=== PATIENT | female | born 1945 | race Caucasian/White ===

== ENCOUNTER → 2016-09-22 | Outpatient (CLI) | payer MEDICARE | LOC: RAD 09:35 | PROVIDERS: ATTEND Specialist | DX: C34.12 Malignant neoplasm of upper lobe, left bronchus or lung (principal) | CPT/HCPCS: 71260 ==

== ENCOUNTER → 2016-10-20 | Outpatient (CLI) | payer MEDICARE ==
--- NOTE | 2016-10-21 08:12 | WOMENS IMAGING REPORT ---
EXAM DESCRIPTION: BILAT SCREENING MAMMO W/CAD COMPLETED DATE/TIME: 10/20/2016 12:27 pm REASON FOR STUDY: ROUTINE BILATERAL SCREENING;Z12.31 Z12.31 ENCNTR SCREEN MAMMOGRAM FOR MALIGNANT N EOPLASM OF [place] COMPARISON: 2012 to 2015 TECHNIQUE: Standard craniocaudal and mediolateral oblique views of each breast recorded using Zigswitcha l acquisition. LIMITATIONS: None. FINDINGS: No masses, calcifications or architectural distortion. No areas of suspicion. Read with the assistance of CAD. .[facility] - R2 Cenova Version 1.3 .[facility] - R2 Cenova Version 1.3 .[facility] - R2 Cenova Version 2.4 .[facility] - R2 Cenova Version 2.4 .[facility] - R2 Permanent Mold Supervisor Version 9.2 IMPRESSION: NORMAL MAMMOGRAM. BIRADS 1. BREAST DENSITY: b. There are scattered areas of fibroglandular density. BIRAD: 1 NEGATIVE RECOMMENDATION: ROUTINE SCREENING COMMENT: The patient has been notified of the results by letter per MQSA requirements. Additional no tification policies are in place for contacting patient with suspicious or incomplete findings. Quality ID #[id number]: The [employer] recommends an annual screening mammogram for women aged 40 years or over. This facility utilizes a reminder system to ensure that all patients receive reminder letters, and/or direct phone calls for appointments. This includes reminders for routine scr eening mammograms, diagnostic mammograms, or other Breast Imaging Interventions when appropriate. Th is patient will be placed in the appropriate reminder system. The [employer] (ACR) has developed recommendations for screening MRI of the breast s in certain patient populations, to be used in conjunction with mammography. Breast MRI surveillanc e may be appropriate for women with more than 20% lifetime risk of developing breast cancer as deter mined by genetic testing, significant family history of the disease, or history of mantle radiation f or Hodgkins Disease. ACR Practice Guidelines 2008. TECHNICAL DOCUMENTATION: FINDING NUMBER: (1) ASSESSMENT: (1) JOB ID: [id number] [employer]- All Rights Reserved
== END ==
LOC: WI 09:57
PROVIDERS: ATTEND Specialist
DX: Z12.31 Encounter for screening mammogram for malignant neoplasm of breast (principal)
CPT/HCPCS: 77067; G0202

== ENCOUNTER 2017-01-18 10:31 | Day surgery (SDC) | payer MEDICARE ==
[~2017-01-18 10:31] MED LIST: PROPOFOL INJ 200 MG/20 ML VIAL IV ONE
[2017-01-18 11:53] VITALS: BP 134/70
--- NOTE | 2017-01-18 13:16 | Operative Report ---
Operative Report DATE OF SURGERY: 01/18/17 Operative Report: The risks, benefits and alternatives of the procedure including risks of bleeding, perforation requiring surgery are explained to the patient detail and informed consent was obtained. Patient was taken back to the endoscopy suite and placed in a left, lateral decubital position. Timeout was called. Propofol medications administered. A rectal examination was done which did not reveal any masses, tears or fissures. An Olympus videoscope was inserted into the patient's rectum. It was carefully advanced all the way to the cecum. The cecum was identified by the usual anatomical landmarks including the ileocecal valve as well as the appendiceal office. Photodocumentation was obtained. The scope was then sequentially pulled back via the various segments of the colon including the ascending colon, hepatic flexure, transverse colon, splenic flexure, descending colon finding to the rectosigmoid portions of the colon. Retroflexion maneuver was performed. PREOPERATIVE DIAGNOSIS: Personal history of polyp requiring colonic resection POSTOPERATIVE DIAGNOSIS: Normal anastomosis. Small colon polyp noted at the junction of the splenic flexure which is removed via biopsy forceps. Internal hemorrhoids OPERATION: Colonoscopy with biopsy SURGEON: ANNY BRODERICK ANESTHESIA: LMAC TISSUE REMOVED OR ALTERED: As noted above. COMPLICATIONS: None. ESTIMATED BLOOD LOSS: None. INTRAOPERATIVE FINDINGS: As described above. PROCEDURE: Patient tolerated the procedure well. No immediate postprocedure complications are noted. Patient discharged in good condition. Discharge date 01/18/2017. Discharge diet: Regular. Discharge activity: Regular. 2-3 week follow-up to discuss findings. Patient is instructed to call the office or proceed to the emergency room should there be any further problems or questions. We will wait on pathology. 3-5 year surveillance colonoscopy depending on the pathology of the polyp.
== END 2017-01-18 11:48 | disposition home or self-care (01) ==
LOC: END 10:31
PROVIDERS: ATTEND Internal Medicine Gastroenterology
PROC: 0DBN8ZX Excision of Sigmoid Colon, Via Natural or Artificial Opening Endoscopic, Diagnostic (ICD-10-PCS; principal; 2017-01-18 12:30)
DX: K63.5 Polyp of colon (principal); D12.5 Benign neoplasm of sigmoid colon; D64.9 Anemia, unspecified; Z90.49 Acquired absence of other specified parts of digestive tract; Z80.0 Family history of malignant neoplasm of digestive organs; I10 Essential (primary) hypertension; M19.90 Unspecified osteoarthritis, unspecified site; F17.210 Nicotine dependence, cigarettes, uncomplicated; Z79.51 Long term (current) use of inhaled steroids; G62.9 Polyneuropathy, unspecified; E55.9 Vitamin D deficiency, unspecified
CPT/HCPCS: 45380; 88305 ×2; J2704; 810

== ENCOUNTER → 2017-03-16 | Outpatient (CLI) | payer MEDICARE | LOC: OD 13:25 | PROVIDERS: ATTEND Internal Medicine | DX: R07.2 Precordial pain (principal); R06.02 Shortness of breath; Z53.8 Procedure and treatment not carried out for other reasons ==

== ENCOUNTER → 2017-03-18 | Outpatient (CLI) | payer MEDICARE ==
[2017-03-18 12:10] LABS: ALANINE AMINOTRANSFERASE 49 U/L (9-52); ALBUMIN 4.1 g/dL (3.5-5.0); ALKALINE PHOSPHATASE 98 U/L (38-126); ANION GAP 10 (5-19); ASPARTATE AMINO TRANSFERASE 31 U/L (14-36); BILIRUBIN,DIRECT 0.3 mg/dL (0.0-0.4); BILIRUBIN,TOTAL 0.5 mg/dL (0.2-1.3); BLOOD UREA NITROGEN 12 mg/dL (7-20); CALCIUM 10.2 mg/dL (8.4-10.2); CARBON DIOXIDE 35 mmol/L (22-30); CHLORIDE 99 mmol/L (98-107); CHOLESTEROL 174.64 mg/dL (0-200); CREATININE RESULT 0.66 mg/dL (0.52-1.25); Direct HDL 49 mg/dL (>40); GLUCOSE 94 mg/dL (75-110); POTASSIUM 4.3 mmol/L (3.6-5.0); SODIUM 144.3 mmol/L (137-145); TOTAL PROTEIN 6.6 g/dL (6.3-8.2); TRIGLYCERIDES 135 mg/dL (<150)
[2017-03-18 12:21] LABS: DIRECT LDL 99 mg/dL (<100)
== END ==
LOC: OD 10:25
PROVIDERS: ATTEND Internal Medicine
DX: J44.9 Chronic obstructive pulmonary disease, unspecified (principal); R07.2 Precordial pain; R06.02 Shortness of breath; R00.2 Palpitations; D50.8 Other iron deficiency anemias; I34.0 Nonrheumatic mitral (valve) insufficiency; Z79.899 Other long term (current) drug therapy
CPT/HCPCS: 36415; 80053; 80061

== ENCOUNTER → 2017-11-01 | Outpatient (CLI) | payer MEDICARE ==
--- NOTE | 2017-11-01 11:51 | RADIOLOGY REPORT (SQ) ---
EXAM DESCRIPTION: CT CHEST WITHOUT COMPLETED DATE/TIME: 11/01/2017 9:57 am REASON FOR STUDY: LUNG CA (C34.12) C34.12 MALIGNANT NEOPLASM OF UPPER LOBE, LEFT BRONCHUS OR [facility] COMPARISON: 09/22/2016 TECHNIQUE: CT scan performed of the chest without intravenous contrast. Images reviewed with lung, soft tissue and bone windows. Reconstructed coronal and sagittal MPR images reviewed. All images st ored on PACS. All CT scanners at this facility use dose modulation, iterative reconstruction, and/or weight based d osing when appropriate to reduce radiation dose to as low as reasonably achievable (ALARA). [facility]: Dose Right [facility]: CareDose [facility]: Dose Right [facility]: Teradose 4D [facility]: Smart Technologies RADIATION DOSE: CT Rad equipment meets quality standard of care and radiation dose reduction techniq ues were employed. CTDIvol: 14.5 mGy. DLP: 549 mGy-cm. mGy. LIMITATIONS: No technical limitations. FINDINGS: LUNGS AND PLEURA: There is a 17 mm suprahilar nodule on image 39 series 4 that represents a change. There is chronic parenchymal scarring in the left upper lobe. Stable small subpleural nod ules are seen in the left lower lobe. HILAR AND MEDIASTINAL STRUCTURES: No identified masses or abnormal nodes. No obvious aneurysm. HEART AND VASCULAR STRUCTURES: No aneurysm. No pericardial effusion. UPPER ABDOMEN: No significant findings. Limited exam. THYROID AND OTHER SOFT TISSUES: No masses. No adenopathy. BONES: No significant finding. HARDWARE: None in the chest. OTHER: No other significant findings. IMPRESSION: There is a 17 mm suprahilar nodule on the left that represents a change. PET-CT is noemi mmended. There is chronic scarring in the left upper lobe and there are couple of very small stable subpleural nodules in the left lower lobe. TECHNICAL DOCUMENTATION: JOB ID: [id number] Quality ID # [id number]: Final reports with documentation of one or more dose reduction techniques (e.g., Au tomated exposure control, adjustment of the mA and/or kV according to patient size, use of iterative reconstruction technique) 2010 [employer]- All Rights Reserved Reading location - IP/workstation name: [email or web address]
== END ==
LOC: RAD 09:48
PROVIDERS: ATTEND Internal Medicine
DX: C34.12 Malignant neoplasm of upper lobe, left bronchus or lung (principal)
CPT/HCPCS: 71250

== ENCOUNTER → 2017-11-14 | Outpatient (CLI) | payer MEDICARE ==
--- NOTE | 2017-11-15 13:04 | RADIOLOGY REPORT (SQ) ---
EXAM DESCRIPTION: PET CT SKULL/THIGH COMPLETED DATE/TIME: 11/14/2017 8:28 pm REASON FOR STUDY: LUNG CANCER C34.12 MALIGNANT NEOPLASM OF UPPER LOBE, LEFT BRONCHUS OR [facility] COMPARISON: CT chest dated 11/01/2017 and 09/22/2016. PET-CT dated 11/25/2014. RADIONUCLIDE AND DOSE: 10.0 mCi F18 FDG The route of agent administration: Intravenous FASTING BLOOD SUGAR: 97th mg/dl CONTRAST TYPE AND DOSE: No CT contrast given. TECHNIQUE: Blood glucose level was verified. Above dose of FDG was injected intravenously. 2-D seg mented attenuation correction images were obtained from the base of the skull to the midthighs. Nonc ontrast CT images were obtained for attenuation correction and fusion with emission images. CT image s were performed without oral or intravenous contrast and are not sensitive for parenchymal lesions. A series of overlapping emission PET images were obtained. Images reviewed and [facility] work [facility] by the radiologist. Images stored on PACS. LIMITATIONS: None. FINDINGS: HEAD AND NECK: No areas of abnormal metabolic activity in the soft tissues of the head and neck. CHEST: Bilateral surgical changes. Spiculated left suprahilar mass measuring 1.7 x 2.2 cm. Mean SUV 12.49. No other areas of abnormal activity in the chest. No adenopathy or other pulmonary masses. ABDOMEN AND PELVIS: No areas of abnormal metabolic activity in the abdomen or pelvis. Expected physi ologic activity is present in the genitourinary system and bowel. PROXIMAL LOWER EXTREMITIES: No areas of abnormal metabolic activity in the soft tissues of the lower extremities. BONES: No abnormal metabolic activity in the visualized skeleton. ADDITIONAL CT FINDINGS: Bilateral renal cysts. Previous right hemicolectomy. OTHER: Background liver activity mean SUV 2.43. Background blood pool activity mean SUV 1.47. IMPRESSION: SPICULATED MASS IN THE SUPRAHILAR LEFT LUNG WITH MARKEDLY INCREASED ACTIVITY CONSISTENT WITH MALIGNANCY. NO OTHER PULMONARY MASSES AND NO ADENOPATHY. NO OTHER ABNORMAL FINDINGS ON PET ELLEN GING. INCIDENTAL STABLE CT FINDINGS ABOVE. TECHNICAL DOCUMENTATION: JOB ID: [id number] [employer]- All Rights Reserved Reading location - IP/workstation name: [email or web address]
== END ==
LOC: RAD 16:42
PROVIDERS: ATTEND Internal Medicine
DX: C34.12 Malignant neoplasm of upper lobe, left bronchus or lung (principal)
CPT/HCPCS: 78815; A9552

== ENCOUNTER → 2017-11-29 | Outpatient (CLI) | payer MEDICARE | LOC: OD 13:58 | PROVIDERS: ATTEND Internal Medicine | DX: R07.2 Precordial pain (principal); R06.02 Shortness of breath; R00.2 Palpitations; J44.9 Chronic obstructive pulmonary disease, unspecified; D50.8 Other iron deficiency anemias; I34.0 Nonrheumatic mitral (valve) insufficiency; Z79.899 Other long term (current) drug therapy | CPT/HCPCS: 36415; 83735 ==

== ENCOUNTER 2017-12-01 21:25 | Emergency (ER) | payer MEDICARE ==
--- NOTE | 2017-12-01 21:51 | EKG REPORT ---
SEVERITY:- NORMAL ECG - SINUS RHYTHM : Confirmed by: Anila Wolff MD 01-Dec-2017 21:50:38
--- NOTE | 2017-12-01 23:03 | ER Document Report ---
ED Medical Screen (RME) - General Chief Complaint: Blood Pressure Problem Stated Complaint: WEAKNESS Time Seen by Provider: 12/01/17 23:00 Mode of Arrival: Ambulatory Information source: Patient Notes: 72-year-old female presents today for complaint of low blood pressure and spitting up blood. She states she went to [place] yesterday for bronchoscopy for biopsy of the tumor on her left lung. She states she has already had part of her right lung removed for lung cancer. She states she has had a wedge part of her lung on the left removed in the past. She states that after the bronchoscopy she started spitting up blood and her blood pressure has been 97/41 and she has felt much weaker today. There is no active blood noted in the emergency room. She is respirations regular and unlabored at this time. O2 sat is 93. Blood pressure 114/58. Labs EKG and chest x-ray will be completed and patient will be seen by another provider I have greeted and performed a rapid initial assessment of this patient. A comprehensive ED assessment and evaluation of the patient, analysis of test results and completion of medical decision making process will be conducted by an additional ED providers. TRAVEL OUTSIDE OF THE [place] IN LAST 30 DAYS: No - Related Data Allergies/Adverse Reactions: adhesive [Adhesive] Allergy (Mild, Verified 01/18/17 10:36) Blisters lisinopril [Lisinopril] Adverse Reaction (Severe, Verified 01/18/17 10:36) cough diphenhydramine [From Benadryl] Adverse Reaction (Mild, Verified 01/18/17 10:36) WEIRD DREAMS ramipril [From Altace] Adverse Reaction (Unknown, Verified 01/18/17 10:36) cough Past Medical History - Past Medical History Cardiac Medical History: Reports: Hx Hypercholesterolemia, Hx Hypertension - meds x 15 yrs Denies: Hx Atrial Fibrillation, Hx Congestive Heart Failure, Hx Coronary Artery Disease, Hx Heart Attack, Hx Peripheral Vascular Disease, Hx Pulmonary Embolism, Hx Heart Murmur Pulmonary Medical History: Reports: Hx COPD, Hx Pneumonia, Hx Sleep Apnea - c pap Denies: Hx Asthma, Hx Bronchitis, Hx Respiratory Failure, Hx Tuberculosis Neurological Medical History: Denies: Hx Cerebrovascular Accident, Hx Seizures Renal/ Medical History: Denies: Hx Ovarian Cysts, Hx Pelvic Inflammatory Disease Malignancy Medical History: Reports: Hx Lung Cancer - rt lobes removed 2005 , upper & mid lungs removed. Denies: Hx Breast Cancer, Hx Cervical Cancer, Hx Leukemia, Hx Ovarian Cancer GI Medical History: Denies: Hx Crohn's Disease, Hx Gastroesophageal Reflux Disease, Hx Hiatal Hernia, Hx Irritable Bowel, Hx Liver Failure, Hx Pancreatitis , Hx Ulcer Musculoskeltal Medical History: Reports Hx Arthritis, Denies Hx Fibromyalgia, Denies Hx Multiple Sclerosis, Denies Hx Muscular Dystrophy Psychiatric Medical History: Reports: Hx Depression - chronic Denies: Hx Bipolar Disorder, Hx Dementia, Hx Post Traumatic Stress Disorder, Hx Schizophrenia Traumatic Medical History: Denies: Hx Fractures Infectious Medical History: Denies: Hx HIV Past Surgical History: Reports: Hx Appendectomy - age 4, Hx Tonsillectomy. Denies: Hx Bowel Surgery, Hx Section, Hx Cholecystectomy, Hx Colostomy , Hx Coronary Artery Bypass Graft, Hx Gastric Bypass Surgery, Hx Herniorrhaphy, Hx Hysterectomy, Hx Mastectomy, Hx Pacemaker, Hx Tubal Ligation - Immunizations Hx Diphtheria, Pertussis, Tetanus Vaccination: No Physical Exam - Vital signs Vitals: Temp Pulse Resp BP Pulse Ox 98.3 F 78 18 114/58 L 93 12/01/17 21:56 12/01/17 21:56 12/01/17 21:56 12/01/17 21:56 12/01/17 21:56 Course - Vital Signs Vital signs: Temp Pulse Resp BP Pulse Ox 98.3 F 78 18 114/58 L 93 12/01/17 21:56 12/01/17 21:56 12/01/17 21:56 12/01/17 21:56 12/01/17 21:56 Doctor's Discharge - Discharge Referrals: LATOSHA CLARK MD [Primary Care Provider] - Follow up as needed
--- NOTE | 2017-12-01 23:52 | ER Document Report ---
ED General - General Chief Complaint: Blood Pressure Problem Stated Complaint: WEAKNESS Time Seen by Provider: 12/01/17 23:00 Mode of Arrival: Ambulatory Information source: Patient, [facility] Records Notes: 72-year-old female with lung cancer, COPD, hyperlipidemia, hypertension, iron deficiency anemia, CHRISSY presents with complaint of weakness, fatigue, low blood pressure and coughing up blood. Patient states she underwent a bronchoscopy yesterday at [facility] with Dr. sethi. She states she was discharged home and was feeling fine until today when she began coughing and had some bright red blood mixed with her sputum. She does state that Dr. sethi informed her that it was possible to have some minimal bleeding after the procedure. Patient also complaining of feeling fatigued and weak. She did undergo general anesthesia yesterday repeat ports poor p.o. intake over the last 2 days. Patient currently states "I feel fine". She states "my was getting nervous that I was coughing up blood". She denies any fever, chills , nausea, vomiting, chest pain, shortness of breath, abdominal pain. Patient does have chronic low back pain which is at her baseline. Patient's fishing reel assembler is Dr. Morocho. Patient's oncologist Dr. Reynolds. PCP Dr. Felix TRAVEL OUTSIDE OF THE [place] IN LAST 30 DAYS: No - HPI Onset: This morning Onset/Duration: Gradual Quality of pain: No pain Severity: None Associated symptoms: None Exacerbated by: Denies Relieved by: Denies Similar symptoms previously: No Recently seen / treated by doctor: Yes - Related Data Allergies/Adverse Reactions: adhesive [Adhesive] Allergy (Mild, Verified 01/18/17 10:36) Blisters lisinopril [Lisinopril] Adverse Reaction (Severe, Verified 01/18/17 10:36) cough diphenhydramine [From Benadryl] Adverse Reaction (Mild, Verified 01/18/17 10:36) WEIRD DREAMS ramipril [From Altace] Adverse Reaction (Unknown, Verified 01/18/17 10:36) cough Past Medical History - General Information source: Patient - Social History Smoking Status: Former Smoker Frequency of alcohol use: None Drug Abuse: None Lives with: Spouse/Significant other Family History: Reviewed & Not Pertinent Patient has suicidal ideation: No Patient has homicidal ideation: No - Past Medical History Cardiac Medical History: Reports: Hx Hypercholesterolemia, Hx Hypertension - meds x 15 yrs Denies: Hx Atrial Fibrillation, Hx Congestive Heart Failure, Hx Coronary Artery Disease, Hx Heart Attack, Hx Peripheral Vascular Disease, Hx Pulmonary Embolism, Hx Heart Murmur Pulmonary Medical History: Reports: Hx COPD, Hx Pneumonia, Hx Sleep Apnea - c pap Denies: Hx Asthma, Hx Bronchitis, Hx Respiratory Failure, Hx Tuberculosis Neurological Medical History: Denies: Hx Cerebrovascular Accident, Hx Seizures Renal/ Medical History: Denies: Hx Ovarian Cysts, Hx Pelvic Inflammatory Disease Malignancy Medical History: Reports: Hx Lung Cancer - rt lobes removed 2005 , upper & mid lungs removed. Denies: Hx Breast Cancer, Hx Cervical Cancer, Hx Leukemia, Hx Ovarian Cancer GI Medical History: Denies: Hx Crohn's Disease, Hx Gastroesophageal Reflux Disease, Hx Hiatal Hernia, Hx Irritable Bowel, Hx Liver Failure, Hx Pancreatitis , Hx Ulcer Musculoskeletal Medical History: Reports Hx Arthritis, Denies Hx Fibromyalgia, Denies Hx Multiple Sclerosis, Denies Hx Muscular Dystrophy Psychiatric Medical History: Reports: Hx Depression - chronic Denies: Hx Bipolar Disorder, Hx Dementia, Hx Post Traumatic Stress Disorder, Hx Schizophrenia Traumatic Medical History: Denies: Hx Fractures Infectious Medical History: Denies: Hx HIV Past Surgical History: Reports: Hx Appendectomy - age 4, Hx Tonsillectomy. Denies: Hx Bowel Surgery, Hx Section, Hx Cholecystectomy, Hx Colostomy , Hx Coronary Artery Bypass Graft, Hx Gastric Bypass Surgery, Hx Herniorrhaphy, Hx Hysterectomy, Hx Mastectomy, Hx Pacemaker, Hx Tubal Ligation - Immunizations Hx Diphtheria, Pertussis, Tetanus Vaccination: No Hx Pneumococcal Vaccination: 01/23/16 Review of Systems - Review of Systems Notes: REVIEW OF SYSTEMS: CONSTITUTIONAL : Denies fever, chills, or sweats. Denies recent illness. Denies weight loss, recent hospitalizations. EENT: Denies visual changes, eye pain. Denies nasal or sinus congestion or discharge. Denies sore throat, oral lesions, difficulty swallowing. CARDIOVASCULAR: Denies chest pain. Denies palpitations. Denies lower extremity edema. RESPIRATORY: Denies cough, cold, or chest congestion. Denies shortness of breath, wheezing. GASTROINTESTINAL: Denies abdominal pain or distention. Denies nausea, vomiting , or diarrhea. Denies blood in vomitus, stools, or per rectum. Denies black, tarry stools. Denies constipation. GENITOURINARY: Denies difficulty urinating, painful urination, frequency, blood in urine, or vaginal discharge. MUSCULOSKELETAL: Denies back or neck pain or stiffness. Denies joint pain or swelling. SKIN: Denies rash, lesions or sores. HEMATOLOGIC : Denies easy bruising or bleeding. LYMPHATIC: Denies swollen glands. NEUROLOGICAL: Denies confusion or altered mental status. Denies passing out or loss of consciousness. Denies dizziness or lightheadedness. Denies headache. Denies paralysis. Denies problems difficulty with ambulation, slurred speech. Denies sensory loss, numbness, or tingling. Denies seizures. PSYCHIATRIC: Denies anxiety or stress. Denies depression, suicidal ideation, or homicidal ideation. Denies visual or auditory hallucinations. Physical Exam - Vital signs Vitals: Temp Pulse Resp BP Pulse Ox 98.3 F 78 18 114/58 L 93 12/01/17 21:56 12/01/17 21:56 12/01/17 21:56 12/01/17 21:56 12/01/17 21:56 - Notes Notes: PHYSICAL EXAMINATION: GENERAL: Well-appearing, well-nourished and in no acute distress. HEAD: Atraumatic, normocephalic. EYES: Pupils equal round and reactive to light, extraocular movements intact, conjunctiva are normal. ENT: Nares patent, oropharynx clear without exudates. Moist mucous membranes. No blood in the oropharynx NECK: Normal range of motion, supple without lymphadenopathy LUNGS: Breath sounds clear to auscultation bilaterally and equal. No wheezes rales or rhonchi. No crepitus HEART: Regular rate and rhythm without murmurs ABDOMEN: Soft, nontender, nondistended abdomen. No guarding, no rebound. No masses appreciated. Female : deferred Musculoskeletal: Normal range of motion, no pitting or edema. No cyanosis. NEUROLOGICAL: Cranial nerves grossly intact. Normal speech, normal gait. Normal sensory, motor exams PSYCH: Normal mood, normal affect. SKIN: Warm, Dry, normal turgor, no rashes or lesions noted. Course - Re-evaluation Re-evalutation: Laboratory 12/02/17 12/02/17 12/02/17 00:27 00:27 00:27 WBC 8.0 RBC 4.56 Hgb 11.5 L Hct 35.8 L MCV 79 L MCH 25.3 L MCHC 32.3 RDW 16.3 H Plt Count 273 Seg Neutrophils % 65.9 Lymphocytes % 23.4 Monocytes % 7.3 Eosinophils % 2.4 Basophils % 1.0 Absolute Neutrophils 5.3 Absolute Lymphocytes 1.9 Absolute Monocytes 0.6 Absolute Eosinophils 0.2 Absolute Basophils 0.1 Sodium 144.6 Potassium 3.5 L Chloride 98 Carbon Dioxide 33 H Anion Gap 14 BUN 10 Creatinine 0.53 Est GFR ( Amer) > 60 Est GFR (Non-Af Amer) > 60 Glucose 95 Calcium 9.4 Total Bilirubin 0.4 Direct Bilirubin 0.4 Neonat Total Bilirubin Not Reportable Neonat Direct Bilirubin Not Reportable Neonat Indirect Bili Not Reportable AST 42 H ALT 25 Alkaline Phosphatase 110 Creatine Kinase 61 CK-MB (CK-2) 0.67 Troponin I < 0.012 Total Protein 7.4 Albumin 4.2 Urine Color Urine Appearance Urine pH Ur Specific [place] Urine Protein Urine Glucose (UA) Urine Ketones Urine Blood Urine Nitrite Urine Bilirubin Urine Urobilinogen Ur Leukocyte Esterase Urine WBC (Auto) Urine RBC (Auto) Squamous Epi Cells Auto Urine Mucus (Auto) Urine Ascorbic Acid 12/02/17 00:27 WBC RBC Hgb Hct MCV MCH MCHC RDW Plt Count Seg Neutrophils % Lymphocytes % Monocytes % Eosinophils % Basophils % Absolute Neutrophils Absolute Lymphocytes Absolute Monocytes Absolute Eosinophils Absolute Basophils Sodium Potassium Chloride Carbon Dioxide Anion Gap BUN Creatinine Est GFR ( Amer) Est GFR (Non-Af Amer) Glucose Calcium Total Bilirubin Direct Bilirubin Neonat Total Bilirubin Neonat Direct Bilirubin Neonat Indirect Bili AST ALT Alkaline Phosphatase Creatine Kinase CK-MB (CK-2) Troponin I Total Protein Albumin Urine Color YELLOW Urine Appearance CLEAR Urine pH 7.0 Ur Specific [place] 1.008 Urine Protein NEGATIVE Urine Glucose (UA) NEGATIVE Urine Ketones NEGATIVE Urine Blood SMALL H Urine Nitrite NEGATIVE Urine Bilirubin NEGATIVE Urine Urobilinogen NEGATIVE Ur Leukocyte Esterase NEGATIVE Urine WBC (Auto) 1 Urine RBC (Auto) 1 Squamous Epi Cells Auto 1 Urine Mucus (Auto) RARE Urine Ascorbic Acid NEGATIVE Chest X-Ray 12/01/17 23:00 IMPRESSION: 1. Mild bilateral perihilar peribronchial interstitial opacities. No pneumothorax or lobar consolidation 72-year-old female with lung cancer, COPD, hyperlipidemia, hypertension, iron deficiency anemia, CHRISSY presents with complaint of weakness, fatigue, low blood pressure and coughing up blood. Patient states she underwent a bronchoscopy yesterday at [facility] with Dr. sethi. She states she was discharged home and was feeling fine until today when she began coughing and had some bright red blood mixed with her sputum. She does state that Dr. sethi informed her that it was possible to have some minimal bleeding after the procedure. Patient also complaining of feeling fatigued and weak. She did undergo general anesthesia yesterday repeat ports poor p.o. intake over the last 2 days. Patient currently states "I feel fine". She states "my was getting nervous that I was coughing up blood". She denies any fever, chills , nausea, vomiting, chest pain, shortness of breath, abdominal pain. Patient does have chronic low back pain which is at her baseline. Patient's fishing reel assembler is Dr. Morocho. Patient's oncologist Dr. Gonzalez. PCP Dr. Felix. Patient was seen by myself upon arrival. Vital signs were reviewed. Patient is afebrile, normotensive and not hypoxic. Patient does not appear toxic or dehydrated. They are in no acute distress. Previous medical records and nursing notes reviewed. Significant findings include a well-appearing female with a normal physical exam. No evidence of crepitus, active bleeding. Patient has had multiple episodes of coughing without blood. Laboratory testing is essentially under control. A 2-year-old female with lung cancer who underwent general anesthesia yesterday and has had 2 days of decreased p.o. intake should feel fatigued. I think her minor bleeding with coughing was to be expected and was discussed with the patient yesterday by the performing physician. 12/02/17 02:00 Patient reevaluated, she is resting comfortably. She has no complaints. She consistently feet states "I do not feel bad I am just tired". Patient reports that she has coughed several times without any bright red blood in her sputum. Patient reassured and discharged home with recommendations to follow up with her fishing reel assembler Dr. Morocho as soon as possible. 12/03/17 07:50 12/03/17 07:50 Patient provided the opportunity to ask questions, and express concerns. Discharge instructions discussed. Patient is agreeable with discharge home. Return indications explained and discussed with the patient who displays understanding. Patient encouraged to return to the emergency department immediately with any concerns. - Vital Signs Vital signs: Temp Pulse Resp BP Pulse Ox 98.3 F 70 14 123/60 93 12/01/17 21:56 12/02/17 01:18 12/02/17 01:01 12/02/17 01:18 12/02/17 01:01 - Laboratory Result Diagrams: 12/02/17 00:27 12/02/17 00:27 Laboratory results interpreted by me: 12/02/17 12/02/17 12/02/17 00:27 00:27 00:27 Hgb 11.5 L Hct 35.8 L MCV 79 L MCH 25.3 L RDW 16.3 H Potassium 3.5 L Carbon Dioxide 33 H AST 42 H Urine Blood SMALL H - Diagnostic Test Radiology reviewed: Image reviewed, Reports reviewed Discharge - Discharge Clinical Impression: Cough with hemoptysis, History of lung cancer Condition: Good Disposition: HOME, SELF-CARE Instructions: Hemoptysis ([facility]) Additional Instructions: Please contact her fishing reel assembler Dr. Morocho tomorrow. Today your lab work was unremarkable. Your hemoglobin is 11.5 which is better than it has been in the past. You have mildly low potassium but I do not feel that it needs replenished at this time. Please eat normally tomorrow. Please return to the emergency department with any concerns, recurrence of coughing up blood. Referrals: LATOSHA CLARK MD [ACTIVE STAFF] - Follow up as needed
[2017-12-02 00:43] LABS: ABSOLUTE BASOPHILS # (AUTO) 0.1 10^3/uL (0.0-0.2); ABSOLUTE EOSINOPHILS # (AUTO) 0.2 10^3/uL (0.0-0.6); ABSOLUTE LYMPHOCYTES (AUTO) 1.9 10^3/uL (0.5-4.7); ABSOLUTE MONOCYTES (AUTO) 0.6 10^3/uL (0.1-1.4); ABSOLUTE NEUT (AUTO) 5.3 10^3/uL (1.7-8.2); EOSINOPHILS % (AUTO) 2.4 % (0-6); HEMATOCRIT 35.8 % (36.0-47.0); HEMOGLOBIN 11.5 g/dL (12.0-15.5); LYMPHOCYTES % (AUTO) 23.4 % (13-45); MEAN CORPUSCULAR HEMOGLOBIN 25.3 pg (27.0-33.4); MEAN CORPUSCULAR HGB CONC 32.3 g/dL (32.0-36.0); MEAN CORPUSCULAR VOLUME 79 fl (80-97); MONOCYTES % (AUTO) 7.3 % (3-13); PLATELET COUNT 273 10^3/uL (150-450); RED BLOOD COUNT 4.56 10^6/uL (3.72-5.28); RED CELL DISTRIBUTION WIDTH 16.3 % (11.5-14.0); SEGMENTED NEUTROPHILS % (AUTO) 65.9 % (42-78); TOTAL CELLS COUNTED % (AUTO) 100 %
[2017-12-02 01:07] LABS: ALANINE AMINOTRANSFERASE 25 U/L (9-52); ALBUMIN 4.2 g/dL (3.5-5.0); ALKALINE PHOSPHATASE 110 U/L (38-126); ANION GAP 14 (5-19); ASPARTATE AMINO TRANSFERASE 42 U/L (14-36); BILIRUBIN,DIRECT 0.4 mg/dL (0.0-0.4); BILIRUBIN,TOTAL 0.4 mg/dL (0.2-1.3); BLOOD UREA NITROGEN 10 mg/dL (7-20); CALCIUM 9.4 mg/dL (8.4-10.2); CARBON DIOXIDE 33 mmol/L (22-30); CHLORIDE 98 mmol/L (98-107); CREATINE KINASE 61 U/L (30-135); GLUCOSE 95 mg/dL (75-110); POTASSIUM 3.5 mmol/L (3.6-5.0); SODIUM 144.6 mmol/L (137-145); TOTAL PROTEIN 7.4 g/dL (6.3-8.2)
--- NOTE | 2017-12-02 01:11 | RADIOLOGY REPORT (SQ) ---
EXAM DESCRIPTION: XR CHEST 2 VIEWS COMPLETED DATE/TME: 12/01/2017 23:00 CLINICAL HISTORY: bronchoscopy yesterday spitting blood L bp COMPARISON: 12/09/2012 FINDINGS: Frontal and lateral views of the chest. Atherosclerotic calcification aortic arch. Postoperative change in the left upper lung. No pneumothorax or pleural effusion. Mild bilateral perihilar interstitial opacities. No lobar consolidation. No acute osseous abnormalities. Upper abdominal soft tissues are unremarkable. IMPRESSION: 1. Mild bilateral perihilar peribronchial interstitial opacities. No pneumothorax or lobar consolidation
[2017-12-02 01:15] LABS: APPEARANCE,URINE CLEAR; BILIRUBIN,URINE NEGATIVE (NEGATIVE); COLOR,URINE YELLOW; CREATINE KINASE MB 0.67 ng/mL (<4.55); GLUCOSE, URINE NEGATIVE (NEGATIVE); KETONES,URINE NEGATIVE (NEGATIVE); LEUKOCYTE ESTERASE,URINE NEGATIVE (NEGATIVE); NITRITE,URINE NEGATIVE (NEGATIVE); PROTEIN,URINE NEGATIVE (NEGATIVE); URINE SPECIFIC GRAVITY 1.008; UROBILINOGEN,URINE NEGATIVE mg/dL (<2.0)
[2017-12-02 01:16] LABS: TROPONIN I < 0.012 ng/mL
[2017-12-02 01:24] VITALS: BP 123/60
== END 2017-12-02 02:30 | disposition home or self-care (01) ==
LOC: ER 21:25
DX: R04.2 Hemoptysis (principal); R53.1 Weakness; J44.9 Chronic obstructive pulmonary disease, unspecified; I10 Essential (primary) hypertension; E78.00 Pure hypercholesterolemia, unspecified; Z85.118 Personal history of other malignant neoplasm of bronchus and lung; Z90.2 Acquired absence of lung [part of]
CPT/HCPCS: 36415; 71046; 80053; 81001; 82550; 82553; 84484; 85025; 93005; 93010; 99284

== ENCOUNTER → 2018-03-21 | Outpatient (CLI) | payer MEDICARE ==
[2018-03-21 11:16] LABS: ARTERIAL BLOOD H2CO3 1.33 mmol/L (1.05-1.35); ARTERIAL BLOOD HCO3 29.7 mmol/L (20-24); ARTERIAL BLOOD O2 SATURATION 97.1 % (94-98); ARTERIAL BLOOD PCO2 44.3 mmHg (35-45); ARTERIAL BLOOD PH 7.44 (7.35-7.45); ARTERIAL BLOOD PO2 89.9 mmHg (80-100)
[2018-03-21 11:21] LABS: ARTERIAL BLOOD FIO2 ROOM AIR
[2018-03-24 12:50] LABS: ANION GAP 10 (5-19); BLOOD UREA NITROGEN 8 mg/dL (7-20); CALCIUM 9.7 mg/dL (8.4-10.2); CARBON DIOXIDE 33 mmol/L (22-30); CHLORIDE 101 mmol/L (98-107); GLUCOSE 90 mg/dL (75-110); POTASSIUM 4.3 mmol/L (3.6-5.0); SODIUM 143.7 mmol/L (137-145)
== END ==
LOC: LAB 10:55
PROVIDERS: ATTEND Physician Assistant
DX: J44.9 Chronic obstructive pulmonary disease, unspecified (principal)
CPT/HCPCS: 36415; 80048; 82803; 83735; 83930

== ENCOUNTER → 2018-05-15 | Outpatient (CLI) | payer MEDICARE ==
--- NOTE | 2018-05-16 08:53 | RADIOLOGY REPORT (SQ) ---
EXAM DESCRIPTION: PET CT SKULL/THIGH COMPLETED DATE/TIME: 05/15/2018 4:57 pm REASON FOR STUDY: LUNG CANCER C34.12 MALIGNANT NEOPLASM OF UPPER LOBE, LEFT BRONCHUS OR [facility] COMPARISON: PET-CT 11/14/2017, 12/05/2014 CT chest 11/01/2017, 09/22/2016 RADIONUCLIDE AND DOSE: 11.8 mCi F18 FDG The route of agent administration: Intravenous FASTING BLOOD SUGAR: 95 mg/dl CONTRAST TYPE AND DOSE: No CT contrast given. TECHNIQUE: Blood glucose level was verified. Above dose of FDG was injected intravenously. 2-D seg mented attenuation correction images were obtained from the base of the skull to the midthighs. Nonc ontrast CT images were obtained for attenuation correction and fusion with emission images. CT image s were performed without oral or intravenous contrast and are not sensitive for parenchymal lesions. A series of overlapping emission PET images were obtained. Images reviewed and manipulated at [facility] work station by the radiologist. Images stored on PACS. LIMITATIONS: None. FINDINGS: HEAD AND NECK: No areas of abnormal metabolic activity in the soft tissues of the head and neck. CHEST: Post treatment response after CyberKnife to the left upper lobe nodule adjacent to fiducials a nd left upper lobe staple line. Currently the nodule is 1.7 cm in greatest diameter with SUV of 3 (w as 2.2 cm greatest diameter with SUV 12.5 on 11/14/2017). In the left upper lobe adjacent to the fiducials, a bandlike area of ground-glass opacity is present on axial images 69-74 with SUV value of 1.5, likely post radiation change. Interval development of an 8 mm nodule in the superior segment left lower lobe on axial image 81, wit h SUV of 1.2. This is below baseline activity but still requires periodic CT surveillance. ABDOMEN AND PELVIS: No areas of abnormal metabolic activity in the abdomen or pelvis. Expected physi ologic activity is present in the genitourinary system and bowel. PROXIMAL LOWER EXTREMITIES: No areas of abnormal metabolic activity in the soft tissues of the lower extremities. BONES: No abnormal metabolic activity in the visualized skeleton. ADDITIONAL CT FINDINGS: Old right hemicolectomy. Hiatal hernia. Degenerative disc changes in the sp ine. Bilateral renal cortical cysts. [facility] old right upper lobectomy and partial wedge resec tion left upper lobe. OTHER: Liver background activity 2.7 SUV. Blood pool background activity 1.7 SUV IMPRESSION: Post treatment response after CyberKnife to left upper lobe nodule, now 1.7 cm in diamet er. Interval development of an 8 mm nodule superior segment left lower lobe. Periodic CT surveillance r ecommended COMMENT: FLEISCHNER CRITERIA FOR FOLLOW-UP OF PULMONARY NODULES Incidentally detected new nodules in persons 35 or older. HIGH RISK: History of smoking or other known risk factors. 6-8mm single solid nodule: LOW RISK: CT 6-12 mo; then consider CT 18-24 mo. HIGH RISK: CT 6-12 mo; th en CT 18-24 mo. TECHNICAL DOCUMENTATION: JOB ID: [id number] [employer]- All Rights Reserved Reading location - IP/workstation name: [email or web address]
== END ==
LOC: RAD 14:40
PROVIDERS: ATTEND Internal Medicine
DX: C34.12 Malignant neoplasm of upper lobe, left bronchus or lung (principal)
CPT/HCPCS: 78815; A9552

== ENCOUNTER 2018-06-22 07:27 | Day surgery (SDC) | payer MEDICARE ==
[2018-06-22] MEDS ORDERED: ONDANSETRON HCL INJ/PF 4 MG/2 ML SDV ONE (07:30)
[2018-06-22] MEDS ORDERED: DIPHENHYDRAMINE HCL 50 MG/ML VIAL ONE (07:30)
[2018-06-22] MEDS ORDERED: EPINEPHRINE INJ 1 MG/10 ML DISP.SYRIN ONE (07:31)
[2018-06-22] MEDS ORDERED: NALOXONE HCL INJ/PF 0.4 MG/1 ML SDV ONE (07:31)
[2018-06-22] MEDS ORDERED: GLUCAGON,HUMAN RECOMB 1 MG INJ ONE (07:31)
[2018-06-22] MEDS ORDERED: FLUMAZENIL INJ 0.5 MG/5 ML VIAL ONE (07:31)
[2018-06-22] MEDS: MIDAZOLAM 2 MG/2 ML INJ ONE ×2 (08:54→08:58)
[2018-06-22] MEDS: FENTANYL CITRATE INJ/PF 100 MCG/2 ML AMPUL ONE ×3 (08:56→09:03)
--- NOTE | 2018-06-22 09:13 | Operative Report ---
Operative Report DATE OF SURGERY: 06/22/18 Operative Report: The risks benefits and alternatives of the procedure explained to the patient in detail and informed consent is obtained.A GIF Olympus video scope was inserted into the patient's mouth and hypopharynx, the esophagus is identified intubated and insufflated, the scope was then advanced through the esophagus stomach and duodenum, retroflexion maneuver is done, the esophagus stomach and first and second portions of the duodenum examined. PREOPERATIVE DIAGNOSIS: Chronic iron deficiency anemia,. 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 Nodular gastritis status post biopsy rule out Helicobacter pylori OPERATION: EGD with ablation. EGD with biopsy SURGEON: ANNY BRODERICK ANESTHESIA: Moderate Sedation - 4 mg of Versed, 100 mcg of fentanyl. Conscious sedation monitoring time 30 minutes. TISSUE REMOVED OR ALTERED: As noted above. COMPLICATIONS: None. ESTIMATED BLOOD LOSS: None. INTRAOPERATIVE FINDINGS: As noted above. PROCEDURE: Patient tolerated procedure well. No immediate postprocedure complications are noted. Patient discharged in good condition. Discharge date 06/22/2018. Discharge diet: Regular. Discharge activity: Regular. 2-3-week follow-up to discuss findings. Patient is instructed to call the office or proceed to the emergency room should there be any further problems or questions. I will wait on the pathology.
[2018-06-22 10:16] VITALS: BP 119/69
== END 2018-06-22 10:18 | disposition home or self-care (01) ==
LOC: END 07:27
PROVIDERS: ATTEND Internal Medicine Gastroenterology
DX: D50.0 Iron deficiency anemia secondary to blood loss (chronic) (principal); K29.50 Unspecified chronic gastritis without bleeding; E78.5 Hyperlipidemia, unspecified; I10 Essential (primary) hypertension; E66.9 Obesity, unspecified; Z68.30 Body mass index [BMI] 30.0-30.9, adult; E55.9 Vitamin D deficiency, unspecified; G62.9 Polyneuropathy, unspecified; Z85.118 Personal history of other malignant neoplasm of bronchus and lung; Z79.82 Long term (current) use of aspirin; Z79.899 Other long term (current) drug therapy; Z88.8 Allergy status to other drugs, medicaments and biological substances
CPT/HCPCS: 43270; 43239; 88305 ×2; J2250; J3010; J0171; J1200; J1610; J2310; J2405; J3490

== ENCOUNTER → 2018-08-28 | Outpatient (CLI) | payer MEDICARE ==
--- NOTE | 2018-08-29 08:41 | RADIOLOGY REPORT (SQ) ---
EXAM DESCRIPTION: PET CT SKULL/THIGH COMPLETED DATE/TIME: 08/28/2018 9:21 pm REASON FOR STUDY: C34.12 MALIGNANT NEOPLASM OF UPPER LOBE, LEFT BRONCHUS OR LUNG C34.12 MALIGNANT N EOPLASM OF UPPER LOBE, LEFT BRONCHUS OR [facility] COMPARISON: PET-CT 05/15/2018, 11/14/2017 CT chest 11/01/2017 RADIONUCLIDE AND DOSE: 12.4 mCi F18 FDG The route of agent administration: Intravenous FASTING BLOOD SUGAR: 95 mg/dl CONTRAST TYPE AND DOSE: No CT contrast given. TECHNIQUE: Blood glucose level was verified. Above dose of FDG was injected intravenously. 2-D seg mented attenuation correction images were obtained from the base of the skull to the midthighs. Nonc ontrast CT images were obtained for attenuation correction and fusion with emission images. CT image s were performed without oral or intravenous contrast and are not sensitive for parenchymal lesions. A series of overlapping emission PET images were obtained. Images reviewed and manipulated at [facility] work station by the radiologist. Images stored on PACS. LIMITATIONS: None. FINDINGS: HEAD AND NECK: No areas of abnormal metabolic activity in the soft tissues of the head and neck. CHEST: 13 mm left upper lobe nodule is present on axial image 68/255 with SUV of 1.9 (was 1.7 cm diam eter with SUV 3 on 05/15/2018, was 2.2 cm in size with SUV 12.5 on 11/14/2017). In the superior segment left lower lobe, a 2 cm nodule is present with SUV of 6.7 suspicious for kay gnancy (was 8 mm in diameter with SUV 1.2 on 05/15/2018). Old post therapeutic non metabolic scar tissue at the left upper lobe. Old left apical wedge resecti on scar. Old right upper and middle lobectomy. No worrisome metabolically active nodules on the rig ht side No mediastinal adenopathy. ABDOMEN AND PELVIS: No areas of abnormal metabolic activity in the abdomen or pelvis. Expected physi ologic activity is present in the genitourinary system and bowel. PROXIMAL LOWER EXTREMITIES: No areas of abnormal metabolic activity in the soft tissues of the lower extremities. BONES: No abnormal metabolic activity in the visualized skeleton. ADDITIONAL CT FINDINGS: Old right hemicolectomy, hiatal hernia, diffuse degenerative disc changes, bi lateral renal cortical cysts. OTHER: Liver background activity 2.4 SUV. Blood pool background activity 1.7 SUV IMPRESSION: Primary nodule in the left upper lobe treated with gamma knife now smaller than on both prior PET-CT exams. Increasing size of hypermetabolic lung nodule superior segment left lower lobe, now 2 cm in size TECHNICAL DOCUMENTATION: JOB ID: [id number] [employer]- All Rights Reserved Reading location - IP/workstation name: [email or web address]
== END ==
LOC: RAD 19:49
PROVIDERS: ATTEND Internal Medicine
DX: C34.12 Malignant neoplasm of upper lobe, left bronchus or lung (principal)
CPT/HCPCS: 78815; A9552

== ENCOUNTER → 2018-09-15 | Outpatient (CLI) | payer MEDICARE ==
--- NOTE | 2018-09-15 12:16 | WOMENS IMAGING REPORT ---
EXAM DESCRIPTION: BILAT SCREENING MAMMO W/CAD COMPLETED DATE/TIME: 09/15/2018 11:19 am REASON FOR STUDY: Z12.31 ROUTINE BILATERAL SCREENING Z12.31 ENCNTR SCREEN MAMMOGRAM FOR MALIGNANT N EOPLASM OF [place] COMPARISON: Multiple since 2012 TECHNIQUE: Standard craniocaudal and mediolateral oblique views of each breast recorded using [employer] l acquisition. LIMITATIONS: None. FINDINGS: No masses, calcifications or architectural distortion. No areas of suspicion. Read with the assistance of CAD. IMPRESSION: NORMAL MAMMOGRAM. BIRADS 1. BREAST DENSITY: a. The breasts are almost entirely fatty. BIRAD: 1 NEGATIVE RECOMMENDATION: ROUTINE SCREENING COMMENT: The patient has been notified of the results by letter per SA requirements. Additional no tification policies are in place for contacting patient with suspicious or incomplete findings. Quality ID #[id number]: The [employer] recommends an annual screening mammogram for women aged 40 years or over. This facility utilizes a reminder system to ensure that all patients receive reminder letters, and/or direct phone calls for appointments. This includes reminders for routine scr eening mammograms, diagnostic mammograms, or other Breast Imaging Interventions when appropriate. Th is patient will be placed in the appropriate reminder system. TECHNICAL DOCUMENTATION: FINDING NUMBER: (1) ASSESSMENT: (1) JOB ID: [id number] [employer] - [employer]- All Rights Reserved Reading location - IP/workstation name: [email or web address]
== END ==
LOC: WI 10:59
PROVIDERS: ATTEND Nurse Practitioner Family
DX: Z12.31 Encounter for screening mammogram for malignant neoplasm of breast (principal)
CPT/HCPCS: 77067

== ENCOUNTER → 2018-10-19 | Outpatient (CLI) | payer MEDICARE ==
[~2018-10-19] MED LIST changes: +LEVALBUTEROL HCL NEB 1.25 MG/3 ML AMPUL NEB ONE; -PROPOFOL INJ 200 MG/20 ML VIAL IV ONE; +REGADENOSON INJ 0.4 MG/5 ML DISP.SYRIN IV ONE
--- NOTE | 2018-10-19 21:06 | DRAGON STRESS TEST REPORT ---
Intravenous Lexiscan Cardiolite stress test using single photon emmision computerized tomography. Date of procedure: 10/19/2018. Ordering Provider: Dr. Anila Wolff. Patient's status: Out Patient. Indication: Chest pain. Coronary risk factors: Age, hypertension, dyslipidemia, and recently quit smoking a few days ago. [And she is still considered to be a smoker.]. The patient prior to the stress test had wheezing on auscultation. The patient was given a Xopenex nebulizer respiratory treatment, and the patient's wheezing resolved, and the patient underwent uneventful stress testing. Resting EKG: Sinus Rhythm. Within Normal Limits. Stress EKG: No changes of ischemia. The patient no chest pain or discomfort, and there is no further wheezing with the injection of Lexiscan. There is no arrhythmia seen Reason for termination: Protocol. Conclusions: Normal EKG and hemodynamic response to IV Lexiscan. Nuclear data: At rest the patient was given 14.88 millicuries of technetium 99m sestamibi injected intravenously. As per protocol rest non gated SPECT images were obtained. Subsequently the patient was given intravenous Lexiscan at a dose of 0.4 mg in 5 mL intravenously, followed by flush with normal saline. Subsequently the stress dose of 42.6 millicuries of technetium 99m sestamibi was injected intravenously. As per protocol stress gated images were obtained. Nuclear interpretation: Review of images showed that there is breast attenuation artifact of a mild degree involving the anterior wall. Due to this there is a small area of soft tissue attenuation artifact which is mild in the apical anterior wall in both rest and stress images, representing soft tissue attenuation artifact due to breast involvement. This area had normal motion contraction and thickening by gated study. The rest of the segments of the myocardium had normal perfusion at rest, and normal perfusion post stress with IV Lexiscan. All segments of the myocardium had normal motion, contraction, and thickening by gated study. T. I D. ratio was normal at 0.98. There is no transient ischemic dilatation of the left ventricle. Computer read rest, and stress left ventricular ejection fraction were 70 %, and 64 %, respectively. Conclusion: 1. There is no scintigraphic evidence of Lexiscan induced myocardial ischemia. 2. There is no scintigraphic evidence of myocardial infarction/scar. 3 there is a small area of mild breast tissue attenuation artifact of the apical anterior wall. Recommendations: Aggressive risk factor modification, and treating the underlying co- morbidities. MTDD
== END ==
LOC: RAD 08:12
PROVIDERS: ATTEND Specialist
DX: R07.9 Chest pain, unspecified (principal); I10 Essential (primary) hypertension; E78.5 Hyperlipidemia, unspecified; F17.210 Nicotine dependence, cigarettes, uncomplicated
CPT/HCPCS: 93017; 78452; 94640; A9500; J2785; J3490; Q9969

== ENCOUNTER → 2018-12-18 | Outpatient (CLI) | payer MEDICARE ==
--- NOTE | 2018-12-19 11:07 | RADIOLOGY REPORT (SQ) ---
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 RADIONUCLIDE AND DOSE: 10 mCi F18 FDG The route of agent administration: Intravenous FASTING BLOOD SUGAR: 140 mg/dl CONTRAST TYPE AND DOSE: No CT contrast given. TECHNIQUE: Blood glucose level was verified. Above dose of FDG was injected intravenously. 2-D seg mented attenuation correction images were obtained from the base of the skull to the midthighs. Nonc ontrast CT images were obtained for attenuation correction and fusion with emission images. CT image s were performed without oral or intravenous contrast and are not sensitive for parenchymal lesions. A series of overlapping emission PET images were obtained. Images reviewed and manipulated at [facility] work station by the radiologist. Images stored on PACS. LIMITATIONS: None. FINDINGS: HEAD AND NECK: No areas of abnormal metabolic activity in the soft tissues of the head and neck. CHEST: Stable surgical changes and treatment changes. Residual nodule in the left upper lobe with me an SUV 2.13, prior value 1.9. The mass in the superior segment of the left lower lobe has increased in size and currently measures 1.9 x 2.5 cm with prior measurement 2 cm. Mean SUV 10.23 with prior v alue 6.7. ABDOMEN AND PELVIS: No areas of abnormal metabolic activity in the abdomen or pelvis. Expected physi ologic activity is present in the genitourinary system and bowel. PROXIMAL LOWER EXTREMITIES: No areas of abnormal metabolic activity in the soft tissues of the lower extremities. BONES: No abnormal metabolic activity in the visualized skeleton. ADDITIONAL CT FINDINGS: Bilateral renal cysts. No additional significant findings on the noncontrast CT images. OTHER: Background blood pool activity mean SUV 1.2. Background liver activity mean SUV 2.86. No oth er significant findings. IMPRESSION: 1. INCREASE IN SIZE OF THE MASS IN THE SUPERIOR SEGMENT LEFT LOWER LOBE WITH INCREASED ACTIVITY, CONS ISTENT WITH PROGRESSION OF DISEASE. 2. STABLE SURGICAL CHANGES AND TREATMENT CHANGES IN THE CHEST. THE RESIDUAL LEFT UPPER LOBE NODULE A PPEARS FAIRLY STABLE. MEAN SUV VALUE HAS INCREASED SLIGHTLY BUT THIS MAY NOT BE STATISTICALLY SIGNIF ICANT. 3. NO EVIDENCE OF ABNORMAL ACTIVITY ELSEWHERE. NO OTHER SIGNIFICANT FINDINGS OTHER THAN INCIDENTAL R ENAL CYSTS. TECHNICAL DOCUMENTATION: JOB ID: [id number] [employer]- All Rights Reserved Reading location - IP/workstation name: [email or web address]
== END ==
LOC: RAD 16:40
PROVIDERS: ATTEND Internal Medicine Hematology & Oncology
DX: C34.12 Malignant neoplasm of upper lobe, left bronchus or lung (principal)
CPT/HCPCS: 78815; A9552

== ENCOUNTER → 2019-04-05 | Outpatient (CLI) | payer MEDICARE ==
--- NOTE | 2019-04-05 10:10 | RADIOLOGY REPORT (SQ) ---
EXAM DESCRIPTION: CT CHEST WITH; CT ABD/PELVIS WITH IV ONLY COMPLETED DATE/TIME: 04/05/2019 9:18 am REASON FOR STUDY: LUNG CA (C34.12) C34.12 MALIGNANT NEOPLASM OF UPPER LOBE, LEFT BRONCHUS OR [facility] CONTRAST TYPE AND DOSE: contrast/concentration: Isovue 350.00 mg/ml; Total Contrast Delivered: 100.0 ml; Total Saline Delivered: 72.0 ml RENAL FUNCTION: Creatinine 0.7 COMPARISON: PET-CT dated 12/18/2018, CT chest dated 11/01/2017 TECHNIQUE: CT scan of the chest performed using helical scanning technique with dynamic intravenous contrast injection. Images reviewed with lung, soft tissue and bone windows. Reconstructed coronal a nd sagittal MPR images reviewed. All images stored on PACS. All CT scanners at this facility use dose modulation, iterative reconstruction, and/or weight based d osing when appropriate to reduce radiation dose to as low as reasonably achievable (ALARA). [facility]: Dose Right [facility]: CareDose [facility]: Dose Right [facility]: Teradose 4D [facility]: [employer] RADIATION DOSE: CT Rad equipment meets quality standard of care and radiation dose reduction techniq ues were employed. CTDIvol: 11.3 - 20.1 mGy. DLP: 2836 mGy-cm. . LIMITATIONS: None. FINDINGS: AXILLAE: No adenopathy. CHEST WALL: No masses. No subcutaneous air. LUNGS: Numerous bilateral pulmonary nodules new from recent chest CT. In the right upper lobe best d emonstrated on series 6, image 43 there is an 11.7 mm nodule. There is some pleural thickening and p robable scarring in the right lung base. On the left there are numerous pulmonary nodules as well as probable scarring in the left apex. Nodules ranges rise from 7.6 mm up to 1.6 cm. These have incre ased in size and number when compared to prior head evaluation. PLEURA: No effusions. No calcifications. THYROID: No masses or significant asymmetry. HILAR AND MEDIASTINAL STRUCTURES: No identified masses or abnormal nodes. AORTA AND GREAT VESSELS: No aneurysm. No dissection. PULMONARY ARTERIES: No identified pulmonary emboli. Study not optimized for the pulmonary arteries. HEART: No pericardial effusion. HARDWARE AND LIFELINES: None. BONES: No significant finding. OTHER: No other significant finding. IMPRESSION: Numerous left-sided pulmonary nodules which have increased in size and number when melony red to previous examination. There is a new nodule in the right upper lobe measured at 11.7 mm as we ll. COMPARISON: None. RADIATION DOSE: CT Rad equipment meets quality standard of care and radiation dose reduction techniq ues were employed. CTDIvol: 11.3 - 20.1 mGy. DLP: 2836 mGy-cm. mGy. TECHNIQUE: CT scan of the abdomen and pelvis performed with intravenous and oral contrast using serene timbo scanning technique with dynamic intravenous contrast injection. Images reviewed with lung, soft tissue and bone windows. Reconstructed coronal and sagittal MPR images reviewed. Delayed images for evaluation of the urinary system also acquired and evaluated. All images stored on PACS. All CT scanners at this facility use dose modulation, iterative reconstruction, and/or weight based d osing when appropriate to reduce radiation dose to as low as reasonably achievable (ALARA). [facility]: Dose Right [facility]: SureCare [facility]: Dose Right [facility]: Teradose 4D [facility]: [employer] FINDINGS: LIVER: Normal size. No masses. No dilated ducts. SPLEEN: Normal size. No focal lesions. PANCREAS: No masses. No significant calcifications. No adjacent inflammation or peripancreatic flui d collections. Pancreatic duct not dilated. GALLBLADDER: No identified stones by CT criteria. No inflammatory changes to suggest cholecystitis. ADRENAL GLANDS: No significant masses or asymmetry. RIGHT KIDNEY AND URETER: Several cysts. No solid masses. No significant calcifications. No hydro nephrosis or hydroureter. LEFT KIDNEY AND URETER: Several left renal cysts are noted. No solid masses. No significant calcif ications. No hydronephrosis or hydroureter. AORTA AND VESSELS: No aneurysm. No dissection. Renal arteries, SMA, celiac without stenosis. There i s a left retroaortic renal vein. RETROPERITONEUM: No retroperitoneal adenopathy, hemorrhage or masses. LARGE AND SMALL BOWEL: No dilatation. No masses. No wall thickening. APPENDIX: Surgically absent. ABDOMINAL WALL: No hernia or masses. PERITONEAL CAVITY: No free air. No free fluid. No peritoneal implants or masses. PELVIS: No mass or free fluid. Normal bladder. BONES: No significant or acute findings. OTHER: No other significant finding. IMPRESSION: No evidence of metastatic disease in the abdomen or pelvis. TECHNICAL DOCUMENTATION: JOB ID: [id number] Quality ID # 436: Final reports with documentation of one or more dose reduction techniques (e.g., Au tomated exposure control, adjustment of the mA and/or kV according to patient size, use of iterative reconstruction technique) 2010 [employer]- All Rights Reserved Reading location - IP/workstation name: [email or web address]
== END ==
LOC: RAD 08:23
PROVIDERS: ATTEND Internal Medicine
DX: C34.12 Malignant neoplasm of upper lobe, left bronchus or lung (principal); Q61.02 Congenital multiple renal cysts
CPT/HCPCS: 71260; 74177; 82565

== ENCOUNTER → 2019-07-18 | Outpatient (CLI) | payer MEDICARE ==
--- NOTE | 2019-07-18 15:20 | RADIOLOGY REPORT (SQ) ---
EXAM DESCRIPTION: MRI HEAD COMBO COMPLETED DATE/TIME: 07/18/2019 2:16 pm REASON FOR STUDY: C34.12 MALIGNANT NEOPLASM OF UPPER LOBE, LEFT BRONCHUS OR LUNG C34.12 MALIGNANT N EOPLASM OF UPPER LOBE, LEFT BRONCHUS OR [facility] R42 DIZZINESS AND GIDDINESS COMPARISON: CT dated 01/16/2014. TECHNIQUE: Multiplanar imaging includes noncontrasted T1, T2, FLAIR, and Diffusion with ADC map seq uences. Contrast enhanced T1 images. Images stored on PACS. CONTRAST TYPE AND DOSE: 15 mL Dotarem. RENAL FUNCTION: Not indicated. ACR Type II contrast agent associated with few, if any, unconfounded cases of NSF LIMITATIONS: None. FINDINGS: ANATOMY: No anomalies. Normal vascular flow voids. Pituitary fossa normal. CSF SPACES: Normal size and contour. No hemorrhage. CEREBRUM: A few high-signal intensity lesions scattered throughout the white matter on FLAIR imaging with distribution suggesting chronic microvascular ischemic change. Sulci and gyri normal in size and contour. No evidence of hemorrhage, mass or extraaxial fluid collection. No enhancing lesions. POSTERIOR FOSSA: No signal alteration. No hemorrhage. No edema, masses or mass effect. Internal audit ory canals, cerebello-pontine angles, mastoids normal. DIFFUSION: Negative for acute or subacute infarction. ORBITS: No masses. Globes normal. PARANASAL SINUSES: No fluid levels. Mucosa normal. OTHER: No other significant finding. IMPRESSION: NO ENHANCING LESIONS. MINIMAL MICROVASCULAR ISCHEMIC CHANGE. OTHERWISE NORMAL STUDY. EVIDENCE OF ACUTE STROKE: NO. TECHNICAL DOCUMENTATION: JOB ID: [id number] 2010 [employer]- All Rights Reserved Reading location - IP/workstation name: [email or web address]
--- NOTE | 2019-07-18 18:24 | RADIOLOGY REPORT (SQ) ---
EXAM DESCRIPTION: CT CHEST WITH COMPLETED DATE/TIME: 07/18/2019 1:59 pm REASON FOR STUDY: C34.12 MALIGNANT NEOPLASM OF UPPER LOBE, LEFT BRONCHUS OR LUNG C34.12 MALIGNANT N EOPLASM OF UPPER LOBE, LEFT BRONCHUS OR [facility] R42 DIZZINESS AND GIDDINESS COMPARISON: 04/05/2019 TECHNIQUE: CT scan of the chest performed using helical scanning technique with dynamic intravenous contrast injection. Images reviewed with lung, soft tissue and bone windows. Reconstructed coronal and sagittal MPR and MIP images reviewed. All images stored on PACS. All CT scanners at this facility use dose modulation, iterative reconstruction, and/or weight based d osing when appropriate to reduce radiation dose to as low as reasonably achievable (ALARA). [facility]: Dose Right [facility]: CareDose [facility]: Dose Right [facility]: Teradose 4D [facility]: [employer] CONTRAST TYPE AND DOSE: 100 mL Omnipaque 350- low osmolar. RENAL FUNCTION: BUN 13 creatinine 0.7 RADIATION DOSE: CT Rad equipment meets quality standard of care and radiation dose reduction techniq ues were employed. CTDIvol: 14.6 - 24.3 mGy. DLP: 3220 mGy-cm. . LIMITATIONS: None. FINDINGS: LUNGS AND PLEURA: Pulmonary nodules are seen bilaterally. Nodule on the right side on oni ge 36 series 6 measures 11.1 versus 4.5 mm. On the prior study is measures 11.7 by 7.1 mm. On image 59 there is a 6.8 x 12.8 mm nodule that is larger than on the prior study. There is considerable sc arring in the left upper lobe with areas of confluent opacification there is a 6.3 mm nodule seen pos teriorly in the left upper lobe that measures 7.6 mm on the earlier study. HILAR AND MEDIASTINAL STRUCTURES: No identified masses or abnormal nodes. HEART AND VASCULAR STRUCTURES: No aneurysm or dissection. No central pulmonary emboli. No pericardi al effusion. HARDWARE: None in the chest. UPPER ABDOMEN: See separate report of the CT of the abdomen. THYROID AND OTHER SOFT TISSUES: No masses. No adenopathy. BONES: No significant finding. OTHER: No other significant finding. IMPRESSION: There is scarring in the left upper lobe. There are pulmonary nodules as described. A couple small nodules are smaller. There is a nodule that is larger in the left lung. TECHNICAL DOCUMENTATION: JOB ID: [id number] Quality ID # 436: Final reports with documentation of one or more dose reduction techniques (e.g., Au tomated exposure control, adjustment of the mA and/or kV according to patient size, use of iterative reconstruction technique) 2010 [employer]- All Rights Reserved Reading location - IP/workstation name: [email or web address]
--- NOTE | 2019-07-19 10:39 | RADIOLOGY REPORT (SQ) ---
EXAM DESCRIPTION: CT ABD/PELVIS WITH IV ONLY COMPLETED DATE/TIME: 07/18/2019 1:59 pm REASON FOR STUDY: C34.12 MALIGNANT NEOPLASM OF UPPER LOBE, LEFT BRONCHUS OR LUNG C34.12 MALIGNANT N EOPLASM OF UPPER LOBE, LEFT BRONCHUS OR [facility] R42 DIZZINESS AND GIDDINESS COMPARISON: 04/05/2019 and 10/16/2015. TECHNIQUE: CT scan of the abdomen and pelvis performed using helical scanning technique with dynamic intravenous contrast injection. No oral contrast. Images reviewed with lung, soft tissue, and bone windows. Reconstructed coronal and sagittal MPR images reviewed. Delayed images for evaluation of the urinary system also acquired. All images stored on PACS. All CT scanners at this facility use dose modulation, iterative reconstruction, and/or weight based d osing when appropriate to reduce radiation dose to as low as reasonably achievable (ALARA). [facility]: Dose Right [facility]: CareDose [facility]: Dose Right [facility]: Teradose 4D [facility]: [employer] CONTRAST TYPE AND DOSE: contrast/concentration: Isovue 350.00 mg/ml; Total Contrast Delivered: 100.0 ml; Total Saline Delivered: 72.0 ml RENAL FUNCTION: BUN 13 creatinine 0.7. RADIATION DOSE: . LIMITATIONS: None. FINDINGS: LOWER CHEST: See separate report of the CT of the chest. LIVER: Normal size. No masses. No dilated ducts. SPLEEN: Normal size. No focal lesions. PANCREAS: No masses. No significant calcifications. No adjacent inflammation or peripancreatic fluid collections. Pancreatic duct not dilated. GALLBLADDER: No identified stones by CT criteria. No inflammatory changes to suggest cholecystitis. ADRENAL GLANDS: No significant masses or asymmetry. RIGHT KIDNEY AND URETER: Multiple cortical cysts. No solid masses. No significant calcifications. No hydronephrosis or hydroureter. LEFT KIDNEY AND URETER: Multiple cortical cysts. No solid masses. No significant calcifications. No hydronephrosis or hydroureter. AORTA AND VESSELS: No aneurysm. No dissection. Renal arteries, SMA, celiac without stenosis. RETROPERITONEUM: No retroperitoneal adenopathy, hemorrhage or masses. BOWEL AND PERITONEAL CAVITY: Previous right hemicolectomy. No masses or inflammatory changes. No chago e fluid or peritoneal masses. APPENDIX: Surgically absent. PELVIS: No mass. No free fluid. Normal bladder. ABDOMINAL WALL: No masses. Small anterior abdominal wall hernia containing fat. BONES: No significant or acute findings. Degenerative changes in the spine. OTHER: No other significant finding. IMPRESSION: 1. MULTIPLE CORTICAL CYSTS IN BOTH KIDNEYS. 2. SMALL ANTERIOR ABDOMINAL WALL HERNIA CONTAINING FAT. NO INVOLVEMENT OF BOWEL. 3. SURGICAL CHANGES. RIGHT HEMICOLECTOMY. 4. NO OTHER SIGNIFICANT OR ACUTE FINDING IN THE ABDOMEN OR PELVIS ON CT SCAN WITH IV CONTRAST. NO EV IDENCE OF METASTATIC INVOLVEMENT IN THE ABDOMEN OR PELVIS. TECHNICAL DOCUMENTATION: JOB ID: [id number] Quality ID # 436: Final reports with documentation of one or more dose reduction techniques (e.g., Au tomated exposure control, adjustment of the mA and/or kV according to patient size, use of iterative reconstruction technique) 2010 [employer]- All Rights Reserved Reading location - IP/workstation name: [email or web address]
== END ==
LOC: RAD 13:15
PROVIDERS: ATTEND Nurse Practitioner Family
DX: C34.12 Malignant neoplasm of upper lobe, left bronchus or lung (principal); R42 Dizziness and giddiness
CPT/HCPCS: 70553; 71260; 74177; A9576

== ENCOUNTER → 2019-10-17 | Outpatient (CLI) | payer MEDICARE ==
--- NOTE | 2019-10-17 13:50 | RADIOLOGY REPORT (SQ) ---
EXAM DESCRIPTION: CT CHEST WITH; CT ABD/PELVIS WITH IV ONLY IMAGES COMPLETED DATE/TIME: 10/17/2019 1:12 pm REASON FOR STUDY: LUNG CANCER (C34.12) C34.12 MALIGNANT NEOPLASM OF UPPER LOBE, LEFT BRONCHUS OR [facility] CONTRAST TYPE AND DOSE: contrast/concentration: Isovue 350.00 mg/ml; Total Contrast Delivered: 84.0 ml; Total Saline Delivered: 72.0 ml RENAL FUNCTION: Creatinine 0.7 07/18/2019 COMPARISON: 07/18/2019 TECHNIQUE: CT scan of the chest performed using helical scanning technique with dynamic intravenous contrast injection. Images reviewed with lung, soft tissue and bone windows. Reconstructed coronal a nd sagittal MPR images reviewed. All images stored on PACS. All CT scanners at this facility use dose modulation, iterative reconstruction, and/or weight based d osing when appropriate to reduce radiation dose to as low as reasonably achievable (ALARA). [facility]: Dose Right [facility]: CareDose [facility]: Dose Right [facility]: Teradose 4D [facility]: [employer] RADIATION DOSE: CT Rad equipment meets quality standard of care and radiation dose reduction techniq ues were employed. CTDIvol: 13.0 - 25.5 mGy. DLP: 3122 mGy-cm. . LIMITATIONS: None. FINDINGS: AXILLAE: No adenopathy. CHEST WALL: No masses. No subcutaneous air. LUNGS: Stable nodule on the right on image 44 measures 11.3 mm. On the prior study this measures 11. 1 mm in longest dimension. In the left upper lobe and lingula there is considerable scarring with ar eas of confluent opacification. The largest is seen on image 33 series 6 and measures 24.2 x 18.4 mm . This is larger than on the prior study. The nodule seen on image 35 measures 11.4 mm and is essen tially unchanged. No new pulmonary masses are seen. PLEURA: No effusions. No calcifications. THYROID: No masses or significant asymmetry. HILAR AND MEDIASTINAL STRUCTURES: No identified masses or abnormal nodes. AORTA AND GREAT VESSELS: No aneurysm. No dissection. PULMONARY ARTERIES: No identified pulmonary emboli. Study not optimized for the pulmonary arteries. HEART: No pericardial effusion. HARDWARE AND LIFELINES: Surgical clips on the left. BONES: No significant finding. OTHER: No other significant finding. IMPRESSION: There is pulmonary nodularity predominantly on the left. There is is stable somewhat li near nodule on the right as described. In the left upper lobe there is scarring with nodularity. Th e largest area of confluent density measures 24.2 x 18.4 mm and is larger than on the prior study. C onsider PET-CT. Consider biopsy. COMPARISON: 07/18/2019 RADIATION DOSE: CT Rad equipment meets quality standard of care and radiation dose reduction techniq ues were employed. CTDIvol: 13.0 - 25.5 mGy. DLP: 3122 mGy-cm. mGy. TECHNIQUE: CT scan of the abdomen and pelvis performed with intravenous and oral contrast using serene timbo scanning technique with dynamic intravenous contrast injection. Images reviewed with lung, soft tissue and bone windows. Reconstructed coronal and sagittal MPR images reviewed. Delayed images for evaluation of the urinary system also acquired and evaluated. All images stored on PACS. All CT scanners at this facility use dose modulation, iterative reconstruction, and/or weight based d osing when appropriate to reduce radiation dose to as low as reasonably achievable (ALARA). [facility]: Dose Right [facility]: [facility]Care [facility]: Dose Right [facility]: Teradose 4D [facility]: [employer] [facility] [employer] FINDINGS: LIVER: Normal size. No masses. No dilated ducts. SPLEEN: Normal size. No focal lesions. PANCREAS: No masses. No significant calcifications. No adjacent inflammation or peripancreatic flui d collections. Pancreatic duct not dilated. GALLBLADDER: No identified stones by CT criteria. No inflammatory changes to suggest cholecystitis. ADRENAL GLANDS: No significant masses or asymmetry. RIGHT KIDNEY AND URETER: No solid masses. Cortical cysts are present. No significant calcification s. No hydronephrosis or hydroureter. LEFT KIDNEY AND URETER: No solid masses. A couple of cortical cysts are present. No significant ca lcifications. No hydronephrosis or hydroureter. AORTA AND VESSELS: No aneurysm. No dissection. Renal arteries, SMA, celiac without stenosis. RETROPERITONEUM: No retroperitoneal adenopathy, hemorrhage or masses. LARGE AND SMALL BOWEL: Right hemicolectomy. No obvious bowel mass. No inflammation. APPENDIX: Surgically absent. ABDOMINAL WALL: Small ventral hernia contains fat. PERITONEAL CAVITY: No free air. No free fluid. No peritoneal implants or masses. PELVIS: No mass or free fluid. Normal bladder. BONES: No significant or acute findings. OTHER: No other significant finding. IMPRESSION: Couple small renal cysts are seen on each side. Prior right hemicolectomy. Small ventr al hernia. No acute finding in the abdomen or pelvis. No evidence of metastatic disease. TECHNICAL DOCUMENTATION: JOB ID: [id number] Quality ID # 436: Final reports with documentation of one or more dose reduction techniques (e.g., Au tomated exposure control, adjustment of the mA and/or kV according to patient size, use of iterative reconstruction technique) 2010 [employer]- All Rights Reserved Reading location - IP/workstation name: [email or web address]
== END ==
LOC: RAD 12:39
PROVIDERS: ATTEND Internal Medicine
DX: C34.12 Malignant neoplasm of upper lobe, left bronchus or lung (principal)
CPT/HCPCS: 71260; 74177; 82565

== ENCOUNTER 2019-11-18 11:26 | Inpatient (IN) | payer MEDICARE ==
--- NOTE | 2019-11-18 11:46 | ER Document Report ---
ED General - General Chief Complaint: Breathing Difficulty Stated Complaint: BREATHING DIFFICULTY Time Seen by Provider: 11/18/19 11:45 Mode of Arrival: Ambulatory Information source: Patient Notes: triage notes 11/18/19 11:59 - ED Nursing Note by [facility] Num: [id number] : 1945 Patient Age: 74 Patient presents to ER, A&Ox3, with concern for cough and shortness of breath. Reports she has presented with symptoms for past 4 or more days. States she became weak over the past 2 days, reporting several falls. Reports weakness, dizziness, confusion, disorientation, and chills. Denies NVD, LOC, or fevers. Patient presents short of breath with exertion. Wheezing noted bilaterally. Speaking in clear and complete sentences. NAD noted. Ambulates with steady gait. History of COPD, on 4L oxygen at all times. my notes 74-year-old female arrives with chief complaint of worsening symptoms over the last 2 to 3 days with shortness of breath and feeling weak. She is Dr. Jimenez patient with recurrent lung cancer. Patient reports in 2005 she had right lower lobe ectomy because of lung cancer and then had in 2013 left upper back approach lobectomy followed by radiation because of lung cancer. She smokes 1 pack/day and continues today. Patient reports she began immunotherapy last December and then 6 weeks ago she was taken off of this and placed on chemo. Patient reports she has had some clear productive cough. ABG today reveals PCO2 of 74 Past medical history and surgical history includes COPD and tonsillectomy appendectomy and right hemicolectomy TRAVEL OUTSIDE OF THE [place] IN LAST 30 DAYS: No - HPI Onset: Yesterday Onset/Duration: Sudden, Persistent, Worse Quality of pain: Fullness Severity: Moderate Pain Level: 2 Associated symptoms: Weakness Exacerbated by: Movement, Walking Relieved by: Denies Similar symptoms previously: Yes Recently seen / treated by doctor: Yes - Related Data Allergies/Adverse Reactions: adhesive [Adhesive] Allergy (Mild, Verified 06/22/18 07:45) Blisters lisinopril [Lisinopril] Adverse Reaction (Severe, Verified 06/22/18 07:45) cough diphenhydramine [From Benadryl] Adverse Reaction (Mild, Verified 06/22/18 07:45) WEIRD DREAMS ramipril [From Altace] Adverse Reaction (Unknown, Verified 06/22/18 07:45) cough Past Medical History - General Information source: Patient - Social History Smoking Status: Current Every Day Smoker Cigarette use (# per day): Yes Chew tobacco use (# tins/day): No Smoking Education Provided: Yes Frequency of alcohol use: None Lives with: Family Family History: Reviewed & Not Pertinent Patient has suicidal ideation: No Patient has homicidal ideation: No - Past Medical History Cardiac Medical History: Reports: Hx Hypercholesterolemia, Hx Hypertension Denies: Hx Atrial Fibrillation, Hx Congestive Heart Failure, Hx Coronary Artery Disease, Hx Heart Attack, Hx Peripheral Vascular Disease, Hx Pulmonary Embolism, Hx Heart Murmur Pulmonary Medical History: Reports: Hx COPD, Hx Sleep Apnea - c pap Denies: Hx Asthma, Hx Bronchitis, Hx Pneumonia, Hx Respiratory Failure, Hx Tuberculosis Neurological Medical History: Denies: Hx Cerebrovascular Accident, Hx Seizures, Hx Parkinson's Disease Renal/ Medical History: Denies: Hx Ovarian Cysts, Hx Peritoneal Dialysis, Hx Pelvic Inflammatory Disease Malignancy Medical History: Reports: Hx Lung Cancer - rt lobes removed 2005 ,upper & mid lungs removed. Denies: Hx Breast Cancer, Hx Cervical Cancer, Hx Leukemia, Hx Ovarian Cancer GI Medical History: Denies: Hx Crohn's Disease, Hx Gastroesophageal Reflux Disease, Hx Hiatal Hernia, Hx Irritable Bowel, Hx Liver Failure, Hx Pancreatitis, Hx Ulcer Musculoskeletal Medical History: Reports Hx Arthritis, Denies Hx Fibromyalgia, Denies Hx Multiple Sclerosis, Denies Hx Muscular Dystrophy Psychiatric Medical History: Reports: Hx Depression - chronic Denies: Hx Bipolar Disorder, Hx Dementia, Hx Post Traumatic Stress Disorder, Hx Schizophrenia Traumatic Medical History: Denies: Hx Fractures Infectious Medical History: Denies: Hx HIV Past Surgical History: Reports: Hx Appendectomy - age 4, Hx Tonsillectomy. Denies: Hx Bowel Surgery, Hx Section, Hx Cholecystectomy, Hx Colostomy, Hx Coronary Artery Bypass Graft, Hx Gastric Bypass Surgery, Hx Herniorrhaphy, Hx Hysterectomy, Hx Mastectomy, Hx Pacemaker, Hx Tubal Ligation - Immunizations Hx Diphtheria, Pertussis, Tetanus Vaccination: Yes Hx Pneumococcal Vaccination: 05/24/11 Review of Systems - Review of Systems Constitutional: See HPI, Fever, Malaise, Weakness EENT: No symptoms reported Cardiovascular: No symptoms reported Respiratory: See HPI, Cough, Short of breath, Sputum - clear Gastrointestinal: No symptoms reported Genitourinary: No symptoms reported Female Genitourinary: No symptoms reported Musculoskeletal: No symptoms reported Skin: No symptoms reported Hematologic/Lymphatic: No symptoms reported Neurological/Psychological: No symptoms reported Physical Exam - Vital signs Vitals: Temp Pulse Resp BP Pulse Ox 99.0 F 104 H 26 H 124/46 L 80 L 11/18/19 11:32 11/18/19 11:32 11/18/19 11:32 11/18/19 11:32 11/18/19 11:32 Interpretation: Hypoxic, Tachypneic - General General appearance: Alert - HEENT Head: Normocephalic, Atraumatic Eyes: Normal Pupils: PERRL Sinus: Normal Nasal: Normal Mouth/Lips: Normal Mucous membranes: Dry Pharynx: Normal Neck: Normal - Respiratory Respiratory status: Labored Chest status: Nontender Breath sounds: Wheezing - diffusely Chest palpation: Normal - Cardiovascular Rhythm: Regular Heart sounds: Normal auscultation Murmur: No - unable to assess b/o wheezing - Abdominal Inspection: Normal Distension: No distension Bowel sounds: Normal Tenderness: Nontender Organomegaly: No organomegaly - Rectal Hemorrhoids: Other - deferred - Genitourinary [place] exam: Other - deferred - Back Back: Normal - Extremities General upper extremity: Normal inspection General lower extremity: Normal inspection - Neurological Neuro grossly intact: Yes Cognition: Normal Orientation: AAOx4 Joss Coma Scale Eye Opening: Spontaneous Joss Coma Scale Verbal: Oriented [place] Coma Scale Motor: Obeys Commands Joss Coma Scale Total: 15 Speech: Normal Motor strength normal: LUE, RUE, LLE, RLE Sensory: Normal - Psychological Associated symptoms: Anxious - Skin Skin Temperature: Warm Skin Moisture: Dry Course - Vital Signs Vital signs: Temp Pulse Resp BP Pulse Ox 97.3 F 79 20 138/62 H 99 11/20/19 07:51 11/20/19 08:07 11/20/19 08:07 11/20/19 07:51 11/20/19 08:07 - Laboratory Result Diagrams: 11/20/19 09:38 11/20/19 09:38 Laboratory results interpreted by me: 11/18/19 11/18/19 11/18/19 11:45 11:45 11:45 RBC 3.36 L Hgb 9.6 L Hct 28.6 L RDW 22.8 H Lymph % (Auto) Seg Neutrophils % Metamyelocytes % 2 H VBG pCO2 VBG HCO3 Sodium 130.5 L Chloride 89 L Carbon Dioxide 36 H Anion Gap BUN 25 H Est GFR (MDRD) Non-Af 56 L Glucose 139 H NT-Pro-B Natriuret Pep 1350 H Total Protein Albumin 11/18/19 11/19/19 11/19/19 12:03 05:15 05:15 RBC 3.12 L Hgb 8.9 L Hct 26.8 L RDW 22.0 H Lymph % (Auto) 9.5 L Seg Neutrophils % 82.7 H Metamyelocytes % VBG pCO2 72.9 H* VBG HCO3 37.4 H Sodium 133.4 L Chloride 94 L Carbon Dioxide 35 H Anion Gap 4 L BUN 21 H Est GFR (MDRD) Non-Af Glucose 112 H NT-Pro-B Natriuret Pep Total Protein 5.9 L Albumin 3.2 L - Diagnostic Test Radiology reviewed: Reports reviewed - EKG Interpretation by Me EKG shows normal: Sinus rhythm Rate: Tachycardia Critical Care Note - Critical Care Note Total time excluding time spent on procedures (mins): 90 Comments: I discussed this case with Dr. Shakeel Posada at [address] Fuchs and spoke to him at 1439 and he accepts the patient Discharge - Discharge Clinical Impression: Weakness, Dehydration Lung cancer Qualifiers: Laterality: right Lung location: overlapping sites Qualified Code(s): C34.81 - Malignant neoplasm of overlapping sites of right bronchus and lung Condition: Fair Disposition: ADMITTED INPATIENT Unit Admitted: Medical Floor
[2019-11-18 12:14] LABS: INTERNATIONAL RATION (INR) 1.03; PROTHROMBIN TIME 13.5 SEC (11.4-15.4)
[2019-11-18 12:20] LABS: VENOUS BLOOD BASE EXCESS 8.3 mmol/L; VENOUS BLOOD HCO3 37.4 mmol/L (20-32); VENOUS BLOOD PH 7.33 (7.30-7.42)
[2019-11-18 12:21] LABS: VENOUS BLOOD PCO2 72.9 mmHg (35-63)
[2019-11-18 12:21] LABS: ALBUMIN 3.6 g/dL (3.5-5.0); ALKALINE PHOSPHATASE 94 U/L (38-126); ANION GAP 6 (5-19); ASPARTATE AMINO TRANSFERASE 36 U/L (14-36); BILIRUBIN,DIRECT 0.1 mg/dL (0.0-0.4); BILIRUBIN,TOTAL 0.6 mg/dL (0.2-1.3); BLOOD UREA NITROGEN 25 mg/dL (7-20); CALCIUM 8.8 mg/dL (8.4-10.2); CARBON DIOXIDE 36 mmol/L (22-30); CHLORIDE 89 mmol/L (98-107); GLUCOSE 139 mg/dL (75-110); HEMATOCRIT 28.6 % (36.0-47.0); HEMOGLOBIN 9.6 g/dL (12.0-15.5); MEAN CORPUSCULAR HEMOGLOBIN 28.5 pg (27.0-33.4); MEAN CORPUSCULAR HGB CONC 33.4 g/dL (32.0-36.0); MEAN CORPUSCULAR VOLUME 85 fl (80-97); PLATELET COUNT 359 10^3/uL (150-450); POTASSIUM 3.9 mmol/L (3.6-5.0); RED BLOOD COUNT 3.36 10^6/uL (3.72-5.28); RED CELL DISTRIBUTION WIDTH 22.8 % (11.5-14.0); TOTAL PROTEIN 6.7 g/dL (6.3-8.2); WHITE BLOOD COUNT 5.3 10^3/uL (4.0-10.5)
--- NOTE | 2019-11-18 12:26 | RADIOLOGY REPORT (SQ) ---
EXAM DESCRIPTION: CHEST SINGLE VIEW IMAGES COMPLETED DATE/TIME: 11/18/2019 11:03 am REASON FOR STUDY: bed 7 difficulty breathing sepsis protocol. COMPARISON: CT chest, 07/18/2019 EXAM PARAMETERS: NUMBER OF VIEWS: One view. TECHNIQUE: Single frontal radiographic view of the chest acquired. RADIATION DOSE: NA LIMITATIONS: None. FINDINGS: LUNGS AND PLEURA: Surgical clips and chronic parenchymal scarring/ consolidation in the le ft lung is stable from prior. No new consolidation. No definite pleural effusion. No pneumothorax. MEDIASTINUM AND HILAR STRUCTURES: No masses. Contour normal. HEART AND VASCULAR STRUCTURES: Heart normal in size. Normal vasculature. BONES: No acute findings. HARDWARE: None in the chest. OTHER: No other significant finding. IMPRESSION: Postoperative changes and chronic parenchymal scarring in the left lung are stable. No evidence of acute cardiopulmonary disease. TECHNICAL DOCUMENTATION: JOB ID: [id number] [employer]- All Rights Reserved Reading location - IP/workstation name: [email or web address]
[2019-11-18] MEDS ORDERED: ALBUTEROL SULFATE 0.083% NEB 2.5 MG/3 ML AMPUL NEB ONE (12:30)
[2019-11-18 12:41] LABS: ABSOLUTE LYMPHOCYTES# (MANUAL) 0.9 10^3/uL (0.5-4.7); ABSOLUTE MONOCYTES # (MANUAL) 0.4 10^3/uL (0.1-1.4); BAND NEUTROPHILS % (MANUAL) 4 % (3-5); BASOPHILS % (MANUAL) 0 % (0-2); EOSINOPHILS % (MANUAL) 0 % (0-6); LYMPHOCYTES % (MANUAL) 17 % (13-45); METAMYELOCYTES % (MANUAL) 2 % (0-1); MONOCYTES % (MANUAL) 8 % (3-13); SEGMENTED NEUTROPHILS % (MAN) 69 % (42-78); TOTAL CELLS COUNTED 100
[2019-11-18 12:42] LABS: ANISOCYTOSIS 3+; OVALOCYTES 1+; PLATELET COMMENT ADEQUATE
[2019-11-18] MEDS ORDERED: NORMAL SALINE 1000 ML 1,000 ML IV ONE (14:38)
--- NOTE | 2019-11-18 15:55 | PDOC H&P ---
History of Present Illness Admission Date/PCP: MANDY JIMENEZ MD History of Present Illness: DEUCE GRUBER is a 74 year old obese female, with past medical history of hypertension, obstructive sleep apnea on CPAP, depression, anxiety, iron deficiency anemia, neuropathy, tobacco abuse, COPD on 4 L home oxygen, recurrent lung cancer status post several lobectomy, chemotherapy, radiation and immunotherapy patient is presenting to the ED complaining of worsening fatigue, shortness of breath, nonproductive cough for the last several days. Patient normally uses 4 L of oxygen 24/ for her underlying COPD and uses 2 nebs per day and with that she is able to perform most of her ADLs however for the last several days she has noticed to be getting easily winded and weaker by the day. Patient denies having any fever or chills however stating that she was told by her that she felt warm to touch, patient was given ciprofloxacin by her PCP which she took for 2 days. She denies any recent travel, any sick contact, any recent hospitalization, chest pain, nausea, vomiting, diarrhea, orthopnea, PND, weight changes, loss of taste, loss of smell, any exposure to anybody with suspicion of having COVID. Patient lives at home with her and neither of them has had recent travel or being exposed to anybody with similar symptoms. In ED she was noted to be tachycardic hypoxic. Her oncologist Dr. Edmond was contacted and she suggested for patient to be admitted and she will evaluate her tomorrow. Past Medical History Cardiac Medical History: Reports: Hyperlipidema, Hypertension Denies: Atrial Fibrillation, Congestive Heart Failure, Coronary Artery Disease, Myocardial Infarction, Peripheral Vascular Disease, Pulmonary Embolism, Heart Murmur Pulmonary Medical History: Reports: Chronic Obstructive Pulmonary Disease (COPD), Sleep Apnea - c pap Denies: Asthma, Bronchitis, Pneumonia, Respiratory Failure, Tuberculosis Neurological Medical History: Denies: Seizures Malignancy Medical History: Reports: Lung Cancer - rt lobes removed 2005 ,upper & mid lungs removed Denies: Breast Cancer, Cervical Cancer, Leukemia, Ovarian Cancer GI Medical History: Denies: Crohn's Disease, Gastroesophageal Reflux Disease, Hiatal Hernia Musculoskeltal Medical History: Reports: Arthritis Denies: Fibromyalgia Psychiatric Medical History: Reports: Depression - chronic Denies: Bipolar Disorder, Dementia, Post Traumatic Stress Disorder Hematology: Reports: Anemia Denies: Hemophilia, Sickle Cell Disease Infectious Medical History: Denies: HIV Past Surgical History Past Surgical History: Reports: Appendectomy - age 4, Tonsillectomy Denies: Amputation, Section, Cholecystectomy, Colostomy, Coronary Artery Bypass Graft, Gastric Bypass Surgery, Herniorrhaphy, Hysterectomy, Mast ectomy, Pacemaker, Tubal Ligation Social History Smoking Status: Current Every Day Smoker Frequency of Alcohol Use: Rare Hx Recreational Drug Use: No Hx Prescription Drug Abuse: No Family History Family History: Reviewed & Not Pertinent Parental Family History Reviewed: Yes Children Family History Reviewed: Yes Sibling(s) Family History Reviewed.: Yes Medication/Allergy Home Medications: Hydrochlorothiazide [Hydrodiuril 25 mg Tablet] 25 mg PO QAM 09/14/12 Simvastatin 10 mg PO QHS 09/14/12 Aspirin [Ecotrin 81 mg EC Tablet] 81 mg PO DAILY 12/09/12 Escitalopram Oxalate [Lexapro 10 mg Tablet] 20 mg PO DAILY 01/15/17 Amlodipine Besylate [Norvasc 5 mg Tablet] 5 mg PO DAILY 06/21/18 Irbesartan 300 mg PO DAILY 06/21/18 Ciprofloxacin HCl [Cipro] 500 mg PO BID 11/18/19 Folic Acid [Folvite 1 mg Tablet] 1 mg PO DAILY 11/18/19 Levalbuterol HCl [Xopenex Neb 0.63 mg/3 ml Ampul] 0.63 mg NEB RTQ8 11/18/19 Lorazepam 0.5 mg PO Q8HP PRN 11/18/19 Ondansetron HCl [Zofran 8 mg Tablet] 8 mg PO Q8HP PRN 11/18/19 Pregabalin 50 mg PO TID 11/18/19 Promethazine HCl 12.5 mg PO Q4HP PRN 11/18/19 Triamcinolone Acetonide [Aristocort 0.1% Cream] 1 applic TP TID 11/18/19 Allergies/Adverse Reactions: adhesive [Adhesive] Allergy (Mild, Verified 06/22/18 07:45) Blisters lisinopril [Lisinopril] Adverse Reaction (Severe, Verified 06/22/18 07:45) cough diphenhydramine [From Benadryl] Adverse Reaction (Mild, Verified 06/22/18 07:45) WEIRD DREAMS ramipril [From Altace] Adverse Reaction (Unknown, Verified 06/22/18 07:45) cough Review of Systems Review of Systems: as per hpi Physical Exam Vital Signs: Temp Pulse Resp BP Pulse Ox 99 F 104 H 19 122/64 100 11/18/19 11:54 11/18/19 11:32 11/18/19 15:00 11/18/19 15:00 11/18/19 15:00 Intake & Output 11/17/19 11/18/19 11/19/19 06:59 06:59 06:59 Weight 101.9 kg General appearance: PRESENT: no acute distress, obese, well-developed, well- nourished Head exam: PRESENT: atraumatic, normocephalic Respiratory exam: PRESENT: accessory muscle use, decreased breath sounds, prolonged expiratory phas, wheezes. ABSENT: rales, rhonchi Cardiovascular exam: PRESENT: RRR, tachycardia. ABSENT: diastolic murmur, rubs, systolic murmur Pulses: PRESENT: normal dorsalis pedis pul GI/Abdominal exam: PRESENT: normal bowel sounds, soft. ABSENT: distended, guarding, mass, organolmegaly, rebound, tenderness Neurological exam: PRESENT: alert, awake, oriented to person, oriented to place, oriented to time, oriented to situation, CN II-XII grossly intact. ABSENT: motor sensory deficit Skin exam: PRESENT: dry, intact, warm. ABSENT: cyanosis, rash Results Laboratory Results: 11/18/19 11:45 11/18/19 11:45 11/18/19 11/18/19 11/18/19 11:45 11:45 11:45 WBC 5.3 RBC 3.36 L Hgb 9.6 L Hct 28.6 L MCV 85 MCH 28.5 MCHC 33.4 RDW 22.8 H Plt Count 359 Seg Neutrophils % Not Reportable VBG pH VBG pCO2 VBG HCO3 VBG Base Excess Sodium 130.5 L Potassium 3.9 Chloride 89 L Carbon Dioxide 36 H Anion Gap 6 BUN 25 H Creatinine 0.97 Est GFR ( Amer) > 60 Glucose 139 H Lactic Acid 1.3 Calcium 8.8 Total Bilirubin 0.6 AST 36 Alkaline Phosphatase 94 Total Protein 6.7 Albumin 3.6 11/18/19 11/18/19 12:03 14:37 WBC RBC Hgb Hct MCV MCH MCHC RDW Plt Count Seg Neutrophils % VBG pH 7.33 VBG pCO2 72.9 H* VBG HCO3 37.4 H VBG Base Excess 8.3 Sodium Potassium Chloride Carbon Dioxide Anion Gap BUN Creatinine Est GFR ( Amer) Glucose Lactic Acid 0.7 Calcium Total Bilirubin AST Alkaline Phosphatase Total Protein Albumin 11/18/19 11/18/19 11:45 11:45 Troponin I < 0.012 NT-Pro-B Natriuret Pep 1350 H Impressions: Chest X-Ray 11/18/19 11:37 IMPRESSION: Postoperative changes and chronic parenchymal scarring in the left lung are stable. No evidence of acute cardiopulmonary disease. Assessment and Plan - Diagnosis (1) Acute on chronic respiratory failure with hypoxia Is this a current diagnosis for this admission?: Yes Plan: History of severe COPD on home oxygen 4 L/min 14/12. Likely due to acute COPD exacerbation. Chest x-ray negative for any consolidation. WBC WNL. Denies any fever or chills. By that she felt warm to touch. Also noted to have low-grade fever on this admission. Denies any exposure to anyone suspected of having COVID. Will check for COVID given patient multiple comorbidities and low-grade fever. Admit to IMCU, scheduled duo nebs, scheduled BiPAP, LABA, LABA, ICS, flutter valve, incentive spirometry. (2) Acute exacerbation of chronic obstructive pulmonary disease (COPD) Is this a current diagnosis for this admission?: Yes Plan: As per #1. (3) Obesity (BMI 30-39.9) Is this a current diagnosis for this admission?: Yes Plan: Diet and lifestyle modification recommended. Will obtain TSH. (4) Hypertension Is this a current diagnosis for this admission?: Yes Plan: Euvolemic. Normotensive. Resume home meds. Adjust meds as needed. (5) Tobacco abuse Is this a current diagnosis for this admission?: Yes Plan: Unfortunately patient is still smoking even though she has had recurrent lung cancers. Advised on quitting. Nicotine patch will be provided. (6) Lung cancer Qualifiers: Lung location: unspecified part of lung Is this a current diagnosis for this admission?: Yes Plan: History of recurrent lung cancer status post multiple lobectomy, chemoradiation and immunotherapy. Sees Dr. Jimenez as outpatient. Will consult oncology.
[2019-11-18] MEDS ORDERED: ONDANSETRON HCL 8 MG TABLET PO PRN (15:56)
[2019-11-18] MEDS ORDERED: METOPROLOL TARTRATE PF/INJ 5 MG/5 ML SDV IV PRN (15:57)
[2019-11-18] MEDS ORDERED: HYDRALAZINE HCL INJ/PF 20 MG/1 ML SDV IV PRN (15:57)
[2019-11-18] MEDS ORDERED: METHYLPREDNISOLONE INJ 40 MG/1 ML SDV IV SCH (16:00)
[2019-11-18] MEDS ORDERED: MAGNESIUM HYDROXIDE SUSP 30 ML UDCUP PO PRN (16:26)
[2019-11-18] MEDS ORDERED: IPRATROPIUM/ALBUTEROL 0.5-2.5 MG/3 ML AMPUL NEB PRN (16:26)
[2019-11-18] MEDS ORDERED: ONDANSETRON HCL INJ/PF 4 MG/2 ML SDV IV PRN (16:26)
[2019-11-18] MEDS ORDERED: TEMAZEPAM 7.5 MG CAPSULE PO PRN (16:26)
[2019-11-18] MEDS ORDERED: PROMETHAZINE HCL INJ 25 MG/1 ML VIAL IV PRN (16:26)
[2019-11-18] MEDS ORDERED: ACETAMINOPHEN 325 MG TABLET PO PRN (16:26)
[2019-11-18] MEDS ORDERED: AZITHROMYCIN 500 MG in DEXTROSE 5%-WATER 250 ML IV SCH (18:00)
[2019-11-18] MEDS: IPRATROPIUM/ALBUTEROL 0.5-2.5 MG/3 ML AMPUL NEB SCH (21:07)
[2019-11-18] MEDS: HEPARIN SOD (PORCINE) 5,000 UNIT/ML 1 ML VIAL SUBCUT SCH (21:41)
[2019-11-18] MEDS: SIMVASTATIN 10 MG TABLET PO SCH (21:41)
[2019-11-18] MEDS: FAMOTIDINE 20 MG TABLET PO SCH (21:41)
[2019-11-18] MEDS ORDERED: SIMVASTATIN 10 MG PO SCH (22:00)
[2019-11-18] MEDS ORDERED: AZITHROMYCIN INJ 500 MG VIAL IV ONE (22:03)
--- NOTE | 2019-11-18 22:11 | EKG REPORT ---
SEVERITY:- ABNORMAL ECG - SINUS RHYTHM NONSPECIFIC T ABNORMALITIES, LATERAL LEADS : Confirmed by: Aiyana Barney 18-Nov-2019 22:11:02
[2019-11-18] MEDS ORDERED: AZITHROMYCIN 500 MG in DEXTROSE 5%-WATER 250 ML IV ONE (23:00)
[2019-11-19] MEDS: METHYLPREDNISOLONE INJ 125 MG/2 ML SDV IV SCH ×4 (01:15→18:04)
[2019-11-19] MEDS: LORAZEPAM 0.5 MG TABLET PO PRN (02:00)
[2019-11-19 05:45] LABS: ABSOLUTE LYMPHOCYTES (AUTO) 0.5 10^3/uL (0.5-4.7); ABSOLUTE MONOCYTES (AUTO) 0.4 10^3/uL (0.1-1.4); ABSOLUTE NEUT (AUTO) 4.2 10^3/uL (1.7-8.2); BASOPHILS % (AUTO) 0.1 % (0-2); EOSINOPHILS % (AUTO) 0.2 % (0-6); HEMATOCRIT 26.8 % (36.0-47.0); HEMOGLOBIN 8.9 g/dL (12.0-15.5); LYMPHOCYTES % (AUTO) 9.5 % (13-45); MEAN CORPUSCULAR HEMOGLOBIN 28.6 pg (27.0-33.4); MEAN CORPUSCULAR HGB CONC 33.2 g/dL (32.0-36.0); MEAN CORPUSCULAR VOLUME 86 fl (80-97); MONOCYTES % (AUTO) 7.5 % (3-13); PLATELET COUNT 290 10^3/uL (150-450); RED BLOOD COUNT 3.12 10^6/uL (3.72-5.28); SEGMENTED NEUTROPHILS % (AUTO) 82.7 % (42-78); TOTAL CELLS COUNTED % (AUTO) 100 %; WHITE BLOOD COUNT 5.1 10^3/uL (4.0-10.5)
[2019-11-19] MEDS: HEPARIN SOD (PORCINE) 5,000 UNIT/ML 1 ML VIAL SUBCUT SCH ×3 (05:50→21:29)
[2019-11-19 06:06] LABS: ALBUMIN 3.2 g/dL (3.5-5.0); ALKALINE PHOSPHATASE 95 U/L (38-126); ASPARTATE AMINO TRANSFERASE 26 U/L (14-36); BILIRUBIN,DIRECT 0.1 mg/dL (0.0-0.4); BILIRUBIN,TOTAL 0.4 mg/dL (0.2-1.3); BLOOD UREA NITROGEN 21 mg/dL (7-20); CALCIUM 8.6 mg/dL (8.4-10.2); CARBON DIOXIDE 35 mmol/L (22-30); CHLORIDE 94 mmol/L (98-107); GLUCOSE 112 mg/dL (75-110); POTASSIUM 4.4 mmol/L (3.6-5.0); TOTAL PROTEIN 5.9 g/dL (6.3-8.2)
[2019-11-19 06:15] LABS: ANION GAP 4 (5-19)
[2019-11-19] MEDS: IPRATROPIUM/ALBUTEROL 0.5-2.5 MG/3 ML AMPUL NEB SCH ×3 (08:33→21:10)
[2019-11-19] MEDS: HYDROCHLOROTHIAZIDE 25 MG TABLET PO SCH (09:00)
[2019-11-19] MEDS: LOSARTAN POTASSIUM 50 MG TABLET PO SCH (09:38)
[2019-11-19] MEDS: FOLIC ACID 1 MG TABLET PO SCH (09:39)
[2019-11-19] MEDS: ASPIRIN 81 MG TABLET, ENT COATED PO SCH (09:39)
[2019-11-19] MEDS: ESCITALOPRAM OXALATE 10 MG TABLET PO SCH (09:40)
[2019-11-19] MEDS: AMLODIPINE BESYLATE 5 MG TABLET PO SCH (09:40)
[2019-11-19] MEDS: PREGABALIN 50 MG CAPSULE PO SCH ×4 (09:41→18:04)
[2019-11-19] MEDS: FAMOTIDINE 20 MG TABLET PO SCH ×2 (09:42→21:29)
[2019-11-19] MEDS: DOCUSATE SODIUM 100 MG CAPSULE PO SCH (09:42)
[2019-11-19] MEDS: AZITHROMYCIN 250 MG TABLET PO SCH (09:42)
[2019-11-19] MEDS: FLUTICASONE/UMECLIDIN/VILANTER 100-62.5-25 MCG/DOSE IH SCH (09:43)
[2019-11-19] MEDS ORDERED: (PENDING PHARMACY ID) (Irbesartan [Irbesartan] 300 MG) PO SCH (10:00)
[2019-11-19 13:39] LABS: ARTERIAL BLOOD BASE EXCESS 8.3 mmol/L; ARTERIAL BLOOD FIO2 36%; ARTERIAL BLOOD H2CO3 2.37 mmol/L (1.05-1.35); ARTERIAL BLOOD HCO3 36.6 mmol/L (20-24); ARTERIAL BLOOD O2 SATURATION 97.4 % (94-98); ARTERIAL BLOOD PH 7.29 (7.35-7.45); ARTERIAL BLOOD PO2 112.5 mmHg (80-100)
[2019-11-19 13:40] LABS: ARTERIAL BLOOD PCO2 78.7 mmHg (35-45)
--- NOTE | 2019-11-19 16:20 | PDOC PROGRESS REPORT ---
Subjective Progress Note for:: 11/19/19 - \ Subjective:: DEUCE GRUBER is a 74 year old obese female, with past medical history of hypertension, obstructive sleep apnea on CPAP, depression, anxiety, iron deficiency anemia, neuropathy, tobacco abuse, COPD on 4 L home oxygen, recurrent lung cancer status post several lobectomy, chemotherapy, radiation and immunotherapy patient is presenting to the ED complaining of worsening fatigue, shortness of breath, nonproductive cough for the last several days. Patient normally uses 4 L of oxygen 14/12 for her underlying COPD and uses 2 nebs per day and with that she is able to perform most of her ADLs however for the last several days she has noticed to be getting easily winded and weaker by the day. Patient denies having any fever or chills however stating that she was told by her that she felt warm to touch, patient was given ciprofloxacin by her PCP which she took for 2 days. She denies any recent travel, any sick contact, any recent hospitalization, chest pain, nausea, vomiting, diarrhea, orthopnea, PND, weight changes, loss of taste, loss of smell, any exposure to anybody with suspicion of having COVID. Patient lives at home with her and neither of them has had recent travel or being exposed to anybody with similar symptoms. In ED she was noted to be tachycardic hypoxic. Her oncologist Dr. Edmond was contacted and she suggested for patient to be admitted and she will evaluate her tomorrow. 11/19/2019. No acute events overnight. This morning patient was noted to be a bit altered and an ABG showed elevated CO2 after placing patient on BiPAP patient improved back to baseline, saw patient this afternoon currently resting in bed no apparent distress, just finished talking to her on the phone, stating feeling better than yesterday, alert and oriented x3, cooperative with physical examination, answering question properly, denies any fever, chills, nausea, vomiting, diarrhea, constipation or enuresis. Still complaining of shortness of breath. Reason For Visit: RESPIRATORY FAILURE,ACUTE EXACERBATION COPD Physical Exam Vital Signs: Temp Pulse Resp BP Pulse Ox 98.0 F 85 20 111/77 98 11/19/19 11:53 11/19/19 14:23 11/19/19 15:40 11/19/19 11:53 06/28/20 15:40 Intake & Output 11/18/19 11/19/19 11/20/19 06:59 06:59 06:59 Intake Total 1000 370 Output Total 200 Balance 800 370 Weight 101 kg General appearance: PRESENT: no acute distress, obese, well-developed, well- nourished Head exam: PRESENT: atraumatic, normocephalic Respiratory exam: PRESENT: clear to auscultation ruiz. ABSENT: rales, rhonchi, wheezes Cardiovascular exam: PRESENT: RRR. ABSENT: diastolic murmur, rubs, systolic murmur GI/Abdominal exam: PRESENT: normal bowel sounds, soft. ABSENT: distended, guarding, mass, organolmegaly, rebound, tenderness Neurological exam: PRESENT: alert, awake, oriented to person, oriented to place, oriented to time, oriented to situation, CN II-XII grossly intact. ABSENT: motor sensory deficit Skin exam: PRESENT: dry, intact, warm. ABSENT: cyanosis, rash Results Laboratory Results: 11/19/19 05:15 11/19/19 05:15 11/18/19 11/19/19 11/19/19 18:15 05:15 05:15 WBC 5.1 RBC 3.12 L Hgb 8.9 L Hct 26.8 L MCV 86 MCH 28.6 MCHC 33.2 RDW 22.0 H Plt Count 290 Seg Neutrophils % 82.7 H Carbonic Acid HCO3/H2CO3 Ratio ABG pH ABG pCO2 ABG pO2 ABG HCO3 ABG O2 Saturation ABG Base Excess FiO2 Sodium 133.4 L Potassium 4.4 Chloride 94 L Carbon Dioxide 35 H Anion Gap 4 L BUN 21 H Creatinine 0.79 Est GFR ( Amer) > 60 Glucose 112 H Lactic Acid 0.7 Calcium 8.6 Magnesium 2.1 Total Bilirubin 0.4 AST 26 Alkaline Phosphatase 95 Total Protein 5.9 L Albumin 3.2 L 11/19/19 13:15 WBC RBC Hgb Hct MCV MCH MCHC RDW Plt Count Seg Neutrophils % Carbonic Acid 2.37 H HCO3/H2CO3 Ratio 15:1 ABG pH 7.29 L ABG pCO2 78.7 H* ABG pO2 112.5 H ABG HCO3 36.6 H ABG O2 Saturation 97.4 ABG Base Excess 8.3 FiO2 36% Sodium Potassium Chloride Carbon Dioxide Anion Gap BUN Creatinine Est GFR ( Amer) Glucose Lactic Acid Calcium Magnesium Total Bilirubin AST Alkaline Phosphatase Total Protein Albumin 11/18/19 11/18/19 11:45 11:45 Troponin I < 0.012 NT-Pro-B Natriuret Pep 1350 H Impressions: Chest X-Ray 11/18/19 11:37 IMPRESSION: Postoperative changes and chronic parenchymal scarring in the left lung are stable. No evidence of acute cardiopulmonary disease. Assessment and Plan - Diagnosis (1) Acute on chronic respiratory failure with hypoxia Is this a current diagnosis for this admission?: Yes Plan: History of severe COPD on home oxygen 4 L/min 14/12. Likely due to acute COPD exacerbation. Chest x-ray negative for any consolidation. WBC WNL. Denies any fever or chills. By that she felt warm to touch. Also noted to have low-grade fever on this admission. Denies any exposure to anyone suspected of having COVID. Will check for COVID given patient multiple comorbidities and low-grade fever. Admit to IMCU, scheduled duo nebs, scheduled BiPAP, LABA, LABA, ICS, flutter valve, incentive spirometry. (2) Acute exacerbation of chronic obstructive pulmonary disease (COPD) Is this a current diagnosis for this admission?: Yes Plan: As per #1. (3) Obesity (BMI 30-39.9) Is this a current diagnosis for this admission?: Yes Plan: Diet and lifestyle modification recommended. Will obtain TSH. (4) Hypertension Is this a current diagnosis for this admission?: Yes Plan: Euvolemic. Normotensive. Resume home meds. Adjust meds as needed. (5) Tobacco abuse Is this a current diagnosis for this admission?: Yes Plan: Unfortunately patient is still smoking even though she has had recurrent lung ca ncers. Advised on quitting. Nicotine patch will be provided. (6) Lung cancer Qualifiers: Lung location: unspecified part of lung Is this a current diagnosis for this admission?: Yes Plan: History of recurrent lung cancer status post multiple lobectomy, chemoradiation and immunotherapy. Sees Dr. Jimenez as outpatient. Will consult oncology.
[2019-11-19] MEDS: SIMVASTATIN 10 MG TABLET PO SCH (21:29)
[2019-11-20] MEDS: METHYLPREDNISOLONE INJ 125 MG/2 ML SDV IV SCH ×2 (01:33→09:10)
[2019-11-20] MEDS: HEPARIN SOD (PORCINE) 5,000 UNIT/ML 1 ML VIAL SUBCUT SCH ×3 (06:33→23:10)
[2019-11-20] MEDS: IPRATROPIUM/ALBUTEROL 0.5-2.5 MG/3 ML AMPUL NEB SCH ×3 (08:07→20:14)
--- NOTE | 2019-11-20 08:22 | PDOC CONSULTATION ---
Consultation Consult Date: 11/20/19 Attending physician:: PHU PRADHAN Provider Consulted: MADNY MOULTON Consult reason:: Patient with known history of stage IV lung cancer, low-volume metastatic disease in the lung, currently on systemic chemotherapy here with COPD exacerbation History of Present Illness Admission Date/PCP: 11/19/19 08:31 MANDY MOULTON MD Patient complains of: SOB/HANNAH History of Present Illness: DEUCE GRUBER is a 74 year old female who presents with increased shortness of breath and cough consistent with COPD exacerbation, also hypoxia, increased need for O2 support, currently is in the Covid unit. Therefore this visit is done by telemedicine, patient was appropriately counseled on the telemedicine visit, she agrees to go forward with this. She received initially immunotherapy for stage IV disease, and had initial response but recently with progression. Therefore we gave her 1 cycle thus far carboplatin, Alimta, and Avastin. Received that cycle about 3 weeks ago and was due for cycle #2 today. Since admission she has been on treatment for the COPD exacerbation, he is doing slightly better. Past Medical History Cardiac Medical History: Reports: Hyperlipidema, Hypertension Denies: Atrial Fibrillation, Congestive Heart Failure, Coronary Artery Disease, Myocardial Infarction, Peripheral Vascular Disease, Pulmonary Embolism, Heart Murmur Pulmonary Medical History: Reports: Chronic Obstructive Pulmonary Disease (COPD), Sleep Apnea - c pap Denies: Asthma, Bronchitis, Pneumonia, Respiratory Failure, Tuberculosis Neurological Medical History: Denies: Seizures Malignancy Medical History: Reports: Lung Cancer - rt lobes removed 2005 ,upper & mid lungs removed Denies: Breast Cancer, Cervical Cancer, Leukemia, Ovarian Cancer GI Medical History: Denies: Crohn's Disease, Gastroesophageal Reflux Disease, Hiatal Hernia Musculoskeltal Medical History: Reports: Arthritis Denies: Fibromyalgia Psychiatric Medical History: Denies: Bipolar Disorder, Dementia, Depression, Post Traumatic Stress Disorder Hematology: Reports: Anemia Denies: Hemophilia, Sickle Cell Disease Infectious Medical History: Denies: HIV Past Surgical History Past Surgical History: Reports: Appendectomy - age 4, Tonsillectomy Denies: Amputation, Section, Cholecystectomy, Colostomy, Coronary Artery Bypass Graft, Gastric Bypass Surgery, Herniorrhaphy, Hysterectomy, Mastectomy, Pacemaker, Tubal Ligation Social History Smoking Status: Current Every Day Smoker Frequency of Alcohol Use: Rare Hx Recreational Drug Use: No Hx Prescription Drug Abuse: No - Advance Directive Resuscitation Status: Full Code Family History Family History: Reviewed & Not Pertinent Parental Family History Reviewed: Yes Children Family History Reviewed: Yes Sibling(s) Family History Reviewed.: Yes Medication/Allergy Home Medications: Hydrochlorothiazide [Hydrodiuril 25 mg Tablet] 25 mg PO QAM 09/14/12 Simvastatin 10 mg PO QHS 09/14/12 Aspirin [Ecotrin 81 mg EC Tablet] 81 mg PO DAILY 12/09/12 Escitalopram Oxalate [Lexapro 10 mg Tablet] 20 mg PO DAILY 01/15/17 Amlodipine Besylate [Norvasc 5 mg Tablet] 5 mg PO DAILY 06/21/18 Irbesartan 300 mg PO DAILY 06/21/18 Ciprofloxacin HCl [Cipro] 500 mg PO BID 11/18/19 Folic Acid [Folvite 1 mg Tablet] 1 mg PO DAILY 11/18/19 Levalbuterol HCl [Xopenex Neb 0.63 mg/3 ml Ampul] 0.63 mg NEB RTQ8 11/18/19 Lorazepam 0.5 mg PO Q8HP PRN 11/18/19 Ondansetron HCl [Zofran 8 mg Tablet] 8 mg PO Q8HP PRN 11/18/19 Pregabalin 50 mg PO TID 11/18/19 Promethazine HCl 12.5 mg PO Q4HP PRN 11/18/19 Triamcinolone Acetonide [Aristocort 0.1% Cream] 1 applic TP TID 11/18/19 Allergies/Adverse Reactions: adhesive [Adhesive] Allergy (Mild, Verified 06/22/18 07:45) Blisters lisinopril [Lisinopril] Adverse Reaction (Severe, Verified 06/22/18 07:45) cough diphenhydramine [From Benadryl] Adverse Reaction (Mild, Verified 06/22/18 07:45) WEIRD DREAMS ramipril [From Altace] Adverse Reaction (Unknown, Verified 06/22/18 07:45) cough Review of Systems Constitutional: PRESENT: fatigue, weakness Cardiovascular: PRESENT: dyspnea on exertion Respiratory: PRESENT: cough, dyspnea Gastrointestinal: ABSENT: abdominal pain, constipation, diarrhea, hematemesis, hematochezia, nausea, vomiting Integumentary: ABSENT: rash, wounds Neurological: ABSENT: abnormal gait, abnormal speech, confusion, dizziness, f ocal weakness, syncope Endocrine: ABSENT: cold intolerance, heat intolerance, polydipsia, polyuria Physical Exam Vital Signs: Temp Pulse Resp BP Pulse Ox 97.3 F 75 20 138/62 H 94 11/20/19 07:51 11/20/19 07:51 11/20/19 07:51 11/20/19 07:51 11/20/19 07:51 Intake & Output 11/19/19 11/20/19 11/21/19 06:59 06:59 06:59 Intake Total 1000 910 Output Total 200 700 Balance 800 210 Weight 101 kg 101.4 kg Results Laboratory Results: 11/19/19 05:15 11/19/19 05:15 11/19/19 13:15 Carbonic Acid 2.37 H HCO3/H2CO3 Ratio 15:1 ABG pH 7.29 L ABG pCO2 78.7 H* ABG pO2 112.5 H ABG HCO3 36.6 H ABG O2 Saturation 97.4 ABG Base Excess 8.3 FiO2 36% 11/18/19 11/18/19 11:45 11:45 Troponin I < 0.012 NT-Pro-B Natriuret Pep 1350 H Impressions: Chest X-Ray 11/18/19 11:37 IMPRESSION: Postoperative changes and chronic parenchymal scarring in the left lung are stable. No evidence of acute cardiopulmonary disease. Status: Image reviewed by me Assessment & Plan - Diagnosis (1) Lung cancer Qualifiers: Laterality: right Lung location: overlapping sites Qualified Code(s): C 34.81 - Malignant neoplasm of overlapping sites of right bronchus and lung Is this a current diagnosis for this admission?: Yes Plan: Known history of stage IV lung cancer with bilateral lung nodules but overall low volume metastatic disease, she was due for chemotherapy today but will run therapy for at least 1 week while she is admitted here. She will recover further then continue with cycle #2 as outpatient. Will follow. (2) Anemia associated with chemotherapy Is this a current diagnosis for this admission?: Yes Plan: Chemo induced anemia. We will initiate therapy for this as an outpatient. If hemoglobin falls below 8 she will require transfusion. - Time Time Spent: Greater than 70 Minutes - Inpatient Certification Based on my medical assessment, after consideration of the patient's comor bidities, presenting symptoms, or acuity I expect that the services needed warrant INPATIENT care.: Yes I certify that my determination is in accordance with my understanding of Medicare's requirements for reasonable and necessary INPATIENT services [42 CFR 412.3e].: Yes Medical Necessity: Need For Continuous Telemetry Monitoring, Need for Nebulizer Therapy and Monitoring of Response, Risk of Complication if Not Cared For in Hospital
[2019-11-20] MEDS: LOSARTAN POTASSIUM 50 MG TABLET PO SCH (09:10)
[2019-11-20] MEDS: AZITHROMYCIN 250 MG TABLET PO SCH (09:10)
[2019-11-20] MEDS: FOLIC ACID 1 MG TABLET PO SCH (09:10)
[2019-11-20] MEDS: ESCITALOPRAM OXALATE 10 MG TABLET PO SCH (09:10)
[2019-11-20] MEDS: HYDROCHLOROTHIAZIDE 25 MG TABLET PO SCH (09:10)
[2019-11-20] MEDS: ASPIRIN 81 MG TABLET, ENT COATED PO SCH (09:10)
[2019-11-20] MEDS: FAMOTIDINE 20 MG TABLET PO SCH ×2 (09:11→23:10)
[2019-11-20] MEDS: AMLODIPINE BESYLATE 5 MG TABLET PO SCH (09:11)
[2019-11-20] MEDS: PREGABALIN 50 MG CAPSULE PO SCH ×4 (09:11→21:59)
[2019-11-20] MEDS: DOCUSATE SODIUM 100 MG CAPSULE PO SCH (09:11)
[2019-11-20] MEDS: FLUTICASONE/UMECLIDIN/VILANTER 100-62.5-25 MCG/DOSE IH SCH (09:12)
[2019-11-20 10:16] LABS: HEMATOCRIT 26.9 % (36.0-47.0); HEMOGLOBIN 8.8 g/dL (12.0-15.5); MEAN CORPUSCULAR HEMOGLOBIN 28.5 pg (27.0-33.4); MEAN CORPUSCULAR HGB CONC 32.9 g/dL (32.0-36.0); MEAN CORPUSCULAR VOLUME 87 fl (80-97); PLATELET COUNT 342 10^3/uL (150-450); RED CELL DISTRIBUTION WIDTH 22.7 % (11.5-14.0); WHITE BLOOD COUNT 7.4 10^3/uL (4.0-10.5)
[2019-11-20 10:41] LABS: ANION GAP 6 (5-19); BLOOD UREA NITROGEN 26 mg/dL (7-20); CALCIUM 9.5 mg/dL (8.4-10.2); CARBON DIOXIDE 37 mmol/L (22-30); CHLORIDE 92 mmol/L (98-107); GLUCOSE 138 mg/dL (75-110); POTASSIUM 4.7 mmol/L (3.6-5.0)
[2019-11-20] MEDS ORDERED: PROMETHAZINE HCL INJ 25 MG/1 ML VIAL IV PRN (11:30)
[2019-11-20] MEDS ORDERED: ONDANSETRON HCL INJ/PF 4 MG/2 ML SDV IV PRN (11:30)
--- NOTE | 2019-11-20 18:48 | PDOC PROGRESS REPORT ---
Subjective Progress Note for:: 11/20/19 Subjective:: DEUCE GRUBER is a 74 year old obese female, with past medical history of hypertension, obstructive sleep apnea on CPAP, depression, anxiety, iron deficiency anemia, neuropathy, tobacco abuse, COPD on 4 L home oxygen, recurrent lung cancer status post several lobectomy, chemotherapy, radiation and immunotherapy patient is presenting to the ED complaining of worsening fatigue, shortness of breath, nonproductive cough for the last several days. Patient normally uses 4 L of oxygen 14/12 for her underlying COPD and uses 2 nebs per day and with that she is able to perform most of her ADLs however for the last several days she has noticed to be getting easily winded and weaker by the day. Patient denies having any fever or chills however stating that she was told by her that she felt warm to touch, patient was given ciprofloxacin by her PCP which she took for 2 days. She denies any recent travel, any sick contact, any recent hospitalization, ches t pain, nausea, vomiting, diarrhea, orthopnea, PND, weight changes, loss of taste, loss of smell, any exposure to anybody with suspicion of having COVID. Patient lives at home with her and neither of them has had recent travel or being exposed to anybody with similar symptoms. In ED she was noted to be tachycardic hypoxic. Her oncologist Dr. Edmond was contacted and she suggested for patient to be admitted and she will evaluate her tomorrow. 11/19/2019. No acute events overnight. This morning patient was noted to be a bit altered and an ABG showed elevated CO2 after placing patient on BiPAP patient improved back to baseline, saw patient this afternoon currently resting in bed no apparent distress, just finished talking to her on the phone, stating feeling better than yesterday, alert and oriented x3, cooperative with physical examination, answering question properly, denies any fever, chills, nausea, vomiting, diarrhea, constipation or enuresis. Still complaining of shortness of breath. 11/20/2019. No acute issues overnight. Patient was seen on afternoon rounds; she was found sitting up to the edge of the bed, comfortably, on supplemental oxygen via [place]. She reports she is feeling well today. She has no questions or concerns; denies fever, chills, chest pain, palpitations, dyspnea, orthopnea, cough. She has no other questions or concerns. No concerns per nursing. Reason For Visit: RESPIRATORY FAILURE,ACUTE EXACERBATION COPD Physical Exam Vital Signs: Temp Pulse Resp BP Pulse Ox 97.3 F 80 18 131/59 H 96 11/20/19 11:35 11/20/19 14:44 11/20/19 14:44 11/20/19 11:35 11/20/19 16:00 Intake & Output 11/19/19 11/20/19 11/21/19 06:59 06:59 06:59 Intake Total 1000 910 240 Output Total 200 700 200 Balance 800 210 40 Weight 101 kg 101.4 kg General appearance: PRESENT: no acute distress, cooperative, obese, well- developed, well-nourished Head exam: PRESENT: atraumatic, normocephalic Eye exam: PRESENT: conjunctiva pink, EOMI, PERRLA. ABSENT: scleral icterus Mouth exam: PRESENT: moist, tongue midline Respiratory exam: PRESENT: clear to auscultation ruiz, symmetrical, unlabored. ABSENT: rales, rhonchi, wheezes Cardiovascular exam: PRESENT: RRR, +S1, +S2. ABSENT: diastolic murmur, rubs, systolic murmur Vascular exam: PRESENT: normal capillary refill Extremities exam: PRESENT: full ROM. ABSENT: calf tenderness, clubbing, pedal edema Neurological exam: PRESENT: alert, awake, oriented to person, oriented to place, oriented to time, oriented to situation, CN II-XII grossly intact. ABSENT: motor sensory deficit Psychiatric exam: PRESENT: appropriate affect, normal mood. ABSENT: homicidal ideation, suicidal ideation Skin exam: PRESENT: dry, intact, warm. ABSENT: cyanosis, rash Results Laboratory Results: 11/20/19 09:38 11/20/19 09:38 11/20/19 11/20/19 09:38 09:38 WBC 7.4 RBC 3.10 L Hgb 8.8 L Hct 26.9 L MCV 87 MCH 28.5 MCHC 32.9 RDW 22.7 H Plt Count 342 Sodium 134.9 L Potassium 4.7 Chloride 92 L Carbon Dioxide 37 H Anion Gap 6 BUN 26 H Creatinine 0.74 Est GFR ( Amer) > 60 Glucose 138 H Calcium 9.5 11/18/19 11/18/19 11:45 11:45 Troponin I < 0.012 NT-Pro-B Natriuret Pep 1350 H Impressions: Chest X-Ray 11/18/19 11:37 IMPRESSION: Postoperative changes and chronic parenchymal scarring in the left lung are stable. No evidence of acute cardiopulmonary disease. Assessment and Plan - Diagnosis (1) Acute exacerbation of chronic obstructive pulmonary disease (COPD) Is this a current diagnosis for this admission?: Yes Plan: The patient was initially admitted to [facility] on continuous cardiac telemetry. She is downgraded to telemetry today. We will continue supplemental oxygen and BiPAP as needed to maintain saturations greater than 89%. Continue p.o. azithromycin. Continue daily Trelegy Continue scheduled and as needed nebulizer treatments. IV Solu-Medrol. Mucinex twice daily. Encourage pulmonary toilet with incentive spirometer, flutter valve, and ambulation. (2) Acute and chronic respiratory failure with hypercapnia Is this a current diagnosis for this admission?: Yes Plan: Secondary to # 1 COVID-19 testing negative. Follow-up ABG in the morning. Remaining management as above. (3) Hypertension Is this a current diagnosis for this admission?: Yes Plan: Euvolemic. Normotensive. Continue home meds. Adjust meds as needed. (4) Lung cancer Qualifiers: Laterality: right Lung location: overlapping sites Qualified Code(s): C34.81 - Malignant neoplasm of overlapping sites of right bronchus and lung Is this a current diagnosis for this admission?: Yes Plan: History of recurrent lung cancer status post multiple lobectomy, chemoradiation and immunotherapy. Sees Dr. Jimenez as outpatient. Have consulted oncology; appreciate their evaluation recommendations. (5) Obesity (BMI 30-39.9) Is this a current diagnosis for this admission?: Yes Plan: Diet and lifestyle modification recommended. Will obtain TSH. (6) Tobacco abuse Is this a current diagnosis for this admission?: Yes Plan: Unfortunately patient is still smoking even though she has had recurrent lung cancers. Advised on quitting. Nicotine patch will be provided. (7) Confusion Is this a current diagnosis for this admission?: Yes Plan: Mild confusion noted today. Patient is A&O x4. Answers most questions appropriately. However, she tells me that she is speaking to her family members on the phone and is noted to be holding her room phone upside down. Discussed with Dr. Worley this afternoon. She does agree that repeat MRI imaging (last done in June this year) may be reasonable. We will repeat ABG in the morning; if CO2 is decreased and patient remains confused, will follow up with contrasted MRI of the brain. We will also check urinalysis with reflex culture to rule out UTI as a potential contributing factor. Fall precautions, supportive care. - Time Time Spent with patient: 35 or more minutes Medications reviewed and adjusted accordingly: Yes Anticipated discharge: Home
[2019-11-20] MEDS: SIMVASTATIN 10 MG TABLET PO SCH (23:10)
[2019-11-21] MEDS: GUAIFENESIN 600 MG TABLET.SA PO SCH ×2 (00:02→10:42)
[2019-11-21] MEDS: HEPARIN SOD (PORCINE) 5,000 UNIT/ML 1 ML VIAL SUBCUT SCH ×2 (05:13→13:49)
[2019-11-21] MEDS: METHYLPREDNISOLONE INJ 125 MG/2 ML SDV IV SCH ×3 (05:14→17:40)
[2019-11-21] MEDS: LORAZEPAM 0.5 MG TABLET PO PRN (05:25)
[2019-11-21 05:54] LABS: APPEARANCE,URINE TURBID; BILIRUBIN,URINE NEGATIVE (NEGATIVE); COLOR,URINE YELLOW; GLUCOSE, URINE NEGATIVE (NEGATIVE); KETONES,URINE NEGATIVE (NEGATIVE); PROTEIN,URINE 100 mg/dL (NEGATIVE); URINE SPECIFIC GRAVITY 1.011; UROBILINOGEN,URINE NEGATIVE mg/dL (<2.0)
[2019-11-21 06:20] LABS: HEMATOCRIT 26.6 % (36.0-47.0); HEMOGLOBIN 8.9 g/dL (12.0-15.5); MEAN CORPUSCULAR HEMOGLOBIN 28.6 pg (27.0-33.4); MEAN CORPUSCULAR HGB CONC 33.5 g/dL (32.0-36.0); MEAN CORPUSCULAR VOLUME 85 fl (80-97); PLATELET COUNT 375 10^3/uL (150-450); RED BLOOD COUNT 3.12 10^6/uL (3.72-5.28); RED CELL DISTRIBUTION WIDTH 22.6 % (11.5-14.0); WHITE BLOOD COUNT 8.3 10^3/uL (4.0-10.5)
[2019-11-21 06:40] LABS: BLOOD UREA NITROGEN 22 mg/dL (7-20); CALCIUM 9.5 mg/dL (8.4-10.2); CHLORIDE 91 mmol/L (98-107); GLUCOSE 98 mg/dL (75-110); POTASSIUM 3.8 mmol/L (3.6-5.0)
[2019-11-21 06:49] LABS: CARBON DIOXIDE 42 mmol/L (22-30)
[2019-11-21 07:08] LABS: ARTERIAL BLOOD HCO3 44.1 mmol/L (20-24); ARTERIAL BLOOD O2 SATURATION 72.7 % (94-98); ARTERIAL BLOOD PH 7.36 (7.35-7.45); ARTERIAL BLOOD TOTAL CO2 46.5 mmol/L (21-25)
[2019-11-21 07:09] LABS: ARTERIAL BLOOD FIO2 3L
[2019-11-21 07:10] LABS: ARTERIAL BLOOD PCO2 79.6 mmHg (35-45)
[2019-11-21 07:18] LABS: ANION GAP 2 (5-19)
[2019-11-21] MEDS: IPRATROPIUM/ALBUTEROL 0.5-2.5 MG/3 ML AMPUL NEB SCH ×3 (07:45→20:04)
[2019-11-21] MEDS: HYDROCHLOROTHIAZIDE 25 MG TABLET PO SCH (08:31)
--- NOTE | 2019-11-21 08:51 | PDOC PROGRESS REPORT ---
Subjective Progress Note for:: 11/21/19 Subjective:: Patient states that she is a bit "fuzzy" today. Nurses report that her CO2 this morning was quite high. She is currently on 3-4L O2 and was on BiPAP/CPAP all night. No other complaints except weakness. She had a good BM this morning. No chest pain. Reason For Visit: RESPIRATORY FAILURE,ACUTE EXACERBATION COPD Physical Exam Vital Signs: Temp Pulse Resp BP Pulse Ox 97.6 F 78 20 135/66 H 98 11/21/19 08:12 11/21/19 08:12 11/21/19 08:12 11/21/19 08:12 11/21/19 08:12 Intake & Output 11/20/19 11/21/19 11/22/19 06:59 06:59 06:59 Intake Total 910 680 Output Total 700 200 Balance 210 480 Weight 101.4 kg 101.4 kg General appearance: PRESENT: no acute distress, obese Head exam: PRESENT: normocephalic Eye exam: PRESENT: EOMI Respiratory exam: PRESENT: unlabored Extremities exam: PRESENT: +1 edema Neurological exam: PRESENT: alert, awake Psychiatric exam: PRESENT: appropriate affect Skin exam: PRESENT: normal color Results Laboratory Results: 11/21/19 05:30 11/21/19 05:30 11/20/19 11/20/19 11/21/19 09:38 09:38 05:19 WBC 7.4 RBC 3.10 L Hgb 8.8 L Hct 26.9 L MCV 87 MCH 28.5 MCHC 32.9 RDW 22.7 H Plt Count 342 Carbonic Acid HCO3/H2CO3 Ratio ABG pH ABG pCO2 ABG pO2 ABG HCO3 ABG O2 Saturation ABG Base Excess FiO2 Sodium 134.9 L Potassium 4.7 Chloride 92 L Carbon Dioxide 37 H Anion Gap 6 BUN 26 H Creatinine 0.74 Est GFR ( Amer) > 60 Glucose 138 H Calcium 9.5 TSH Urine Color YELLOW Urine Appearance TURBID Urine pH 6.0 Ur Specific Boring 1.011 Urine Protein 100 H Urine Glucose (UA) NEGATIVE Urine Ketones NEGATIVE Urine Blood SMALL H Urine RBC (Auto) 10 11/21/19 11/21/19 11/21/19 05:30 05:30 05:30 WBC 8.3 RBC 3.12 L Hgb 8.9 L Hct 26.6 L MCV 85 MCH 28.6 MCHC 33.5 RDW 22.6 H Plt Count 375 Carbonic Acid HCO3/H2CO3 Ratio ABG pH ABG pCO2 ABG pO2 ABG HCO3 ABG O2 Saturation ABG Base Excess FiO2 Sodium 134.8 L Potassium 3.8 Chloride 91 L Carbon Dioxide 42 H* Anion Gap 2 L BUN 22 H Creatinine 0.68 Est GFR ( Amer) > 60 Glucose 98 Calcium 9.5 TSH 39.90 H Urine Color Urine Appearance Urine pH Ur Specific Boring Urine Protein Urine Glucose (UA) Urine Ketones Urine Blood Urine RBC (Auto) 11/21/19 06:47 WBC RBC Hgb Hct MCV MCH MCHC RDW Plt Count Carbonic Acid 2.40 H HCO3/H2CO3 Ratio 18:1 ABG pH 7.36 ABG pCO2 79.6 H* ABG pO2 42.0 L ABG HCO3 44.1 H ABG O2 Saturation 72.7 L ABG Base Excess 16.0 FiO2 3L Sodium Potassium Chloride Carbon Dioxide Anion Gap BUN Creatinine Est GFR ( Amer) Glucose Calcium TSH Urine Color Urine Appearance Urine pH Ur Specific Boring Urine Protein Urine Glucose (UA) Urine Ketones Urine Blood Urine RBC (Auto) 11/18/19 11/18/19 11:45 11:45 Troponin I < 0.012 NT-Pro-B Natriuret Pep 1350 H Impressions: Chest X-Ray 11/18/19 11:37 IMPRESSION: Postoperative changes and chronic parenchymal scarring in the left lung are stable. No evidence of acute cardiopulmonary disease. Assessment & Plan - Diagnosis (1) Acute exacerbation of chronic obstructive pulmonary disease (COPD) Is this a current diagnosis for this admission?: Yes Plan: As per primary team. They will adjust oxygen and CPAP setting. This should help her confusion. (2) Lung cancer Qualifiers: Laterality: right Lung location: overlapping sites Qualified Code(s): C34.81 - Malignant neoplasm of overlapping sites of right bronchus and lung Is this a current diagnosis for this admission?: Yes Plan: All treatment on hold for now. (3) Obesity (BMI 30-39.9) Is this a current diagnosis for this admission?: Yes - Time Time Spent with patient: Less than 15 minutes
[2019-11-21] MEDS: AMLODIPINE BESYLATE 5 MG TABLET PO SCH (10:42)
[2019-11-21] MEDS: ASPIRIN 81 MG TABLET, ENT COATED PO SCH (10:42)
[2019-11-21] MEDS: FOLIC ACID 1 MG TABLET PO SCH (10:42)
[2019-11-21] MEDS: FAMOTIDINE 20 MG TABLET PO SCH (10:42)
[2019-11-21] MEDS: DOCUSATE SODIUM 100 MG CAPSULE PO SCH (10:42)
[2019-11-21] MEDS: LOSARTAN POTASSIUM 50 MG TABLET PO SCH (10:42)
[2019-11-21] MEDS: ESCITALOPRAM OXALATE 10 MG TABLET PO SCH (10:43)
[2019-11-21] MEDS: PREGABALIN 50 MG CAPSULE PO SCH ×3 (10:43→17:38)
[2019-11-21 10:44] LABS: FREE T3 1.41 pg/mL (2.77-5.27); FREE T4 (FREE THYROXINE) 0.71 ng/dL (0.78-2.19)
[2019-11-21] MEDS: FLUTICASONE/UMECLIDIN/VILANTER 100-62.5-25 MCG/DOSE IH SCH (10:44)
[2019-11-21] MEDS: AZITHROMYCIN 250 MG TABLET PO SCH (10:45)
--- NOTE | 2019-11-21 20:00 | PDOC PROGRESS REPORT ---
Subjective Progress Note for:: 11/21/19 Subjective:: DEUCE GRUBER is a 74 year old obese female, with past medical history of hypertension, obstructive sleep apnea on CPAP, depression, anxiety, iron deficiency anemia, neuropathy, tobacco abuse, COPD on 4 L home oxygen, recurrent lung cancer status post several lobectomy, chemotherapy, radiation and immunotherapy patient is presenting to the ED complaining of worsening fatigue, shortness of breath, nonproductive cough for the last several days. Patient normally uses 4 L of oxygen 14/12 for her underlying COPD and uses 2 nebs per day and with that she is able to perform most of her ADLs however for the last several days she has noticed to be getting easily winded and weaker by the day. Patient denies having any fever or chills however stating that she was told by her that she felt warm to touch, patient was given ciprofloxacin by her PCP which she took for 2 days. She denies any recent travel, any sick contact, any recent hospitalization, ches t pain, nausea, vomiting, diarrhea, orthopnea, PND, weight changes, loss of taste, loss of smell, any exposure to anybody with suspicion of having COVID. Patient lives at home with her and neither of them has had recent travel or being exposed to anybody with similar symptoms. In ED she was noted to be tachycardic hypoxic. Her oncologist Dr. Edmond was contacted and she suggested for patient to be admitted and she will evaluate her tomorrow. 11/19/2019. No acute events overnight. This morning patient was noted to be a bit altered and an ABG showed elevated CO2 after placing patient on BiPAP patient improved back to baseline, saw patient this afternoon currently resting in bed no apparent distress, just finished talking to her on the phone, stating feeling better than yesterday, alert and oriented x3, cooperative with physical examination, answering question properly, denies any fever, chills, nausea, vomiting, diarrhea, constipation or enuresis. Still complaining of shortness of breath. 11/20/2019. No acute issues overnight. Patient was seen on afternoon rounds; she was found sitting up to the edge of the bed, comfortably, on supplemental oxygen via NC. She reports she is feeling well today. She has no questions or concerns; denies fever, chills, chest pain, palpitations, dyspnea, orthopnea, cough. She has no other questions or concerns. No concerns per nursing. 11/21/2019. o acute issues overnight. Patient was seen on afternoon rounds; she was found resting in bed, comfortably, on supplemental oxygen via BiPAP. She is sleeping soundly, wakes briefly, but quickly falls back to sleep. Nursing confirms she has worn BiPAP consistently overnight and for most of morning. Continues to have periods of confusion. Patient states she feels well, "just tired." She does appear to be comfortable and is not noted to be in any distress. Reason For Visit: RESPIRATORY FAILURE,ACUTE EXACERBATION COPD Physical Exam Vital Signs: Temp Pulse Resp BP Pulse Ox 97.6 F 69 14 135/66 H 98 11/21/19 08:12 11/21/19 14:00 11/21/19 13:36 11/21/19 08:12 11/21/19 16:45 Intake & Output 11/20/19 11/21/19 11/22/19 06:59 06:59 06:59 Intake Total 910 680 Output Total 700 200 Balance 210 480 Weight 101.4 kg 101.4 kg General appearance: PRESENT: no acute distress, cooperative, obese, well- developed, well-nourished Head exam: PRESENT: atraumatic, normocephalic Eye exam: PRESENT: conjunctiva pink, EOMI, PERRLA. ABSENT: scleral icterus Mouth exam: PRESENT: moist, tongue midline Respiratory exam: PRESENT: clear to auscultation ruiz, symmetrical, unlabored, other - BiPAP. ABSENT: rales, rhonchi, wheezes Cardiovascular exam: PRESENT: RRR. ABSENT: diastolic murmur, rubs, systolic murmur Pulses: PRESENT: normal dorsalis pedis pul Vascular exam: PRESENT: normal capillary refill Extremities exam: PRESENT: full ROM. ABSENT: calf tenderness, clubbing, pedal edema Neurological exam: PRESENT: alert, awake, oriented to person, oriented to place, oriented to time, oriented to situation, CN II-XII grossly intact, other - Intermittent confusion. ABSENT: motor sensory deficit Psychiatric exam: PRESENT: appropriate affect, normal mood. ABSENT: homicidal ideation, suicidal ideation Skin exam: PRESENT: dry, intact, warm. ABSENT: cyanosis, rash Results Laboratory Results: 11/21/19 05:30 11/21/19 05:30 11/21/19 11/21/19 11/21/19 05:19 05:30 05:30 WBC 8.3 RBC 3.12 L Hgb 8.9 L Hct 26.6 L MCV 85 MCH 28.6 MCHC 33.5 RDW 22.6 H Plt Count 375 Carbonic Acid HCO3/H2CO3 Ratio ABG pH ABG pCO2 ABG pO2 ABG HCO3 ABG O2 Saturation ABG Base Excess FiO2 Sodium 134.8 L Potassium 3.8 Chloride 91 L Carbon Dioxide 42 H* Anion Gap 2 L BUN 22 H Creatinine 0.68 Est GFR ( Amer) > 60 Glucose 98 Calcium 9.5 TSH Free T4 Free T3 pg/mL Urine Color YELLOW Urine Appearance TURBID Urine pH 6.0 Ur Specific Burkett 1.011 Urine Protein 100 H Urine Glucose (UA) NEGATIVE Urine Ketones NEGATIVE Urine Blood SMALL H Urine RBC (Auto) 10 11/21/19 11/21/19 11/21/19 05:30 05:30 06:47 WBC RBC Hgb Hct MCV MCH MCHC RDW Plt Count Carbonic Acid 2.40 H HCO3/H2CO3 Ratio 18:1 ABG pH 7.36 ABG pCO2 79.6 H* ABG pO2 42.0 L ABG HCO3 44.1 H ABG O2 Saturation 72.7 L ABG Base Excess 16.0 FiO2 3L Sodium Potassium Chloride Carbon Dioxide Anion Gap BUN Creatinine Est GFR ( Amer) Glucose Calcium TSH 39.90 H Free T4 0.71 L Free T3 pg/mL 1.41 L Urine Color Urine Appearance Urine pH Ur Specific Burkett Urine Protein Urine Glucose (UA) Urine Ketones Urine Blood Urine RBC (Auto) 11/18/19 11/18/19 11:45 11:45 Troponin I < 0.012 NT-Pro-B Natriuret Pep 1350 H Impressions: Chest X-Ray 11/18/19 11:37 IMPRESSION: Postoperative changes and chronic parenchymal scarring in the left lung are stable. No evidence of acute cardiopulmonary disease. Assessment and Plan - Diagnosis (1) Acute exacerbation of chronic obstructive pulmonary disease (COPD) Is this a current diagnosis for this admission?: Yes Plan: The patient was initially admitted to [facility] on continuous cardiac telemetry. She is downgraded to telemetry today. We will continue supplemental oxygen and BiPAP as needed to maintain saturations greater than 89%. Encourage BiPAP use r/t continued hypercapnia Continue p.o. azithromycin. Continue daily Trelegy Continue scheduled and as needed nebulizer treatments. IV Solu-Medrol. Mucinex twice daily. Encourage pulmonary toilet with incentive spirometer, flutter valve, and ambulation. (2) Acute and chronic respiratory failure with hypercapnia Is this a current diagnosis for this admission?: Yes Plan: Secondary to # 1 COVID-19 testing negative. Follow-up ABG in the morning. Remaining management as above. (3) Hypertension Is this a current diagnosis for this admission?: Yes Plan: Euvolemic. Normotensive. Continue home meds. Adjust meds as needed. (4) Lung cancer Qualifiers: Laterality: right Lung location: overlapping sites Qualified Code(s): C34.81 - Malignant neoplasm of overlapping sites of right bronchus and lung Is this a current diagnosis for this admission?: Yes Plan: History of recurrent lung cancer status post multiple lobectomy, chemoradiation and immunotherapy. Sees Dr. Jimenez as outpatient. Have consulted oncology; appreciate their evaluation recommendations. (5) Obesity (BMI 30-39.9) Is this a current diagnosis for this admission?: Yes Plan: Diet and lifestyle modification recommended. Thyroid panel shows hypothyroidism; start levothyroxine. (6) Tobacco abuse Is this a current diagnosis for this admission?: Yes Plan: Unfortunately patient is still smoking even though she has had recurrent lung cancers. Advised on quitting. Nicotine patch will be provided. (7) Confusion Is this a current diagnosis for this admission?: Yes Plan: Mild confusion noted today. Patient is A&O x4. Answers most questions appropriately. However, she tells me that she is speaking to her family members on the phone and is noted to be holding her room phone upside down. Discussed with Dr. Worley this afternoon. She does agree that repeat MRI imaging (last done in June this year) may be reasonable. We will repeat ABG in the morning; if CO2 is decreased and patient remains confused, will follow up with contrasted MRI of the brain. We will also check urinalysis with reflex culture to rule out UTI as a potential contributing factor. Fall precautions, supportive care. (8) Hypothyroidism Is this a current diagnosis for this admission?: Yes Plan: Thyroid panel shows hypothyroidism; start levothyroxine. - Time Time Spent with patient: 25-34 minutes Medications reviewed and adjusted accordingly: Yes
[2019-11-22] MEDS: GUAIFENESIN 600 MG TABLET.SA PO SCH ×5 (02:17→21:31)
[2019-11-22] MEDS: FAMOTIDINE 20 MG TABLET PO SCH ×5 (02:17→21:31)
[2019-11-22] MEDS: METHYLPREDNISOLONE INJ 125 MG/2 ML SDV IV SCH ×3 (02:18→18:40)
[2019-11-22] MEDS: LORAZEPAM 0.5 MG TABLET PO PRN ×2 (02:18→07:09)
[2019-11-22] MEDS: SIMVASTATIN 10 MG TABLET PO SCH ×3 (02:18→21:31)
[2019-11-22] MEDS: HEPARIN SOD (PORCINE) 5,000 UNIT/ML 1 ML VIAL SUBCUT SCH ×4 (02:27→21:31)
[2019-11-22 04:59] LABS: HEMATOCRIT 30.5 % (36.0-47.0); HEMOGLOBIN 10.1 g/dL (12.0-15.5); MEAN CORPUSCULAR HEMOGLOBIN 28.3 pg (27.0-33.4); MEAN CORPUSCULAR VOLUME 86 fl (80-97); PLATELET COUNT 350 10^3/uL (150-450); RED BLOOD COUNT 3.56 10^6/uL (3.72-5.28); RED CELL DISTRIBUTION WIDTH 23.3 % (11.5-14.0); WHITE BLOOD COUNT 7.3 10^3/uL (4.0-10.5)
[2019-11-22 06:39] LABS: BLOOD UREA NITROGEN 21 mg/dL (7-20); CALCIUM 9.7 mg/dL (8.4-10.2); CHLORIDE 90 mmol/L (98-107); GLUCOSE 120 mg/dL (75-110); POTASSIUM 4.2 mmol/L (3.6-5.0)
[2019-11-22 06:52] LABS: ANION GAP 3 (5-19)
[2019-11-22 06:55] LABS: CARBON DIOXIDE 42 mmol/L (22-30)
[2019-11-22] MEDS: LEVOTHYROXINE SODIUM 0.1 MG TABLET PO SCH (06:59)
[2019-11-22 07:18] LABS: ARTERIAL BLOOD BASE EXCESS 15.7 mmol/L; ARTERIAL BLOOD HCO3 41.8 mmol/L (20-24); ARTERIAL BLOOD O2 SATURATION 97.9 % (94-98); ARTERIAL BLOOD PCO2 59.7 mmHg (35-45); ARTERIAL BLOOD PH 7.46 (7.35-7.45); ARTERIAL BLOOD PO2 105.4 mmHg (80-100); ARTERIAL BLOOD TOTAL CO2 43.6 mmol/L (21-25)
[2019-11-22 07:25] LABS: ARTERIAL BLOOD FIO2 30%
[2019-11-22] MEDS: IPRATROPIUM/ALBUTEROL 0.5-2.5 MG/3 ML AMPUL NEB SCH ×3 (07:30→19:51)
--- NOTE | 2019-11-22 07:58 | PDOC PROGRESS REPORT ---
Subjective Progress Note for:: 11/22/19 Subjective:: Patient much more confused today, when I originally consulted on her on Wednesday morning, she was fully alert and oriented and understood why she was here, see that CO2 levels were elevated, but they have improved so her mental status should not be worsened. Unsure why this is. Will discuss with hospitalist team. Reason For Visit: RESPIRATORY FAILURE,ACUTE EXACERBATION COPD Physical Exam Vital Signs: Temp Pulse Resp BP Pulse Ox 97.9 F 89 18 127/83 H 98 11/21/19 23:53 11/22/19 07:53 11/22/19 07:53 11/22/19 07:53 11/22/19 07:53 Intake & Output 11/21/19 11/22/19 11/23/19 06:59 06:59 06:59 Intake Total 680 Output Total 200 Balance 480 Weight 101.4 kg 101 kg General appearance: PRESENT: no acute distress, well-developed, well-nourished Head exam: PRESENT: atraumatic, normocephalic Eye exam: PRESENT: conjunctiva pink, EOMI, PERRLA. ABSENT: scleral icterus Ear exam: PRESENT: normal external ear exam Mouth exam: PRESENT: moist, tongue midline Neck exam: ABSENT: carotid bruit, JVD, lymphadenopathy, thyromegaly Respiratory exam: PRESENT: clear to auscultation ruiz. ABSENT: rales, rhonchi, wheezes Cardiovascular exam: PRESENT: RRR. ABSENT: diastolic murmur, rubs, systolic murmur Pulses: PRESENT: normal dorsalis pedis pul Vascular exam: PRESENT: normal capillary refill GI/Abdominal exam: PRESENT: normal bowel sounds, soft. ABSENT: distended, guarding, mass, organolmegaly, rebound, tenderness Rectal exam: PRESENT: deferred Extremities exam: PRESENT: full ROM. ABSENT: calf tenderness, clubbing, pedal edema Neurological exam: PRESENT: alert, awake, oriented to person, oriented to place, oriented to time, oriented to situation, CN II-XII grossly intact. ABSENT: motor sensory deficit Psychiatric exam: PRESENT: appropriate affect, normal mood. ABSENT: homicidal ideation, suicidal ideation Skin exam: PRESENT: dry, intact, warm. ABSENT: cyanosis, rash Results Laboratory Results: 11/22/19 04:36 11/22/19 06:04 0611/22/19 11/22/19 05:30 04:36 04:36 WBC 7.3 RBC 3.56 L Hgb 10.1 L Hct 30.5 L MCV 86 MCH 28.3 MCHC 33.0 RDW 23.3 H Plt Count 350 Carbonic Acid HCO3/H2CO3 Ratio ABG pH ABG pCO2 ABG pO2 ABG HCO3 ABG O2 Saturation ABG Base Excess FiO2 Sodium Cancelled Potassium Cancelled Chloride Cancelled Carbon Dioxide Cancelled Anion Gap Cancelled BUN Cancelled Creatinine Cancelled Est GFR ( Amer) Cancelled Est GFR (Non-Af Amer) Cancelled Glucose Cancelled Calcium Cancelled Free T4 0.71 L Free T3 pg/mL 1.41 L 11/22/19 11/22/19 06:04 06:51 WBC RBC Hgb Hct MCV MCH MCHC RDW Plt Count Carbonic Acid 1.80 H HCO3/H2CO3 Ratio 23:1 ABG pH 7.46 H ABG pCO2 59.7 H ABG pO2 105.4 H ABG HCO3 41.8 H ABG O2 Saturation 97.9 ABG Base Excess 15.7 FiO2 30% Sodium 135.2 L Potassium 4.2 Chloride 90 L Carbon Dioxide 42 H* Anion Gap 3 L BUN 21 H Creatinine 0.59 Est GFR ( Amer) > 60 Est GFR (Non-Af Amer) Glucose 120 H Calcium 9.7 Free T4 Free T3 pg/mL 11/18/19 11/18/19 11:45 11:45 Troponin I < 0.012 NT-Pro-B Natriuret Pep 1350 H Impressions: Chest X-Ray 11/18/19 11:37 IMPRESSION: Postoperative changes and chronic parenchymal scarring in the left lung are stable. No evidence of acute cardiopulmonary disease. Assessment & Plan - Diagnosis (1) Lung cancer Qualifiers: Laterality: right Lung location: overlapping sites Qualified Code(s): C34.81 - Malignant neoplasm of overlapping sites of right bronchus and lung Is this a current diagnosis for this admission?: Yes Plan: Would like to continue therapy as an outpatient (2) Anemia associated with chemotherapy Is this a current diagnosis for this admission?: Yes Plan: Improved, will follow (3) Confusion Is this a current diagnosis for this admission?: Yes Plan: Likely secondary to delirium but confusion should be improving not getting worse - Time Time Spent with patient: 15-24 minutes
[2019-11-22] MEDS ORDERED: OLANZAPINE INJ/PF 10 MG SDV IM ONE (09:00)
[2019-11-22] MEDS: LOSARTAN POTASSIUM 50 MG TABLET PO SCH (10:00)
[2019-11-22] MEDS: ESCITALOPRAM OXALATE 10 MG TABLET PO SCH (10:56)
[2019-11-22] MEDS: AMLODIPINE BESYLATE 5 MG TABLET PO SCH (10:56)
[2019-11-22] MEDS: PREGABALIN 50 MG CAPSULE PO SCH ×3 (10:57→18:43)
[2019-11-22] MEDS: HYDROCHLOROTHIAZIDE 25 MG TABLET PO SCH (10:57)
[2019-11-22] MEDS: ACETYLCYSTEINE 20% SOLN 800 MG/4 ML VIAL.NEB NEB SCH ×2 (11:22→19:51)
--- NOTE | 2019-11-22 12:24 | RADIOLOGY REPORT (SQ) ---
EXAM DESCRIPTION: CT HEAD WITHOUT IMAGES COMPLETED DATE/TIME: 11/22/2019 12:11 pm REASON FOR STUDY: AMS COMPARISON: Slightly skewed positioning in the CT gantry. This mildly limits. TECHNIQUE: Axial images acquired through the brain without intravenous contrast. Images reviewed wi th bone, brain and subdural windows. Additional sagittal and coronal reconstructions were generated. Images stored on PACS. All CT scanners at this facility use dose modulation, iterative reconstruction, and/or weight based d osing when appropriate to reduce radiation dose to as low as reasonably achievable (ALARA). [facility]: Dose Right [facility]: CareDose [facility]: Dose Right [facility]: Teradose 4D [facility]: Smart Trilliant RADIATION DOSE: CT Rad equipment meets quality standard of care and radiation dose reduction techniq ues were employed. CTDIvol: 23.9 - 53.2 mGy. DLP: 1436 mGy-cm. mGy. LIMITATIONS: None. FINDINGS: VENTRICLES: Normal size and contour. CEREBRUM: No masses. No hemorrhage. No midline shift. No evidence for acute infarction. Normal gra y/white matter differentiation. No areas of low density in the white matter. CEREBELLUM: No masses. No hemorrhage. No alteration of density. No evidence for acute infarction. EXTRAAXIAL SPACES: No fluid collections. No masses. ORBITS AND GLOBE: No intra- or extraconal masses. Normal contour of globe without masses. CALVARIUM: No fracture. PARANASAL SINUSES: No fluid or mucosal thickening. SOFT TISSUES: No mass or hematoma. OTHER: No other significant finding. IMPRESSION: NORMAL BRAIN CT WITHOUT CONTRAST. EVIDENCE OF ACUTE STROKE: NO. COMMENT: Quality ID # [id number]: Final reports with documentation of one or more dose reduction techniques (e.g., Automated exposure control, adjustment of the mA and/or kV according to patient size, use of iterative reconstruction technique) TECHNICAL DOCUMENTATION: JOB ID: [id number] 2010 [employer]- All Rights Reserved Reading location - IP/workstation name: [email or web address]
--- NOTE | 2019-11-22 12:27 | RADIOLOGY REPORT (SQ) ---
EXAM DESCRIPTION: CT CHEST WITH IMAGES COMPLETED DATE/TIME: 11/22/2019 12:11 pm REASON FOR STUDY: hypoxia, dyspnea COMPARISON: 07/18/2019. Recent radiographs. TECHNIQUE: CT scan of the chest performed using helical scanning technique with dynamic intravenous contrast injection. Images reviewed with lung, soft tissue and bone windows. Reconstructed coronal and sagittal MPR and MIP images reviewed. All images stored on PACS. All CT scanners at this facility use dose modulation, iterative reconstruction, and/or weight based d osing when appropriate to reduce radiation dose to as low as reasonably achievable (ALARA). [facility]: Dose Right [facility]: CareDose [facility]: Dose Right [facility]: Teradose 4D [facility]: userfox CONTRAST TYPE AND DOSE: contrast/concentration: Isovue 350.00 mmol/ml; Total Contrast Delivered: 80. 0 ml; Total Saline Delivered: 39.8 ml RENAL FUNCTION: GFR > 60. RADIATION DOSE: CT Rad equipment meets quality standard of care and radiation dose reduction techniq ues were employed. CTDIvol: 14.4 mGy. DLP: 585 mGy-cm. . LIMITATIONS: None. FINDINGS: LUNGS AND PLEURA: Chronic areas of scarring, particularly in the left upper lobe. No new infiltrates or developing opacities. No pneumothorax. No pleural disease. HILAR AND MEDIASTINAL STRUCTURES: No identified masses or abnormal nodes. HEART AND VASCULAR STRUCTURES: No aneurysm or dissection. No central pulmonary emboli. No pericardi al effusion. HARDWARE: None in the chest. UPPER ABDOMEN: Renal cysts. No upper abdominal suspicious mass but limited assessment. THYROID AND OTHER SOFT TISSUES: No masses. No adenopathy. BONES: No significant finding. OTHER: No other significant finding. IMPRESSION: 1. Chronic lung changes, similar appearance compared to prior. No acute process detected. TECHNICAL DOCUMENTATION: JOB ID: [id number] Quality ID # [id number]: Final reports with documentation of one or more dose reduction techniques (e.g., Au tomated exposure control, adjustment of the mA and/or kV according to patient size, use of iterative reconstruction technique) 2010 [employer]- All Rights Reserved Reading location - IP/workstation name: [email or web address]
[2019-11-22] MEDS: FOLIC ACID 1 MG TABLET PO SCH ×2 (12:33→13:11)
[2019-11-22] MEDS: ASPIRIN 81 MG TABLET, ENT COATED PO SCH ×2 (12:33→13:10)
[2019-11-22] MEDS: DOCUSATE SODIUM 100 MG CAPSULE PO SCH ×2 (12:33→13:10)
[2019-11-22] MEDS: AZITHROMYCIN 250 MG TABLET PO SCH (12:33)
[2019-11-22] MEDS: FLUTICASONE/UMECLIDIN/VILANTER 100-62.5-25 MCG/DOSE IH SCH (12:49)
[2019-11-22] MEDS: CEFTRIAXONE 1 GM/D5W RTU 1 GM/50 ML RTUPB IV SCH (13:01)
[2019-11-22 16:24] LABS: HEMATOCRIT 29.4 % (36.0-47.0); HEMOGLOBIN 9.5 g/dL (12.0-15.5); MEAN CORPUSCULAR HEMOGLOBIN 27.8 pg (27.0-33.4); MEAN CORPUSCULAR HGB CONC 32.5 g/dL (32.0-36.0); MEAN CORPUSCULAR VOLUME 86 fl (80-97); PLATELET COUNT 401 10^3/uL (150-450); RED BLOOD COUNT 3.42 10^6/uL (3.72-5.28); WHITE BLOOD COUNT 7.6 10^3/uL (4.0-10.5)
[2019-11-22 16:42] LABS: ALBUMIN 3.5 g/dL (3.5-5.0); ALKALINE PHOSPHATASE 101 U/L (38-126); ASPARTATE AMINO TRANSFERASE 26 U/L (14-36); BILIRUBIN,TOTAL 0.3 mg/dL (0.2-1.3); BLOOD UREA NITROGEN 18 mg/dL (7-20); CALCIUM 9.6 mg/dL (8.4-10.2); CHLORIDE 90 mmol/L (98-107); GLUCOSE 137 mg/dL (75-110); POTASSIUM 4.2 mmol/L (3.6-5.0)
[2019-11-22 16:46] LABS: ARTERIAL BLOOD BASE EXCESS 16.1 mmol/L; ARTERIAL BLOOD HCO3 42.8 mmol/L (20-24); ARTERIAL BLOOD O2 SATURATION 98.6 % (94-98); ARTERIAL BLOOD PH 7.45 (7.35-7.45); ARTERIAL BLOOD PO2 129.2 mmHg (80-100); ARTERIAL BLOOD TOTAL CO2 44.7 mmol/L (21-25)
[2019-11-22 16:48] LABS: ARTERIAL BLOOD FIO2 36%
[2019-11-22 16:49] LABS: ANION GAP 3 (5-19)
[2019-11-22 17:01] LABS: CARBON DIOXIDE 43 mmol/L (22-30)
[2019-11-22] MEDS ORDERED: LORAZEPAM 0.5 MG TABLET PO PRN (17:38)
--- NOTE | 2019-11-22 17:47 | PDOC PROGRESS REPORT ---
Subjective Progress Note for:: 11/22/19 Subjective:: DEUCE GRUBER is a 74 year old obese female, with past medical history of hypertension, obstructive sleep apnea on CPAP, depression, anxiety, iron deficiency anemia, neuropathy, tobacco abuse, COPD on 4 L home oxygen, recurrent lung cancer status post several lobectomy, chemotherapy, radiation and immunotherapy patient is presenting to the ED complaining of worsening fatigue, shortness of breath, nonproductive cough for the last several days. Patient normally uses 4 L of oxygen 14/12 for her underlying COPD and uses 2 nebs per day and with that she is able to perform most of her ADLs however for the last several days she has noticed to be getting easily winded and weaker by the day. Patient denies having any fever or chills however stating that she was told by her that she felt warm to touch, patient was given ciprofloxacin by her PCP which she took for 2 days. She denies any recent travel, any sick contact, any recent hospitalization, ches t pain, nausea, vomiting, diarrhea, orthopnea, PND, weight changes, loss of taste, loss of smell, any exposure to anybody with suspicion of having COVID. Patient lives at home with her and neither of them has had recent travel or being exposed to anybody with similar symptoms. In ED she was noted to be tachycardic hypoxic. Her oncologist Dr. Edmond was contacted and she suggested for patient to be admitted and she will evaluate her tomorrow. 11/19/2019. No acute events overnight. This morning patient was noted to be a bit altered and an ABG showed elevated CO2 after placing patient on BiPAP patient improved back to baseline, saw patient this afternoon currently resting in bed no apparent distress, just finished talking to her on the phone, stating feeling better than yesterday, alert and oriented x3, cooperative with physical examination, answering question properly, denies any fever, chills, nausea, vomiting, diarrhea, constipation or enuresis. Still complaining of shortness of breath. 11/20/2019. No acute issues overnight. Patient was seen on afternoon rounds; she was found sitting up to the edge of the bed, comfortably, on supplemental oxygen via NC. She reports she is feeling well today. She has no questions or concerns; denies fever, chills, chest pain, palpitations, dyspnea, orthopnea, cough. She has no other questions or concerns. No concerns per nursing. 11/21/2019. o acute issues overnight. Patient was seen on afternoon rounds; she was found resting in bed, comfortably, on supplemental oxygen via BiPAP. She is sleeping soundly, wakes briefly, but quickly falls back to sleep. Nursing confirms she has worn BiPAP consistently overnight and for most of morning. Continues to have periods of confusion. Patient states she feels well, "just tired." She does appear to be comfortable and is not noted to be in any distress. 11/22/2019. No acute issues overnight. Patient was seen on morning rounds rounds and again twice this afternoon very briefly. Patient has been resting in bed, comfortably, on BiPAP at each visit. She is sleeping but wakes easily when I say her name. She does briefly make eye contact but then quickly closes her eyes; she does not answer questions or follow directions. Per nursing, patient has been quite lethargic throughout the entire day. Earlier this morning, she was restless, fidgeting, with increased confusion proximately 1 hour after receiving p.o. Ativan. She does appear to be comfortable and is not noted to be in any distress. ROS is limited secondary to mental status. Reviewed plan of care with nursing throughout the day. Reason For Visit: RESPIRATORY FAILURE,ACUTE EXACERBATION COPD Physical Exam Vital Signs: Temp Pulse Resp BP Pulse Ox 98.5 F 83 18 149/76 H 100 11/22/19 15:54 11/22/19 15:54 11/22/19 16:29 11/22/19 15:54 11/22/19 16:29 Intake & Output 11/21/19 11/22/19 11/23/19 06:59 06:59 06:59 Intake Total 680 130 Output Total 200 Balance 480 130 Weight 101.4 kg 101 kg General appearance: PRESENT: no acute distress, obese, well-developed, well- nourished Head exam: PRESENT: atraumatic, normocephalic Eye exam: PRESENT: conjunctiva pink, EOMI, PERRLA. ABSENT: scleral icterus Mouth exam: PRESENT: moist, tongue midline Respiratory exam: PRESENT: prolonged expiratory phas, rhonchi, symmetrical, unlabored, wheezes, other - BiPAP. ABSENT: rales Cardiovascular exam: PRESENT: RRR, +S1, +S2. ABSENT: diastolic murmur, rubs, systolic murmur Pulses: PRESENT: normal dorsalis pedis pul Vascular exam: PRESENT: normal capillary refill GI/Abdominal exam: PRESENT: normal bowel sounds, soft. ABSENT: distended, guarding, mass, organolmegaly, rebound, tenderness Rectal exam: PRESENT: deferred Extremities exam: PRESENT: full ROM. ABSENT: calf tenderness, clubbing, pedal e dennise Neurological exam: PRESENT: CN II-XII grossly intact, other - Arousable, lethargic. Does not answer questions and so unable to establish orientation.. ABSENT: motor sensory deficit Skin exam: PRESENT: dry, intact, warm. ABSENT: cyanosis, rash Results Laboratory Results: 11/22/19 16:02 11/22/19 16:02 11/22/19 11/22/19 11/22/19 04:36 04:36 06:04 WBC 7.3 RBC 3.56 L Hgb 10.1 L Hct 30.5 L MCV 86 MCH 28.3 MCHC 33.0 RDW 23.3 H Plt Count 350 Carbonic Acid HCO3/H2CO3 Ratio ABG pH ABG pCO2 ABG pO2 ABG HCO3 ABG O2 Saturation ABG Base Excess FiO2 Sodium Cancelled 135.2 L Potassium Cancelled 4.2 Chloride Cancelled 90 L Carbon Dioxide Cancelled 42 H* Anion Gap Cancelled 3 L BUN Cancelled 21 H Creatinine Cancelled 0.59 Est GFR ( Amer) Cancelled > 60 Est GFR (Non-Af Amer) Cancelled Glucose Cancelled 120 H Calcium Cancelled 9.7 Magnesium Total Bilirubin AST Alkaline Phosphatase Total Protein Albumin 11/22/19 11/22/19 11/22/19 06:51 16:02 16:02 WBC 7.6 RBC 3.42 L Hgb 9.5 L Hct 29.4 L MCV 86 MCH 27.8 MCHC 32.5 RDW 23.0 H Plt Count 401 Carbonic Acid 1.80 H HCO3/H2CO3 Ratio 23:1 ABG pH 7.46 H ABG pCO2 59.7 H ABG pO2 105.4 H ABG HCO3 41.8 H ABG O2 Saturation 97.9 ABG Base Excess 15.7 FiO2 30% Sodium 135.7 L Potassium 4.2 Chloride 90 L Carbon Dioxide 43 H* Anion Gap 3 L BUN 18 Creatinine 0.73 Est GFR ( Amer) > 60 Est GFR (Non-Af Amer) Glucose 137 H Calcium 9.6 Magnesium 2.0 Total Bilirubin 0.3 AST 26 Alkaline Phosphatase 101 Total Protein 6.0 L Albumin 3.5 11/22/19 16:29 WBC RBC Hgb Hct MCV MCH MCHC RDW Plt Count Carbonic Acid 1.90 H HCO3/H2CO3 Ratio 22:1 ABG pH 7.45 ABG pCO2 63.0 H ABG pO2 129.2 H ABG HCO3 42.8 H ABG O2 Saturation 98.6 H ABG Base Excess 16.1 FiO2 36% Sodium Potassium Chloride Carbon Dioxide Anion Gap BUN Creatinine Est GFR ( Amer) Est GFR (Non-Af Amer) Glucose Calcium Magnesium Total Bilirubin AST Alkaline Phosphatase Total Protein Albumin 11/21/19 05:19 Clean Catch Midstream Urine Culture - Final Escherichia Coli 11/18/19 11/18/19 11/22/19 11:45 11:45 16:02 Troponin I < 0.012 < 0.012 NT-Pro-B Natriuret Pep 1350 H Impressions: Chest X-Ray 11/18/19 11:37 IMPRESSION: Postoperative changes and chronic parenchymal scarring in the left lung are stable. No evidence of acute cardiopulmonary disease. Chest CT 11/22/19 00:00 IMPRESSION: 1. Chronic lung changes, similar appearance compared to prior. No acute process detected. Head CT 11/22/19 00:00 IMPRESSION: NORMAL BRAIN CT WITHOUT CONTRAST. EVIDENCE OF ACUTE STROKE: NO. Assessment and Plan - Diagnosis (1) Acute exacerbation of chronic obstructive pulmonary disease (COPD) Is this a current diagnosis for this admission?: Yes Plan: Chest CT today without acute findings. The patient was initially admitted to [facility] on continuous cardiac telemetry. She is downgraded to telemetry yesterday. We will continue supplemental oxygen and BiPAP as needed to maintain saturations greater than 89%. Encourage BiPAP use r/t continued hypercapnia. BiPAP adjustments made today related to ABG results. Continue daily Trelegy Continue scheduled and as needed nebulizer treatments. IV Solu-Medrol. Mucinex twice daily. Encourage pulmonary toilet with incentive spirometer, flutter valve, and ambulation. (2) Acute and chronic respiratory failure with hypercapnia Is this a current diagnosis for this admission?: Yes Plan: Secondary to # 1 COVID-19 testing negative. Remaining management as above. (3) Hypertension Is this a current diagnosis for this admission?: Yes Plan: Euvolemic. IV hydralazine as needed for blood pressure control. Continue home meds. Adjust meds as needed. (4) Lung cancer Qualifiers: Laterality: right Lung location: overlapping sites Qualified Code(s): C34.81 - Malignant neoplasm of overlapping sites of right bronchus and lung Is this a current diagnosis for this admission?: Yes Plan: History of recurrent lung cancer status post multiple lobectomy, chemoradiation and immunotherapy. Sees Dr. Jimenez as outpatient. Have consulted oncology; appreciate their evaluation recommendations. (5) Obesity (BMI 30-39.9) Is this a current diagnosis for this admission?: Yes Plan: Diet and lifestyle modification recommended. Thyroid panel shows hypothyroidism; start levothyroxine. (6) Tobacco abuse Is this a current diagnosis for this admission?: Yes Plan: Unfortunately patient is still smoking even though she has had recurrent lung cancers. Advised on quitting. Nicotine patch will be provided. (7) Hypothyroidism Is this a current diagnosis for this admission?: Yes Plan: Thyroid panel shows hypothyroidism; start levothyroxine. (8) Encephalopathy Is this a current diagnosis for this admission?: Yes Plan: Acute encephalopathy; unclear etiology. Head CT and chest CT today were benign. CBC normal. Though with continued elevated bicarb (43), ABG continues to improve; pH 7.45, PCO2 63, PO2 129, HCO3 42. She does have a urinary tract infection; culture result shows E. coli. Blood cultures negative. Continue supportive respiratory care as described above. Continue Rocephin for treatment of UTI. Supportive care, fall precautions. (9) Confusion Is this a current diagnosis for this admission?: Yes Plan: As above. - Time Time Spent with patient: 35 or more minutes Medications reviewed and adjusted accordingly: Yes Anticipated discharge: Home
[2019-11-22] MEDS: NORMAL SALINE 1000 ML 1,000 ML IV PRN (18:48)
[2019-11-23] MEDS: METHYLPREDNISOLONE INJ 125 MG/2 ML SDV IV SCH ×3 (02:07→17:59)
[2019-11-23] MEDS: HEPARIN SOD (PORCINE) 5,000 UNIT/ML 1 ML VIAL SUBCUT SCH ×3 (05:39→21:28)
[2019-11-23] MEDS: LEVOTHYROXINE SODIUM 0.1 MG TABLET PO SCH (05:39)
[2019-11-23] MEDS: NORMAL SALINE 1000 ML 1,000 ML IV PRN ×2 (06:14→08:53)
[2019-11-23 06:33] LABS: HEMATOCRIT 29.7 % (36.0-47.0); HEMOGLOBIN 9.8 g/dL (12.0-15.5); MEAN CORPUSCULAR HGB CONC 32.9 g/dL (32.0-36.0); MEAN CORPUSCULAR VOLUME 85 fl (80-97); PLATELET COUNT 424 10^3/uL (150-450); RED BLOOD COUNT 3.49 10^6/uL (3.72-5.28); RED CELL DISTRIBUTION WIDTH 22.8 % (11.5-14.0); WHITE BLOOD COUNT 7.4 10^3/uL (4.0-10.5)
[2019-11-23 06:49] LABS: BLOOD UREA NITROGEN 22 mg/dL (7-20); CALCIUM 9.8 mg/dL (8.4-10.2); CHLORIDE 93 mmol/L (98-107); GLUCOSE 102 mg/dL (75-110)
[2019-11-23 07:25] LABS: ANION GAP 7 (5-19); CARBON DIOXIDE 37 mmol/L (22-30); POTASSIUM 4.5 mmol/L (3.6-5.0)
[2019-11-23] MEDS: IPRATROPIUM/ALBUTEROL 0.5-2.5 MG/3 ML AMPUL NEB SCH ×3 (07:44→20:42)
[2019-11-23] MEDS: ACETYLCYSTEINE 20% SOLN 800 MG/4 ML VIAL.NEB NEB SCH ×2 (07:44→20:42)
[2019-11-23] MEDS: HYDROCHLOROTHIAZIDE 25 MG TABLET PO SCH (08:13)
[2019-11-23] MEDS: CEFTRIAXONE 1 GM/D5W RTU 1 GM/50 ML RTUPB IV SCH (09:18)
[2019-11-23] MEDS: FLUTICASONE/UMECLIDIN/VILANTER 100-62.5-25 MCG/DOSE IH SCH (09:18)
[2019-11-23] MEDS: FAMOTIDINE 20 MG TABLET PO SCH ×2 (09:20→21:29)
[2019-11-23] MEDS: GUAIFENESIN 600 MG TABLET.SA PO SCH ×2 (09:20→21:28)
[2019-11-23] MEDS: ESCITALOPRAM OXALATE 10 MG TABLET PO SCH (09:20)
[2019-11-23] MEDS: FOLIC ACID 1 MG TABLET PO SCH (09:20)
[2019-11-23] MEDS: PREGABALIN 50 MG CAPSULE PO SCH ×3 (09:20→17:59)
[2019-11-23] MEDS: ASPIRIN 81 MG TABLET, ENT COATED PO SCH (09:20)
[2019-11-23] MEDS: LOSARTAN POTASSIUM 50 MG TABLET PO SCH (09:24)
[2019-11-23] MEDS: DOCUSATE SODIUM 100 MG CAPSULE PO SCH (09:24)
[2019-11-23] MEDS: AMLODIPINE BESYLATE 5 MG TABLET PO SCH (09:24)
--- NOTE | 2019-11-23 15:20 | PDOC PROGRESS REPORT ---
Subjective Progress Note for:: 11/23/19 Subjective:: DEUCE GRUBER is a 74 year old obese female, with past medical history of hypertension, obstructive sleep apnea on CPAP, depression, anxiety, iron deficiency anemia, neuropathy, tobacco abuse, COPD on 4 L home oxygen, recurrent lung cancer status post several lobectomy, chemotherapy, radiation and immunotherapy patient is presenting to the ED complaining of worsening fatigue, shortness of breath, nonproductive cough for the last several days. Patient normally uses 4 L of oxygen 14/12 for her underlying COPD and uses 2 nebs per day and with that she is able to perform most of her ADLs however for the last several days she has noticed to be getting easily winded and weaker by the day. Patient denies having any fever or chills however stating that she was told by her that she felt warm to touch, patient was given ciprofloxacin by her PCP which she took for 2 days. She denies any recent travel, any sick contact, any recent hospitalization, ches t pain, nausea, vomiting, diarrhea, orthopnea, PND, weight changes, loss of taste, loss of smell, any exposure to anybody with suspicion of having COVID. Patient lives at home with her and neither of them has had recent travel or being exposed to anybody with similar symptoms. In ED she was noted to be tachycardic hypoxic. Her oncologist Dr. Edmond was contacted and she suggested for patient to be admitted and she will evaluate her tomorrow. 11/19/2019. No acute events overnight. This morning patient was noted to be a bit altered and an ABG showed elevated CO2 after placing patient on BiPAP patient improved back to baseline, saw patient this afternoon currently resting in bed no apparent distress, just finished talking to her on the phone, stating feeling better than yesterday, alert and oriented x3, cooperative with physical examination, answering question properly, denies any fever, chills, nausea, vomiting, diarrhea, constipation or enuresis. Still complaining of shortness of breath. 11/20/2019. No acute issues overnight. Patient was seen on afternoon rounds; she was found sitting up to the edge of the bed, comfortably, on supplemental oxygen via NC. She reports she is feeling well today. She has no questions or concerns; denies fever, chills, chest pain, palpitations, dyspnea, orthopnea, cough. She has no other questions or concerns. No concerns per nursing. 11/21/2019. o acute issues overnight. Patient was seen on afternoon rounds; she was found resting in bed, comfortably, on supplemental oxygen via BiPAP. She is sleeping soundly, wakes briefly, but quickly falls back to sleep. Nursing confirms she has worn BiPAP consistently overnight and for most of morning. Continues to have periods of confusion. Patient states she feels well, "just tired." She does appear to be comfortable and is not noted to be in any distress. 11/22/2019. No acute issues overnight. Patient was seen on morning rounds rounds and again twice this afternoon very briefly. Patient has been resting in bed, comfortably, on BiPAP at each visit. She is sleeping but wakes easily when I say her name. She does briefly make eye contact but then quickly closes her eyes; she does not answer questions or follow directions. Per nursing, patient has been quite lethargic throughout the entire day. Earlier this morning, she was restless, fidgeting, with increased confusion proximately 1 hour after receiving p.o. Ativan. She does appear to be comfortable and is not noted to be in any distress. ROS is limited secondary to mental status. Reviewed plan of care with nursing throughout the day. 11/23/2019. No acute events overnight. Patient was seen on morning rounds. She is found resting in bed, comfortably, on supplemental oxygen via nasal cannula. She is alert and oriented x4. She can recall being confused over the last few days. Briefly remembers seeing Dr. Jimenez but does not remember me. She reports continued, mild, shortness of breath and occasional wheezing. She denies cough. She further denies fever, chills, chest pain, palpitations, abdominal pain, nausea and vomiting. Reviewed her course so far; all questions answered. No concerns per nursing. Reason For Visit: RESPIRATORY FAILURE,ACUTE EXACERBATION COPD Physical Exam Vital Signs: Temp Pulse Resp BP Pulse Ox 97.8 F 71 18 142/57 H 98 11/23/19 07:55 11/23/19 13:32 11/23/19 13:32 11/23/19 07:55 11/23/19 13:32 Intake & Output 11/22/19 11/23/19 11/24/19 06:59 06:59 06:59 Intake Total 1810 315 Output Total 0 Balance 1810 315 Weight 101 kg 101 kg General appearance: PRESENT: no acute distress, cooperative, morbidly obese, well-developed, well-nourished Head exam: PRESENT: normocephalic, other - Ecchymosis left cheek/sikh Eye exam: PRESENT: conjunctiva pink, EOMI, PERRLA, other - subconjunctival hemorrhage right eye. ABSENT: scleral icterus Ear exam: PRESENT: normal external ear exam Mouth exam: PRESENT: moist, tongue midline Respiratory exam: PRESENT: prolonged expiratory phas, symmetrical, unlabored, wheezes - Scant expiratory, other - Supplemental oxygen by nasal cannula. ABSENT: accessory muscle use, rales, rhonchi Cardiovascular exam: PRESENT: RRR. ABSENT: diastolic murmur, rubs, systolic murmur Pulses: PRESENT: normal dorsalis pedis pul Vascular exam: PRESENT: normal capillary refill GI/Abdominal exam: PRESENT: normal bowel sounds, soft. ABSENT: distended, guarding, mass, organolmegaly, rebound, tenderness Rectal exam: PRESENT: deferred Extremities exam: PRESENT: full ROM. ABSENT: calf tenderness, clubbing, pedal edema Neurological exam: PRESENT: alert, awake, oriented to person, oriented to place, oriented to time, oriented to situation, CN II-XII grossly intact, other - Somewhat forgetful; difficulty word finding. Significantly improved.. ABSENT: motor sensory deficit Psychiatric exam: PRESENT: appropriate affect, normal mood. ABSENT: homicidal ideation, suicidal ideation Skin exam: PRESENT: dry, intact, warm. ABSENT: cyanosis, rash Results Laboratory Results: 11/23/19 05:36 11/23/19 05:36 11/22/19 11/22/19 11/22/19 16:02 16:02 16:29 WBC 7.6 RBC 3.42 L Hgb 9.5 L Hct 29.4 L MCV 86 MCH 27.8 MCHC 32.5 RDW 23.0 H Plt Count 401 Carbonic Acid 1.90 H HCO3/H2CO3 Ratio 22:1 ABG pH 7.45 ABG pCO2 63.0 H ABG pO2 129.2 H ABG HCO3 42.8 H ABG O2 Saturation 98.6 H ABG Base Excess 16.1 FiO2 36% Sodium 135.7 L Potassium 4.2 Chloride 90 L Carbon Dioxide 43 H* Anion Gap 3 L BUN 18 Creatinine 0.73 Est GFR ( Amer) > 60 Glucose 137 H Calcium 9.6 Magnesium 2.0 Total Bilirubin 0.3 AST 26 Alkaline Phosphatase 101 Total Protein 6.0 L Albumin 3.5 11/23/19 11/23/19 05:36 05:36 WBC 7.4 RBC 3.49 L Hgb 9.8 L Hct 29.7 L MCV 85 MCH 28.0 MCHC 32.9 RDW 22.8 H Plt Count 424 Carbonic Acid HCO3/H2CO3 Ratio ABG pH ABG pCO2 ABG pO2 ABG HCO3 ABG O2 Saturation ABG Base Excess FiO2 Sodium 137.0 Potassium 4.5 Chloride 93 L Carbon Dioxide 37 H Anion Gap 7 BUN 22 H Creatinine 0.67 Est GFR ( Amer) > 60 Glucose 102 Calcium 9.8 Magnesium Total Bilirubin AST Alkaline Phosphatase Total Protein Albumin 11/18/19 14:04 Blood Blood Culture - Final NO GROWTH IN 5 DAYS 11/18/19 11:45 Blood Blood Culture - Final NO GROWTH IN 5 DAYS 11/18/19 11/18/19 11/22/19 11:45 11:45 16:02 Troponin I < 0.012 < 0.012 NT-Pro-B Natriuret Pep 1350 H Impressions: Chest X-Ray 11/18/19 11:37 IMPRESSION: Postoperative changes and chronic parenchymal scarring in the left lung are stable. No evidence of acute cardiopulmonary disease. Chest CT 11/22/19 00:00 IMPRESSION: 1. Chronic lung changes, similar appearance compared to prior. No acute process detected. Head CT 11/22/19 00:00 IMPRESSION: NORMAL BRAIN CT WITHOUT CONTRAST. EVIDENCE OF ACUTE STROKE: NO. Assessment and Plan - Diagnosis (1) Acute exacerbation of chronic obstructive pulmonary disease (COPD) Is this a current diagnosis for this admission?: Yes Plan: Improved; now maintaining oxygen saturations on supplemental oxygen by nasal cannula while awake. Chest CT yesterday without acute findings. BiPAP adjustments made related to serial ABG results; improved respiratory and mental status. The patient was initially admitted to [facility] on continuous cardiac telemetry. She is downgraded to telemetry yesterday. We will continue supplemental oxygen and BiPAP as needed to maintain saturations greater than 89%. Continue daily Trelegy Continue scheduled and as needed nebulizer treatments. IV Solu-Medrol. Mucinex twice daily. Plan to decrease dose tomorrow. Encourage pulmonary toilet with incentive spirometer, flutter valve, and ambulation. (2) Acute and chronic respiratory failure with hypercapnia Is this a current diagnosis for this admission?: Yes Plan: Secondary to # 1 COVID-19 testing negative. Remaining management as above. (3) Hypertension Is this a current diagnosis for this admission?: Yes Plan: Euvolemic. IV hydralazine as needed for blood pressure control. Continue home meds. Adjust meds as needed. (4) Lung cancer Qualifiers: Laterality: right Lung location: overlapping sites Qualified Code(s): C34.81 - Malignant neoplasm of overlapping sites of right bronchus and lung Is this a current diagnosis for this admission?: Yes Plan: History of recurrent lung cancer status post multiple lobectomy, chemoradiation and immunotherapy. Sees Dr. Jimenez as outpatient. Have consulted oncology; appreciate their evaluation recommendations. (5) Obesity (BMI 30-39.9) Is this a current diagnosis for this admission?: Yes Plan: Diet and lifestyle modification recommended. Thyroid panel shows hypothyroidism; started on levothyroxine. (6) Tobacco abuse Is this a current diagnosis for this admission?: Yes Plan: Unfortunately patient is still smoking even though she has had recurrent lung cancers. Advised on quitting. Nicotine patch will be provided. (7) Hypothyroidism Is this a current diagnosis for this admission?: Yes Plan: Thyroid panel shows hypothyroidism; started on levothyroxine. (8) Encephalopathy Is this a current diagnosis for this admission?: Yes Plan: Acute metabolic encephalopathy; multifactorial secondary to hypercapnia and urinary tract infection. Head CT and chest CT today were benign. CBC normal. ABG is improving. She does have a urinary tract infection; culture result shows E. coli. Blood cultures negative. Continue supportive respiratory care as described above. Continue Rocephin for treatment of UTI. Supportive care, fall precautions. (9) Confusion Is this a current diagnosis for this admission?: Yes Plan: As above. - Time Time Spent with patient: 35 or more minutes Medications reviewed and adjusted accordingly: Yes Anticipated discharge: Home
[2019-11-23] MEDS: SIMVASTATIN 10 MG TABLET PO SCH (21:29)
[2019-11-24] MEDS: METHYLPREDNISOLONE INJ 125 MG/2 ML SDV IV SCH ×2 (01:24→09:35)
[2019-11-24] MEDS: NORMAL SALINE 1000 ML 1,000 ML IV PRN (01:27)
[2019-11-24] MEDS: LEVOTHYROXINE SODIUM 0.1 MG TABLET PO SCH (05:44)
[2019-11-24] MEDS: HEPARIN SOD (PORCINE) 5,000 UNIT/ML 1 ML VIAL SUBCUT SCH (05:45)
[2019-11-24 06:02] LABS: HEMATOCRIT 28.5 % (36.0-47.0); HEMOGLOBIN 9.6 g/dL (12.0-15.5); MEAN CORPUSCULAR HEMOGLOBIN 28.9 pg (27.0-33.4); MEAN CORPUSCULAR HGB CONC 33.6 g/dL (32.0-36.0); MEAN CORPUSCULAR VOLUME 86 fl (80-97); PLATELET COUNT 346 10^3/uL (150-450); RED BLOOD COUNT 3.31 10^6/uL (3.72-5.28); RED CELL DISTRIBUTION WIDTH 23.1 % (11.5-14.0)
[2019-11-24 06:17] LABS: BLOOD UREA NITROGEN 24 mg/dL (7-20); CALCIUM 9.3 mg/dL (8.4-10.2); GLUCOSE 113 mg/dL (75-110); POTASSIUM 4.5 mmol/L (3.6-5.0)
[2019-11-24 06:23] LABS: CARBON DIOXIDE 38 mmol/L (22-30); CHLORIDE 96 mmol/L (98-107)
[2019-11-24 06:29] LABS: ANION GAP 2 (5-19)
[2019-11-24] MEDS: ACETYLCYSTEINE 20% SOLN 800 MG/4 ML VIAL.NEB NEB SCH (08:26)
[2019-11-24] MEDS: IPRATROPIUM/ALBUTEROL 0.5-2.5 MG/3 ML AMPUL NEB SCH (08:26)
[2019-11-24] MEDS: FLUTICASONE/UMECLIDIN/VILANTER 100-62.5-25 MCG/DOSE IH SCH (09:35)
[2019-11-24] MEDS: PREGABALIN 50 MG CAPSULE PO SCH (09:36)
[2019-11-24] MEDS: FOLIC ACID 1 MG TABLET PO SCH (09:36)
[2019-11-24] MEDS: CEFTRIAXONE 1 GM/D5W RTU 1 GM/50 ML RTUPB IV SCH (09:36)
[2019-11-24] MEDS: GUAIFENESIN 600 MG TABLET.SA PO SCH (09:36)
[2019-11-24] MEDS: FAMOTIDINE 20 MG TABLET PO SCH (09:36)
[2019-11-24] MEDS: HYDROCHLOROTHIAZIDE 25 MG TABLET PO SCH (09:36)
[2019-11-24] MEDS: LOSARTAN POTASSIUM 50 MG TABLET PO SCH (09:37)
[2019-11-24] MEDS: ESCITALOPRAM OXALATE 10 MG TABLET PO SCH (09:37)
[2019-11-24] MEDS: DOCUSATE SODIUM 100 MG CAPSULE PO SCH (09:37)
[2019-11-24] MEDS: AMLODIPINE BESYLATE 5 MG TABLET PO SCH (09:37)
[2019-11-24] MEDS: ASPIRIN 81 MG TABLET, ENT COATED PO SCH (09:37)
--- NOTE | 2019-11-24 10:49 | PDOC PROGRESS REPORT ---
Subjective Progress Note for:: 11/24/19 Subjective:: Patient doing well this morning, fully alert and oriented, Getting up to the restroom. Asked nursing to get patient up walking down the sarah now. If patient able to do that she should be able to go home today. She has follow-up in our office on Wednesday. Reason For Visit: RESPIRATORY FAILURE,ACUTE EXACERBATION COPD Physical Exam Vital Signs: Temp Pulse Resp BP Pulse Ox 98.5 F 69 15 142/73 H 100 11/24/19 07:56 11/24/19 08:26 11/24/19 08:26 11/24/19 07:56 11/24/19 08:26 Intake & Output 11/23/19 11/24/19 11/25/19 06:59 06:59 06:59 Intake Total 1810 1415 Output Total 0 Balance 1810 1415 Weight 101 kg 101 kg General appearance: PRESENT: no acute distress, well-developed, well-nourished Head exam: PRESENT: atraumatic, normocephalic Eye exam: PRESENT: conjunctiva pink, EOMI, PERRLA. ABSENT: scleral icterus Ear exam: PRESENT: normal external ear exam Mouth exam: PRESENT: moist, tongue midline Neck exam: ABSENT: carotid bruit, JVD, lymphadenopathy, thyromegaly Respiratory exam: PRESENT: clear to auscultation ruiz. ABSENT: rales, rhonchi, wheezes Cardiovascular exam: PRESENT: RRR. ABSENT: diastolic murmur, rubs, systolic murmur Pulses: PRESENT: normal dorsalis pedis pul Vascular exam: PRESENT: normal capillary refill GI/Abdominal exam: PRESENT: normal bowel sounds, soft. ABSENT: distended, guarding, mass, organolmegaly, rebound, tenderness Rectal exam: PRESENT: deferred Extremities exam: PRESENT: full ROM. ABSENT: calf tenderness, clubbing, pedal edema Neurological exam: PRESENT: alert, awake, oriented to person, oriented to place, oriented to time, oriented to situation, CN II-XII grossly intact. ABSENT: motor sensory deficit Psychiatric exam: PRESENT: appropriate affect, normal mood. ABSENT: homicidal ideation, suicidal ideation Skin exam: PRESENT: dry, intact, warm. ABSENT: cyanosis, rash Results Laboratory Results: 11/24/19 04:55 11/24/19 04:55 11/24/19 11/24/19 04:55 04:55 WBC 7.0 RBC 3.31 L Hgb 9.6 L Hct 28.5 L MCV 86 MCH 28.9 MCHC 33.6 RDW 23.1 H Plt Count 346 Sodium 136.2 L Potassium 4.5 Chloride 96 L Carbon Dioxide 38 H Anion Gap 2 L BUN 24 H Creatinine 0.66 Est GFR ( Amer) > 60 Glucose 113 H Calcium 9.3 11/18/19 14:04 Blood Blood Culture - Final NO GROWTH IN 5 DAYS 11/18/19 11:45 Blood Blood Culture - Final NO GROWTH IN 5 DAYS 11/18/19 11/18/19 11/22/19 11:45 11:45 16:02 Troponin I < 0.012 < 0.012 NT-Pro-B Natriuret Pep 1350 H Impressions: Chest X-Ray 11/18/19 11:37 IMPRESSION: Postoperative changes and chronic parenchymal scarring in the left lung are stable. No evidence of acute cardiopulmonary disease. Chest CT 11/22/19 00:00 IMPRESSION: 1. Chronic lung changes, similar appearance compared to prior. No acute process detected. Head CT 11/22/19 00:00 IMPRESSION: NORMAL BRAIN CT WITHOUT CONTRAST. EVIDENCE OF ACUTE STROKE: NO. Assessment & Plan - Diagnosis (1) Lung cancer Qualifiers: Laterality: right Lung location: overlapping sites Qualified Code(s): C34.81 - Malignant neoplasm of overlapping sites of right bronchus and lung Is this a current diagnosis for this admission?: Yes Plan: Recent CT imaging done indicating overall stable findings. No progression of disease, will continue with next cycle after 1 week at home (2) Anemia associated with chemotherapy Is this a current diagnosis for this admission?: Yes Plan: Hemoglobin stable, continue to monitor as an outpatient (3) Confusion Is this a current diagnosis for this admission?: Yes Plan: Delirium secondary to metabolic syndrome, improved now, CT of the head was negative for any metastasis. - Time Time Spent with patient: 15-24 minutes
[2019-11-24 12:34] VITALS: BP 154/65
--- NOTE | 2019-11-24 15:10 | PDOC DISCHARGE SUMMARY ---
Impression - Admit/DC Date/PCP Admission Date/Primary Care Provider: 11/19/19 08:31 MANDY JIMENEZ MD Discharge Date: 11/24/19 - Discharge Diagnosis (1) Acute exacerbation of chronic obstructive pulmonary disease (COPD) Is this a current diagnosis for this admission?: Yes (2) Acute and chronic respiratory failure with hypercapnia Is this a current diagnosis for this admission?: Yes (3) Hypertension Is this a current diagnosis for this admission?: Yes (4) Lung cancer Is this a current diagnosis for this admission?: Yes (5) Obesity (BMI 30-39.9) Is this a current diagnosis for this admission?: Yes (6) Tobacco abuse Is this a current diagnosis for this admission?: Yes (7) Hypothyroidism Is this a current diagnosis for this admission?: Yes (8) Encephalopathy Is this a current diagnosis for this admission?: Yes (9) Confusion Is this a current diagnosis for this admission?: Yes - Additional Information Resuscitation Status: Full Code Discharge Diet: Cardiac Discharge Activity: Activity As Tolerated Referrals: MANDY JIMENEZ MD [Primary Care Provider] - 11/27/19 Prescriptions: Cefuroxime Axetil [Ceftin 250 mg Tablet] 1 tab PO BID #10 tablet Prednisone [Deltasone 20 mg Tablet] 60 mg PO DAILY #15 tablet Guaifenesin [Mucinex Sr 600 mg Tablet.sa] 600 mg PO Q12 #14 tablet.sa Levothyroxine Sodium [Synthroid 0.1 mg Tablet] 0.1 mg PO Q6AM #30 tablet Fluticasone/Umeclidin/Vilanter [Trelegy 100-62.5-25 Mcg Ellipta 14 Dose/Dpi] 1 inh IH DAILY #1 inhaler Home Medications: Hydrochlorothiazide [Hydrodiuril 25 mg Tablet] 25 mg PO QAM 09/14/12 Simvastatin 10 mg PO QHS 09/14/12 Aspirin [Ecotrin 81 mg EC Tablet] 81 mg PO DAILY 12/09/12 Escitalopram Oxalate [Lexapro 10 mg Tablet] 20 mg PO DAILY 01/15/17 Amlodipine Besylate [Norvasc 5 mg Tablet] 5 mg PO DAILY 06/21/18 Irbesartan 300 mg PO DAILY 06/21/18 Folic Acid [Folvite 1 mg Tablet] 1 mg PO DAILY 11/18/19 Levalbuterol HCl [Xopenex Neb 0.63 mg/3 ml Ampul] 0.63 mg NEB RTQ8 11/18/19 Lorazepam 0.5 mg PO Q8HP PRN 11/18/19 Ondansetron HCl [Zofran 8 mg Tablet] 8 mg PO Q8HP PRN 11/18/19 Pregabalin 50 mg PO TID 11/18/19 Promethazine HCl 12.5 mg PO Q4HP PRN 11/18/19 Triamcinolone Acetonide [Aristocort 0.1% Cream] 1 applic TP TID 11/18/19 Cefuroxime Axetil [Ceftin 250 mg Tablet] 1 tab PO BID #10 tablet 11/24/19 Fluticasone/Umeclidin/Vilanter [Trelegy 100-62.5-25 Mcg Ellipta 14 Dose/Dpi] 1 inh IH DAILY #1 inhaler 11/24/19 Guaifenesin [Mucinex Sr 600 mg Tablet.sa] 600 mg PO Q12 #14 tablet.sa 11/24/19 Levothyroxine Sodium [Synthroid 0.1 mg Tablet] 0.1 mg PO Q6AM #30 tablet 11/24/19 Prednisone [Deltasone 20 mg Tablet] 60 mg PO DAILY #15 tablet 11/24/19 History of Present Illiness History of Present Illness: Per H&P by Dr. Dunn: DEUCE GRUBER is a 74 year old obese female, with past medical history of hypertension, obstructive sleep apnea on CPAP, depression, anxiety, iron deficiency anemia, neuropathy, tobacco abuse, COPD on 4 L home oxygen, recurrent lung cancer status post several lobectomy, chemotherapy, radiation and immunotherapy patient is presenting to the ED complaining of worsening fatigue, shortness of breath, nonproductive cough for the last several days. Patient normally uses 4 L of oxygen 14/12 for her underlying COPD and uses 2 nebs per day and with that she is able to perform most of her ADLs however for the last several days she has noticed to be getting easily winded and weaker by the day. Patient denies having any fever or chills however stating that she was told by her that she felt warm to touch, patient was given ciprofloxacin by her PCP which she took for 2 days. She denies any recent travel, any sick contact, any recent hospitalization, chest pain, nausea, vomiting, diarrhea, orthopnea, PND, weight changes, loss of taste, loss of smell, any exposure to anybody with suspicion of having COVID. Patient lives at home with her and neither of them has had recent travel or being exposed to anybody with similar symptoms. In ED she was noted to be tachycardic hypoxic. Her oncologist Dr. Edmond was contacted and she suggested for patient to be admitted and she will evaluate her tomorrow. Hospital Course Hospital Course: (1) Acute exacerbation of chronic obstructive pulmonary disease (COPD) Resolved; now maintaining oxygen saturations on baseline oxygen requirement. Ambulatory without increased work of breathing. Scant expiratory wheeze. Denies all symptoms. Chest CT without acute findings. BiPAP adjustments made related to serial ABG results; improved respiratory and mental status. The patient was initially admitted to [facility] on continuous cardiac telemetry. She was downgraded to telemetry as she improved. She was supported on supplemental oxygen and BiPAP with scheduled and as needed nebulizer treatments. Continue daily Trelegy IV Solu-Medrol; slowly weaned. Transition to p.o. prednisone for discharge. Mucinex twice daily. Encouraged pulmonary toilet with incentive spirometer, flutter valve, and ambulation. (2) Acute and chronic respiratory failure with hypercapnia Is this a current diagnosis for this admission?: Yes Plan: Secondary to # 1 COVID-19 testing negative. Remaining management as above. (3) Hypertension Euvolemic. Continue home meds. (4) Lung cancer History of recurrent lung cancer status post multiple lobectomy, chemoradiation and immunotherapy. Sees Dr. Jimenez as outpatient. Have consulted oncology; appreciate their evaluation recommendations. Cleared for discharge from their perspective. Outpatient follow up next week. (5) Obesity (BMI 30-39.9) Diet and lifestyle modification recommended. Thyroid panel shows hypothyroidism; started on levothyroxine. (6) Tobacco abuse Unfortunately patient is still smoking even though she has had recurrent lung cancers. Advised on quitting. (7) Hypothyroidism Thyroid panel shows hypothyroidism; started on levothyroxine. (8) Encephalopathy Resolved. A&Ox4 today. Acute metabolic encephalopathy; multifactorial secondary to hypercapnia and urinary tract infection. Head CT and chest CT today were benign. CBC normal. ABGs have improved. She does have a urinary tract infection; culture result shows E. coli. Blood cultures negative. Continue supportive respiratory care as described above. Continue Rocephin for treatment of UTI. (9) Confusion As above. Physical Exam Vital Signs: Temp Pulse Resp BP Pulse Ox 97.7 F 74 18 154/65 H 100 11/24/19 11:01 11/24/19 11:01 11/24/19 11:01 11/24/19 11:01 11/24/19 11:01 Intake & Output 11/23/19 11/24/19 11/25/19 06:59 06:59 06:59 Intake Total 1810 1415 1290 Output Total 0 Balance 1810 1415 1290 Weight 101 kg 101 kg General appearance: PRESENT: no acute distress, cooperative, obese, well- developed, well-nourished Head exam: PRESENT: atraumatic, normocephalic Eye exam: PRESENT: conjunctiva pink, EOMI, PERRLA. ABSENT: scleral icterus Mouth exam: PRESENT: moist, tongue midline Respiratory exam: PRESENT: prolonged expiratory phas, symmetrical, unlabored, wheezes - slight end expiratory wheeze. ABSENT: rales, rhonchi Cardiovascular exam: PRESENT: RRR, +S1, +S2. ABSENT: diastolic murmur, rubs, systolic murmur Pulses: PRESENT: normal dorsalis pedis pul Vascular exam: PRESENT: normal capillary refill Extremities exam: PRESENT: full ROM. ABSENT: calf tenderness, clubbing, pedal edema Musculoskeletal exam: PRESENT: ambulatory Neurological exam: PRESENT: alert, awake, oriented to person, oriented to place, oriented to time, oriented to situation, CN II-XII grossly intact. ABSENT: motor sensory deficit Psychiatric exam: PRESENT: appropriate affect, normal mood. ABSENT: homicidal ideation, suicidal ideation Skin exam: PRESENT: dry, intact, warm. ABSENT: cyanosis, rash Results Laboratory Results: WBC 7.0 10^3/uL (4.0-10.5) 11/24/19 04:55 RBC 3.31 10^6/uL (3.72-5.28) L 11/24/19 04:55 Hgb 9.6 g/dL (12.0-15.5) L 11/24/19 04:55 Hct 28.5 % (36.0-47.0) L 11/24/19 04:55 MCV 86 fl (80-97) 11/24/19 04:55 MCH 28.9 pg (27.0-33.4) 11/24/19 04:55 MCHC 33.6 g/dL (32.0-36.0) 11/24/19 04:55 RDW 23.1 % (11.5-14.0) H 11/24/19 04:55 Plt Count 346 10^3/uL (150-450) 11/24/19 04:55 Lymph % (Auto) 9.5 % (13-45) L 11/19/19 05:15 [place] % (Auto) 7.5 % (3-13) 11/19/19 05:15 Eos % (Auto) 0.2 % (0-6) 11/19/19 05:15 Baso % (Auto) 0.1 % (0-2) 11/19/19 05:15 Absolute Neuts (auto) 4.2 10^3/uL (1.7-8.2) 11/19/19 05:15 Absolute Lymphs (auto) 0.5 10^3/uL (0.5-4.7) 11/19/19 05:15 Absolute Monos (auto) 0.4 10^3/uL (0.1-1.4) 11/19/19 05:15 Absolute Eos (auto) 0.0 10^3/uL (0.0-0.6) 11/19/19 05:15 Absolute Basos (auto) 0.0 10^3/uL (0.0-0.2) 11/19/19 05:15 Total Counted 100 11/18/19 11:45 Seg Neutrophils % 82.7 % (42-78) H 11/19/19 05:15 Seg Neuts % (Manual) 69 % (42-78) 11/18/19 11:45 Band Neutrophils % 4 % (3-5) 11/18/19 11:45 Lymphocytes % (Manual) 17 % (13-45) 11/18/19 11:45 Monocytes % (Manual) 8 % (3-13) 11/18/19 11:45 Eosinophils % (Manual) 0 % (0-6) 11/18/19 11:45 Basophils % (Manual) 0 % (0-2) 11/18/19 11:45 Metamyelocytes % 2 % (0-1) H 11/18/19 11:45 Abs Neuts (Manual) 4.0 10^3/uL (1.7-8.2) 11/18/19 11:45 Abs Lymphs (Manual) 0.9 10^3/uL (0.5-4.7) 11/18/19 11:45 Abs Monocytes (Manual) 0.4 10^3/uL (0.1-1.4) 11/18/19 11:45 Absolute Eos (Manual) 0.0 10^3/uL (0.0-0.6) 11/18/19 11:45 Abs Basophils (Manual) 0.0 10^3/uL (0.0-0.2) 11/18/19 11:45 Platelet Comment ADEQUATE 11/18/19 11:45 Anisocytosis 3+ 11/18/19 11:45 Ovalocytes 1+ 11/18/19 11:45 PT 13.5 SEC (11.4-15.4) 11/18/19 11:45 INR 1.03 11/18/19 11:45 Carbonic Acid 1.90 mmol/L (1.05-1.35) H 11/22/19 16:29 HCO3/H2CO3 Ratio 22:1 11/22/19 16:29 ABG pH 7.45 (7.35-7.45) 11/22/19 16:29 ABG pCO2 63.0 mmHg (35-45) H 11/22/19 16:29 ABG pO2 129.2 mmHg (80-100) H 11/22/19 16:29 ABG HCO3 42.8 mmol/L (20-24) H 11/22/19 16:29 ABG Total CO2 44.7 mmol/L (21-25) H 11/22/19 16:29 ABG O2 Saturation 98.6 % (94-98) H 11/22/19 16:29 ABG Base Excess 16.1 mmol/L 11/22/19 16:29 VBG pH 7.33 (7.30-7.42) 11/18/19 12:03 VBG pCO2 72.9 mmHg (35-63) H* 11/18/19 12:03 VBG HCO3 37.4 mmol/L (20-32) H 11/18/19 12:03 VBG Base Excess 8.3 mmol/L 11/18/19 12:03 FiO2 36% 11/22/19 16:29 Sodium 136.2 mmol/L (137-145) L 11/24/19 04:55 Potassium 4.5 mmol/L (3.6-5.0) 11/24/19 04:55 Chloride 96 mmol/L (98-107) L 11/24/19 04:55 Carbon Dioxide 38 mmol/L (22-30) H 11/24/19 04:55 Anion Gap 2 (5-19) L 11/24/19 04:55 BUN 24 mg/dL (7-20) H 11/24/19 04:55 Creatinine 0.66 mg/dL (0.52-1.25) 11/24/19 04:55 Est GFR ( Amer) > 60 (>60) 11/24/19 04:55 Est GFR (Non-Af Amer) Cancelled 11/22/19 04:36 Est GFR (MDRD) Non-Af > 60 (>60) 11/24/19 04:55 Glucose 113 mg/dL (75-110) H 11/24/19 04:55 Lactic Acid 0.7 mmol/L (0.7-2.1) 11/18/19 18:15 Calcium 9.3 mg/dL (8.4-10.2) 11/24/19 04:55 Magnesium 2.0 mg/dL (1.6-2.3) 11/22/19 16:02 Total Bilirubin 0.3 mg/dL (0.2-1.3) 11/22/19 16:02 Direct Bilirubin 0.0 mg/dL (0.0-0.4) 11/22/19 16:02 Neonat Total Bilirubin Not Reportable 11/22/19 16:02 Neonat Direct Bilirubin Not Reportable 11/22/19 16:02 Neonat Indirect Bili Not Reportable 11/22/19 16:02 AST 26 U/L (14-36) 11/22/19 16:02 ALT 37 U/L (<35) H 11/22/19 16:02 Alkaline Phosphatase 101 U/L (38-126) 11/22/19 16:02 Troponin I < 0.012 ng/mL 11/22/19 16:02 NT-Pro-B Natriuret Pep 1350 pg/mL (<125) H 11/18/19 11:45 Total Protein 6.0 g/dL (6.3-8.2) L 11/22/19 16:02 Albumin 3.5 g/dL (3.5-5.0) 11/22/19 16:02 EGFR Cancelled 11/22/19 04:36 TSH 39.90 uIU/mL (0.47-4.68) H 11/21/19 05:30 Free T4 0.71 ng/dL (0.78-2.19) L 11/21/19 05:30 Free T3 pg/mL 1.41 pg/mL (2.77-5.27) L 11/21/19 05:30 Urine Color YELLOW 11/21/19 05:19 Urine Appearance TURBID 11/21/19 05:19 Urine pH 6.0 (5.0-9.0) 11/21/19 05:19 Ur Specific [place] 1.011 11/21/19 05:19 Urine Protein 100 mg/dL (NEGATIVE) H 11/21/19 05:19 Urine Glucose (UA) NEGATIVE mg/dL (NEGATIVE) 11/21/19 05:19 Urine Ketones NEGATIVE mg/dL (NEGATIVE) 11/21/19 05:19 Urine Blood SMALL (NEGATIVE) H 11/21/19 05:19 Urine Nitrite (Reflex) POSITIVE (NEGATIVE) H 11/21/19 05:19 Urine Bilirubin NEGATIVE (NEGATIVE) 11/21/19 05:19 Urine Urobilinogen NEGATIVE mg/dL (<2.0) 11/21/19 05:19 Leukocyte Esterase Rfl LARGE (NEGATIVE) H 11/21/19 05:19 Urine RBC (Auto) 10 /HPF 11/21/19 05:19 Urine Bacteria (Auto) 2+ /HPF 11/21/19 05:19 Urine WBC (Reflex) > 182 /HPF 11/21/19 05:19 Urine WBC Clumps MANY /HPF 11/21/19 05:19 Squamous Epi Cells Auto 1 /HPF 11/21/19 05:19 U Non-Squamous Epis Auto 3 /HPF 11/21/19 05:19 Urine Mucus (Auto) FEW /LPF 11/21/19 05:19 Urine Ascorbic Acid NEGATIVE (NEGATIVE) 11/21/19 05:19 COVID-19 Source NASOPHARYNGEAL 11/18/19 16:49 COVID-19 (UNRULY) NOT DETECTED 11/18/19 16:49 11/18/19 11/18/19 11/22/19 11:45 11:45 16:02 Troponin I < 0.012 < 0.012 NT-Pro-B Natriuret Pep 1350 H Impressions: Chest X-Ray 11/18/19 11:37 IMPRESSION: Postoperative changes and chronic parenchymal scarring in the left lung are stable. No evidence of acute cardiopulmonary disease. Chest CT 11/22/19 00:00 IMPRESSION: 1. Chronic lung changes, similar appearance compared to prior. No acute process detected. Head CT 11/22/19 00:00 IMPRESSION: NORMAL BRAIN CT WITHOUT CONTRAST. EVIDENCE OF ACUTE STROKE: NO. Plan Plan of Treatment: Patient is discharged home in stable condition. She is advised to follow-up with her primary care provider within 1 week. Keep her scheduled appointment with Dr. Jimenez. Take medications as prescribed. Complete full course of antibiotic therapy. Drink plenty of water. Encouraged compliance with home CPAP device. Do not smoke. Return to emergency department as needed for concerning symptoms. Time Spent: Greater than 30 Minutes Stroke Is this a Stroke Patient?: No Acute Heart Failure - Is this a Heart Failure Patient?: No
== END 2019-11-24 13:08 | disposition home or self-care (01) | DRG 189 ==
LOC: ER 11:26 → INTOOBSV 16:03 → EH 16:03 → 3N 18:50 → OBSVTOIN 11-19 08:31 → 4W 11-20 16:54 → 4S 11-24 06:46
PROVIDERS: ADMIT Internal Medicine; ATTEND Registered Nurse
PROC: 5A09357 Assistance with Respiratory Ventilation, Less than 24 Consecutive Hours, Continuous Positive Airway Pressure (ICD-10-PCS; principal; 2019-11-18)
DX: J96.22 Acute and chronic respiratory failure with hypercapnia (principal); G93.41 Metabolic encephalopathy; J44.1 Chronic obstructive pulmonary disease with (acute) exacerbation; C34.81 Malignant neoplasm of overlapping sites of right bronchus and lung; N39.0 Urinary tract infection, site not specified; Z99.81 Dependence on supplemental oxygen; D50.9 Iron deficiency anemia, unspecified; B96.20 Unspecified Escherichia coli [E. coli] as the cause of diseases classified elsewhere; I10 Essential (primary) hypertension; E03.9 Hypothyroidism, unspecified; G47.33 Obstructive sleep apnea (adult) (pediatric); F32.9 Major depressive disorder, single episode, unspecified; F41.9 Anxiety disorder, unspecified; G62.9 Polyneuropathy, unspecified; E78.5 Hyperlipidemia, unspecified; M19.90 Unspecified osteoarthritis, unspecified site; D64.81 Anemia due to antineoplastic chemotherapy; E66.01 Morbid (severe) obesity due to excess calories; F17.210 Nicotine dependence, cigarettes, uncomplicated; Z68.30 Body mass index [BMI] 30.0-30.9, adult; Z79.51 Long term (current) use of inhaled steroids; Z79.52 Long term (current) use of systemic steroids; Z79.899 Other long term (current) drug therapy; Z79.82 Long term (current) use of aspirin; Z90.2 Acquired absence of lung [part of]; Z92.21 Personal history of antineoplastic chemotherapy; Z92.3 Personal history of irradiation; Z88.8 Allergy status to other drugs, medicaments and biological substances; Z91.048 Other nonmedicinal substance allergy status
CPT/HCPCS: 36415; 36600; 70450; 71045; 71260; 80048; 80053; 81001; 82803; 83605; 83735; 83880; 84439; 84443; 84481; 84484; 85025; 85027; 85610; 87040; 87070; 87086; 87088; 87186; 87635; 93005; 93010; 94640; 94660; 94667; 94668; 94799; 96360; 99291; 99292; C9803; G0378; J0456; J0696; J1644; J2930; J3490; J7030; J7060; J7620

== ENCOUNTER → 2020-01-05 | Outpatient (CLI) | payer MEDICARE ==
[2020-01-05 16:09] LABS: ARTERIAL BLOOD BASE EXCESS 8.3 mmol/L; ARTERIAL BLOOD H2CO3 1.52 mmol/L (1.05-1.35); ARTERIAL BLOOD HCO3 33.6 mmol/L (20-24); ARTERIAL BLOOD O2 SATURATION 93.6 % (94-98); ARTERIAL BLOOD PCO2 50.6 mmHg (35-45); ARTERIAL BLOOD PH 7.44 (7.35-7.45); ARTERIAL BLOOD PO2 66.8 mmHg (80-100); ARTERIAL BLOOD TOTAL CO2 35.1 mmol/L (21-25)
[2020-01-05 16:42] LABS: ARTERIAL BLOOD FIO2 ROOM AIR
== END ==
LOC: OD 15:13
PROVIDERS: ATTEND Internal Medicine Pulmonary Disease
DX: J96.11 Chronic respiratory failure with hypoxia (principal)
CPT/HCPCS: 82803

== ENCOUNTER → 2020-02-05 | Outpatient (CLI) | payer MEDICARE ==
--- NOTE | 2020-02-06 14:12 | RADIOLOGY REPORT (SQ) ---
EXAM DESCRIPTION: CT CHEST WITH; CT ABD/PELVIS WITH IV ONLY IMAGES COMPLETED DATE/TIME: 02/05/2020 3:06 pm COMPARISON: CT chest, 11/22/2019. CT chest, abdomen and pelvis, 07/18/2019. CT chest, abdomen and pel vis, 04/05/2019. PET CT, 12/18/2018. CONTRAST TYPE AND DOSE: contrast/concentration: Isovue 350.00 mmol/ml; Total Contrast Delivered: 100 .0 ml; Total Saline Delivered: 45.0 ml RENAL FUNCTION: GFR > 60. TECHNIQUE: CT scan of the chest performed using helical scanning technique with dynamic intravenous contrast injection. Images reviewed with lung, soft tissue and bone windows. Reconstructed coronal a nd sagittal MPR images reviewed. All images stored on PACS. CT scan of the abdomen and pelvis performed with intravenous and oral contrast using helical scanning technique with dynamic intravenous contrast injection. Images reviewed with lung, soft tissue and b one windows. Reconstructed coronal and sagittal MPR images reviewed. Delayed images for evaluation of the urinary system also acquired and evaluated. All images stored on PACS. All CT scanners at this facility use dose modulation, iterative reconstruction, and/or weight based d osing when appropriate to reduce radiation dose to as low as reasonably achievable (ALARA). [facility]: Dose Right [facility]: CareDose [facility]: Dose Right [facility]: Teradose 4D [facility]: [employer] RADIATION DOSE: CT Rad equipment meets quality standard of care and radiation dose reduction techniq ues were employed. CTDIvol: 9.6 - 19.8 mGy. DLP: 2488 mGy-cm. . LIMITATIONS: None. FINDINGS: CHEST: AXILLAE: No adenopathy. CHEST WALL: No masses. No subcutaneous air. LUNGS: The trachea has normal caliber and appearance. Mild bronchiectasis and bronchial wall thicken ing in the left upper lobe and superior segment left lower lobe, stable. Spiculated soft tissue milli g the posterior margin of the left upper lobe vasculature measuring 2.2 x 1.6 cm, stable. Additional patchy areas of consolidation in the left upper lobe and superior segment left lower lobe, stable fr om previous, consistent with post radiation change. Subpleural reticulation/ pleural and parenchymal scarring in the peripheral right upper lobe is unchanged. 11 mm noncalcified pulmonary nodule in th e right upper lobe is unchanged. A 6 mm noncalcified pulmonary nodule in the left upper lobe is unch anged. Soft tissue adjacent to the fiducial markers in the superior segment left lower lobe, stable. Pleural and parenchymal scarring in the lingula, stable. No new pulmonary nodules. No focal consoli dation. No pleural effusion or pneumothorax. PLEURA: No pleural effusion or pneumothorax. Chronic pleural scarring at the right lung base is unch anged. THYROID: No masses or significant asymmetry. HILAR AND MEDIASTINAL STRUCTURES: No identified masses or abnormal nodes. AORTA AND GREAT VESSELS: No aneurysm. No dissection. PULMONARY ARTERIES: No identified pulmonary emboli. Study not optimized for the pulmonary arteries. HEART: No pericardial effusion. HARDWARE AND LIFELINES: None. BONES: No suspicious bone lesions. OTHER: No other significant finding. ABDOMEN AND PELVIS: LIVER: Normal size and contour. Mild hepatic steatosis. No focal hepatic mass. Hepatic and portal veins are patent. No biliary ductal dilation. SPLEEN: Normal size. No focal lesions. PANCREAS: No masses. No significant calcifications. No adjacent inflammation or peripancreatic flui d collections. Pancreatic duct not dilated. GALLBLADDER: No identified stones by CT criteria. No inflammatory changes to suggest cholecystitis. ADRENAL GLANDS: No significant masses or asymmetry. RIGHT KIDNEY AND URETER: Normal size and position. Multiple renal cortical and parapelvic cysts, unc hanged. No solid mass. No significant calcifications. No hydronephrosis or hydroureter. LEFT KIDNEY AND URETER: Normal size and position. Multiple renal cortical and parapelvic cysts uncha nged. No solid renal mass. No significant calcifications. No hydronephrosis or hydroureter. AORTA AND VESSELS: No aneurysm. No dissection. Renal arteries, SMA, celiac without stenosis. RETROPERITONEUM: No retroperitoneal adenopathy, hemorrhage or masses. LARGE AND SMALL BOWEL: Post right hemicolectomy. Patent anastomosis. No bowel obstruction or bowel wall thickening. No significant inflammatory change. APPENDIX: Surgically absent. ABDOMINAL WALL: No hernia or masses. PERITONEAL CAVITY: No free air. No free fluid. No peritoneal implants or masses. PELVIS: No mass or free fluid. Calcified pelvic phleboliths. Uterus and ovaries have normal size. No adnexal mass. Urinary bladder has normal contour. No bladder wall thickening, intraluminal bladd er mass or debris. BONES: No suspicious bone lesions. Degenerative disc disease and mild spondylosis in the thoracolumb ar spine. OTHER: No other significant finding. IMPRESSION: 1. Stable post radiation change in the left upper lobe. No evidence of metastatic disease in the ravinder st, abdomen or pelvis. 2. Stable pulmonary nodules. 3. Mild hepatic steatosis. 4. Status post right hemicolectomy. No bowel obstruction. 5. Bilateral renal cortical cysts are unchanged. No suspicious renal mass. TECHNICAL DOCUMENTATION: JOB ID: [id number] Quality ID # [id number]: Final reports with documentation of one or more dose reduction techniques (e.g., Au tomated exposure control, adjustment of the mA and/or kV according to patient size, use of iterative reconstruction technique) 2010 [employer]- All Rights Reserved REASON FOR STUDY: C34.12 MALIGNANT NEOPLASM OF UPPER LOBE, LEFT BRONCHUS OR LUNG C34.12 MALIGNANT N EOPLASM OF UPPER LOBE, LEFT BRONCHUS OR JH C34.12 MALIGNANT NEOPLASM OF UPPER LOBE, LEFT BRONCHUS OR LUNG C34.12 MALIGNANT NEOPLASM OF UPPER LO BE, LEFT BRONCHUS OR [facility]. Reading location - IP/workstation name: [email or web address]
== END ==
LOC: RAD 15:32
PROVIDERS: ATTEND Physician Assistant Medical
DX: C34.12 Malignant neoplasm of upper lobe, left bronchus or lung (principal)
CPT/HCPCS: 71260; 74177; 82565

== ENCOUNTER 2020-04-04 05:51 | Day surgery (SDC) | payer MEDICARE ==
[2020-04-01 10:10] LABS: HEMATOCRIT 26.2 % (36.0-47.0); HEMOGLOBIN 8.9 g/dL (12.0-15.5); MEAN CORPUSCULAR HEMOGLOBIN 34.8 pg (27.0-33.4); MEAN CORPUSCULAR VOLUME 102 fl (80-97); RED BLOOD COUNT 2.56 10^6/uL (3.72-5.28); RED CELL DISTRIBUTION WIDTH 21.3 % (11.5-14.0); WHITE BLOOD COUNT 5.3 10^3/uL (4.0-10.5)
[2020-04-01 10:33] LABS: ANION GAP 11 (5-19); BLOOD UREA NITROGEN 11 mg/dL (7-20); CALCIUM 9.4 mg/dL (8.4-10.2); CARBON DIOXIDE 34 mmol/L (22-30); CHLORIDE 93 mmol/L (98-107); GLUCOSE 91 mg/dL (75-110)
[2020-04-01 10:40] LABS: PLATELET COUNT 84 10^3/uL (150-450); POTASSIUM 2.9 mmol/L (3.6-5.0)
--- NOTE | 2020-04-01 23:01 | EKG REPORT ---
SEVERITY:- BORDERLINE ECG - SINUS OR ECTOPIC ATRIAL RHYTHM VENTRICULAR PREMATURE COMPLEX RIGHT AXIS DEVIATION LOW VOLTAGE THROUGHOUT : Confirmed by: Aiayna Barney 01-Apr-2020 23:00:32
[~2020-04-04 05:51] MED LIST changes: +CEFAZOLIN 2 GM/D5W RTU 2 GM/50 ML RTUPB IV PRN; +LACTATED RINGERS 1000 ML IV PRN; -LEVALBUTEROL HCL NEB 1.25 MG/3 ML AMPUL NEB ONE; +LIDOCAINE 0.5% INJ-PF (5 MG/ML) 50 ML SDV SUBCUT PRN; -REGADENOSON INJ 0.4 MG/5 ML DISP.SYRIN IV ONE
[2020-04-04] MEDS ORDERED: EPHEDRINE SULFATE INJ 50 MG/1 ML AMPULE ONE (06:47)
[2020-04-04] MEDS ORDERED: ONDANSETRON HCL INJ/PF 4 MG/2 ML SDV ONE (06:47)
[2020-04-04] MEDS ORDERED: MIDAZOLAM 2 MG/2 ML INJ ONE (06:47)
[2020-04-04] MEDS ORDERED: FENTANYL CITRATE INJ/PF 100 MCG/2 ML AMPUL ONE (06:47)
[2020-04-04] MEDS ORDERED: PROPOFOL INJ 200 MG/20 ML VIAL IV ONE (06:48)
[2020-04-04] MEDS ORDERED: LIDOCAINE 2% INJ (20 MG/ML) 20 ML MDV ONE (06:51)
[2020-04-04] MEDS ORDERED: LIDOCAINE 1% INJ-PF (10 MG/ML) 30 ML SDV ONE (07:17)
[2020-04-04] MEDS ORDERED: BUPIVACAINE HCL 0.25 % INJ/PF (2.5 MG/1 ML) 30 ML VIAL ONE (07:17)
[2020-04-04] MEDS ORDERED: CEFAZOLIN 2 GM/D5W RTU 2 GM/50 ML RTUPB IV ONE (07:27)
[2020-04-04] MEDS ORDERED: PROMETHAZINE HCL INJ 25 MG/1 ML VIAL IV PRN ×2 (08:21)
[2020-04-04] MEDS ORDERED: FENTANYL CITRATE INJ/PF 100 MCG/2 ML AMPUL IV PRN ×3 (08:21)
--- NOTE | 2020-04-04 08:52 | Discharge Summary ---
Discharge Summary (SDC) - Discharge Final Diagnosis: lung cancer Date of Surgery: 04/04/20 Discharge Date: 04/04/20 Condition: Stable Treatment or Instructions: Discharge home. Diet as tolerated. Activity: Nonstrenuous. Okay to shower starting on Wednesday. Ace 5/325 mg p.o. every 6 hours as needed for pain. Follow-up with [facility] as needed. No tub baths or swimming pools x2 weeks. Okay to use [employer] Referrals: HANK THAKUR DO [Primary Care Provider] - Discharge Diet: As Tolerated Respiratory Treatments at Home: Deep Breathing/Coughing, Incentive Spirometer Discharge Activity: Balance Activity w/Rest Home Care Assistance: None Needed Report the Following to Your Physician Immediately: Shortness of Breath, Nausea, Vomiting, Increase in Pain, Fever over 101 Degrees, Unusual Bleeding, Redness
--- NOTE | 2020-04-04 09:31 | RADIOLOGY REPORT (SQ) ---
EXAM DESCRIPTION: CHEST SINGLE VIEW IMAGES COMPLETED DATE/TIME: 04/04/2020 9:15 am REASON FOR STUDY: port placement COMPARISON: 11/18/2019 NUMBER OF VIEWS: One view. TECHNIQUE: Single frontal radiographic image of the chest acquired. LIMITATIONS: None. FINDINGS: LUNGS AND PLEURA: Postsurgical changes left upper lobe. No pneumothorax. MEDIASTINUM AND HEART: Stable heart size and mediastinal structures. SUPPORT DEVICES: Right-sided port tip overlying SVC. BONY STRUCTURES: No acute findings. HARDWARE: None. OTHER: No other significant finding. IMPRESSION: No pneumothorax. Reading location - IP/workstation name: [email or web address]
[2020-04-04] MEDS ORDERED: HYDROCODONE/ACETAMINOPHEN 5-325 MG TABLET PO PRN (10:07)
[2020-04-04 10:51] VITALS: BP 126/66
--- NOTE | 2020-04-04 13:13 | RADIOLOGY REPORT (SQ) ---
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 FLUOROSCOPY TIME: 0.9 minutes 3 images saved to PACS. TECHNIQUE: Intra-operative images acquired during surgical procedure to evaluate progress. NUMBER OF IMAGES: 3 LIMITATIONS: None. FINDINGS: Right-sided port tip overlying SVC. IMPRESSION: IMAGE(S) OBTAINED DURING PROCEDURE. COMMENT: Quality ID [id number]: Final reports for procedures using fluoroscopy that document radiation exp osure indices, or exposure time and number of fluorographic images (if radiation exposure indices are not available) Please consult full operative report of the attending physician for description of the procedure. TECHNICAL DOCUMENTATION: JOB ID: [id number] 2010 [employer]- All Rights Reserved Reading location - IP/workstation name: [email or web address]
--- OUTSIDE RECORDS SUMMARY | 2020-04-05 14:53 | XMS REPORT ---
:1945 [facility] [address] [place] [address] Care Team Providers Name Role Phone Juan Carlos Jimenez M.D. Attending Clinician Unavailable Iveth Richard Attending Clinician Unavailable Marlen Torres Attending Clinician Unavailable Usha Fisher Attending Clinician Unavailable Tee Shine Attending Clinician Unavailable Tee Shine Attending Clinician Unavailable Oralia Roth Attending Clinician Unavailable Allergies, Adverse Reactions, Alerts Allergy Name Allergy Status Severity Reaction(s) Onset Inactive Treat ing Comments Type Date Date Clinician LISINOPRIL Drug Active U Unknown 2018-05 allergy - 00:00:0 0 RAMIPRIL Drug Active U Unknown 2018-05 allergy 00:00:0 0 Altace Allergy Active (Ingredient( to Drug s): (Finding) ramipril) Lisinopril Allergy Active (Ingredient( to Drug s): (Finding) lisinopril) Medications Ordered Filled Start Stop Current Ordering Indication Dosage Frequency Signature Comments Components Medication Medication Date Date Medication? Clinician (SIG) Name Name Levalbutero 2019-05 No .63mg Levalbuter l HCl 1-06 ol HCl 00:00: 00 Mvasi 2019-05 No 1354mg Mvasi 1-06 00:00: 00 Sodium 2019-05 No 60mL Sodium Chloride 1-06 Chloride 00:00: 00 Dexamethaso 2019-05 No 10mg Dexamethas ne Sodium 1-06 one Sodium Phosphate 00:00: Phosphate 00 Alimta 2019-05 No 970mg Alimta 1-06 00:00: 00 K-Tab 2019-05 Yes 20meq 1-06 00:00: 00 Mvasi 2019-05 No 1368mg Mvasi 0-16 00:00: 00 Sodium 2019-05 No 60mL Sodium Chloride 0-16 Chloride 00:00: 00 Dexamethaso 2020-1 No 10mg Dexamethas ne Sodium 0-16 one Sodium Phosphate 00:00: Phosphate 00 Alimta 2020-1 No 975mg Alimta 0-16 00:00: 00 Mvasi 2020-1 No 1368mg Mvasi 0-16 00:00: 00 Vitamin 2020-0 No 1000 Vitamin B-12 9-30 B-12 00:00: 00 Vitamin 2020-0 No 1000 Vitamin B-12 9-30 B-12 00:00: 00 Alimta 2020-0 Yes 970mg Alimta 9-25 00:00: 00 Mvasi 2020-0 No 1414mg Mvasi 9-25 00:00: 00 Sodium 2020-0 No 60mL Sodium Chloride 9-25 Chloride 00:00: 00 Dexamethaso 2020-0 No 10mg Dexamethas ne Sodium 9-25 one Sodium Phosphate 00:00: Phosphate 00 Mvasi 2020-0 No 1414mg Mvasi 9-25 00:00: 00 Levaquin 2020-0 Yes 1 9-11 00:00: 00 Mvasi 2020-0 No 1444mg Mvasi 8-28 00:00: 00 Sodium 2020-0 No 80mL Sodium Chloride 8-28 Chloride 00:00: 00 Palonosetro 2020-0 No .25mg Palonosetr n HCl 8-28 on HCl 00:00: 00 Dexamethaso 2020-0 No 10mg Dexamethas ne Sodium 8-28 one Sodium Phosphate 00:00: Phosphate 00 Fosaprepita 2020-0 No 150mg Fosaprepit nt 8-28 ant Dimeglumine 00:00: Dimeglumin 00 e Mvasi 2020-0 No 1444mg Mvasi 8-28 00:00: 00 Feraheme 2020-0 No 510mg Feraheme 8-12 00:00: 00 Sodium 2020-0 No 50mL Sodium Chloride 8-12 Chloride 00:00: 00 Mvasi 2020-0 No 1482mg Mvasi 8-05 00:00: 00 Sodium 2020-0 No 125mL Sodium Chloride 8-05 Chloride 00:00: 00 Palonosetro 2020-0 No .25mg Palonosetr n HCl 8-05 on HCl 00:00: 00 Dexamethaso 2020-0 No 10mg Dexamethas ne Sodium 8-05 one Sodium Phosphate 00:00: Phosphate 00 Fosaprepita 2020-0 No 150mg Fosaprepit nt 8-05 ant Dimeglumine 00:00: Dimeglumin 00 e Feraheme 2020-0 No 510mg Feraheme 8-05 00:00: 00 Mvasi 2020-0 No 1482mg Mvasi 8-05 00:00: 00 Vitamin 2020-0 No 1000 Vitamin B-12 7-29 B-12 00:00: 00 Vitamin 2020-0 No 1000 Vitamin B-12 7-29 B-12 00:00: 00 Mvasi 2020-0 No 1500mg Mvasi 7-15 00:00: 00 Sodium 2020-0 No 100mL Sodium Chloride 7-15 Chloride 00:00: 00 Palonosetro 2020-0 No .25mg Palonosetr n HCl 7-15 on HCl 00:00: 00 Dexamethaso 2020-0 No 10mg Dexamethas ne Sodium 7-15 one Sodium Phosphate 00:00: Phosphate 00 Fosaprepita 2020-0 No 150mg Fosaprepit nt 7-15 ant Dimeglumine 00:00: Dimeglumin 00 e Mvasi 2020-0 No 1500mg Mvasi 7-15 00:00: 00 Potassium 2020-0 2020- No 20meq Chloride ER 7-15 10-30 00:00: 00:00 00 :00 Cipro 2020-0 2020- No 1 6-23 06-28 00:00: 00:00 00 :00 Sodium 2020-0 No 120mL Sodium Chloride 6-08 Chloride 00:00: 00 Dexamethaso 2020-0 No 10mg Dexamethas ne Sodium 6-08 one Sodium Phosphate 00:00: Phosphate 00 Furosemide 2020-0 No 20mg Furosemide 6-08 00:00: 00 Mvasi 2020-0 2020- No 1500mg Mvasi 6-08 11-06 00:00: 00:00 00 :00 Mvasi 2020-0 2020- No 1500mg Mvasi 6-08 10-16 00:00: 00:00 00 :00 Fosaprepita 2020-0 2020- No 150mg Fosaprepit nt 6-08 08-28 ant Dimeglumine 00:00: 00:00 Dimeglumin 00 :00 e Palonosetro 2020-0 2020- No .25mg Palonosetr n HCl 6-08 08-28 on HCl 00:00: 00:00 00 :00 Carboplatin 2020-0 2020- No 625mg 10-29 00:00: 00:00 00 :00 Pemetrexed 2020-0 2020- No 995mg Disodium 10-29 00:00: 00:00 00 :00 Vitamin 2020-0 No 1000 Vitamin B-12 5-27 B-12 00:00: 00 Folic Acid 2020-0 Yes 1 10-17 00:00: 00 Vitamin 2020-0 No 1000 Vitamin B-12 5-27 B-12 00:00: 00 Augmentin 2020-0 2020- No 1 10-17 06-03 00:00: 00:00 00 :00 Sodium 2020-0 No 60mL Sodium Chloride 5-06 Chloride 00:00: 00 Feraheme 2020-0 No 510mg Feraheme 5-06 00:00: 00 Euthyrox 2020-0 Yes 1 5-06 00:00: 00 Magnesium 2020-0 2020- No 2g Magnesium Sulfate 5-06 05-06 Sulfate 00:00: 00:00 00 :00 Feraheme 2020-0 No 510mg Feraheme 4-28 00:00: 00 Sodium 2020-0 No 50mL Sodium Chloride 4-28 Chloride 00:00: 00 Vitamin 2020-0 No 1000 Vitamin B-12 4-14 B-12 00:00: 00 Sodium 2020-0 No 40mL Sodium Chloride 4-14 Chloride 00:00: 00 Furosemide 2020-0 No 20mg Furosemide 4-14 00:00: 00 Ativan 2020-0 Yes 1 4-14 00:00: 00 Triamcinolo 2020-0 Yes ne 4-14 Acetonide 00:00: 00 Vitamin 2020-0 No 1000 Vitamin B-12 4-14 B-12 00:00: 00 Sodium 2020-0 No 20mL Sodium Chloride 3-24 Chloride 00:00: 00 Vitamin 2020-0 No 1000 Vitamin B-12 3-10 B-12 00:00: 00 Vitamin 2020-0 No 1000 Vitamin B-12 3-10 B-12 00:00: 00 Sodium 2020-0 No 20mL Sodium Chloride 3-03 Chloride 00:00: 00 Vitamin 2020-0 No 1000 Vitamin B-12 2-11 B-12 00:00: 00 Sodium 2020-0 No 40mL Sodium Chloride 2-11 Chloride 00:00: 00 Vitamin 2020-0 No 1000 Vitamin B-12 2-11 B-12 00:00: 00 Feraheme 2020-0 No 510mg Feraheme 2-06 00:00: 00 Sodium 2020-0 No 10mL Sodium Chloride 2-06 Chloride 00:00: 00 Feraheme 2020-0 No 510mg Feraheme 1-30 00:00: 00 Sodium 2020-0 No 40mL Sodium Chloride 1-30 Chloride 00:00: 00 Furosemide 2020-0 No 20mg Furosemide 1-30 00:00: 00 Medrol 2020-0 Yes 1-30 00:00: 00 Levalbutero 2020-0 No .63mg Levalbuter l HCl 1-30 ol HCl 00:00: 00 Levalbutero 2020-0 2020- No .63mg Levalbuter l HCl 1-30 11-06 ol HCl 00:00: 00:00 00 :00 Sodium 2020-0 No 35mL Sodium Chloride 1-21 Chloride 00:00: 00 Lasix 2020-0 Yes 1 1-21 00:00: 00 Furosemide 2020-0 2020- No 20mg Furosemide 1-21 06-08 00:00: 00:00 00 :00 Keytruda 2020-0 2020- No 200mg (pembrolizu 1-21 05-06 mab) 00:00: 00:00 00 :00 Vitamin 2020-0 No 1000 Vitamin B-12 1-14 B-12 00:00: 00 Vitamin 2020-0 No 1000 Vitamin B-12 1-14 B-12 00:00: 00 Sodium 2019-1 No 20mL Sodium Chloride 2-31 Chloride 00:00: 00 Lyrica 2019-1 Yes 1 2-31 00:00: 00 Vitamin 2019-1 No 1000 Vitamin B-12 2-17 B-12 00:00: 00 Vitamin 2019-1 No 1000 Vitamin B-12 2-17 B-12 00:00: 00 Synthroid 2019-1 No 1 2-12 00:00: 00 Synthroid 2019-1 No 1 2-12 00:00: 00 Synthroid 2019-1 Yes 1 2-12 00:00: 00 Sodium 2019-1 No 20mL Sodium Chloride 2-10 Chloride 00:00: 00 Vitamin 2019-1 No 1000 Vitamin B-12 1-19 B-12 00:00: 00 Sodium 2019-1 No 20mL Sodium Chloride 1-19 Chloride 00:00: 00 Vitamin 2019-1 No 1000 Vitamin B-12 1-19 B-12 00:00: 00 Sodium 2019-1 No 120mL Sodium Chloride 0-29 Chloride 00:00: 00 Feraheme 2019-1 No 510mg Feraheme 0-29 00:00: 00 Vitamin 2019-1 No 1000 Vitamin B-12 0-22 B-12 00:00: 00 Feraheme 2019-1 No 510mg Feraheme 0-22 00:00: 00 Sodium 2019-1 No 100mL Sodium Chloride 0-22 Chloride 00:00: 00 Vitamin 2019-1 No 1000 Vitamin B-12 0-22 B-12 00:00: 00 Sodium 2019-1 No 30mL Sodium Chloride 0-08 Chloride 00:00: 00 Vitamin 2019-0 No 1000 Vitamin B-12 9-24 B-12 00:00: 00 Vitamin 2019-0 No 1000 Vitamin B-12 9-24 B-12 00:00: 00 Sodium 2019-0 No 20mL Sodium Chloride 9-17 Chloride 00:00: 00 Provided 2019-0 2019- No 200mg Keytruda -17 12-31 00:00: 00:00 00 :00 Influenza 2019-0 2019- No .5mL QIV -17 09-17 00:00: 00:00 00 :00 Vitamin 2019-0 No 1000 Vitamin B-12 8-27 B-12 00:00: 00 Vitamin 2019-0 No 1000 Vitamin B-12 8-27 B-12 00:00: 00 Vitamin 2019-0 No 1000 Vitamin B-12 7-30 B-12 00:00: 00 Vitamin 2019-0 No 1000 Vitamin B-12 7-30 B-12 00:00: 00 traZODone 2019-0 Yes 1 HCl 7-09 00:00: 00 Nicoderm CQ 2019-0 2020- No 7-09 06-23 00:00: 17:32 00 :37 Vitamin 2019-0 No 1000 Vitamin B-12 7-02 B-12 00:00: 00 Vitamin 2019-0 No 1000 Vitamin B-12 7-02 B-12 00:00: 00 Vitamin 2019-0 No 1000 Vitamin B-12 6-04 B-12 00:00: 00 Vitamin 2019-0 No 1000 Vitamin B-12 6-04 B-12 00:00: 00 Vitamin 2019-0 No 1000 Vitamin B-12 5-07 B-12 00:00: 00 Vitamin 2019-0 No 1000 Vitamin B-12 5-07 B-12 00:00: 00 Vitamin 2019-0 No 1000 Vitamin B-12 4-09 B-12 00:00: 00 Vitamin 2019-0 No 1000 Vitamin B-12 4-09 B-12 00:00: 00 Vitamin 2019-0 No 1000 Vitamin B-12 3-12 B-12 00:00: 00 Vitamin 2019-0 No 1000 Vitamin B-12 3-12 B-12 00:00: 00 Vitamin 2019-0 No 1000 Vitamin B-12 2-12 B-12 00:00: 00 Vitamin 2019-0 No 1000 Vitamin B-12 2-12 B-12 00:00: 00 Vitamin 2019-0 No 1000 Vitamin B-12 1-15 B-12 00:00: 00 Vitamin 2019-0 No 1000 Vitamin B-12 1-15 B-12 00:00: 00 Feraheme 2019-0 No 510mg Feraheme 1-08 00:00: 00 Sodium 2019-0 No 50mL Sodium Chloride 1-08 Chloride 00:00: 00 Feraheme 2018-1 No 510mg Feraheme 2-31 00:00: 00 Sodium 2018-1 No 50mL Sodium Chloride 2-31 Chloride 00:00: 00 Vitamin 2018-1 No 1000 Vitamin B-12 2-18 B-12 00:00: 00 Vitamin 2018-1 No 1000 Vitamin B-12 2-18 B-12 00:00: 00 Vitamin 2018-1 No 1000 Vitamin B-12 1-20 B-12 00:00: 00 Vitamin 2018-1 No 1000 Vitamin B-12 1-20 B-12 00:00: 00 Feraheme 2018-1 No 510mg Feraheme 1-09 00:00: 00 Sodium 2018-1 No 50mL Sodium Chloride 1-09 Chloride 00:00: 00 Sodium 2018-1 No 50mL Sodium Chloride 1-02 Chloride 00:00: 00 Feraheme 2018-1 2020- No 510mg Feraheme 1-02 08-12 00:00: 00:00 00 :00 Vitamin 2018-1 No 1000 Vitamin B-12 0-23 B-12 00:00: 00 Vitamin 2018-1 No 1000 Vitamin B-12 0-23 B-12 00:00: 00 Vitamin 2018-0 No 1000 Vitamin B-12 9-25 B-12 00:00: 00 Vitamin 2018-0 No 1000 Vitamin B-12 9-25 B-12 00:00: 00 Vitamin 2018-0 No 1000 Vitamin B-12 8-23 B-12 00:00: 00 Vitamin 2018-0 No 1000 Vitamin B-12 8-23 B-12 00:00: 00 Vitamin 2018-0 No 1000 Vitamin B-12 7-26 B-12 00:00: 00 Vitamin 2018-0 No 1000 Vitamin B-12 7-26 B-12 00:00: 00 Vitamin 2018-0 No 1000 Vitamin B-12 6-15 B-12 00:00: 00 Vitamin 2018-0 No 1000 Vitamin B-12 6-15 B-12 00:00: 00 Vitamin 2018-0 No 1000 Vitamin B-12 5-18 B-12 00:00: 00 Vitamin 2018-0 No 1000 Vitamin B-12 5-18 B-12 00:00: 00 Vitamin 2018-0 No 1000 Vitamin B-12 4-20 B-12 00:00: 00 Vitamin 2018-0 No 1000 Vitamin B-12 4-20 B-12 00:00: 00 Vitamin 2018-0 No 1000 Vitamin B-12 3-23 B-12 00:00: 00 Vitamin 2018-0 No 1000 Vitamin B-12 3-23 B-12 00:00: 00 Vitamin 2018-0 No 1000 Vitamin B-12 2-23 B-12 00:00: 00 Vitamin 2018-0 No 1000 Vitamin B-12 2-23 B-12 00:00: 00 Vitamin 2018-0 No 1000 Vitamin B-12 1-26 B-12 00:00: 00 Vitamin 2018-0 No 1000 Vitamin B-12 1-26 B-12 00:00: 00 Vitamin 2017-1 No 1000 Vitamin B-12 2-29 B-12 00:00: 00 Vitamin 2017-1 No 1000 Vitamin B-12 2-29 B-12 00:00: 00 Chantix 2017-1 2018- No Starting -29 06-15 Month Derrick 00:00: 11:14 00 :53 Vitamin 2017-1 No 1000 Vitamin B-12 2-01 B-12 00:00: 00 Vitamin 2017-1 No 1000 Vitamin B-12 2-01 B-12 00:00: 00 Vitamin 2017-1 No 1000 Vitamin B-12 1-02 B-12 00:00: 00 Vitamin 2017-1 No 1000 Vitamin B-12 1-02 B-12 00:00: 00 Vitamin 2017-1 No 1000 Vitamin B-12 0-05 B-12 00:00: 00 Vitamin 2017-1 No 1000 Vitamin B-12 0-05 B-12 00:00: 00 Vitamin 2017-0 No 1000 Vitamin B-12 01-28 B-12 00:00: 00 Vitamin 2017-0 No 1000 Vitamin B-12 9 B-12 00:00: 00 Vitamin 2017-0 No 1000 Vitamin B-12 8-10 B-12 00:00: 00 Vitamin 2017-0 No 1000 Vitamin B-12 8-10 B-12 00:00: 00 Famvir 2017-0 2018- No 1 8-10 06-15 00:00: 11:14 00 :53 Cyanocobala 2017-0 No 1000 Cyanocobal min 7-13 landry 00:00: 00 Iron 2017-0 No 800mg Iron Dextran 5-24 Dextran 00:00: 00 Sodium 2017-0 No 30mL Sodium Chloride 5-24 Chloride 00:00: 00 Iron 2017-0 No 800mg Iron Dextran 5-18 Dextran 00:00: 00 Sodium 2017-0 No 30mL Sodium Chloride 5-18 Chloride 00:00: 00 Vitamin 2017-0 2020- No 1000 Vitamin B-12 5-18 09-30 B-12 00:00: 00:00 00 :00 Vitamin 2017-0 2020- No 1000 Vitamin B-12 5-18 09-30 B-12 00:00: 00:00 00 :00 Iron 2017-0 No 800mg Iron Dextran 5-10 Dextran 00:00: 00 Sodium 2017-0 No 30mL Sodium Chloride 5-10 Chloride 00:00: 00 Infed 2017-0 No 800mg Infed 5-03 00:00: 00 Sodium 2017-0 No 30mL Sodium Chloride 5-03 Chloride 00:00: 00 Cyanocobala 2017-0 No 1000 Cyanocobal min 4-20 landry 00:00: 00 Cyanocobala 2017-0 No 1000 Cyanocobal min 3-28 landry 00:00: 00 Cyanocobala 2017-0 No 1000 Cyanocobal min 2-23 landry 00:00: 00 Cyanocobala 2016-1 No 1000 Cyanocobal min 2-20 landry 00:00: 00 Cyanocobala 2016-1 No 1000 Cyanocobal min 1-18 landry 00:00: 00 Cyanocobala 2016-1 No 1000 Cyanocobal min 0-25 landry 00:00: 00 Potassium 2016-1 2020- No 1 Chloride 0-25 06-23 Sandra ER 00:00: 17:32 00 :45 Cyanocobala 2016-0 No 1000 Cyanocobal min 9-28 landry 00:00: 00 Cyanocobala 2016-0 No 1000 Cyanocobal min 8-30 landry 00:00: 00 Cyanocobala 2016-0 No 1000mg Cyanocobal min 8-02 landry 00:00: 00 Cyanocobala 2016-0 No 1000mg Cyanocobal min 7-05 landry 00:00: 00 TraMADol 2016-0 2018- No 1 HCl 7-05 06-15 00:00: 11:14 00 :53 Acetaminoph 2016-0 No 650mg Acetaminop en 6-07 hen 00:00: 00 Dexamethaso 2016-0 No 4mg Dexamethas ne Sodium 6-07 one Sodium Phosphate 00:00: Phosphate 00 Sodium 2016-0 No 60mL Sodium Chloride 6-07 Chloride 00:00: 00 Iron 2016-0 No 800mg Iron Dextran 6-07 Dextran 00:00: 00 Acetaminoph 2016-0 No 650mg Acetaminop en 6-07 hen 00:00: 00 Acetaminoph 2016-0 No 650mg Acetaminop en 5-31 hen 00:00: 00 Dexamethaso 2016-0 No 4mg Dexamethas ne Sodium 5-31 one Sodium Phosphate 00:00: Phosphate 00 Sodium 2016-0 No 50mL Sodium Chloride 5-31 Chloride 00:00: 00 Iron 2016-0 No 800mg Iron Dextran 5-31 Dextran 00:00: 00 Acetaminoph 2016-0 No 650mg Acetaminop en 5-31 hen 00:00: 00 Acetaminoph 2016-0 No 650mg Acetaminop en 5-24 hen 00:00: 00 Dexamethaso 2016-0 No 4mg Dexamethas ne Sodium 5-24 one Sodium Phosphate 00:00: Phosphate 00 Sodium 2016-0 No 50mL Sodium Chloride 5-24 Chloride 00:00: 00 Iron 2016-0 No 800mg Iron Dextran 5-24 Dextran 00:00: 00 Acetaminoph 2015-0 No 650mg Acetaminop en 5-24 hen 00:00: 00 Acetaminoph 2015-0 No 650mg Acetaminop en 5-17 hen 00:00: 00 Dexamethaso 2016-0 No 4mg Dexamethas ne Sodium 5-17 one Sodium Phosphate 00:00: Phosphate 00 Sodium 2016-0 No 70mL Sodium Chloride 5-17 Chloride 00:00: 00 Iron 2016-0 No 25mg Iron Dextran 5-17 Dextran 00:00: 00 Infed 2016-0 No 775mg Infed 5-17 00:00: 00 Acetaminoph 2016-0 No 650mg Acetaminop en 5-17 hen 00:00: 00 Promethazin 2015-0 Yes 1 e HCl 5-29 00:00: 00 Zofran 2015-0 2020- No 1 5-29 06- 00:00: 17:32 00 :54 Cyanocobala 2015-0 2017- No 1000mg Cyanocobal min 5- 07-13 landry 00:00: 00:00 00 :00 Cymbalta 2015-0 2016- No 3-30 12-20 00:00: 10:26 00 :06 Acetaminoph 2014-0 No 1 Acetaminop en 9-18 hen 00:00: 00 Dexamethaso 2014-0 No 4mg Dexamethas ne Sodium 9-18 one Sodium Phosphate 00:00: Phosphate 00 Sodium 2014-0 No 50mL Sodium Chloride 9-18 Chloride 00:00: 00 Iron 2014-0 No 800mg Iron Dextran 9-18 Dextran 00:00: 00 Acetaminoph 2013-0 No 1 Acetaminop en 9-18 hen 00:00: 00 Dexamethaso 2014-0 No 4mg Dexamethas ne Sodium 9-11 one Sodium Phosphate 00:00: Phosphate 00 Acetaminoph 2013-0 No 1 Acetaminop en 9-11 hen 00:00: 00 Sodium 2014-0 No 50mL Sodium Chloride 9-11 Chloride 00:00: 00 Iron 2014-0 No 800mg Iron Dextran 9-11 Dextran 00:00: 00 Acetaminoph 2014-0 No 1 Acetaminop en 9-11 hen 00:00: 00 Dexamethaso 2014-0 No 4mg Dexamethas ne Sodium 9-04 one Sodium Phosphate 00:00: Phosphate 00 Acetaminoph 2014-0 No 1 Acetaminop en 9-04 hen 00:00: 00 Sodium 2014-0 No 50mL Sodium Chloride 9-04 Chloride 00:00: 00 Iron 2014-0 No 800mg Iron Dextran 9-04 Dextran 00:00: 00 Acetaminoph No 1 Acetaminop en -04 hen 00:00: 00 Sodium Yes 60mL Sodium Chloride 01-18 Chloride 00:00: 00 Acetaminoph No 1 Acetaminop en 01-18 hen 00:00: 00 Dexamethaso 2019- No 4mg Dexamethas ne Sodium 01-1806 one Sodium Phosphate 00:00: 00:00 Phosphate 00 :00 Sodium 2019- No 80mL Chloride 01-18 00:00: 00:00 00 :00 Iron 2017- No 25mg Iron Dextran 01-18 Dextran 00:00: 00:00 00 :00 Infed 2016- No 775mg Infed 01-18 00:00: 00:00 00 :00 Acetaminoph 2015- No 1mg Acetaminop en 01-18 hen 00:00: 00:00 00 :00 DiphenhydrA 2015- No 25mg MINE HCl 01-18 00:00: 00:00 00 :00 AF-Aspirin Yes 1 Childrens Anoro Yes 1 Ellipta Cholecalcif Yes 1 mamta Cozaar Yes 1 [facility] Vitamin Yes 1 B-12 Dutasteride Yes 1 ProAir HFA Yes 2 Simvastatin Yes 1 traZODone Yes 2 HCl Unisom Yes 1 Vitamin C Yes 1 Vitamin E Yes 1 ZyrTEC Yes 1 Allergy Cholecalcif No 1 mamta Hydrochloro 2019- No 1 thiazide 12-05 10:00 :21 Advair 2018- No 1 Diskus 11-29 15:07 :18 NexIUM 2019- No 1 11-29 15:07 :23 Spiriva 2018- No 18 HandiHaler 11-29 15:07 :29 ClonazePAM 2015- No 1 03-17 13:45 :09 Hydrocodone 2015- No 1 -Acetaminop 03-17 hen 13:46 :49 Flector 2014- No 1 09-06 11:20 :32 Lexapro 2014- No 1 09-06 11:17 :27 Ferrous 2013- No 1 Sulfate 04-12 11:56 :00 Problems Condition Condition Condition Status Onset Resolution Last Treatin g Comments Name Details Category Date Date Treatment Clinician Date Anemia due Anemia due Diagnosis active 2020-1 to and to and 1-10 following following 00:00: chemotherap chemotherap 00 y y Anemia Anemia Diagnosis active 2019-05 1-06 00:00: 00 Dysuria Dysuria Diagnosis active 608 00:00: 00 Chronic 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:00: disease disease 00 Edema Edema Diagnosis active 1 00:00: 00 Hypothyroid Hypothyroid Diagnosis active ism ism 06-13 00:00: 00 Patient Patient Diagnosis active encounter encounter 9-17 status status 00:00: 00 Hypomagnese Hypomagnese Diagnosis active chloé chloé 7-05 00:00: 00 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< B>12< 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 5-28 00:00: 00 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 00 Iron Iron Diagnosis active deficiency deficiency 8-19 anemia anemia 00:00: 00 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 Procedures Procedure Date / Time Performed Performing Clinician Noemí sherwood OFFICE/OUTPATIENT VISIT EST 2019-08-07 15:30:00 OFFICE/OUTPATIENT VISIT EST 2019-01-19 11:00:00 OFFICE/OUTPATIENT VISIT EST 2018-12-15 14:30:00 OFFICE/OUTPATIENT VISIT EST 2018-07-26 13:00:00 OFFICE/OUTPATIENT VISIT EST 2018-02-24 11:00:00 OFFICE/OUTPATIENT VISIT EST 2018-01-25 10:30:00 OFFICE/OUTPATIENT VISIT EST 2017-08-25 10:15:00 OFFICE/OUTPATIENT VISIT EST 2017-06-21 11:00:00 Flu vaccine 2017-01-22 00:00:00 colonoscopy 2016-05-24 00:00:00 PNA vaccine 2015-05-24 00:00:00 bone density 2013-05-24 00:00:00 Colon resection Lung resection appendectomy blood transfusion Results Test Description Test Time Test Comments Text Results Atomic Results Result Comments Iron, Total 2020-03-29 14:19:00 Test Item Value Reference Range Comments Iron, Total (test code = Iron, Total) 116.0000 27.0000-13 9.0000 TIBC (test code = TIBC) 318.0000 250.0000-450.0000 UIBC (test code = UIBC) 202.0000 118.0000-369.0000 % Iron Saturation (test code = % Iron Saturation) 36.0000 % 15.0000-55.0000 TSH (test code = TSH) 23.8000 0.4500-4.5000 T4 (test code = T4) 9.6000 4.5000-12.0000 T3 (test code = T3) 93.0000 ng/dL 71.0000-180.0000 Ferritin (test code = Ferritin) 521.0000 ng/mL 15.0000-150.0000 [id number] 11:00:00 Test Item Value Reference Range Comments WBC (test code = WBC) 5.0000 4.0000-10.0000 Lymphocytes % (test code = Lymphocytes %) 27.8000 % 22.400 0-43.6000 MID% (test code = MID%) 7.2000 % 1.2000-11.2000 Neutrophils % (test code = Neutrophils %) 65.0000 % 48.900 0-69.9000 Lymphocytes (test code = Lymphocytes) 1.3000 1.2000-3.2 000 MID (test code = MID) 0.5000 0.1000-1.1000 Neutrophils (test code = Neutrophils) 3.2000 1.5000-6.7 000 RBC (test code = RBC) 2.7100 3.7000-4.9000 HGB (test code = HGB) 8.7000 g/dL 11.2000-18.0000 HCT (test code = HCT) 27.0000 % 34.0000-44.0000 MCV (test code = MCV) 99.6000 fL 80.0000-94.0000 MCH (test code = MCH) 32.1000 pg 27.0000-34.0000 MCHC (test code = MCHC) 32.2000 g/dL 31.5000-36.0000 RDW (test code = RDW) 21.6000 11.0000-18.0000 PLT (test code = PLT) 140.0000 140.0000-440.0000 MPV (test code = MPV) 8.5000 fL 6.8000-10.6000 U Color (test code = U Color) Dark yello U Urobilinogen (test code = U Urobilinogen) 2 U Specific [place] (test code = U Specific 1.0150 [place]) U Appearance (test code = U Appearance) Cloudy U Glucose (test code = U Glucose) Negative U Bilirubin (test code = U Bilirubin) Negative U Ketones (test code = U Ketones) Negative U Blood (test code = U Blood) Negative U pH (test code = U pH) 7.5000 5.0000-8.0000 U Protein (test code = U Protein) Negative U Nitrite (test code = U Nitrite) Negative U Leuk Esterase (test code = U Leuk Esterase) Negative [id number] 11:00:00 Test Item Value Reference Range Comments Creatinine (test code = Creatinine) 0.7000 mg/dL 0.5000-1.200 0 Cr Clearance (Est) (test code = Cr 101.7900 75.0000-115.0 000 Clearance (Est)) Glucose (test code = Glucose) 106.0000 mg/dL 70.0000-118.0000 BUN (test code = BUN) 7.0000 mg/dL 7.0000-22.0000 Sodium (test code = Sodium) 137.0000 mmol/L 128.0000-145.0000 Potassium (test code = Potassium) 3.2000 mmol/L 3.6000-5.1000 Chloride (test code = Chloride) 95.0000 mmol/L 96.0000-108.0000 CO2 (test code = CO2) 35.0000 mmol/L 18.0000-33.0000 Calcium (test code = Calcium) 9.3200 mg/dL 8.0000-10.3000 Alkaline Phosphatase (test code = Alkaline 96.0000 42.00 00-141.0000 Phosphatase) ALT (SGPT) (test code = ALT (SGPT)) 5.0000 10.0000-47.0 000 AST (SGOT) (test code = AST (SGOT)) 17.0000 11.0000-37.0 000 Bilirubin, Total (test code = Bilirubin, 0.6000 mg/dL 0.0000- 1.6000 Total) Albumin (test code = Albumin) 3.8000 g/dL 3.5000-5.5000 Protein, Total (test code = Protein, 6.1000 g/dL 6.4000-8.10 00 Total) eGFR -Lithuanian (test code = eGFR 99.0000 60.0000- 200.0000 -Lithuanian) eGFR Bsn-Uysxdgf-Lpdoclvw (test code = 82.0000 60.0000-2 00.0000 eGFR Dhl-Yjanrkq-Bwqsnhxd) [id number] 14:42:00 Test Item Value Reference Range Comments TSH (test code = TSH) 32.6000 0.4500-4.5000 T4 (test code = T4) 8.1000 4.5000-12.0000 T3 (test code = T3) 89.0000 ng/dL 71.0000-180.0000 [id number] 10:52:00 Test Item Value Reference Range Comments WBC (test code = WBC) 3.5000 4.0000-10.0000 Lymphocytes % (test code = Lymphocytes %) 24.2000 % 22.400 0-43.6000 MID% (test code = MID%) 5.9000 % 1.2000-11.2000 Neutrophils % (test code = Neutrophils %) 69.9000 % 48.900 0-69.9000 Lymphocytes (test code = Lymphocytes) 0.8000 1.2000-3.2 000 MID (test code = MID) 0.3000 0.1000-1.1000 Neutrophils (test code = Neutrophils) 2.4000 1.5000-6.7 000 RBC (test code = RBC) 3.0600 3.7000-4.9000 HGB (test code = HGB) 10.0000 g/dL 11.2000-18.0000 HCT (test code = HCT) 30.2000 % 34.0000-44.0000 MCV (test code = MCV) 98.5000 fL 80.0000-94.0000 MCH (test code = MCH) 32.6000 pg 27.0000-34.0000 MCHC (test code = MCHC) 33.1000 g/dL 31.5000-36.0000 RDW (test code = RDW) 21.1000 11.0000-18.0000 PLT (test code = PLT) 164.0000 140.0000-440.0000 MPV (test code = MPV) 9.2000 fL 6.8000-10.6000 U Color (test code = U Color) Dark yello U Urobilinogen (test code = U Urobilinogen) 2 U Specific [place] (test code = U Specific 1.0200 [place]) U Appearance (test code = U Appearance) Sl Cloudy U Glucose (test code = U Glucose) Negative U Bilirubin (test code = U Bilirubin) Negative U Ketones (test code = U Ketones) Negative U Blood (test code = U Blood) Negative U pH (test code = U pH) 7.0000 5.0000-8.0000 U Protein (test code = U Protein) Negative U Nitrite (test code = U Nitrite) Negative U Leuk Esterase (test code = U Leuk Esterase) Negative [id number] 10:52:00 Test Item Value Reference Range Comments Creatinine (test code = Creatinine) 0.7000 mg/dL 0.5000-1.200 0 Cr Clearance (Est) (test code = Cr 102.8200 75.0000-115.0 000 Clearance (Est)) Glucose (test code = Glucose) 106.0000 mg/dL 70.0000-118.0000 BUN (test code = BUN) 7.0000 mg/dL 7.0000-22.0000 Sodium (test code = Sodium) 138.0000 mmol/L 128.0000-145.0000 Potassium (test code = Potassium) 3.0000 mmol/L 3.6000-5.1000 Chloride (test code = Chloride) 95.0000 mmol/L 96.0000-108.0000 CO2 (test code = CO2) 37.0000 mmol/L 18.0000-33.0000 Calcium (test code = Calcium) 9.4200 mg/dL 8.0000-10.3000 Alkaline Phosphatase (test code = Alkaline 104.0000 42.00 00-141.0000 Phosphatase) ALT (SGPT) (test code = ALT (SGPT)) 7.0000 10.0000-47.0 000 AST (SGOT) (test code = AST (SGOT)) 16.0000 11.0000-37.0 000 Bilirubin, Total (test code = Bilirubin, 0.6000 mg/dL 0.0000- 1.6000 Total) Albumin (test code = Albumin) 4.0000 g/dL 3.5000-5.5000 Protein, Total (test code = Protein, 6.2000 g/dL 6.4000-8.10 00 Total) eGFR -Lithuanian (test code = eGFR 99.0000 60.0000- 200.0000 -Lithuanian) eGFR Ohw-Dpkhhto-Wjnkkxiv (test code = 82.0000 60.0000-2 00.0000 eGFR Rgd-Zoojpqq-Zzrdoztq) [id number] 11:12:00 Test Item Value Reference Range Comments Creatinine (test code = Creatinine) 0.7600 mg/dL 0.5700-1.000 0 Cr Clearance (Est) (test code = Cr 96.1200 75.0000-115.0 000 Clearance (Est)) Glucose (test code = Glucose) 124.0000 mg/dL 65.0000-99.0000 BUN (test code = BUN) 11.0000 mg/dL 8.0000-27.0000 eGFR Stq-Acvgplr-Nhbzaxux (test code = 78.0000 eGFR Gbp-Klpvzbw-Czbbcggo) eGFR -Lithuanian (test code = eGFR 90.0000 -Lithuanian) BUN/Creat Ratio (test code = BUN/Creat 14.0000 12.0000-2 8.0000 Ratio) Sodium (test code = Sodium) 139.0000 mmol/L 134.0000-144.0000 Potassium (test code = Potassium) 3.5000 mmol/L 3.5000-5.2000 Chloride (test code = Chloride) 92.0000 mmol/L 96.0000-106.0000 CO2 (test code = CO2) 32.0000 mmol/L 20.0000-29.0000 Calcium (test code = Calcium) 9.7000 mg/dL 8.7000-10.3000 Protein, Total (test code = Protein, 6.3000 g/dL 6.0000-8.50 00 Total) Albumin (test code = Albumin) 3.9000 g/dL 3.7000-4.7000 Globulin (test code = Globulin) 2.4000 g/dL 1.5000-4.5000 A/G Ratio (test code = A/G Ratio) 1.6000 1.2000-2.2000 Bilirubin, Total (test code = Bilirubin, 0.8000 mg/dL 0.0000- 1.2000 Total) Alkaline Phosphatase (test code = Alkaline 111.0000 39.00 00-117.0000 Phosphatase) AST (SGOT) (test code = AST (SGOT)) 21.0000 0.0000-40.00 00 ALT (SGPT) (test code = ALT (SGPT)) 6.0000 0.0000-32.00 00 Iron, Total (test code = Iron, Total) 186.0000 27.0000-13 9.0000 TIBC (test code = TIBC) 335.0000 250.0000-450.0000 UIBC (test code = UIBC) 149.0000 118.0000-369.0000 % Iron Saturation (test code = % Iron 56.0000 % 15.0000-55 .0000 Saturation) Ferritin (test code = Ferritin) 753.0000 ng/mL 15.0000-150.0000 [id number] 11:18:00 Test Item Value Reference Range Comments WBC (test code = WBC) 5.8000 4.0000-10.0000 Lymphocytes % (test code = Lymphocytes %) 14.5000 % 22.400 0-43.6000 MID% (test code = MID%) 3.7000 % .1999- Neutrophils % (test code = Neutrophils %) 81.8000 % 48.900 0-69.9000 Lymphocytes (test code = Lymphocytes) 0.8000 1.2000-3.2 000 MID (test code = MID) 0.2000 0.1000-1.1000 Neutrophils (test code = Neutrophils) 4.8000 1.5000-6.7 000 RBC (test code = RBC) 3.1100 3.7000-4.9000 HGB (test code = HGB) 9.6000 g/dL 11.1999-18.0000 HCT (test code = HCT) 29.8000 % 34.0000-44.0000 MCV (test code = MCV) 95.7000 fL 80.0000-94.0000 MCH (test code = MCH) 31.1000 pg 27.0000-34.0000 MCHC (test code = MCHC) 32.5000 g/dL 31.5000-36.0000 RDW (test code = RDW) 20.7000 11.0000-18.0000 PLT (test code = PLT) 100.0000 140.0000-440.0000 MPV (test code = MPV) 8.2000 fL 6.8000-10.6000 [id number] 11:15:00 Test Item Value Reference Range Comments WBC (test code = WBC) 5.9000 4.0000-10.0000 Lymphocytes % (test code = Lymphocytes %) 19.6000 % 22.400 0-43.6000 MID% (test code = MID%) 6.2000 % .1999- Neutrophils % (test code = Neutrophils %) 74.2000 % 48.900 0-69.9000 Lymphocytes (test code = Lymphocytes) 1.1000 1.2000-3.2 000 MID (test code = MID) 0.4000 0.1000-1.1000 Neutrophils (test code = Neutrophils) 4.4000 1.5000-6.7 000 RBC (test code = RBC) 3.2800 3.7000-4.9000 HGB (test code = HGB) 10.6000 g/dL 11.2000-18.0000 HCT (test code = HCT) 31.4000 % 34.0000-44.0000 MCV (test code = MCV) 95.8000 fL 80.0000-94.0000 MCH (test code = MCH) 32.4000 pg 27.0000-34.0000 MCHC (test code = MCHC) 33.8000 g/dL 31.5000-36.0000 RDW (test code = RDW) 23.0000 11.0000-18.0000 PLT (test code = PLT) 139.0000 140.0000-440.0000 MPV (test code = MPV) 8.0000 fL 6.8000-10.6000 U Color (test code = U Color) Dark yello U Urobilinogen (test code = U Urobilinogen) 1 U Specific [place] (test code = U Specific 1.0150 [place]) U Appearance (test code = U Appearance) Cloudy U Glucose (test code = U Glucose) Negative U Bilirubin (test code = U Bilirubin) Negative U Ketones (test code = U Ketones) Negative U Blood (test code = U Blood) Trace-lyse U pH (test code = U pH) 7.0000 5.0000-8.0000 U Protein (test code = U Protein) Negative U Nitrite (test code = U Nitrite) Negative U Leuk Esterase (test code = U Leuk Esterase) Negative [id number] 11:15:00 Test Item Value Reference Range Comments Creatinine (test code = Creatinine) 0.7000 mg/dL 0.5000-1.200 0 Cr Clearance (Est) (test code = Cr 106.3000 75.0000-115.0 000 Clearance (Est)) Glucose (test code = Glucose) 156.0000 mg/dL 70.0000-118.0000 BUN (test code = BUN) 6.0000 mg/dL 7.0000-22.0000 Sodium (test code = Sodium) 139.0000 mmol/L 128.0000-145.0000 Potassium (test code = Potassium) 3.0000 mmol/L 3.6000-5.1000 Chloride (test code = Chloride) 94.0000 mmol/L 96.0000-108.0000 CO2 (test code = CO2) 37.0000 mmol/L 18.0000-33.0000 Calcium (test code = Calcium) 9.2000 mg/dL 8.0000-10.3000 Alkaline Phosphatase (test code = Alkaline 100.0000 42.00 00-141.0000 Phosphatase) ALT (SGPT) (test code = ALT (SGPT)) 6.0000 10.0000-47.0 000 AST (SGOT) (test code = AST (SGOT)) 17.0000 11.0000-37.0 000 Bilirubin, Total (test code = Bilirubin, 0.5000 mg/dL 0.0000- 1.6000 Total) Albumin (test code = Albumin) 4.0000 g/dL 3.5000-5.5000 Protein, Total (test code = Protein, 6.3000 g/dL 6.4000-8.10 00 Total) eGFR -Lithuanian (test code = eGFR 99.0000 60.0000- 200.0000 -Lithuanian) eGFR Bpw-Ldccmwy-Uepljiqf (test code = 82.0000 60.0000-2 00.0000 eGFR Khs-Oyysvnj-Uwfkuqyn) [id number] 11:43:00 Test Item Value Reference Range Comments WBC (test code = WBC) 2.6000 4.0000-10.0000 Lymphocytes % (test code = Lymphocytes %) 41.0000 % 22.400 0-43.6000 MID% (test code = MID%) 14.2000 % 1.2000-11.2000 Neutrophils % (test code = Neutrophils %) 44.8000 % 48.900 0-69.9000 Lymphocytes (test code = Lymphocytes) 1.0000 1.2000-3.2 000 MID (test code = MID) 0.5000 0.1000-1.1000 Neutrophils (test code = Neutrophils) 1.1000 1.5000-6.7 000 RBC (test code = RBC) 3.1200 3.7000-4.9000 HGB (test code = HGB) 9.8000 g/dL 11.2000-18.0000 HCT (test code = HCT) 28.7000 % 34.0000-44.0000 MCV (test code = MCV) 92.0000 fL 80.0000-94.0000 MCH (test code = MCH) 31.5000 pg 27.0000-34.0000 MCHC (test code = MCHC) 34.2000 g/dL 31.5000-36.0000 RDW (test code = RDW) 22.8000 11.0000-18.0000 PLT (test code = PLT) 88.0000 140.0000-440.0000 MPV (test code = MPV) 8.0000 fL 6.8000-10.6000 U Color (test code = U Color) Yellow U Urobilinogen (test code = U Urobilinogen) 2 U Specific [place] (test code = U Specific 1.0100 [place]) U Appearance (test code = U Appearance) Sl Cloudy U Glucose (test code = U Glucose) Negative U Bilirubin (test code = U Bilirubin) Negative U Ketones (test code = U Ketones) Negative U Blood (test code = U Blood) Trace-lyse U pH (test code = U pH) 7.5000 5.0000-8.0000 U Protein (test code = U Protein) Negative U Nitrite (test code = U Nitrite) Negative U Leuk Esterase (test code = U Leuk Esterase) Negative [id number] 11:43:00 Test Item Value Reference Range Comments Creatinine (test code = Creatinine) 0.9000 mg/dL 0.5000-1.200 0 Cr Clearance (Est) (test code = Cr 82.7600 75.0000-115.0 000 Clearance (Est)) Glucose (test code = Glucose) 123.0000 mg/dL 70.0000-118.0000 BUN (test code = BUN) 5.0000 mg/dL 7.0000-22.0000 Sodium (test code = Sodium) 140.0000 mmol/L 128.0000-145.0000 Potassium (test code = Potassium) 3.0000 mmol/L 3.6000-5.1000 Chloride (test code = Chloride) 96.0000 mmol/L 96.0000-108.0000 CO2 (test code = CO2) 36.0000 mmol/L 18.0000-33.0000 Calcium (test code = Calcium) 10.0500 mg/dL 8.0000-10.3000 Alkaline Phosphatase (test code = Alkaline 103.0000 42.00 00-141.0000 Phosphatase) ALT (SGPT) (test code = ALT (SGPT)) 10.0000 10.0000-47.0 000 AST (SGOT) (test code = AST (SGOT)) 17.0000 11.0000-37.0 000 Bilirubin, Total (test code = Bilirubin, 0.6000 mg/dL 0.0000- 1.6000 Total) Albumin (test code = Albumin) 4.2000 g/dL 3.5000-5.5000 Protein, Total (test code = Protein, 6.6000 g/dL 6.4000-8.10 00 Total) eGFR -Lithuanian (test code = eGFR 74.0000 60.0000- 200.0000 -Lithuanian) eGFR Uuv-Qayjvjr-Wmbptpdn (test code = 61.0000 60.0000-2 00.0000 eGFR Gmd-Kelqrxz-Kvwbrzsu) [id number] 11:30:00 Test Item Value Reference Range Comments WBC (test code = WBC) 1.6000 4.0000-10.0000 Lymphocytes % (test code = Lymphocytes %) 52.0000 % 22.400 0-43.6000 MID% (test code = MID%) 17.6000 % 1.2000-11.2000 Neutrophils % (test code = Neutrophils %) 30.4000 % 48.900 0-69.9000 Lymphocytes (test code = Lymphocytes) 0.8000 1.2000-3.2 000 MID (test code = MID) 0.3000 0.1000-1.1000 Neutrophils (test code = Neutrophils) 0.5000 1.5000-6.7 000 RBC (test code = RBC) 3.0400 3.7000-4.9000 HGB (test code = HGB) 9.3000 g/dL 11.2000-18.0000 HCT (test code = HCT) 27.5000 % 34.0000-44.0000 MCV (test code = MCV) 90.3000 fL 80.0000-94.0000 MCH (test code = MCH) 30.6000 pg 27.0000-34.0000 MCHC (test code = MCHC) 33.8000 g/dL 31.5000-36.0000 RDW (test code = RDW) 21.7000 11.0000-18.0000 PLT (test code = PLT) 55.0000 140.0000-440.0000 MPV (test code = MPV) 10.2000 fL 6.8000-10.6000 [id number] 13:43:00 Test Item Value Reference Range Comments WBC (test code = WBC) 1.6000 4.0000-10.0000 Lymphocytes % (test code = Lymphocytes %) 72.2000 % 22.400 0-43.6000 MID% (test code = MID%) 5.5000 % 1.2000-11.1999 Neutrophils % (test code = Neutrophils %) 22.3000 % 48.900 0-69.9000 Lymphocytes (test code = Lymphocytes) 1.1000 1.2000-3.2 000 MID (test code = MID) 0.2000 0.1000-1.1000 Neutrophils (test code = Neutrophils) 0.3000 1.5000-6.7 000 RBC (test code = RBC) 3.0600 3.7000-4.9000 HGB (test code = HGB) 9.1000 g/dL 11.2000-18.0000 HCT (test code = HCT) 27.0000 % 34.0000-44.0000 MCV (test code = MCV) 88.3000 fL 80.0000-94.0000 MCH (test code = MCH) 30.0000 pg 27.0000-34.0000 MCHC (test code = MCHC) 33.9000 g/dL 31.5000-36.0000 RDW (test code = RDW) 20.5000 11.0000-18.0000 PLT (test code = PLT) 26.0000 140.0000-440.0000 MPV (test code = MPV) [id number] 12:30:00 Test Item Value Reference Range Comments WBC (test code = WBC) 2.9000 4.0000-10.0000 Lymphocytes % (test code = Lymphocytes %) 39.5000 % 22.400 0-43.6000 MID% (test code = MID%) 6.0000 % 1.1999-11.1999 Neutrophils % (test code = Neutrophils %) 54.5000 % 48.900 0-69.9000 Lymphocytes (test code = Lymphocytes) 1.1000 1.2000-3.2 000 MID (test code = MID) 0.2000 0.1000-1.1000 Neutrophils (test code = Neutrophils) 1.6000 1.5000-6.7 000 RBC (test code = RBC) 3.6000 3.7000-4.9000 HGB (test code = HGB) 9.8000 g/dL 11.2000-18.0000 HCT (test code = HCT) 31.9000 % 34.0000-44.0000 MCV (test code = MCV) 88.5000 fL 80.0000-94.0000 MCH (test code = MCH) 27.3000 pg 27.0000-34.0000 MCHC (test code = MCHC) 30.9000 g/dL 31.5000-36.0000 RDW (test code = RDW) 21.0000 11.0000-18.0000 PLT (test code = PLT) 132.0000 140.0000-440.0000 MPV (test code = MPV) 7.9000 fL 6.8000-10.6000 [id number] 11:21:00 Test Item Value Reference Range Comments WBC (test code = WBC) 3.2000 4.0000-10.0000 Lymphocytes % (test code = Lymphocytes %) 42.5000 % 22.400 0-43.6000 MID% (test code = MID%) 8.7000 % 1.2000-11.2000 Neutrophils % (test code = Neutrophils %) 48.8000 % 48.900 0-69.9000 Lymphocytes (test code = Lymphocytes) 1.3000 1.2000-3.2 000 MID (test code = MID) 0.4000 0.1000-1.1000 Neutrophils (test code = Neutrophils) 1.5000 1.5000-6.7 000 RBC (test code = RBC) 3.4100 3.7000-4.9000 HGB (test code = HGB) 10.4000 g/dL 11.2000-18.0000 HCT (test code = HCT) 30.9000 % 34.0000-44.0000 MCV (test code = MCV) 90.5000 fL 80.0000-94.0000 MCH (test code = MCH) 30.4000 pg 27.0000-34.0000 MCHC (test code = MCHC) 33.6000 g/dL 31.5000-36.0000 RDW (test code = RDW) 23.7000 11.0000-18.0000 PLT (test code = PLT) 161.0000 140.0000-440.0000 MPV (test code = MPV) 8.2000 fL 6.8000-10.6000 [id number] 15:32:00 Test Item Value Reference Range Comments TSH (test code = TSH) 26.0000 0.4500-4.5000 T3 Uptake (test code = T3 Uptake) 20.0000 % 24.0000-39.000 0 T4 (test code = T4) 8.0000 4.5000-12.0000 FTI (test code = FTI) 1.6000 1.2000-4.9000 [id number] 10:41:00 Test Item Value Reference Range Comments WBC (test code = WBC) 2.3000 4.0000-10.0000 Lymphocytes % (test code = Lymphocytes %) 42.8000 % 22.400 0-43.6000 MID% (test code = MID%) 9.4000 % 1.2000-11.2000 Neutrophils % (test code = Neutrophils %) 47.8000 % 48.900 0-69.9000 Lymphocytes (test code = Lymphocytes) 1.0000 1.2000-3.2 000 MID (test code = MID) 0.2000 0.1000-1.1000 Neutrophils (test code = Neutrophils) 1.1000 1.5000-6.7 000 RBC (test code = RBC) 3.3400 3.7000-4.9000 HGB (test code = HGB) 10.1000 g/dL 11.2000-18.0000 HCT (test code = HCT) 29.3000 % 34.0000-44.0000 MCV (test code = MCV) 87.6000 fL 80.0000-94.0000 MCH (test code = MCH) 30.4000 pg 27.0000-34.0000 MCHC (test code = MCHC) 34.6000 g/dL 31.5000-36.0000 RDW (test code = RDW) 22.7000 11.0000-18.0000 PLT (test code = PLT) 159.0000 140.0000-440.0000 MPV (test code = MPV) 8.1000 fL 6.8000-10.6000 U Color (test code = U Color) Yellow U Urobilinogen (test code = U Urobilinogen) 0.2 U Specific [place] (test code = U Specific 1.0100 [place]) U Appearance (test code = U Appearance) Clear U Glucose (test code = U Glucose) Negative U Bilirubin (test code = U Bilirubin) Negative U Ketones (test code = U Ketones) Negative U Blood (test code = U Blood) Trace-lyse U pH (test code = U pH) 6.5000 5.0000-8.0000 U Protein (test code = U Protein) Negative U Nitrite (test code = U Nitrite) Negative U Leuk Esterase (test code = U Leuk Esterase) Negative [id number] 10:41:00 Test Item Value Reference Range Comments Creatinine (test code = Creatinine) 0.7000 mg/dL 0.5000-1.200 0 Cr Clearance (Est) (test code = Cr 108.6600 75.0000-115.0 000 Clearance (Est)) Glucose (test code = Glucose) 119.0000 mg/dL 70.0000-118.0000 BUN (test code = BUN) 4.0000 mg/dL 7.0000-22.0000 Sodium (test code = Sodium) 138.0000 mmol/L 128.0000-145.0000 Potassium (test code = Potassium) 3.0000 mmol/L 3.6000-5.1000 Chloride (test code = Chloride) 96.0000 mmol/L 96.0000-108.0000 CO2 (test code = CO2) 35.0000 mmol/L 18.0000-33.0000 Calcium (test code = Calcium) 9.4200 mg/dL 8.0000-10.3000 Alkaline Phosphatase (test code = Alkaline 101.0000 42.00 00-141.0000 Phosphatase) ALT (SGPT) (test code = ALT (SGPT)) 18.0000 10.0000-47.0 000 AST (SGOT) (test code = AST (SGOT)) 20.0000 11.0000-37.0 000 Bilirubin, Total (test code = Bilirubin, 0.5000 mg/dL 0.0000- 1.6000 Total) Albumin (test code = Albumin) 4.2000 g/dL 3.5000-5.5000 Protein, Total (test code = Protein, 6.3000 g/dL 6.4000-8.10 00 Total) eGFR -Lithuanian (test code = eGFR 99.0000 60.0000- 200.0000 -Lithuanian) eGFR Hqr-Pznjlts-Qjdjqhdp (test code = 82.0000 60.0000-2 00.0000 eGFR Uzm-Dumcxju-Towzrprt) [id number] 11:20:00 Test Item Value Reference Range Comments WBC (test code = WBC) 3.2000 4.0000-10.0000 Lymphocytes % (test code = Lymphocytes %) 45.7000 % 22.400 0-43.6000 MID% (test code = MID%) 8.1000 % 1.2000-11.2000 Neutrophils % (test code = Neutrophils %) 46.2000 % 48.900 0-69.9000 Lymphocytes (test code = Lymphocytes) 1.4000 1.2000-3.2 000 MID (test code = MID) 0.3000 0.1000-1.1000 Neutrophils (test code = Neutrophils) 1.5000 1.5000-6.7 000 RBC (test code = RBC) 3.6300 3.7000-4.9000 HGB (test code = HGB) 10.5000 g/dL 11.2000-18.0000 HCT (test code = HCT) 32.0000 % 34.0000-44.0000 MCV (test code = MCV) 88.2000 fL 80.0000-94.0000 MCH (test code = MCH) 29.1000 pg 27.0000-34.0000 MCHC (test code = MCHC) 32.9000 g/dL 31.5000-36.0000 RDW (test code = RDW) 22.3000 11.0000-18.0000 PLT (test code = PLT) 270.0000 140.0000-440.0000 MPV (test code = MPV) 8.6000 fL 6.8000-10.6000 U Color (test code = U Color) Light yell U Urobilinogen (test code = U Urobilinogen) 1 U Specific [place] (test code = U Specific 1.0150 [place]) U Appearance (test code = U Appearance) Sl Cloudy U Glucose (test code = U Glucose) Negative U Bilirubin (test code = U Bilirubin) Negative U Ketones (test code = U Ketones) Negative U Blood (test code = U Blood) Trace-lyse U pH (test code = U pH) 7.5000 5.0000-8.0000 U Protein (test code = U Protein) Negative U Nitrite (test code = U Nitrite) Negative U Leuk Esterase (test code = U Leuk Esterase) Negative [id number] 11:20:00 Test Item Value Reference Range Comments Creatinine (test code = Creatinine) 0.7000 mg/dL 0.5000-1.200 0 Cr Clearance (Est) (test code = Cr 111.4300 75.0000-115.0 000 Clearance (Est)) Glucose (test code = Glucose) 106.0000 mg/dL 70.0000-118.0000 BUN (test code = BUN) 8.0000 mg/dL 7.0000-22.0000 Sodium (test code = Sodium) 137.0000 mmol/L 128.0000-145.0000 Potassium (test code = Potassium) 3.3000 mmol/L 3.6000-5.1000 Chloride (test code = Chloride) 99.0000 mmol/L 96.0000-108.0000 CO2 (test code = CO2) 38.0000 mmol/L 18.0000-33.0000 Calcium (test code = Calcium) 9.4100 mg/dL 8.0000-10.3000 Alkaline Phosphatase (test code = Alkaline 105.0000 42.00 00-141.0000 Phosphatase) ALT (SGPT) (test code = ALT (SGPT)) 14.0000 10.0000-47.0 000 AST (SGOT) (test code = AST (SGOT)) 18.0000 11.0000-37.0 000 Bilirubin, Total (test code = Bilirubin, 0.5000 mg/dL 0.0000- 1.6000 Total) Albumin (test code = Albumin) 4.0000 g/dL 3.5000-5.5000 Protein, Total (test code = Protein, 6.2000 g/dL 6.4000-8.10 00 Total) eGFR -Lithuanian (test code = eGFR 99.0000 60.0000- 200.0000 -Lithuanian) eGFR Nvy-Uuefeim-Dzcwdnjk (test code = 82.0000 60.0000-2 00.0000 eGFR Gph-Ytvvfjq-Hskrbmld) [id number] 12:55:00 Test Item Value Reference Range Comments WBC (test code = WBC) 3.5000 4.0000-10.0000 Lymphocytes % (test code = Lymphocytes %) 49.9000 % 22.400 0-43.6000 MID% (test code = MID%) 6.6000 % 1.2000-11.2000 Neutrophils % (test code = Neutrophils %) 43.5000 % 48.900 0-69.9000 Lymphocytes (test code = Lymphocytes) 1.7000 1.2000-3.2 000 MID (test code = MID) 0.3000 0.1000-1.1000 Neutrophils (test code = Neutrophils) 1.5000 1.5000-6.7 000 RBC (test code = RBC) 3.6200 3.7000-4.9000 HGB (test code = HGB) 9.8000 g/dL 11.2000-18.0000 HCT (test code = HCT) 31.4000 % 34.0000-44.0000 MCV (test code = MCV) 86.7000 fL 80.0000-94.0000 MCH (test code = MCH) 27.1000 pg 27.0000-34.0000 MCHC (test code = MCHC) 31.2000 g/dL 31.5000-36.0000 RDW (test code = RDW) 19.7000 11.0000-18.0000 PLT (test code = PLT) 67.0000 140.0000-440.0000 MPV (test code = MPV) 9.2000 fL 6.8000-10.6000 [id number] 12:30:00 Test Item Value Reference Range Comments WBC (test code = WBC) 1.9000 4.0000-10.0000 Lymphocytes % (test code = Lymphocytes %) 48.7000 % 22.400 0-43.6000 MID% (test code = MID%) 7.2000 % 1.2000-11.2000 Neutrophils % (test code = Neutrophils %) 44.1000 % 48.900 0-69.9000 Lymphocytes (test code = Lymphocytes) 0.9000 1.2000-3.2 000 MID (test code = MID) 0.2000 0.1000-1.1000 Neutrophils (test code = Neutrophils) 0.8000 1.5000-6.7 000 RBC (test code = RBC) 3.4000 3.7000-4.9000 HGB (test code = HGB) 9.5000 g/dL 11.2000-18.0000 HCT (test code = HCT) 29.1000 % 34.0000-44.0000 MCV (test code = MCV) 85.4000 fL 80.0000-94.0000 MCH (test code = MCH) 28.1000 pg 27.0000-34.0000 MCHC (test code = MCHC) 32.9000 g/dL 31.5000-36.0000 RDW (test code = RDW) 19.4000 11.0000-18.0000 PLT (test code = PLT) 93.0000 140.0000-440.0000 MPV (test code = MPV) 8.1000 fL 6.8000-10.6000 [id number] 09:48:00 Test Item Value Reference Range Comments WBC (test code = WBC) 9.3000 4.0000-10.0000 Lymphocytes % (test code = Lymphocytes %) 9.6000 % 22.400 0-43.6000 MID% (test code = MID%) 2.9000 % 1.2000-11.2000 Neutrophils % (test code = Neutrophils %) 87.5000 % 48.900 0-69.9000 Lymphocytes (test code = Lymphocytes) 0.9000 1.2000-3.2 000 MID (test code = MID) 0.3000 0.1000-1.1000 Neutrophils (test code = Neutrophils) 8.1000 1.5000-6.7 000 RBC (test code = RBC) 3.4100 3.7000-4.9000 HGB (test code = HGB) 9.9000 g/dL 11.2000-18.0000 HCT (test code = HCT) 29.6000 % 34.0000-44.0000 MCV (test code = MCV) 87.0000 fL 80.0000-94.0000 MCH (test code = MCH) 29.2000 pg 27.0000-34.0000 MCHC (test code = MCHC) 33.5000 g/dL 31.5000-36.0000 RDW (test code = RDW) 21.0000 11.0000-18.0000 PLT (test code = PLT) 243.0000 140.0000-440.0000 MPV (test code = MPV) 8.4000 fL 6.8000-10.6000 U Color (test code = U Color) Yellow U Urobilinogen (test code = U Urobilinogen) 0.2 U Specific [place] (test code = U Specific 1.0150 [place]) U Appearance (test code = U Appearance) Sl Cloudy U Glucose (test code = U Glucose) Negative U Bilirubin (test code = U Bilirubin) Negative U Ketones (test code = U Ketones) Negative U Blood (test code = U Blood) Negative U pH (test code = U pH) 6.0000 5.0000-8.0000 U Protein (test code = U Protein) Negative U Nitrite (test code = U Nitrite) Negative U Leuk Esterase (test code = U Leuk Esterase) Negative [id number] 09:48:00 Test Item Value Reference Range Comments Creatinine (test code = Creatinine) 0.7000 mg/dL 0.5000-1.200 0 Cr Clearance (Est) (test code = Cr 112.7600 75.0000-115.0 000 Clearance (Est)) Glucose (test code = Glucose) 94.0000 mg/dL 70.0000-118.0000 BUN (test code = BUN) 15.0000 mg/dL 7.0000-22.0000 Sodium (test code = Sodium) 138.0000 mmol/L 128.0000-145.0000 Potassium (test code = Potassium) 3.3000 mmol/L 3.6000-5.1000 Chloride (test code = Chloride) 102.0000 mmol/L 96.0000-108.0000 CO2 (test code = CO2) 35.0000 mmol/L 18.0000-33.0000 Calcium (test code = Calcium) 9.3200 mg/dL 8.0000-10.3000 Alkaline Phosphatase (test code = Alkaline 89.0000 42.00 00-141.0000 Phosphatase) ALT (SGPT) (test code = ALT (SGPT)) 14.0000 10.0000-47.0 000 AST (SGOT) (test code = AST (SGOT)) 15.0000 11.0000-37.0 000 Bilirubin, Total (test code = Bilirubin, 0.3000 mg/dL 0.0000- 1.6000 Total) Albumin (test code = Albumin) 4.0000 g/dL 3.5000-5.5000 Protein, Total (test code = Protein, 6.0000 g/dL 6.4000-8.10 00 Total) eGFR -Lithuanian (test code = eGFR 99.0000 60.0000- 200.0000 -Lithuanian) eGFR Nqq-Meifzkz-Oxzmvwvo (test code = 82.0000 60.0000-2 00.0000 eGFR Jyf-Zbbyezl-Laihojos) [id number] 16:34:00 Test Item Value Reference Range Comments WBC (test code = WBC) 8.9000 4.0000-10.0000 Lymphocytes % (test code = Lymphocytes %) 13.6000 % 22.400 0-43.6000 MID% (test code = MID%) 4.5000 % 1.2000-11.2000 Neutrophils % (test code = Neutrophils %) 81.9000 % 48.900 0-69.9000 Lymphocytes (test code = Lymphocytes) 1.2000 1.2000-3.2 000 MID (test code = MID) 0.4000 0.1000-1.1000 Neutrophils (test code = Neutrophils) 7.3000 1.5000-6.7 000 RBC (test code = RBC) 3.6600 3.7000-4.9000 HGB (test code = HGB) 10.6000 g/dL 11.2000-18.0000 HCT (test code = HCT) 31.3000 % 34.0000-44.0000 MCV (test code = MCV) 85.6000 fL 80.0000-94.0000 MCH (test code = MCH) 28.9000 pg 27.0000-34.0000 MCHC (test code = MCHC) 33.8000 g/dL 31.5000-36.0000 RDW (test code = RDW) 20.8000 11.0000-18.0000 PLT (test code = PLT) 278.0000 140.0000-440.0000 MPV (test code = MPV) 7.7000 fL 6.8000-10.6000 [id number] 16:34:00 Test Item Value Reference Range Comments Creatinine (test code = Creatinine) 0.9000 mg/dL 0.5000-1.200 0 Cr Clearance (Est) (test code = Cr 86.4300 75.0000-115.0 000 Clearance (Est)) Glucose (test code = Glucose) 95.0000 mg/dL 70.0000-118.0000 BUN (test code = BUN) 17.0000 mg/dL 7.0000-22.0000 Sodium (test code = Sodium) 135.0000 mmol/L 128.0000-145.0000 Potassium (test code = Potassium) 4.1000 mmol/L 3.6000-5.1000 Chloride (test code = Chloride) 100.0000 mmol/L 96.0000-108.0000 CO2 (test code = CO2) 36.0000 mmol/L 18.0000-33.0000 Calcium (test code = Calcium) 9.7900 mg/dL 8.0000-10.3000 Alkaline Phosphatase (test code = Alkaline 91.0000 42.00 00-141.0000 Phosphatase) ALT (SGPT) (test code = ALT (SGPT)) 20.0000 10.0000-47.0 000 AST (SGOT) (test code = AST (SGOT)) 20.0000 11.0000-37.0 000 Bilirubin, Total (test code = Bilirubin, 0.4000 mg/dL 0.0000- 1.6000 Total) Albumin (test code = Albumin) 3.9000 g/dL 3.5000-5.5000 Protein, Total (test code = Protein, 6.0000 g/dL 6.4000-8.10 00 Total) eGFR -Lithuanian (test code = eGFR 74.0000 60.0000- 200.0000 -Lithuanian) eGFR Dyx-Aehdpzw-Yxpifiav (test code = 61.0000 60.0000-2 00.0000 eGFR Mqy-Cuszizz-Tlquavnv) Urine Culture [id number] 14:50:00 Test Item Value Reference Range Comments Urine Culture Status (test Final report code = Urine Culture Status) Urine Culture Result 1 (test Escherichia coli Greater than code = Urine Culture Result 1) 100,000 colony forming units per mL Cefazolin <=4 ug/mL Cefazolin with an BANG <=16 predicts susceptibility to the oral agents cefaclor, cefdinir, cefpodoxime, cefprozil, cefuroxime, cephalexin, and loracarbef when used f Urine Culture Susceptibility Comment S = Susceptible; I (test code = Urine Culture = Intermediate; R = Resistant Susceptibility) P = Positive; N = Negative MICS are expressed in micrograms per mL Antibiotic RSLT#1 RSLT#2 RSLT#3 RSLT#4 Amoxicillin/Clav U [id number] 11:12:00 Test Item Value Reference Range Comments U Color (test code = U Color) Dark yello U Urobilinogen (test code = U Urobilinogen) 1 U Specific [place] (test code = U Specific 1.0200 [place]) U Appearance (test code = U Appearance) Turbid U Glucose (test code = U Glucose) Negative U Bilirubin (test code = U Bilirubin) Negative U Ketones (test code = U Ketones) Negative U Blood (test code = U Blood) Moderate U pH (test code = U pH) 6.5000 5.0000-8.0000 U Protein (test code = U Protein) 100 U Nitrite (test code = U Nitrite) Positive U Leuk Esterase (test code = U Leuk Esterase) Small [id number] 10:59:00 Test Item Value Reference Range Comments WBC (test code = WBC) 2.2000 4.0000-10.0000 Lymphocytes % (test code = Lymphocytes %) 50.6000 % 22.400 0-43.6000 MID% (test code = MID%) 8.6000 % .1999-11.1999 Neutrophils % (test code = Neutrophils %) 40.8000 % 48.900 0-69.9000 Lymphocytes (test code = Lymphocytes) 1.1000 1.2000-3.2 000 MID (test code = MID) 0.2000 0.1000-1.1000 Neutrophils (test code = Neutrophils) 0.9000 1.5000-6.7 000 RBC (test code = RBC) 3.4300 3.7000-4.9000 HGB (test code = HGB) 10.1000 g/dL 11.2000-18.0000 HCT (test code = HCT) 30.0000 % 34.0000-44.0000 MCV (test code = MCV) 87.3000 fL 80.0000-94.0000 MCH (test code = MCH) 29.6000 pg 27.0000-34.0000 MCHC (test code = MCHC) 33.9000 g/dL 31.5000-36.0000 RDW (test code = RDW) 19.1000 11.0000-18.0000 PLT (test code = PLT) 90.0000 140.0000-440.0000 MPV (test code = MPV) 9.0000 fL 6.8000-10.6000 [id number] 11:34:00 Test Item Value Reference Range Comments WBC (test code = WBC) 2.2000 4.0000-10.0000 Lymphocytes % (test code = Lymphocytes %) 50.8000 % 22.400 0-43.6000 MID% (test code = MID%) 7.1000 % 1.2000-11.2000 Neutrophils % (test code = Neutrophils %) 42.1000 % 48.900 0-69.9000 Lymphocytes (test code = Lymphocytes) 1.1000 1.2000-3.2 000 MID (test code = MID) 0.2000 0.1000-1.1000 Neutrophils (test code = Neutrophils) 0.9000 1.5000-6.7 000 RBC (test code = RBC) 3.9200 3.7000-4.9000 HGB (test code = HGB) 11.4000 g/dL 11.2000-18.0000 HCT (test code = HCT) 34.5000 % 34.0000-44.0000 MCV (test code = MCV) 88.1000 fL 80.0000-94.0000 MCH (test code = MCH) 29.2000 pg 27.0000-34.0000 MCHC (test code = MCHC) 33.1000 g/dL 31.5000-36.0000 RDW (test code = RDW) 17.8000 11.0000-18.0000 PLT (test code = PLT) 143.0000 140.0000-440.0000 MPV (test code = MPV) 8.1000 fL 6.8000-10.6000 U [id number] 10:16:00 Test Item Value Reference Range Comments U Color (test code = U Color) Yellow U Urobilinogen (test code = U Urobilinogen) 0.2 U Specific [place] (test code = U Specific [place]) 1.0250 U Appearance (test code = U Appearance) Clear U Glucose (test code = U Glucose) Negative U Bilirubin (test code = U Bilirubin) Negative U Ketones (test code = U Ketones) Negative U Blood (test code = U Blood) Small U pH (test code = U pH) 6.5000 5.0000-8.0000 U Protein (test code = U Protein) Negative U Nitrite (test code = U Nitrite) Negative U Leuk Esterase (test code = U Leuk Esterase) Negative [id number] 10:16:00 Test Item Value Reference Range Comments Creatinine (test code = Creatinine) 0.7000 mg/dL 0.5000-1.200 0 Cr Clearance (Est) (test code = Cr 114.9100 75.0000-115.0 000 Clearance (Est)) Glucose (test code = Glucose) 121.0000 mg/dL 70.0000-118.0000 BUN (test code = BUN) 11.0000 mg/dL 7.0000-22.0000 Sodium (test code = Sodium) 136.0000 mmol/L 128.0000-145.0000 Potassium (test code = Potassium) 3.5000 mmol/L 3.6000-5.1000 Chloride (test code = Chloride) 98.0000 mmol/L 96.0000-108.0000 CO2 (test code = CO2) 35.0000 mmol/L 18.0000-33.0000 Calcium (test code = Calcium) 9.5100 mg/dL 8.0000-10.3000 Alkaline Phosphatase (test code = Alkaline 88.0000 42.00 00-141.0000 Phosphatase) ALT (SGPT) (test code = ALT (SGPT)) 14.0000 10.0000-47.0 000 AST (SGOT) (test code = AST (SGOT)) 14.0000 11.0000-37.0 000 Bilirubin, Total (test code = Bilirubin, 0.4000 mg/dL 0.0000- 1.6000 Total) Albumin (test code = Albumin) 4.3000 g/dL 3.5000-5.5000 Protein, Total (test code = Protein, 6.2000 g/dL 6.4000-8.10 00 Total) eGFR -Lithuanian (test code = eGFR 99.0000 60.0000- 200.0000 -Lithuanian) eGFR Dtm-Zcpxcqp-Vqhfqnhr (test code = 82.0000 60.0000-2 00.0000 eGFR Fnb-Flicnvv-Yxymswdz) [id number] 10:15:00 Test Item Value Reference Range Comments WBC (test code = WBC) 4.9000 4.0000-10.0000 Lymphocytes % (test code = Lymphocytes %) 17.5000 % 22.400 0-43.6000 MID% (test code = MID%) 4.7000 % 1.1999-11.1999 Neutrophils % (test code = Neutrophils %) 77.8000 % 48.900 0-69.9000 Lymphocytes (test code = Lymphocytes) 0.8000 1.2000-3.2 000 MID (test code = MID) 0.3000 0.1000-1.1000 Neutrophils (test code = Neutrophils) 3.8000 1.5000-6.7 000 RBC (test code = RBC) 3.7500 3.7000-4.9000 HGB (test code = HGB) 11.1000 g/dL 11.2000-18.0000 HCT (test code = HCT) 33.6000 % 34.0000-44.0000 MCV (test code = MCV) 89.7000 fL 80.0000-94.0000 MCH (test code = MCH) 29.6000 pg 27.0000-34.0000 MCHC (test code = MCHC) 33.0000 g/dL 31.5000-36.0000 RDW (test code = RDW) 18.5000 11.0000-18.0000 PLT (test code = PLT) 271.0000 140.0000-440.0000 MPV (test code = MPV) 7.7000 fL 6.8000-10.6000 [id number] 11:17:00 Test Item Value Reference Range Comments WBC (test code = WBC) 5.5000 4.0000-10.0000 Lymphocytes % (test code = Lymphocytes %) 22.7000 % 22.400 0-43.6000 MID% (test code = MID%) 6.1000 % 1.2000-11.2000 Neutrophils % (test code = Neutrophils %) 71.2000 % 48.900 0-69.9000 Lymphocytes (test code = Lymphocytes) 1.2000 1.2000-3.2 000 MID (test code = MID) 0.4000 0.1000-1.1000 Neutrophils (test code = Neutrophils) 3.9000 1.5000-6.7 000 RBC (test code = RBC) 3.7200 3.7000-4.9000 HGB (test code = HGB) 11.2000 g/dL 11.2000-18.0000 HCT (test code = HCT) 33.9000 % 34.0000-44.0000 MCV (test code = MCV) 91.0000 fL 80.0000-94.0000 MCH (test code = MCH) 30.0000 pg 27.0000-34.0000 MCHC (test code = MCHC) 33.0000 g/dL 31.5000-36.0000 RDW (test code = RDW) 20.8000 11.0000-18.0000 PLT (test code = PLT) 235.0000 140.0000-440.0000 MPV (test code = MPV) 7.5000 fL 6.8000-10.6000 [id number] 11:17:00 Test Item Value Reference Range Comments Creatinine (test code = Creatinine) 0.6000 mg/dL 0.5000-1.200 0 Cr Clearance (Est) (test code = Cr 135.8600 75.0000-115.0 000 Clearance (Est)) Glucose (test code = Glucose) 97.0000 mg/dL 70.0000-118.0000 BUN (test code = BUN) 10.0000 mg/dL 7.0000-22.0000 Sodium (test code = Sodium) 136.0000 mmol/L 128.0000-145.0000 Potassium (test code = Potassium) 3.5000 mmol/L 3.6000-5.1000 Chloride (test code = Chloride) 100.0000 mmol/L 96.0000-108.0000 CO2 (test code = CO2) 35.0000 mmol/L 18.0000-33.0000 Calcium (test code = Calcium) 8.8800 mg/dL 8.0000-10.3000 Alkaline Phosphatase (test code = Alkaline 90.0000 42.00 00-141.0000 Phosphatase) ALT (SGPT) (test code = ALT (SGPT)) 15.0000 10.0000-47.0 000 AST (SGOT) (test code = AST (SGOT)) 16.0000 11.0000-37.0 000 Bilirubin, Total (test code = Bilirubin, 0.3000 mg/dL 0.0000- 1.6000 Total) Albumin (test code = Albumin) 4.3000 g/dL 3.5000-5.5000 Protein, Total (test code = Protein, 6.2000 g/dL 6.4000-8.10 00 Total) eGFR -Lithuanian (test code = eGFR 119.0000 60.0000- 200.0000 -Lithuanian) eGFR Qny-Wocmcgx-Wucplkui (test code = 98.0000 60.0000-2 00.0000 eGFR Vka-Xukgidp-Sxitxbnt) Magnesium (test code = Magnesium) 1.5000 mg/dL 1.6000-2.3000 T4, [id number] 14:42:00 Test Item Value Reference Range Comments T4, Free (test code = T4, Free) 0.8600 ng/dL 0.8200-1.7700 TSH (test code = TSH) 35.6000 0.4500-4.5000 T3, Free (test code = T3, Free) 1.3000 pg/mL 2.0000-4.4000 [id number] 12:54:00 Test Item Value Reference Range Comments Creatinine (test code = Creatinine) 0.7000 mg/dL 0.5000-1.200 0 Cr Clearance (Est) (test code = Cr 115.0200 75.0000-115.0 000 Clearance (Est)) Glucose (test code = Glucose) 99.0000 mg/dL 70.0000-118.0000 BUN (test code = BUN) 11.0000 mg/dL 7.0000-22.0000 Sodium (test code = Sodium) 132.0000 mmol/L 128.0000-145.0000 Potassium (test code = Potassium) 3.4000 mmol/L 3.6000-5.1000 Chloride (test code = Chloride) 93.0000 mmol/L 96.0000-108.0000 CO2 (test code = CO2) 35.0000 mmol/L 18.0000-33.0000 Calcium (test code = Calcium) 9.6900 mg/dL 8.0000-10.3000 Alkaline Phosphatase (test code = Alkaline 109.0000 42.00 00-141.0000 Phosphatase) ALT (SGPT) (test code = ALT (SGPT)) 14.0000 10.0000-47.0 000 AST (SGOT) (test code = AST (SGOT)) 17.0000 11.0000-37.0 000 Bilirubin, Total (test code = Bilirubin, 0.3000 mg/dL 0.0000- 1.6000 Total) Albumin (test code = Albumin) 4.4000 g/dL 3.5000-5.5000 Protein, Total (test code = Protein, 6.8000 g/dL 6.4000-8.10 00 Total) eGFR -Lithuanian (test code = eGFR 99.0000 60.0000- 200.0000 -Lithuanian) eGFR Evo-Aqritwm-Thqyzjba (test code = 82.0000 60.0000-2 00.0000 eGFR Uvo-Zfnbauf-Kzktjopc) Magnesium (test code = Magnesium) 1.5000 mg/dL 1.6000-2.3000 [id number] 12:53:00 Test Item Value Reference Range Comments WBC (test code = WBC) 6.8000 4.0000-10.0000 Lymphocytes % (test code = Lymphocytes %) 25.3000 % 22.400 0-43.6000 MID% (test code = MID%) 6.9000 % 1.2000-11.2000 Neutrophils % (test code = Neutrophils %) 67.8000 % 48.900 0-69.9000 Lymphocytes (test code = Lymphocytes) 1.7000 1.2000-3.2 000 MID (test code = MID) 0.5000 0.1000-1.1000 Neutrophils (test code = Neutrophils) 4.6000 1.5000-6.7 000 RBC (test code = RBC) 4.1800 3.7000-4.9000 HGB (test code = HGB) 11.4000 g/dL 11.2000-18.0000 HCT (test code = HCT) 35.6000 % 34.0000-44.0000 MCV (test code = MCV) 85.1000 fL 80.0000-94.0000 MCH (test code = MCH) 27.3000 pg 27.0000-34.0000 MCHC (test code = MCHC) 32.1000 g/dL 31.5000-36.0000 RDW (test code = RDW) 19.4000 11.0000-18.0000 PLT (test code = PLT) 280.0000 140.0000-440.0000 MPV (test code = MPV) 7.5000 fL 6.8000-10.6000 Iron, [id number] 13:46:00 Test Item Value Reference Range Comments Iron, Total (test code = Iron, Total) 25.0000 27.0000-13 9.0000 TIBC (test code = TIBC) 459.0000 250.0000-450.0000 UIBC (test code = UIBC) 434.0000 118.0000-369.0000 % Iron Saturation (test code = % Iron 5.0000 % 15.0000-55 .0000 Saturation) T4, Free (test code = T4, Free) 1.0800 ng/dL 0.8200-1.7700 TSH (test code = TSH) 19.9600 0.4500-4.5000 Ferritin (test code = Ferritin) 6.0000 ng/mL 15.0000-150.0000 T3, Free (test code = T3, Free) 1.7000 pg/mL 2.0000-4.4000 [id number] 12:50:00 Test Item Value Reference Range Comments WBC (test code = WBC) 5.7000 4.0000-10.0000 Lymphocytes % (test code = Lymphocytes %) 29.5000 % 22.400 0-43.6000 MID% (test code = MID%) 6.9000 % 1.2000-11.2000 Neutrophils % (test code = Neutrophils %) 63.6000 % 48.900 0-69.9000 Lymphocytes (test code = Lymphocytes) 1.7000 1.2000-3.2 000 MID (test code = MID) 0.4000 0.1000-1.1000 Neutrophils (test code = Neutrophils) 3.6000 1.5000-6.7 000 RBC (test code = RBC) 4.1300 3.7000-4.9000 HGB (test code = HGB) 11.1000 g/dL 11.2000-18.0000 HCT (test code = HCT) 36.2000 % 34.0000-44.0000 MCV (test code = MCV) 87.7000 fL 80.0000-94.0000 MCH (test code = MCH) 26.9000 pg 27.0000-34.0000 MCHC (test code = MCHC) 30.6000 g/dL 31.5000-36.0000 RDW (test code = RDW) 17.3000 11.0000-18.0000 PLT (test code = PLT) 310.0000 140.0000-440.0000 MPV (test code = MPV) 7.6000 fL 6.8000-10.6000 [id number] 12:50:00 Test Item Value Reference Range Comments Creatinine (test code = Creatinine) 0.6000 mg/dL 0.5000-1.200 0 Cr Clearance (Est) (test code = Cr 134.9000 75.0000-115.0 000 Clearance (Est)) Glucose (test code = Glucose) 101.0000 mg/dL 70.0000-118.0000 BUN (test code = BUN) 11.0000 mg/dL 7.0000-22.0000 Sodium (test code = Sodium) 136.0000 mmol/L 128.0000-145.0000 Potassium (test code = Potassium) 3.5000 mmol/L 3.6000-5.1000 Chloride (test code = Chloride) 99.0000 mmol/L 96.0000-108.0000 CO2 (test code = CO2) 34.0000 mmol/L 18.0000-33.0000 Calcium (test code = Calcium) 9.7900 mg/dL 8.0000-10.3000 Alkaline Phosphatase (test code = Alkaline 104.0000 42.00 00-141.0000 Phosphatase) ALT (SGPT) (test code = ALT (SGPT)) 11.0000 10.0000-47.0 000 AST (SGOT) (test code = AST (SGOT)) 13.0000 11.0000-37.0 000 Bilirubin, Total (test code = Bilirubin, 0.3000 mg/dL 0.0000- 1.6000 Total) Albumin (test code = Albumin) 4.3000 g/dL 3.5000-5.5000 Protein, Total (test code = Protein, 6.8000 g/dL 6.4000-8.10 00 Total) eGFR -Lithuanian (test code = eGFR 119.0000 60.0000- 200.0000 -Lithuanian) eGFR Evc-Kajbugd-Zzvffaph (test code = 98.0000 60.0000-2 00.0000 eGFR Odh-Nejgtdp-Spbxprso) Magnesium (test code = Magnesium) 1.5000 mg/dL 1.6000-2.3000 [id number] 12:57:00 Test Item Value Reference Range Comments WBC (test code = WBC) 5.3000 4.0000-10.0000 Lymphocytes % (test code = Lymphocytes %) 27.1000 % 22.400 0-43.6000 MID% (test code = MID%) 6.6000 % 1.2000-11.2000 Neutrophils % (test code = Neutrophils %) 66.3000 % 48.900 0-69.9000 Lymphocytes (test code = Lymphocytes) 1.4000 1.2000-3.2 000 MID (test code = MID) 0.4000 0.1000-1.1000 Neutrophils (test code = Neutrophils) 3.5000 1.5000-6.7 000 RBC (test code = RBC) 4.0000 3.7000-4.9000 HGB (test code = HGB) 12.0000 g/dL 11.2000-18.0000 HCT (test code = HCT) 36.3000 % 34.0000-44.0000 MCV (test code = MCV) 90.9000 fL 80.0000-94.0000 MCH (test code = MCH) 30.1000 pg 27.0000-34.0000 MCHC (test code = MCHC) 33.1000 g/dL 31.5000-36.0000 RDW (test code = RDW) 17.6000 11.0000-18.0000 PLT (test code = PLT) 273.0000 140.0000-440.0000 MPV (test code = MPV) 7.7000 fL 6.8000-10.6000 [id number] 12:57:00 Test Item Value Reference Range Comments Creatinine (test code = Creatinine) 0.6000 mg/dL 0.5000-1.200 0 Cr Clearance (Est) (test code = Cr 134.3100 75.0000-115.0 000 Clearance (Est)) Glucose (test code = Glucose) 110.0000 mg/dL 70.0000-118.0000 BUN (test code = BUN) 12.0000 mg/dL 7.0000-22.0000 Sodium (test code = Sodium) 136.0000 mmol/L 128.0000-145.0000 Potassium (test code = Potassium) 3.4000 mmol/L 3.6000-5.1000 Chloride (test code = Chloride) 97.0000 mmol/L 96.0000-108.0000 CO2 (test code = CO2) 34.0000 mmol/L 18.0000-33.0000 Calcium (test code = Calcium) 9.9200 mg/dL 8.0000-10.3000 Alkaline Phosphatase (test code = Alkaline 106.0000 42.00 00-141.0000 Phosphatase) ALT (SGPT) (test code = ALT (SGPT)) 12.0000 10.0000-47.0 000 AST (SGOT) (test code = AST (SGOT)) 14.0000 11.0000-37.0 000 Bilirubin, Total (test code = Bilirubin, 0.4000 mg/dL 0.0000- 1.6000 Total) Albumin (test code = Albumin) 4.3000 g/dL 3.5000-5.5000 Protein, Total (test code = Protein, 6.5000 g/dL 6.4000-8.10 00 Total) eGFR -Lithuanian (test code = eGFR 119.0000 60.0000- 200.0000 -Lithuanian) eGFR Usc-Ywiqhhc-Kmyxfkze (test code = 98.0000 60.0000-2 00.0000 eGFR Ibf-Ocvplck-Gcoszdsc) Magnesium (test code = Magnesium) 1.6000 mg/dL 1.6000-2.3000 [id number] 10:37:00 Test Item Value Reference Range Comments WBC (test code = WBC) 6.5000 4.0000-10.0000 Lymphocytes % (test code = Lymphocytes %) 24.4000 % 22.400 0-43.6000 MID% (test code = MID%) 7.2000 % 1.2000-11.2000 Neutrophils % (test code = Neutrophils %) 68.4000 % 48.900 0-69.9000 Lymphocytes (test code = Lymphocytes) 1.6000 1.2000-3.2 000 MID (test code = MID) 0.5000 0.1000-1.1000 Neutrophils (test code = Neutrophils) 4.4000 1.5000-6.7 000 RBC (test code = RBC) 4.2300 3.7000-4.9000 HGB (test code = HGB) 12.2000 g/dL 11.2000-18.0000 HCT (test code = HCT) 39.2000 % 34.0000-44.0000 MCV (test code = MCV) 92.8000 fL 80.0000-94.0000 MCH (test code = MCH) 28.8000 pg 27.0000-34.0000 MCHC (test code = MCHC) 31.1000 g/dL 31.5000-36.0000 RDW (test code = RDW) 18.0000 11.0000-18.0000 PLT (test code = PLT) 228.0000 140.0000-440.0000 MPV (test code = MPV) 8.8000 fL 6.8000-10.6000 T4, [id number] 12:02:00 Test Item Value Reference Range Comments T4, Free (test code = T4, Free) 1.1300 ng/dL 0.8200-1.7700 TSH (test code = TSH) 16.4300 0.4500-4.5000 T3, Free (test code = T3, Free) 1.9000 pg/mL 2.0000-4.4000 [id number] 11:32:00 Test Item Value Reference Range Comments Creatinine (test code = Creatinine) 0.8000 mg/dL 0.5000-1.200 0 Cr Clearance (Est) (test code = Cr 101.5400 75.0000-115.0 000 Clearance (Est)) Glucose (test code = Glucose) 111.0000 mg/dL 70.0000-118.0000 BUN (test code = BUN) 7.0000 mg/dL 7.0000-22.0000 Sodium (test code = Sodium) 138.0000 mmol/L 128.0000-145.0000 Potassium (test code = Potassium) 3.8000 mmol/L 3.6000-5.1000 Chloride (test code = Chloride) 96.0000 mmol/L 96.0000-108.0000 CO2 (test code = CO2) 35.0000 mmol/L 18.0000-33.0000 Calcium (test code = Calcium) 9.8200 mg/dL 8.0000-10.3000 Alkaline Phosphatase (test code = Alkaline 107.0000 42.00 00-141.0000 Phosphatase) ALT (SGPT) (test code = ALT (SGPT)) 15.0000 10.0000-47.0 000 AST (SGOT) (test code = AST (SGOT)) 16.0000 11.0000-37.0 000 Bilirubin, Total (test code = Bilirubin, 0.4000 mg/dL 0.0000- 1.6000 Total) Albumin (test code = Albumin) 4.5000 g/dL 3.5000-5.5000 Protein, Total (test code = Protein, 6.5000 g/dL 6.4000-8.10 00 Total) eGFR -Lithuanian (test code = eGFR 85.0000 60.0000- 200.0000 -Lithuanian) eGFR Wox-Qwmclea-Wchrngxj (test code = 70.0000 60.0000-2 00.0000 eGFR Her-Unpwemh-Mevpcrnd) Magnesium (test code = Magnesium) 1.7000 mg/dL 1.6000-2.3000 [id number] 11:31:00 Test Item Value Reference Range Comments WBC (test code = WBC) 4.8000 4.0000-10.0000 Lymphocytes % (test code = Lymphocytes %) 25.8000 % 22.400 0-43.6000 MID% (test code = MID%) 6.9000 % .1999- Neutrophils % (test code = Neutrophils %) 67.3000 % 48.900 0-69.9000 Lymphocytes (test code = Lymphocytes) 1.1999 1.2000-3.2 000 MID (test code = MID) 0.4000 0.1000-1.1000 Neutrophils (test code = Neutrophils) 3.1999 1.5000-6.7 000 RBC (test code = RBC) 4.1700 3.7000-4.9000 HGB (test code = HGB) 12.6000 g/dL 11.1999-18.0000 HCT (test code = HCT) 39.0000 % 34.0000-44.0000 MCV (test code = MCV) 93.5000 fL 80.0000-94.0000 MCH (test code = MCH) 30.3000 pg 27.0000-34.0000 MCHC (test code = MCHC) 32.4000 g/dL 31.5000-36.0000 RDW (test code = RDW) 19.0000 11.0000-18.0000 PLT (test code = PLT) 281.0000 140.0000-440.0000 MPV (test code = MPV) 7.8000 fL 6.8000-10.6000 [id number] 11:25:00 Test Item Value Reference Range Comments WBC (test code = WBC) 5.3000 4.0000-10.0000 Lymphocytes % (test code = Lymphocytes %) 21.8000 % 22.400 0-43.6000 MID% (test code = MID%) 5.9000 % .1999- Neutrophils % (test code = Neutrophils %) 72.3000 % 48.900 0-69.9000 Lymphocytes (test code = Lymphocytes) 1.1000 1.2000-3.2 000 MID (test code = MID) 0.3000 0.1000-1.1000 Neutrophils (test code = Neutrophils) 3.9000 1.5000-6.7 000 RBC (test code = RBC) 3.7400 3.7000-4.9000 HGB (test code = HGB) 11.2000 g/dL 11.2000-18.0000 HCT (test code = HCT) 33.7000 % 34.0000-44.0000 MCV (test code = MCV) 90.1000 fL 80.0000-94.0000 MCH (test code = MCH) 30.0000 pg 27.0000-34.0000 MCHC (test code = MCHC) 33.3000 g/dL 31.5000-36.0000 RDW (test code = RDW) 21.4000 11.0000-18.0000 PLT (test code = PLT) 201.0000 140.0000-440.0000 MPV (test code = MPV) 7.4000 fL 6.8000-10.6000 [id number] 11:25:00 Test Item Value Reference Range Comments Magnesium (test code = Magnesium) 1.7000 mg/dL 1.6000-2.3000 Creatinine (test code = Creatinine) 0.7000 mg/dL 0.5000-1.200 0 Cr Clearance (Est) (test code = Cr 115.2200 75.0000-115.0 000 Clearance (Est)) Glucose (test code = Glucose) 92.0000 mg/dL 70.0000-118.0000 BUN (test code = BUN) 13.0000 mg/dL 7.0000-22.0000 Sodium (test code = Sodium) 137.0000 mmol/L 128.0000-145.0000 Potassium (test code = Potassium) 3.4000 mmol/L 3.6000-5.1000 Chloride (test code = Chloride) 94.0000 mmol/L 96.0000-108.0000 CO2 (test code = CO2) 37.0000 mmol/L 18.0000-33.0000 Calcium (test code = Calcium) 9.4700 mg/dL 8.0000-10.3000 Alkaline Phosphatase (test code = Alkaline 116.0000 42.00 00-141.0000 Phosphatase) ALT (SGPT) (test code = ALT (SGPT)) 19.0000 10.0000-47.0 000 AST (SGOT) (test code = AST (SGOT)) 16.0000 11.0000-37.0 000 Bilirubin, Total (test code = Bilirubin, 0.4000 mg/dL 0.0000- 1.6000 Total) Albumin (test code = Albumin) 4.5000 g/dL 3.5000-5.5000 Protein, Total (test code = Protein, 6.9000 g/dL 6.4000-8.10 00 Total) eGFR -Lithuanian (test code = eGFR 99.0000 60.0000- 200.0000 -Lithuanian) eGFR Gzp-Ppogkoq-Nqqiikgx (test code = 82.0000 60.0000-2 00.0000 eGFR Zcj-Hcnaqjc-Pfkwsppw) Iron, [id number] 13:23:00 Test Item Value Reference Range Comments Iron, Total (test code = Iron, Total) 27.0000 27.0000-13 9.0000 TIBC (test code = TIBC) 492.0000 250.0000-450.0000 UIBC (test code = UIBC) 465.0000 118.0000-369.0000 % Iron Saturation (test code = % Iron 5.0000 % 15.0000-55 .0000 Saturation) T4, Free (test code = T4, Free) 0.5100 ng/dL 0.8200-1.7700 TSH (test code = TSH) 50.0800 0.4500-4.5000 Ferritin (test code = Ferritin) 7.0000 ng/mL 15.0000-150.0000 T3, Free (test code = T3, Free) 1.1000 pg/mL 2.0000-4.4000 [id number] 11:06:00 Test Item Value Reference Range Comments WBC (test code = WBC) 5.8000 4.0000-10.0000 Lymphocytes % (test code = Lymphocytes %) 28.0000 % 22.400 0-43.6000 MID% (test code = MID%) 6.7000 % 1.2000-11.2000 Neutrophils % (test code = Neutrophils %) 65.3000 % 48.900 0-69.9000 Lymphocytes (test code = Lymphocytes) 1.6000 1.2000-3.2 000 MID (test code = MID) 0.4000 0.1000-1.1000 Neutrophils (test code = Neutrophils) 3.8000 1.5000-6.7 000 RBC (test code = RBC) 4.2100 3.7000-4.9000 HGB (test code = HGB) 11.2000 g/dL 11.2000-18.0000 HCT (test code = HCT) 35.9000 % 34.0000-44.0000 MCV (test code = MCV) 85.2000 fL 80.0000-94.0000 MCH (test code = MCH) 26.6000 pg 27.0000-34.0000 MCHC (test code = MCHC) 31.3000 g/dL 31.5000-36.0000 RDW (test code = RDW) 17.0000 11.0000-18.0000 PLT (test code = PLT) 278.0000 140.0000-440.0000 MPV (test code = MPV) 7.6000 fL 6.8000-10.6000 [id number] 11:06:00 Test Item Value Reference Range Comments Creatinine (test code = Creatinine) 0.8000 mg/dL 0.5000-1.200 0 Cr Clearance (Est) (test code = Cr 102.9600 75.0000-115.0 000 Clearance (Est)) Glucose (test code = Glucose) 137.0000 mg/dL 70.0000-118.0000 BUN (test code = BUN) 9.0000 mg/dL 7.0000-22.0000 Sodium (test code = Sodium) 137.0000 mmol/L 128.0000-145.0000 Potassium (test code = Potassium) 3.4000 mmol/L 3.6000-5.1000 Chloride (test code = Chloride) 95.0000 mmol/L 96.0000-108.0000 CO2 (test code = CO2) 36.0000 mmol/L 18.0000-33.0000 Calcium (test code = Calcium) 9.5200 mg/dL 8.0000-10.3000 Alkaline Phosphatase (test code = Alkaline 107.0000 42.00 00-141.0000 Phosphatase) ALT (SGPT) (test code = ALT (SGPT)) 13.0000 10.0000-47.0 000 AST (SGOT) (test code = AST (SGOT)) 15.0000 11.0000-37.0 000 Bilirubin, Total (test code = Bilirubin, 0.3000 mg/dL 0.0000- 1.6000 Total) Albumin (test code = Albumin) 4.4000 g/dL 3.5000-5.5000 Protein, Total (test code = Protein, 6.7000 g/dL 6.4000-8.10 00 Total) eGFR -Lithuanian (test code = eGFR 85.0000 60.0000- 200.0000 -L[place]uanian) eGFR Hlx-Ohyagdr-Cggdsvwg (test code = 71.0000 60.0000-2 00.0000 eGFR Syc-Isxqqnu-Oyrcqkwp) Magnesium (test code = Magnesium) 1.6000 mg/dL 1.6000-2.3000 [id number] 09:44:00 Test Item Value Reference Range Comments WBC (test code = WBC) 6.4000 4.0000-10.0000 Lymphocytes % (test code = Lymphocytes %) 28.0000 % 22.400 0-43.6000 MID% (test code = MID%) 5.6000 % .1999- Neutrophils % (test code = Neutrophils %) 66.4000 % 48.900 0-69.9000 Lymphocytes (test code = Lymphocytes) 1.8000 1.2000-3.2 000 MID (test code = MID) 0.3000 0.1000-1.1000 Neutrophils (test code = Neutrophils) 4.3000 1.5000-6.7 000 RBC (test code = RBC) 3.8900 3.7000-4.9000 HGB (test code = HGB) 10.8000 g/dL 11.2000-18.0000 HCT (test code = HCT) 32.8000 % 34.0000-44.0000 MCV (test code = MCV) 84.3000 fL 80.0000-94.0000 MCH (test code = MCH) 27.7000 pg 27.0000-34.0000 MCHC (test code = MCHC) 32.9000 g/dL 31.5000-36.0000 RDW (test code = RDW) 17.3000 11.0000-18.0000 PLT (test code = PLT) 227.0000 140.0000-440.0000 MPV (test code = MPV) 7.5000 fL 6.8000-10.6000 [id number] 10:37:00 Test Item Value Reference Range Comments WBC (test code = WBC) 5.5000 4.0000-10.0000 Lymphocytes % (test code = Lymphocytes %) 29.2000 % 22.400 0-43.6000 MID% (test code = MID%) 5.7000 % .1999- Neutrophils % (test code = Neutrophils %) 65.1000 % 48.900 0-69.9000 Lymphocytes (test code = Lymphocytes) 1.6000 1.2000-3.2 000 MID (test code = MID) 0.4000 0.1000-1.1000 Neutrophils (test code = Neutrophils) 3.5000 1.5000-6.7 000 RBC (test code = RBC) 4.3800 3.7000-4.9000 HGB (test code = HGB) 12.1000 g/dL 11.2000-18.0000 HCT (test code = HCT) 37.0000 % 34.0000-44.0000 MCV (test code = MCV) 84.4000 fL 80.0000-94.0000 MCH (test code = MCH) 27.7000 pg 27.0000-34.0000 MCHC (test code = MCHC) 32.8000 g/dL 31.5000-36.0000 RDW (test code = RDW) 18.6000 11.0000-18.0000 PLT (test code = PLT) 277.0000 140.0000-440.0000 MPV (test code = MPV) 7.3000 fL 6.8000-10.6000 [id number] 10:37:00 Test Item Value Reference Range Comments Creatinine (test code = Creatinine) 0.7000 mg/dL 0.5000-1.200 0 Cr Clearance (Est) (test code = Cr 114.6500 75.0000-115.0 000 Clearance (Est)) Glucose (test code = Glucose) 108.0000 mg/dL 70.0000-118.0000 BUN (test code = BUN) 12.0000 mg/dL 7.0000-22.0000 Sodium (test code = Sodium) 139.0000 mmol/L 128.0000-145.0000 Potassium (test code = Potassium) 3.6000 mmol/L 3.6000-5.1000 Chloride (test code = Chloride) 96.0000 mmol/L 96.0000-108.0000 CO2 (test code = CO2) 33.0000 mmol/L 18.0000-33.0000 Calcium (test code = Calcium) 9.3200 mg/dL 8.0000-10.3000 Alkaline Phosphatase (test code = Alkaline 105.0000 42.00 00-141.0000 Phosphatase) ALT (SGPT) (test code = ALT (SGPT)) 14.0000 10.0000-47.0 000 AST (SGOT) (test code = AST (SGOT)) 18.0000 11.0000-37.0 000 Bilirubin, Total (test code = Bilirubin, 0.3000 mg/dL 0.0000- 1.6000 Total) Albumin (test code = Albumin) 4.5000 g/dL 3.5000-5.5000 Protein, Total (test code = Protein, 6.6000 g/dL 6.4000-8.10 00 Total) eGFR -Lithuanian (test code = eGFR 100.0000 60.0000- 200.0000 -Lithuanian) eGFR Rif-Xyzthqq-Rcggihhy (test code = 82.0000 60.0000-2 00.0000 eGFR Pmn-Cspxlpt-Jdohhmil) [id number] 11:59:00 Test Item Value Reference Range Comments WBC (test code = WBC) 6.3000 4.0000-10.0000 Lymphocytes % (test code = Lymphocytes %) 30.9000 % 22.400 0-43.6000 MID% (test code = MID%) 5.8000 % 1.2000-11.2000 Neutrophils % (test code = Neutrophils %) 63.3000 % 48.900 0-69.9000 Lymphocytes (test code = Lymphocytes) 1.9000 1.2000-3.2 000 MID (test code = MID) 0.4000 0.1000-1.1000 Neutrophils (test code = Neutrophils) 4.0000 1.5000-6.7 000 RBC (test code = RBC) 4.5500 3.7000-4.9000 HGB (test code = HGB) 12.6000 g/dL 11.2000-18.0000 HCT (test code = HCT) 39.1000 % 34.0000-44.0000 MCV (test code = MCV) 85.8000 fL 80.0000-94.0000 MCH (test code = MCH) 27.6000 pg 27.0000-34.0000 MCHC (test code = MCHC) 32.2000 g/dL 31.5000-36.0000 RDW (test code = RDW) 19.4000 11.0000-18.0000 PLT (test code = PLT) 251.0000 140.0000-440.0000 MPV (test code = MPV) 7.8000 fL 6.8000-10.6000 T4, [id number] 15:56:00 Test Item Value Reference Range Comments T4, Free (test code = T4, Free) 0.2200 ng/dL 0.8200-1.7700 TSH (test code = TSH) 54.5300 0.4500-4.5000 T3, Free (test code = T3, Free) 0.8000 pg/mL 2.0000-4.4000 [id number] 11:34:00 Test Item Value Reference Range Comments Creatinine (test code = Creatinine) 0.7000 mg/dL 0.5000-1.200 0 Cr Clearance (Est) (test code = Cr 115.3800 75.0000-115.0 000 Clearance (Est)) Glucose (test code = Glucose) 119.0000 mg/dL 70.0000-118.0000 BUN (test code = BUN) 9.0000 mg/dL 7.0000-22.0000 Sodium (test code = Sodium) 139.0000 mmol/L 128.0000-145.0000 Potassium (test code = Potassium) 3.4000 mmol/L 3.6000-5.1000 Chloride (test code = Chloride) 96.0000 mmol/L 96.0000-108.0000 CO2 (test code = CO2) 34.0000 mmol/L 18.0000-33.0000 Calcium (test code = Calcium) 9.8700 mg/dL 8.0000-10.3000 Alkaline Phosphatase (test code = Alkaline 110.0000 42.00 00-141.0000 Phosphatase) ALT (SGPT) (test code = ALT (SGPT)) 26.0000 10.0000-47.0 000 AST (SGOT) (test code = AST (SGOT)) 24.0000 11.0000-37.0 000 Bilirubin, Total (test code = Bilirubin, 0.3000 mg/dL 0.0000- 1.6000 Total) Albumin (test code = Albumin) 4.4000 g/dL 3.5000-5.5000 Protein, Total (test code = Protein, 6.3000 g/dL 6.4000-8.10 00 Total) eGFR -Lithuanian (test code = eGFR 100.0000 60.0000- 200.0000 -Lithuanian) eGFR Xov-Iumvvyg-Aiwuddcq (test code = 82.0000 60.0000-2 00.0000 eGFR Avg-Btkbsun-Xdfoodav) Magnesium (test code = Magnesium) 1.6000 mg/dL 1.6000-2.3000 [id number] 11:33:00 Test Item Value Reference Range Comments WBC (test code = WBC) 7.3000 4.0000-10.0000 Lymphocytes % (test code = Lymphocytes %) 28.1000 % 22.400 0-43.6000 MID% (test code = MID%) 6.5000 % 1.2000-11.1999 Neutrophils % (test code = Neutrophils %) 65.4000 % 48.900 0-69.9000 Lymphocytes (test code = Lymphocytes) 2.0000 1.2000-3.2 000 MID (test code = MID) 0.6000 0.1000-1.1000 Neutrophils (test code = Neutrophils) 4.7000 1.5000-6.7 000 RBC (test code = RBC) 5.0900 3.7000-4.9000 HGB (test code = HGB) 13.2000 g/dL 11.2000-18.0000 HCT (test code = HCT) 42.9000 % 34.0000-44.0000 MCV (test code = MCV) 84.3000 fL 80.0000-94.0000 MCH (test code = MCH) 25.9000 pg 27.0000-34.0000 MCHC (test code = MCHC) 30.7000 g/dL 31.5000-36.0000 RDW (test code = RDW) 19.1999 11.0000-18.0000 PLT (test code = PLT) 297.0000 140.0000-440.0000 MPV (test code = MPV) 7.4000 fL 6.8000-10.6000 [id number] 11:23:00 Test Item Value Reference Range Comments WBC (test code = WBC) 6.3000 4.0000-10.0000 Lymphocytes % (test code = Lymphocytes %) 22.4000 % 22.400 0-43.6000 MID% (test code = MID%) 6.0000 % .1999-11.1999 Neutrophils % (test code = Neutrophils %) 71.6000 % 48.900 0-69.9000 Lymphocytes (test code = Lymphocytes) 1.4000 1.2000-3.2 000 MID (test code = MID) 0.4000 0.1000-1.1000 Neutrophils (test code = Neutrophils) 4.5000 1.5000-6.7 000 RBC (test code = RBC) 5.1500 3.7000-4.9000 HGB (test code = HGB) 13.2000 g/dL 11.2000-18.0000 HCT (test code = HCT) 43.3000 % 34.0000-44.0000 MCV (test code = MCV) 84.0000 fL 80.0000-94.0000 MCH (test code = MCH) 25.8000 pg 27.0000-34.0000 MCHC (test code = MCHC) 30.7000 g/dL 31.5000-36.0000 RDW (test code = RDW) 19.8000 11.0000-18.0000 PLT (test code = PLT) 295.0000 140.0000-440.0000 MPV (test code = MPV) 7.9000 fL 6.8000-10.6000 [id number] 11:23:00 Test Item Value Reference Range Comments Magnesium (test code = Magnesium) 1.6000 mg/dL 1.6000-2.3000 Creatinine (test code = Creatinine) 0.8000 mg/dL 0.5000-1.200 0 Cr Clearance (Est) (test code = Cr 97.3200 75.0000-115.0 000 Clearance (Est)) Glucose (test code = Glucose) 89.0000 mg/dL 70.0000-118.0000 BUN (test code = BUN) 8.0000 mg/dL 7.0000-22.0000 Sodium (test code = Sodium) 139.0000 mmol/L 128.0000-145.0000 Potassium (test code = Potassium) 3.7000 mmol/L 3.6000-5.1000 Chloride (test code = Chloride) 97.0000 mmol/L 96.0000-108.0000 CO2 (test code = CO2) 35.0000 mmol/L 18.0000-33.0000 Calcium (test code = Calcium) 9.4800 mg/dL 8.0000-10.3000 Alkaline Phosphatase (test code = Alkaline 107.0000 42.00 00-141.0000 Phosphatase) ALT (SGPT) (test code = ALT (SGPT)) 19.0000 10.0000-47.0 000 AST (SGOT) (test code = AST (SGOT)) 23.0000 11.0000-37.0 000 Bilirubin, Total (test code = Bilirubin, 0.4000 mg/dL 0.0000- 1.6000 Total) Albumin (test code = Albumin) 4.3000 g/dL 3.5000-5.5000 Protein, Total (test code = Protein, 6.3000 g/dL 6.4000-8.10 00 Total) eGFR -Lithuanian (test code = eGFR 85.0000 60.0000- 200.0000 -Lithuanian) eGFR Tlg-Csywobp-Ybodzbhv (test code = 71.0000 60.0000-2 00.0000 eGFR Mnp-Bujjhwc-Ccxfnlrs) T4, [id number] 11:58:00 Test Item Value Reference Range Comments T4, Free (test code = T4, Free) 3.1500 ng/dL 0.8200-1.7700 TSH (test code = TSH) 0.0270 0.4500-4.5000 T3, Free (test code = T3, Free) 9.6000 pg/mL 2.0000-4.4000 Written [id number] 11:58:00 Test Item Value Reference Range Comments Written Authorization (test Comment Written Authorization code = Written Authorization) Received. Authorization received from [employer]IGN[employer] ON FILE 03-22-2019 Logged by Ela Chavis [id number] 10:43:00 Test Item Value Reference Range Comments WBC (test code = WBC) 5.5000 4.0000-10.0000 Lymphocytes % (test code = Lymphocytes %) 21.1000 % 22.400 0-43.6000 MID% (test code = MID%) 5.8000 % 1.2000-11.2000 Neutrophils % (test code = Neutrophils %) 73.1000 % 48.900 0-69.9000 Lymphocytes (test code = Lymphocytes) 1.1000 1.2000-3.2 000 MID (test code = MID) 0.4000 0.1000-1.1000 Neutrophils (test code = Neutrophils) 4.0000 1.5000-6.7 000 RBC (test code = RBC) 4.5700 3.7000-4.9000 HGB (test code = HGB) 10.6000 g/dL 11.2000-18.0000 HCT (test code = HCT) 36.2000 % 34.0000-44.0000 MCV (test code = MCV) 79.2000 fL 80.0000-94.0000 MCH (test code = MCH) 23.1000 pg 27.0000-34.0000 MCHC (test code = MCHC) 29.2000 g/dL 31.5000-36.0000 RDW (test code = RDW) 18.1000 11.0000-18.0000 PLT (test code = PLT) 285.0000 140.0000-440.0000 MPV (test code = MPV) 8.0000 fL 6.8000-10.6000 [id number] 10:43:00 Test Item Value Reference Range Comments Creatinine (test code = Creatinine) 0.7000 mg/dL 0.5000-1.200 0 Cr Clearance (Est) (test code = Cr 112.7800 75.0000-115.0 000 Clearance (Est)) Glucose (test code = Glucose) 140.0000 mg/dL 70.0000-118.0000 BUN (test code = BUN) 13.0000 mg/dL 7.0000-22.0000 Sodium (test code = Sodium) 138.0000 mmol/L 128.0000-145.0000 Potassium (test code = Potassium) 3.4000 mmol/L 3.6000-5.1000 Chloride (test code = Chloride) 100.0000 mmol/L 96.0000-108.0000 CO2 (test code = CO2) 34.0000 mmol/L 18.0000-33.0000 Calcium (test code = Calcium) 10.4000 mg/dL 8.0000-10.3000 Alkaline Phosphatase (test code = Alkaline 104.0000 42.00 00-141.0000 Phosphatase) ALT (SGPT) (test code = ALT (SGPT)) 14.0000 10.0000-47.0 000 AST (SGOT) (test code = AST (SGOT)) 14.0000 11.0000-37.0 000 Bilirubin, Total (test code = Bilirubin, 0.4000 mg/dL 0.0000- 1.6000 Total) Albumin (test code = Albumin) 4.1000 g/dL 3.5000-5.5000 Protein, Total (test code = Protein, 6.1000 g/dL 6.4000-8.10 00 Total) eGFR -Lithuanian (test code = eGFR 100.0000 60.0000- 200.0000 -Lithuanian) eGFR Jrr-Qthpivv-Tfobvpbq (test code = 82.0000 60.0000-2 00.0000 eGFR Rfb-Lpyiumo-Nmmsfymg) Magnesium (test code = Magnesium) 1.5000 mg/dL 1.6000-2.3000 [id number] 10:23:00 Test Item Value Reference Range Comments WBC (test code = WBC) 5.8000 4.0000-10.0000 Lymphocytes % (test code = Lymphocytes %) 26.9000 % 22.400 0-43.6000 MID% (test code = MID%) 6.8000 % 1.2000-11.2000 Neutrophils % (test code = Neutrophils %) 66.3000 % 48.900 0-69.9000 Lymphocytes (test code = Lymphocytes) 1.5000 1.2000-3.2 000 MID (test code = MID) 0.5000 0.1000-1.1000 Neutrophils (test code = Neutrophils) 3.8000 1.5000-6.7 000 RBC (test code = RBC) 4.4600 3.7000-4.9000 HGB (test code = HGB) 10.2000 g/dL 11.2000-18.0000 HCT (test code = HCT) 34.4000 % 34.0000-44.0000 MCV (test code = MCV) 77.3000 fL 80.0000-94.0000 MCH (test code = MCH) 23.0000 pg 27.0000-34.0000 MCHC (test code = MCHC) 29.8000 g/dL 31.5000-36.0000 RDW (test code = RDW) 15.6000 11.0000-18.0000 PLT (test code = PLT) 280.0000 140.0000-440.0000 MPV (test code = MPV) 7.8000 fL 6.8000-10.6000 Iron, [id number] 15:43:00 Test Item Value Reference Range Comments Iron, Total (test code = Iron, Total) 27.0000 27.0000-13 9.0000 TIBC (test code = TIBC) 501.0000 250.0000-450.0000 UIBC (test code = UIBC) 474.0000 118.0000-369.0000 % Iron Saturation (test code = % Iron 5.0000 % 15.0000-55 .0000 Saturation) Ferritin (test code = Ferritin) 5.0000 ng/mL 15.0000-150.0000 [id number] 10:59:00 Test Item Value Reference Range Comments WBC (test code = WBC) 6.5000 4.0000-10.0000 Lymphocytes % (test code = Lymphocytes %) 22.0000 % 22.400 0-43.6000 MID% (test code = MID%) 6.4000 % 1.2000-11.2000 Neutrophils % (test code = Neutrophils %) 71.6000 % 48.900 0-69.9000 Lymphocytes (test code = Lymphocytes) 1.4000 1.2000-3.2 000 MID (test code = MID) 0.4000 0.1000-1.1000 Neutrophils (test code = Neutrophils) 4.7000 1.5000-6.7 000 RBC (test code = RBC) 4.2000 3.7000-4.9000 HGB (test code = HGB) 10.5000 g/dL 11.2000-18.0000 HCT (test code = HCT) 32.6000 % 34.0000-44.0000 MCV (test code = MCV) 77.5000 fL 80.0000-94.0000 MCH (test code = MCH) 25.0000 pg 27.0000-34.0000 MCHC (test code = MCHC) 32.3000 g/dL 31.5000-36.0000 RDW (test code = RDW) 15.1000 11.0000-18.0000 PLT (test code = PLT) 305.0000 140.0000-440.0000 MPV (test code = MPV) 7.5000 fL 6.8000-10.6000 [id number] 10:59:00 Test Item Value Reference Range Comments Creatinine (test code = Creatinine) 0.7000 mg/dL 0.5000-1.200 0 Cr Clearance (Est) (test code = Cr 114.4400 75.0000-115.0 000 Clearance (Est)) Glucose (test code = Glucose) 120.0000 mg/dL 70.0000-118.0000 BUN (test code = BUN) 11.0000 mg/dL 7.0000-22.0000 Sodium (test code = Sodium) 138.0000 mmol/L 128.0000-145.0000 Potassium (test code = Potassium) 3.6000 mmol/L 3.6000-5.1000 Chloride (test code = Chloride) 101.0000 mmol/L 96.0000-108.0000 CO2 (test code = CO2) 38.0000 mmol/L 18.0000-33.0000 Calcium (test code = Calcium) 9.1100 mg/dL 8.0000-10.3000 Alkaline Phosphatase (test code = Alkaline 117.0000 42.00 00-141.0000 Phosphatase) ALT (SGPT) (test code = ALT (SGPT)) 15.0000 10.0000-47.0 000 AST (SGOT) (test code = AST (SGOT)) 16.0000 11.0000-37.0 000 Bilirubin, Total (test code = Bilirubin, 0.3000 mg/dL 0.0000- 1.6000 Total) Albumin (test code = Albumin) 4.2000 g/dL 3.5000-5.5000 Protein, Total (test code = Protein, 6.5000 g/dL 6.4000-8.10 00 Total) eGFR -Lithuanian (test code = eGFR 100.0000 60.0000- 200.0000 -Lithuanian) eGFR Eye-Aqhmrad-Qdwdqdif (test code = 82.0000 60.0000-2 00.0000 eGFR Zgw-Pcvggjn-Miibxblg) Magnesium (test code = Magnesium) 1.6000 mg/dL 1.6000-2.3000 [id number] 13:54:00 Test Item Value Reference Range Comments WBC (test code = WBC) 6.5000 4.0000-10.0000 Lymphocytes % (test code = Lymphocytes %) 26.1000 % 22.400 0-43.6000 MID% (test code = MID%) 7.2000 % 1.2000-11.2000 Neutrophils % (test code = Neutrophils %) 66.7000 % 48.900 0-69.9000 Lymphocytes (test code = Lymphocytes) 1.7000 1.2000-3.2 000 MID (test code = MID) 0.5000 0.1000-1.1000 Neutrophils (test code = Neutrophils) 4.3000 1.5000-6.7 000 RBC (test code = RBC) 4.2500 3.7000-4.9000 HGB (test code = HGB) 10.9000 g/dL 11.2000-18.0000 HCT (test code = HCT) 34.9000 % 34.0000-44.0000 MCV (test code = MCV) 82.1000 fL 80.0000-94.0000 MCH (test code = MCH) 25.6000 pg 27.0000-34.0000 MCHC (test code = MCHC) 31.2000 g/dL 31.5000-36.0000 RDW (test code = RDW) 14.9000 11.0000-18.0000 PLT (test code = PLT) 280.0000 140.0000-440.0000 MPV (test code = MPV) 8.1000 fL 6.8000-10.6000 T4, [id number] 13:19:00 Test Item Value Reference Range Comments T4, Free (test code = T4, Free) 1.2000 ng/dL 0.8200-1.7700 TSH (test code = TSH) 3.2900 0.4500-4.5000 T3, Free (test code = T3, Free) 3.2000 pg/mL 2.0000-4.4000 [id number] 10:20:00 Test Item Value Reference Range Comments Creatinine (test code = Creatinine) 0.7000 mg/dL 0.5000-1.200 0 Cr Clearance (Est) (test code = Cr 114.4400 75.0000-115.0 000 Clearance (Est)) Glucose (test code = Glucose) 120.0000 mg/dL 70.0000-118.0000 BUN (test code = BUN) 11.0000 mg/dL 7.0000-22.0000 Sodium (test code = Sodium) 141.0000 mmol/L 128.0000-145.0000 Potassium (test code = Potassium) 3.7000 mmol/L 3.6000-5.1000 Chloride (test code = Chloride) 98.0000 mmol/L 96.0000-108.0000 CO2 (test code = CO2) 33.0000 mmol/L 18.0000-33.0000 Calcium (test code = Calcium) 10.2000 mg/dL 8.0000-10.3000 Alkaline Phosphatase (test code = Alkaline 114.0000 42.00 00-141.0000 Phosphatase) ALT (SGPT) (test code = ALT (SGPT)) 21.0000 10.0000-47.0 000 AST (SGOT) (test code = AST (SGOT)) 26.0000 11.0000-37.0 000 Bilirubin, Total (test code = Bilirubin, 0.4000 mg/dL 0.0000- 1.6000 Total) Albumin (test code = Albumin) 3.6000 g/dL 3.5000-5.5000 Protein, Total (test code = Protein, 7.3000 g/dL 6.4000-8.10 00 Total) eGFR -Lithuanian (test code = eGFR 100.0000 60.0000- 200.0000 -Lithuanian) eGFR Atj-Pfeqctq-Hfpamviq (test code = 82.0000 60.0000-2 00.0000 eGFR Ocm-Otrenjf-Txsryqrm) Magnesium (test code = Magnesium) 1.5000 mg/dL 1.6000-2.3000 [id number] 10:19:00 Test Item Value Reference Range Comments WBC (test code = WBC) 6.9000 4.0000-10.0000 Lymphocytes % (test code = Lymphocytes %) 22.5000 % 22.400 0-43.6000 MID% (test code = MID%) 6.2000 % 1.2000-11.2000 Neutrophils % (test code = Neutrophils %) 71.3000 % 48.900 0-69.9000 Lymphocytes (test code = Lymphocytes) 1.5000 1.2000-3.2 000 MID (test code = MID) 0.5000 0.1000-1.1000 Neutrophils (test code = Neutrophils) 4.9000 1.5000-6.7 000 RBC (test code = RBC) 4.2400 3.7000-4.9000 HGB (test code = HGB) 11.2000 g/dL 11.2000-18.0000 HCT (test code = HCT) 34.4000 % 34.0000-44.0000 MCV (test code = MCV) 81.2000 fL 80.0000-94.0000 MCH (test code = MCH) 26.4000 pg 27.0000-34.0000 MCHC (test code = MCHC) 32.5000 g/dL 31.5000-36.0000 RDW (test code = RDW) 14.8000 11.0000-18.0000 PLT (test code = PLT) 320.0000 140.0000-440.0000 MPV (test code = MPV) 7.4000 fL 6.8000-10.6000 HEPATIC FUNCTION [id number] 11:56:00 Test Item Value Reference Range Comments BILIRUBIN, DIRECT (test code = 03305675) 0.1 mg/dL < OR = 0.2 ALBUMIN/GLOBULIN RATIO (test code = 1.8 (calc) 1.0-2.5 12709526) BILIRUBIN, INDIRECT (test code = 16241368) 0.2 mg/dL (calc) 0.2- 1.2 PROTEIN, TOTAL (test code = 22242166) 6.7 g/dL 6.1-8.1 ALBUMIN (test code = 77958680) 4.3 g/dL 3.6-5.1 ALKALINE PHOSPHATASE (test code = 57970544) 99 U/L 33-1 30 BILIRUBIN, TOTAL (test code = 08872240) 0.3 mg/dL 0.2-1.2 GLOBULIN (test code = 83525736) 2.4 g/dL (calc) 1.9-3.7 ALT (test code = 21954239) 13 U/L 6-29 AST (test code = 78039531) 15 U/L 10-35 LIPID PANEL, [id number] 11:56:00 Test Item Value Reference Range Comments NON HDL CHOLESTEROL (test code = 77755222) 107 mg/dL (calc) <130 HDL CHOLESTEROL (test code = 51792761) 49 mg/dL >50 CHOLESTEROL, TOTAL (test code = 22981033) 156 mg/dL <200 TRIGLYCERIDES (test code = 68919524) 166 mg/dL <150 CHOL/HDLC RATIO (test code = 90805562) 3.2 (calc) <5.0 LDL-CHOLESTEROL (test code = 71872735) 81 mg/dL (calc) COMPREHENSIVE METABOLIC [id number] 11:56:00 Test Item Value Reference Range Comments ALBUMIN/GLOBULIN RATIO (test code = 1.8 (calc) 1.0-2.5 82011357) BUN/CREATININE RATIO (test code = NOT APPLICABLE (calc) 6-22 23693957) ALT (test code = 46066821) 13 U/L 6-29 CHLORIDE (test code = 41197143) 102 mmol/L 98-110 AST (test code = 29816397) 15 U/L 10-35 GLUCOSE (test code = 81434169) 74 mg/dL 65-99 ALKALINE PHOSPHATASE (test code = 99 U/L 33-130 39058252) CREATININE (test code = 89430034) 0.68 mg/dL 0.60-0.93 eGFR NON-AFR. LAO (test code = 87 mL/min/1.73m2 > OR = 60 80528890) CARBON DIOXIDE (test code = 05375970) 34 mmol/L 20-32 eGFR (test code = 101 mL/min/1.73m2 > OR = 60 40861514) POTASSIUM (test code = 55567067) 4.6 mmol/L 3.5-5.3 SODIUM (test code = 20956348) 143 mmol/L 135-146 GLOBULIN (test code = 94729384) 2.4 g/dL (calc) 1.9-3.7 PROTEIN, TOTAL (test code = 61553694) 6.7 g/dL 6.1-8.1 CALCIUM (test code = 80234741) 10.1 mg/dL 8.6-10.4 ALBUMIN (test code = 72815559) 4.3 g/dL 3.6-5.1 BILIRUBIN, TOTAL (test code = 0.3 mg/dL 0.2-1.2 65369879) UREA NITROGEN (BUN) (test code = 15 mg/dL 7-25 74326720) [id number] 10:55:00 Test Item Value Reference Range Comments WBC (test code = WBC) 5.7000 4.0000-10.0000 Lymphocytes % (test code = Lymphocytes %) 21.4000 % 22.400 0-43.6000 MID% (test code = MID%) 6.5000 % .1999- Neutrophils % (test code = Neutrophils %) 72.1000 % 48.900 0-69.9000 Lymphocytes (test code = Lymphocytes) 1.1999 1.2000-3.2 000 MID (test code = MID) 0.4000 0.1000-1.1000 Neutrophils (test code = Neutrophils) 4.1000 1.5000-6.7 000 RBC (test code = RBC) 4.5400 3.7000-4.9000 HGB (test code = HGB) 11.8000 g/dL 11.2000-18.0000 HCT (test code = HCT) 38.9000 % 34.0000-44.0000 MCV (test code = MCV) 85.7000 fL 80.0000-94.0000 MCH (test code = MCH) 25.9000 pg 27.0000-34.0000 MCHC (test code = MCHC) 30.2000 g/dL 31.5000-36.0000 RDW (test code = RDW) 15.2000 11.0000-18.0000 PLT (test code = PLT) 285.0000 140.0000-440.0000 MPV (test code = MPV) 8.0000 fL 6.8000-10.6000 [id number] 09:37:00 Test Item Value Reference Range Comments WBC (test code = WBC) 9.1000 4.0000-10.0000 Lymphocytes % (test code = Lymphocytes %) 10.6000 % 22.400 0-43.6000 MID% (test code = MID%) 3.7000 % .1999- Neutrophils % (test code = Neutrophils %) 85.7000 % 48.900 0-69.9000 Lymphocytes (test code = Lymphocytes) 0.9000 1.2000-3.2 000 MID (test code = MID) 0.4000 0.1000-1.1000 Neutrophils (test code = Neutrophils) 7.8000 1.5000-6.7 000 RBC (test code = RBC) 4.4900 3.7000-4.9000 HGB (test code = HGB) 12.6000 g/dL 11.2000-18.0000 HCT (test code = HCT) 39.0000 % 34.0000-44.0000 MCV (test code = MCV) 86.8000 fL 80.0000-94.0000 MCH (test code = MCH) 28.1000 pg 27.0000-34.0000 MCHC (test code = MCHC) 32.3000 g/dL 31.5000-36.0000 RDW (test code = RDW) 14.8000 11.0000-18.0000 PLT (test code = PLT) 279.0000 140.0000-440.0000 MPV (test code = MPV) 7.8000 fL 6.8000-10.6000 [id number] 09:37:00 Test Item Value Reference Range Comments Creatinine (test code = Creatinine) 0.7000 mg/dL 0.5000-1.200 0 Cr Clearance (Est) (test code = Cr 112.0500 75.0000-115.0 000 Clearance (Est)) Glucose (test code = Glucose) 142.0000 mg/dL 70.0000-118.0000 BUN (test code = BUN) 14.0000 mg/dL 7.0000-22.0000 Sodium (test code = Sodium) 141.0000 mmol/L 128.0000-145.0000 Potassium (test code = Potassium) 3.0000 mmol/L 3.6000-5.1000 Chloride (test code = Chloride) 99.0000 mmol/L 96.0000-108.0000 CO2 (test code = CO2) 32.0000 mmol/L 18.0000-33.0000 Calcium (test code = Calcium) 9.9800 mg/dL 8.0000-10.3000 Alkaline Phosphatase (test code = Alkaline 93.0000 42.00 00-141.0000 Phosphatase) ALT (SGPT) (test code = ALT (SGPT)) 12.0000 10.0000-47.0 000 AST (SGOT) (test code = AST (SGOT)) 12.0000 11.0000-37.0 000 Bilirubin, Total (test code = Bilirubin, 0.3000 mg/dL 0.0000- 1.6000 Total) Albumin (test code = Albumin) 4.6000 g/dL 3.5000-5.5000 Protein, Total (test code = Protein, 6.2000 g/dL 6.4000-8.10 00 Total) eGFR -Lithuanian (test code = eGFR 100.0000 60.0000- 200.0000 -Lithuanian) eGFR Ngm-Owjryaf-Fsdnfqna (test code = 82.0000 60.0000-2 00.0000 eGFR Igl-Tauoawv-Mkmjtjbl) [id number] 10:14:00 Test Item Value Reference Range Comments WBC (test code = WBC) 6.6000 4.0000-10.0000 Lymphocytes % (test code = Lymphocytes %) 23.6000 % 22.400 0-43.6000 MID% (test code = MID%) 6.4000 % 1.1999-.1999 Neutrophils % (test code = Neutrophils %) 70.0000 % 48.900 0-69.9000 Lymphocytes (test code = Lymphocytes) 1.5000 1.2000-3.2 000 MID (test code = MID) 0.5000 0.1000-1.1000 Neutrophils (test code = Neutrophils) 4.6000 1.5000-6.7 000 RBC (test code = RBC) 4.2500 3.7000-4.9000 HGB (test code = HGB) 12.6000 g/dL 11.2000-18.0000 HCT (test code = HCT) 37.6000 % 34.0000-44.0000 MCV (test code = MCV) 88.4000 fL 80.0000-94.0000 MCH (test code = MCH) 29.8000 pg 27.0000-34.0000 MCHC (test code = MCHC) 33.6000 g/dL 31.5000-36.0000 RDW (test code = RDW) 14.7000 11.0000-18.0000 PLT (test code = PLT) 225.0000 140.0000-440.0000 MPV (test code = MPV) 7.9000 fL 6.8000-10.6000 [id number] 10:07:00 Test Item Value Reference Range Comments WBC (test code = WBC) 5.8000 4.0000-10.0000 Lymphocytes % (test code = Lymphocytes %) 32.2000 % 22.400 0-43.6000 MID% (test code = MID%) 6.2000 % .1999- Neutrophils % (test code = Neutrophils %) 61.6000 % 48.900 0-69.9000 Lymphocytes (test code = Lymphocytes) 1.8000 1.2000-3.2 000 MID (test code = MID) 0.4000 0.1000-1.1000 Neutrophils (test code = Neutrophils) 3.6000 1.5000-6.7 000 RBC (test code = RBC) 4.3000 3.7000-4.9000 HGB (test code = HGB) 12.8000 g/dL 11.2000-18.0000 HCT (test code = HCT) 39.0000 % 34.0000-44.0000 MCV (test code = MCV) 90.7000 fL 80.0000-94.0000 MCH (test code = MCH) 29.8000 pg 27.0000-34.0000 MCHC (test code = MCHC) 32.8000 g/dL 31.5000-36.0000 RDW (test code = RDW) 13.9000 11.0000-18.0000 PLT (test code = PLT) 204.0000 140.0000-440.0000 MPV (test code = MPV) 8.5000 fL 6.8000-10.6000 [id number] 10:13:00 Test Item Value Reference Range Comments Creatinine (test code = Creatinine) 0.6000 mg/dL 0.5000-1.200 0 Cr Clearance (Est) (test code = Cr 132.1800 75.0000-115.0 000 Clearance (Est)) Glucose (test code = Glucose) 123.0000 mg/dL 70.0000-118.0000 BUN (test code = BUN) 13.0000 mg/dL 7.0000-22.0000 Sodium (test code = Sodium) 141.0000 mmol/L 128.0000-145.0000 Potassium (test code = Potassium) 3.5000 mmol/L 3.6000-5.1000 Chloride (test code = Chloride) 98.0000 mmol/L 96.0000-108.0000 CO2 (test code = CO2) 33.0000 mmol/L 18.0000-33.0000 Calcium (test code = Calcium) 10.1300 mg/dL 8.0000-10.3000 Alkaline Phosphatase (test code = Alkaline 109.0000 42.00 00-141.0000 Phosphatase) ALT (SGPT) (test code = ALT (SGPT)) 15.0000 10.0000-47.0 000 AST (SGOT) (test code = AST (SGOT)) 14.0000 11.0000-37.0 000 Bilirubin, Total (test code = Bilirubin, 0.4000 mg/dL 0.0000- 1.6000 Total) Albumin (test code = Albumin) 4.3000 g/dL 3.5000-5.5000 Protein, Total (test code = Protein, 6.7000 g/dL 6.4000-8.10 00 Total) eGFR -Lithuanian (test code = eGFR 119.0000 60.0000- 200.0000 -Lithuanian) eGFR Lon-Yuwvqvn-Oqylfymd (test code = 98.0000 60.0000-2 00.0000 eGFR Hqc-Gfhxnzl-Wdvvhfla) [id number] 10:12:00 Test Item Value Reference Range Comments WBC (test code = WBC) 4.4000 4.0000-10.0000 Lymphocytes % (test code = Lymphocytes %) 25.4000 % 22.400 0-43.6000 MID% (test code = MID%) 6.1000 % 1.2000-11.2000 Neutrophils % (test code = Neutrophils %) 68.5000 % 48.900 0-69.9000 Lymphocytes (test code = Lymphocytes) 1.1000 1.2000-3.2 000 MID (test code = MID) 0.3000 0.1000-1.1000 Neutrophils (test code = Neutrophils) 3.0000 1.5000-6.7 000 RBC (test code = RBC) 4.1900 3.7000-4.9000 HGB (test code = HGB) 12.6000 g/dL 11.2000-18.0000 HCT (test code = HCT) 38.2000 % 34.0000-44.0000 MCV (test code = MCV) 91.0000 fL 80.0000-94.0000 MCH (test code = MCH) 30.1000 pg 27.0000-34.0000 MCHC (test code = MCHC) 33.0000 g/dL 31.5000-36.0000 RDW (test code = RDW) 14.0000 11.0000-18.0000 PLT (test code = PLT) 228.0000 140.0000-440.0000 MPV (test code = MPV) 8.0000 fL 6.8000-10.6000 [id number] 10:25:00 Test Item Value Reference Range Comments WBC (test code = WBC) 6.3000 4.0000-10.0000 Lymphocytes % (test code = Lymphocytes %) 25.6000 % 22.400 0-43.6000 MID% (test code = MID%) 5.4000 % 1.2000-11.1999 Neutrophils % (test code = Neutrophils %) 69.0000 % 48.900 0-69.9000 Lymphocytes (test code = Lymphocytes) 1.6000 1.2000-3.2 000 MID (test code = MID) 0.4000 0.1000-1.1000 Neutrophils (test code = Neutrophils) 4.3000 1.5000-6.7 000 RBC (test code = RBC) 4.1100 3.7000-4.9000 HGB (test code = HGB) 12.5000 g/dL 11.2000-18.0000 HCT (test code = HCT) 37.7000 % 34.0000-44.0000 MCV (test code = MCV) 91.6000 fL 80.0000-94.0000 MCH (test code = MCH) 30.4000 pg 27.0000-34.0000 MCHC (test code = MCHC) 33.2000 g/dL 31.5000-36.0000 RDW (test code = RDW) 13.8000 11.0000-18.0000 PLT (test code = PLT) 245.0000 140.0000-440.0000 MPV (test code = MPV) 7.7000 fL 6.8000-10.6000 [id number] 10:25:00 Test Item Value Reference Range Comments WBC (test code = WBC) 5.4000 4.0000-10.0000 Lymphocytes % (test code = Lymphocytes %) 26.1000 % 22.400 0-43.6000 MID% (test code = MID%) 4.8000 % 1.2000-11.1999 Neutrophils % (test code = Neutrophils %) 69.1000 % 48.900 0-69.9000 Lymphocytes (test code = Lymphocytes) 1.4000 1.2000-3.2 000 MID (test code = MID) 0.3000 0.1000-1.1000 Neutrophils (test code = Neutrophils) 3.7000 1.5000-6.7 000 RBC (test code = RBC) 4.3300 3.7000-4.9000 HGB (test code = HGB) 13.3000 g/dL 11.2000-18.0000 HCT (test code = HCT) 40.7000 % 34.0000-44.0000 MCV (test code = MCV) 93.9000 fL 80.0000-94.0000 MCH (test code = MCH) 30.8000 pg 27.0000-34.0000 MCHC (test code = MCHC) 32.8000 g/dL 31.5000-36.0000 RDW (test code = RDW) 15.2000 11.0000-18.0000 PLT (test code = PLT) 223.0000 140.0000-440.0000 MPV (test code = MPV) 8.3000 fL 6.8000-10.6000 [id number] 10:04:00 Test Item Value Reference Range Comments WBC (test code = WBC) 5.7000 4.0000-10.0000 Lymphocytes % (test code = Lymphocytes %) 26.1000 % 22.400 0-43.6000 MID% (test code = MID%) 7.1000 % 1.2000-11.2000 Neutrophils % (test code = Neutrophils %) 66.8000 % 48.900 0-69.9000 Lymphocytes (test code = Lymphocytes) 1.5000 1.2000-3.2 000 MID (test code = MID) 0.4000 0.1000-1.1000 Neutrophils (test code = Neutrophils) 3.8000 1.5000-6.7 000 RBC (test code = RBC) 4.8200 3.7000-4.9000 HGB (test code = HGB) 14.9000 g/dL 11.2000-18.0000 HCT (test code = HCT) 44.3000 % 34.0000-44.0000 MCV (test code = MCV) 91.8000 fL 80.0000-94.0000 MCH (test code = MCH) 30.8000 pg 27.0000-34.0000 MCHC (test code = MCHC) 33.6000 g/dL 31.5000-36.0000 RDW (test code = RDW) 16.5000 11.0000-18.0000 PLT (test code = PLT) 193.0000 140.0000-440.0000 MPV (test code = MPV) 8.2000 fL 6.8000-10.6000 [id number] 10:46:00 Test Item Value Reference Range Comments WBC (test code = WBC) 5.4000 4.0000-10.0000 Lymphocytes % (test code = Lymphocytes %) 27.1000 % 22.400 0-43.6000 MID% (test code = MID%) 7.0000 % 1.2000-11.2000 Neutrophils % (test code = Neutrophils %) 65.9000 % 48.900 0-69.9000 Lymphocytes (test code = Lymphocytes) 1.4000 1.2000-3.2 000 MID (test code = MID) 0.5000 0.1000-1.1000 Neutrophils (test code = Neutrophils) 3.5000 1.5000-6.7 000 RBC (test code = RBC) 4.5500 3.7000-4.9000 HGB (test code = HGB) 13.2000 g/dL 11.2000-18.0000 HCT (test code = HCT) 40.6000 % 34.0000-44.0000 MCV (test code = MCV) 89.1000 fL 80.0000-94.0000 MCH (test code = MCH) 29.0000 pg 27.0000-34.0000 MCHC (test code = MCHC) 32.5000 g/dL 31.5000-36.0000 RDW (test code = RDW) 19.1000 11.0000-18.0000 PLT (test code = PLT) 153.0000 140.0000-440.0000 MPV (test code = MPV) 8.3000 fL 6.8000-10.6000 [id number] 11:47:00 Test Item Value Reference Range Comments Creatinine (test code = Creatinine) 0.6100 mg/dL 0.5700-1.000 0 Cr Clearance (Est) (test code = Cr 129.9900 75.0000-115.0 000 Clearance (Est)) Glucose (test code = Glucose) 89.0000 mg/dL 65.0000-99.0000 BUN (test code = BUN) 10.0000 mg/dL 8.0000-27.0000 eGFR Jqd-Ewserzt-Reeubhfm (test code = 92.0000 eGFR Etr-Uomnmdc-Lqgyjavd) eGFR -Lithuanian (test code = eGFR 105.0000 -Lithuanian) BUN/Creat Ratio (test code = BUN/Creat 16.0000 12.0000-2 8.0000 Ratio) Sodium (test code = Sodium) 144.0000 mmol/L 134.0000-144.0000 Potassium (test code = Potassium) 4.3000 mmol/L 3.5000-5.2000 Chloride (test code = Chloride) 100.0000 mmol/L 96.0000-106.0000 CO2 (test code = CO2) 25.0000 mmol/L 20.0000-29.0000 Calcium (test code = Calcium) 10.1000 mg/dL 8.7000-10.3000 Protein, Total (test code = Protein, 6.5000 g/dL 6.0000-8.50 00 Total) Albumin (test code = Albumin) 4.4000 g/dL 3.5000-4.8000 Globulin (test code = Globulin) 2.1000 g/dL 1.5000-4.5000 A/G Ratio (test code = A/G Ratio) 2.1000 1.2000-2.1999 Bilirubin, Total (test code = Bilirubin, 0.3000 mg/dL 0.0000- 1.2000 Total) Alkaline Phosphatase (test code = 119.0000 39.0000-117.00 00 Alkaline Phosphatase) AST (SGOT) (test code = AST (SGOT)) 28.0000 0.0000-40.00 00 ALT (SGPT) (test code = ALT (SGPT)) 34.0000 0.0000-32.00 00 Iron, Total (test code = Iron, Total) 62.0000 27.0000-13 9.0000 TIBC (test code = TIBC) 389.0000 250.0000-450.0000 UIBC (test code = UIBC) 327.0000 118.0000-369.0000 % Iron Saturation (test code = % Iron 16.0000 % 15.0000-55 .0000 Saturation) Vitamin B12 (test code = Vitamin B12) 790.0000 pg/mL 232.0000-1 245.0000 Folate (test code = Folate) 6.8000 ng/mL Ferritin (test code = Ferritin) 36.0000 ng/mL 15.0000-150.0000 [id number] 10:51:00 Test Item Value Reference Range Comments WBC (test code = WBC) 5.4000 4.0000-10.0000 Lymphocytes % (test code = Lymphocytes %) 23.6000 % 22.400 0-43.6000 MID% (test code = MID%) 5.8000 % 1.2000-11.1999 Neutrophils % (test code = Neutrophils %) 70.6000 % 48.900 0-69.9000 Lymphocytes (test code = Lymphocytes) 1.2000 1.2000-3.2 000 MID (test code = MID) 0.4000 0.1000-1.1000 Neutrophils (test code = Neutrophils) 3.8000 1.5000-6.7 000 RBC (test code = RBC) 4.4900 3.7000-4.9000 HGB (test code = HGB) 13.5000 g/dL 11.2000-18.0000 HCT (test code = HCT) 38.4000 % 34.0000-44.0000 MCV (test code = MCV) 85.6000 fL 80.0000-94.0000 MCH (test code = MCH) 30.2000 pg 27.0000-34.0000 MCHC (test code = MCHC) 35.2000 g/dL 31.5000-36.0000 RDW (test code = RDW) 20.9000 11.0000-18.0000 PLT (test code = PLT) 199.0000 140.0000-440.0000 MPV (test code = MPV) 7.4000 fL 6.8000-10.6000 [id number] 10:25:00 Test Item Value Reference Range Comments WBC (test code = WBC) 5.3000 4.0000-10.0000 Lymphocytes % (test code = Lymphocytes %) 27.8000 % 22.400 0-43.6000 MID% (test code = MID%) 8.1000 % 1.2000-11.2000 Neutrophils % (test code = Neutrophils %) 64.1000 % 48.900 0-69.9000 Lymphocytes (test code = Lymphocytes) 1.5000 1.2000-3.2 000 MID (test code = MID) 0.4000 0.1000-1.1000 Neutrophils (test code = Neutrophils) 3.4000 1.5000-6.7 000 RBC (test code = RBC) 4.8700 3.7000-4.9000 HGB (test code = HGB) 13.1000 g/dL 11.2000-18.0000 HCT (test code = HCT) 39.2000 % 34.0000-44.0000 MCV (test code = MCV) 80.5000 fL 80.0000-94.0000 MCH (test code = MCH) 26.9000 pg 27.0000-34.0000 MCHC (test code = MCHC) 33.3000 g/dL 31.5000-36.0000 RDW (test code = RDW) 22.7000 11.0000-18.0000 PLT (test code = PLT) 183.0000 140.0000-440.0000 MPV (test code = MPV) 8.2000 fL 6.8000-10.6000 [id number] 11:26:00 Test Item Value Reference Range Comments Creatinine (test code = Creatinine) 0.6000 mg/dL 0.5700-1.000 0 Cr Clearance (Est) (test code = Cr 131.7900 75.0000-115.0 000 Clearance (Est)) Glucose (test code = Glucose) 101.0000 mg/dL 65.0000-99.0000 BUN (test code = BUN) 10.0000 mg/dL 8.0000-27.0000 eGFR Bxj-Rkretnz-Bkvlwyey (test code = 92.0000 eGFR Rhm-Gdywamc-Juzuvqae) eGFR -Lithuanian (test code = eGFR 106.0000 -Lithuanian) BUN/Creat Ratio (test code = BUN/Creat 17.0000 12.0000-2 8.0000 Ratio) Sodium (test code = Sodium) 140.0000 mmol/L 134.0000-144.0000 Potassium (test code = Potassium) 3.9000 mmol/L 3.5000-5.2000 Chloride (test code = Chloride) 96.0000 mmol/L 96.0000-106.0000 CO2 (test code = CO2) 30.0000 mmol/L 20.0000-29.0000 Calcium (test code = Calcium) 9.7000 mg/dL 8.7000-10.3000 Protein, Total (test code = Protein, 6.7000 g/dL 6.0000-8.50 00 Total) Albumin (test code = Albumin) 4.3000 g/dL 3.5000-4.8000 Globulin (test code = Globulin) 2.4000 g/dL 1.5000-4.5000 A/G Ratio (test code = A/G Ratio) 1.8000 1.2000-2.2000 Bilirubin, Total (test code = Bilirubin, 0.2000 mg/dL 0.0000- 1.2000 Total) Alkaline Phosphatase (test code = 121.0000 39.0000-117.00 00 Alkaline Phosphatase) AST (SGOT) (test code = AST (SGOT)) 15.0000 0.0000-40.00 00 ALT (SGPT) (test code = ALT (SGPT)) 16.0000 0.0000-32.00 00 Iron, Total (test code = Iron, Total) 28.0000 27.0000-13 9.0000 TIBC (test code = TIBC) 499.0000 250.0000-450.0000 UIBC (test code = UIBC) 471.0000 118.0000-369.0000 % Iron Saturation (test code = % Iron 6.0000 % 15.0000-55 .0000 Saturation) Vitamin B12 (test code = Vitamin B12) 708.0000 pg/mL 232.0000-1 245.0000 Folate (test code = Folate) 5.3000 ng/mL Ferritin (test code = Ferritin) 5.0000 ng/mL 15.0000-150.0000 [id number] 10:28:00 Test Item Value Reference Range Comments WBC (test code = WBC) 5.4000 4.0000-10.0000 Lymphocytes % (test code = Lymphocytes %) 18.0000 % 22.400 0-43.6000 MID% (test code = MID%) 6.0000 % 1.2000-11.2000 Neutrophils % (test code = Neutrophils %) 76.0000 % 48.900 0-69.9000 Lymphocytes (test code = Lymphocytes) 0.9000 1.2000-3.2 000 MID (test code = MID) 0.4000 0.1000-1.1000 Neutrophils (test code = Neutrophils) 4.1000 1.5000-6.7 000 RBC (test code = RBC) 4.3900 3.7000-4.9000 HGB (test code = HGB) 11.1000 g/dL 11.2000-18.0000 HCT (test code = HCT) 32.2000 % 34.0000-44.0000 MCV (test code = MCV) 73.2000 fL 80.0000-94.0000 MCH (test code = MCH) 25.4000 pg 27.0000-34.0000 MCHC (test code = MCHC) 34.7000 g/dL 31.5000-36.0000 RDW (test code = RDW) 16.4000 11.0000-18.0000 PLT (test code = PLT) 222.0000 140.0000-440.0000 MPV (test code = MPV) 7.0000 fL 6.8000-10.6000 [id number] 13:13:00 Test Item Value Reference Range Comments WBC (test code = WBC) 4.3000 4.0000-10.0000 Lymphocytes % (test code = Lymphocytes %) 29.7000 % 22.400 0-43.6000 MID% (test code = MID%) 7.5000 % 1.2000-11.2000 Neutrophils % (test code = Neutrophils %) 62.8000 % 48.900 0-69.9000 Lymphocytes (test code = Lymphocytes) 1.3000 1.2000-3.2 000 MID (test code = MID) 0.3000 0.1000-1.1000 Neutrophils (test code = Neutrophils) 2.7000 1.5000-6.7 000 RBC (test code = RBC) 3.9900 3.7000-4.9000 HGB (test code = HGB) 9.5000 g/dL 11.2000-18.0000 HCT (test code = HCT) 29.0000 % 34.0000-44.0000 MCV (test code = MCV) 72.6000 fL 80.0000-94.0000 MCH (test code = MCH) 23.8000 pg 27.0000-34.0000 MCHC (test code = MCHC) 32.8000 g/dL 31.5000-36.0000 RDW (test code = RDW) 15.1000 11.0000-18.0000 PLT (test code = PLT) 102.0000 140.0000-440.0000 MPV (test code = MPV) 8.7000 fL 6.8000-10.6000 [id number] 09:45:00 Test Item Value Reference Range Comments WBC (test code = WBC) 6.4000 4.0000-10.0000 Lymphocytes % (test code = Lymphocytes %) 26.0000 % 22.400 0-43.6000 MID% (test code = MID%) 6.7000 % 1.2000-11.1999 Neutrophils % (test code = Neutrophils %) 67.3000 % 48.900 0-69.9000 Lymphocytes (test code = Lymphocytes) 1.6000 1.2000-3.2 000 MID (test code = MID) 0.5000 0.1000-1.1000 Neutrophils (test code = Neutrophils) 4.3000 1.5000-6.7 000 RBC (test code = RBC) 4.2900 3.7000-4.9000 HGB (test code = HGB) 10.6000 g/dL 11.2000-18.0000 HCT (test code = HCT) 31.5000 % 34.0000-44.0000 MCV (test code = MCV) 73.5000 fL 80.0000-94.0000 MCH (test code = MCH) 24.7000 pg 27.0000-34.0000 MCHC (test code = MCHC) 33.6000 g/dL 31.5000-36.0000 RDW (test code = RDW) 15.5000 11.0000-18.0000 PLT (test code = PLT) 225.0000 140.0000-440.0000 MPV (test code = MPV) 8.1999 fL 6.8000-10.6000 [id number] 10:33:00 Test Item Value Reference Range Comments WBC (test code = WBC) 6.6000 4.0000-10.0000 Lymphocytes % (test code = Lymphocytes %) 25.3000 % 22.400 0-43.6000 MID% (test code = MID%) 5.6000 % .1999- Neutrophils % (test code = Neutrophils %) 69.1000 % 48.900 0-69.9000 Lymphocytes (test code = Lymphocytes) 1.6000 1.2000-3.2 000 MID (test code = MID) 0.5000 0.1000-1.1000 Neutrophils (test code = Neutrophils) 4.5000 1.5000-6.7 000 RBC (test code = RBC) 4.6300 3.7000-4.9000 HGB (test code = HGB) 11.8000 g/dL 11.2000-18.0000 HCT (test code = HCT) 35.9000 % 34.0000-44.0000 MCV (test code = MCV) 77.5000 fL 80.0000-94.0000 MCH (test code = MCH) 25.4000 pg 27.0000-34.0000 MCHC (test code = MCHC) 32.8000 g/dL 31.5000-36.0000 RDW (test code = RDW) 15.3000 11.0000-18.0000 PLT (test code = PLT) 239.0000 140.0000-440.0000 MPV (test code = MPV) fL 6.8000-10.6000 [id number] 10:59:00 Test Item Value Reference Range Comments WBC (test code = WBC) 6.5000 4.0000-10.0000 Lymphocytes % (test code = Lymphocytes %) 22.8000 % 22.400 0-43.6000 MID% (test code = MID%) 6.5000 % 1.2000-11.1999 Neutrophils % (test code = Neutrophils %) 70.7000 % 48.900 0-69.9000 Lymphocytes (test code = Lymphocytes) 1.4000 1.2000-3.2 000 MID (test code = MID) 0.5000 0.1000-1.1000 Neutrophils (test code = Neutrophils) 4.6000 1.5000-6.7 000 RBC (test code = RBC) 4.0500 3.7000-4.9000 HGB (test code = HGB) 13.0000 g/dL 11.2000-18.0000 HCT (test code = HCT) 32.9000 % 34.0000-44.0000 MCV (test code = MCV) 81.0000 fL 80.0000-94.0000 MCH (test code = MCH) 32.0000 pg 27.0000-34.0000 MCHC (test code = MCHC) 39.5000 g/dL 31.5000-36.0000 RDW (test code = RDW) 14.7000 11.0000-18.0000 PLT (test code = PLT) 246.0000 140.0000-440.0000 MPV (test code = MPV) 8.1000 fL 6.8000-10.6000 [id number] 10:59:00 Test Item Value Reference Range Comments Creatinine (test code = Creatinine) 0.7000 mg/dL 0.5000-1.200 0 Cr Clearance (Est) (test code = Cr 114.2300 75.0000-115.0 000 Clearance (Est)) Glucose (test code = Glucose) 165.0000 mg/dL 70.0000-118.0000 BUN (test code = BUN) 10.0000 mg/dL 7.0000-22.0000 Sodium (test code = Sodium) 141.0000 mmol/L 128.0000-145.0000 Potassium (test code = Potassium) 3.4000 mmol/L 3.6000-5.1000 Chloride (test code = Chloride) 98.0000 mmol/L 96.0000-108.0000 CO2 (test code = CO2) 33.0000 mmol/L 18.0000-33.0000 Calcium (test code = Calcium) 9.4100 mg/dL 8.0000-10.3000 Alkaline Phosphatase (test code = Alkaline 104.0000 42.00 00-141.0000 Phosphatase) ALT (SGPT) (test code = ALT (SGPT)) 16.0000 10.0000-47.0 000 AST (SGOT) (test code = AST (SGOT)) 16.0000 11.0000-37.0 000 Bilirubin, Total (test code = Bilirubin, 0.4000 mg/dL 0.0000- 1.6000 Total) Albumin (test code = Albumin) 4.3000 g/dL 3.5000-5.5000 Protein, Total (test code = Protein, 6.5000 g/dL 6.4000-8.10 00 Total) eGFR -Lithuanian (test code = eGFR 100.0000 60.0000- 200.0000 -Lithuanian) eGFR Eoi-Urqzavk-Qsjsogaa (test code = 82.0000 60.0000-2 00.0000 eGFR San-Lmerozb-Nwengmri) [id number] 10:39:00 Test Item Value Reference Range Comments WBC (test code = WBC) 6.8000 4.0000-10.0000 Lymphocytes % (test code = Lymphocytes %) 33.4000 % 22.400 0-43.6000 MID% (test code = MID%) 6.8000 % 1.2000-11.2000 Neutrophils % (test code = Neutrophils %) 59.8000 % 48.900 0-69.9000 Lymphocytes (test code = Lymphocytes) 2.2000 1.2000-3.2 000 MID (test code = MID) 0.5000 0.1000-1.1000 Neutrophils (test code = Neutrophils) 4.1000 1.5000-6.7 000 RBC (test code = RBC) 4.4100 3.7000-4.9000 HGB (test code = HGB) 12.4000 g/dL 11.2000-18.0000 HCT (test code = HCT) 36.6000 % 34.0000-44.0000 MCV (test code = MCV) 82.8000 fL 80.0000-94.0000 MCH (test code = MCH) 28.2000 pg 27.0000-34.0000 MCHC (test code = MCHC) 34.1000 g/dL 31.5000-36.0000 RDW (test code = RDW) 14.5000 11.0000-18.0000 PLT (test code = PLT) 208.0000 140.0000-440.0000 MPV (test code = MPV) 8.9000 fL 6.8000-10.6000 [id number] 10:18:00 Test Item Value Reference Range Comments WBC (test code = WBC) 5.8000 4.0000-10.0000 Lymphocytes % (test code = Lymphocytes %) 26.1000 % 22.400 0-43.6000 MID% (test code = MID%) 6.3000 % 1.2000-11.2000 Neutrophils % (test code = Neutrophils %) 67.6000 % 48.900 0-69.9000 Lymphocytes (test code = Lymphocytes) 1.5000 1.2000-3.2 000 MID (test code = MID) 0.4000 0.1000-1.1000 Neutrophils (test code = Neutrophils) 3.9000 1.5000-6.7 000 RBC (test code = RBC) 4.6300 3.7000-4.9000 HGB (test code = HGB) 12.8000 g/dL 11.2000-18.0000 HCT (test code = HCT) 39.2000 % 34.0000-44.0000 MCV (test code = MCV) 84.6000 fL 80.0000-94.0000 MCH (test code = MCH) 27.6000 pg 27.0000-34.0000 MCHC (test code = MCHC) 32.6000 g/dL 31.5000-36.0000 RDW (test code = RDW) 15.5000 11.0000-18.0000 PLT (test code = PLT) 210.0000 140.0000-440.0000 MPV (test code = MPV) 8.6000 fL 6.8000-10.6000 CBC (INCLUDES DIFF/PLT)[id number] 10:41:00 Test Item Value Reference Range Comments ABSOLUTE MONOCYTES (test code = 15257017) 409 cells/uL 200-95 0 ABSOLUTE LYMPHOCYTES (test code = 12119009) 1587 cells/uL 850- 3900 HEMOGLOBIN (test code = 76384207) 13.2 g/dL 11.7-15.5 RED BLOOD CELL COUNT (test code = 80353612) 4.75 Million/uL 3.80 -5.10 MCV (test code = 68169035) 85.3 fL 80.0-100.0 LYMPHOCYTES (test code = 92786014) 25.6 % BASOPHILS (test code = 41326611) 0.5 % NEUTROPHILS (test code = 00500153) 65.4 % HEMATOCRIT (test code = 97706261) 40.5 % 35.0-45.0 ABSOLUTE BASOPHILS (test code = 67252138) 31 cells/uL 0-200 MPV (test code = 82328894) 11.2 fL 7.5-12.5 ABSOLUTE EOSINOPHILS (test code = 82990563) 118 cells/uL 15-5 00 WHITE BLOOD CELL COUNT (test code = 6.2 Thousand/uL 3.8-10.8 [id number]) MONOCYTES (test code = 80934409) 6.6 % PLATELET COUNT (test code = 13231718) 257 Thousand/uL 140-400 MCHC (test code = 77490024) 32.6 g/dL 32.0-36.0 EOSINOPHILS (test code = 94099515) 1.9 % MCH (test code = 65477976) 27.8 pg 27.0-33.0 ABSOLUTE NEUTROPHILS (test code = 62047449) 4055 cells/uL 1500 -7800 RDW (test code = 70258376) 15.0 % 11.0-15.0 [id number] 10:38:00 Test Item Value Reference Range Comments WBC (test code = WBC) 6.1000 4.0000-10.0000 Lymphocytes % (test code = Lymphocytes %) 29.0000 % 22.400 0-43.6000 MID% (test code = MID%) 7.3000 % 1.2000-11.2000 Neutrophils % (test code = Neutrophils %) 63.7000 % 48.900 0-69.9000 Lymphocytes (test code = Lymphocytes) 1.7000 1.2000-3.2 000 MID (test code = MID) 0.6000 0.1000-1.1000 Neutrophils (test code = Neutrophils) 3.8000 1.5000-6.7 000 RBC (test code = RBC) 4.7000 3.7000-4.9000 HGB (test code = HGB) 12.8000 g/dL 11.2000-18.0000 HCT (test code = HCT) 40.7000 % 34.0000-44.0000 MCV (test code = MCV) 86.7000 fL 80.0000-94.0000 MCH (test code = MCH) 27.4000 pg 27.0000-34.0000 MCHC (test code = MCHC) 31.6000 g/dL 31.5000-36.0000 RDW (test code = RDW) 15.7000 11.0000-18.0000 PLT (test code = PLT) 214.0000 140.0000-440.0000 MPV (test code = MPV) 9.1000 fL 6.8000-10.6000 [id number] 10:41:00 Test Item Value Reference Range Comments WBC (test code = WBC) 5.7000 4.0000-10.0000 Lymphocytes % (test code = Lymphocytes %) 26.7000 % 22.400 0-43.6000 MID% (test code = MID%) 4.9000 % .1999- Neutrophils % (test code = Neutrophils %) 68.4000 % 48.900 0-69.9000 Lymphocytes (test code = Lymphocytes) 1.5000 1.2000-3.2 000 MID (test code = MID) 0.3000 0.1000-1.1000 Neutrophils (test code = Neutrophils) 3.9000 1.5000-6.7 000 RBC (test code = RBC) 4.8600 3.7000-4.9000 HGB (test code = HGB) 13.4000 g/dL 11.2000-18.0000 HCT (test code = HCT) 41.1000 % 34.0000-44.0000 MCV (test code = MCV) 84.5000 fL 80.0000-94.0000 MCH (test code = MCH) 27.6000 pg 27.0000-34.0000 MCHC (test code = MCHC) 32.6000 g/dL 31.5000-36.0000 RDW (test code = RDW) 15.0000 11.0000-18.0000 PLT (test code = PLT) 186.0000 140.0000-440.0000 MPV (test code = MPV) 9.3000 fL 6.8000-10.6000 [id number] 10:42:00 Test Item Value Reference Range Comments WBC (test code = WBC) 5.7000 4.0000-10.0000 Lymphocytes % (test code = Lymphocytes %) 36.8000 % 22.400 0-43.6000 MID% (test code = MID%) 6.5000 % .1999- Neutrophils % (test code = Neutrophils %) 56.7000 % 48.900 0-69.9000 Lymphocytes (test code = Lymphocytes) 2.1000 1.2000-3.2 000 MID (test code = MID) 0.4000 0.1000-1.1000 Neutrophils (test code = Neutrophils) 3.2000 1.5000-6.7 000 RBC (test code = RBC) 4.8500 3.7000-4.9000 HGB (test code = HGB) 14.0000 g/dL 11.2000-18.0000 HCT (test code = HCT) 41.9000 % 34.0000-44.0000 MCV (test code = MCV) 86.4000 fL 80.0000-94.0000 MCH (test code = MCH) 28.9000 pg 27.0000-34.0000 MCHC (test code = MCHC) 33.4000 g/dL 31.5000-36.0000 RDW (test code = RDW) 17.1000 11.0000-18.0000 PLT (test code = PLT) 188.0000 140.0000-440.0000 MPV (test code = MPV) 8.9000 fL 6.8000-10.6000 [id number] 11:00:00 Test Item Value Reference Range Comments WBC (test code = WBC) 4.4000 4.0000-10.0000 Lymphocytes % (test code = Lymphocytes %) 32.9000 % 22.400 0-43.6000 MID% (test code = MID%) 7.3000 % 1.2000-11.2000 Neutrophils % (test code = Neutrophils %) 59.8000 % 48.900 0-69.9000 Lymphocytes (test code = Lymphocytes) 1.4000 1.2000-3.2 000 MID (test code = MID) 0.4000 0.1000-1.1000 Neutrophils (test code = Neutrophils) 2.6000 1.5000-6.7 000 RBC (test code = RBC) 3.9800 3.7000-4.9000 HGB (test code = HGB) 12.9000 g/dL 11.2000-18.0000 HCT (test code = HCT) 35.0000 % 34.0000-44.0000 MCV (test code = MCV) 87.9000 fL 80.0000-94.0000 MCH (test code = MCH) 32.5000 pg 27.0000-34.0000 MCHC (test code = MCHC) 37.0000 g/dL 31.5000-36.0000 RDW (test code = RDW) 14.6000 11.0000-18.0000 PLT (test code = PLT) 208.0000 140.0000-440.0000 MPV (test code = MPV) 8.2000 fL 6.8000-10.6000 [id number] 11:00:00 Test Item Value Reference Range Comments Creatinine (test code = Creatinine) 0.6000 mg/dL 0.5000-1.200 0 Cr Clearance (Est) (test code = Cr 134.3200 75.0000-115.0 000 Clearance (Est)) Glucose (test code = Glucose) 112.0000 mg/dL 70.0000-118.0000 BUN (test code = BUN) 8.0000 mg/dL 7.0000-22.0000 Sodium (test code = Sodium) 136.0000 mmol/L 128.0000-145.0000 Potassium (test code = Potassium) 3.3000 mmol/L 3.6000-5.1000 Chloride (test code = Chloride) 100.0000 mmol/L 96.0000-108.0000 CO2 (test code = CO2) 32.0000 mmol/L 18.0000-33.0000 Calcium (test code = Calcium) 9.9100 mg/dL 8.0000-10.3000 Alkaline Phosphatase (test code = Alkaline 94.0000 42.00 00-141.0000 Phosphatase) ALT (SGPT) (test code = ALT (SGPT)) 26.0000 10.0000-47.0 000 AST (SGOT) (test code = AST (SGOT)) 19.0000 11.0000-37.0 000 Bilirubin, Total (test code = Bilirubin, 0.3000 mg/dL 0.0000- 1.6000 Total) Albumin (test code = Albumin) 4.3000 g/dL 3.5000-5.5000 Protein, Total (test code = Protein, 6.5000 g/dL 6.4000-8.10 00 Total) eGFR -Lithuanian (test code = eGFR 120.0000 60.0000- 200.0000 -Lithuanian) eGFR Jmc-Csdvvfv-Psambsor (test code = 99.0000 60.0000-2 00.0000 eGFR Kia-Hnqbjac-Iexlkbim) [id number] 09:47:00 Test Item Value Reference Range Comments WBC (test code = WBC) 5.7000 4.0000-10.0000 Lymphocytes % (test code = Lymphocytes %) 29.0000 % 22.400 0-43.6000 MID% (test code = MID%) 6.9000 % 1.2000-11.2000 Neutrophils % (test code = Neutrophils %) 64.1000 % 48.900 0-69.9000 Lymphocytes (test code = Lymphocytes) 1.6000 1.2000-3.2 000 MID (test code = MID) 0.4000 0.1000-1.1000 Neutrophils (test code = Neutrophils) 3.7000 1.5000-6.7 000 RBC (test code = RBC) 4.3600 3.7000-4.9000 HGB (test code = HGB) 12.7000 g/dL 11.2000-18.0000 HCT (test code = HCT) 39.1000 % 34.0000-44.0000 MCV (test code = MCV) 89.5000 fL 80.0000-94.0000 MCH (test code = MCH) 29.2000 pg 27.0000-34.0000 MCHC (test code = MCHC) 32.6000 g/dL 31.5000-36.0000 RDW (test code = RDW) 14.9000 11.0000-18.0000 PLT (test code = PLT) 208.0000 140.0000-440.0000 MPV (test code = MPV) 8.4000 fL 6.8000-10.6000 [id number] 10:53:00 Test Item Value Reference Range Comments WBC (test code = WBC) 6.2000 4.0000-10.0000 Lymphocytes % (test code = Lymphocytes %) 30.1000 % 22.400 0-43.6000 MID% (test code = MID%) 7.2000 % 1.2000-11.2000 Neutrophils % (test code = Neutrophils %) 62.7000 % 48.900 0-69.9000 Lymphocytes (test code = Lymphocytes) 1.8000 1.2000-3.2 000 MID (test code = MID) 0.5000 0.1000-1.1000 Neutrophils (test code = Neutrophils) 3.9000 1.5000-6.7 000 RBC (test code = RBC) 4.3600 3.7000-4.9000 HGB (test code = HGB) 12.7000 g/dL 11.2000-18.0000 HCT (test code = HCT) 39.6000 % 34.0000-44.0000 MCV (test code = MCV) 90.8000 fL 80.0000-94.0000 MCH (test code = MCH) 29.1000 pg 27.0000-34.0000 MCHC (test code = MCHC) 32.1000 g/dL 31.5000-36.0000 RDW (test code = RDW) 15.3000 11.0000-18.0000 PLT (test code = PLT) 219.0000 140.0000-440.0000 MPV (test code = MPV) 8.9000 fL 6.8000-10.6000 [id number] 11:10:00 Test Item Value Reference Range Comments WBC (test code = WBC) 5.8000 4.0000-10.0000 Lymphocytes % (test code = Lymphocytes %) 34.6000 % 22.400 0-43.6000 MID% (test code = MID%) 7.9000 % 1.2000-11.1999 Neutrophils % (test code = Neutrophils %) 57.5000 % 48.900 0-69.9000 Lymphocytes (test code = Lymphocytes) 2.0000 1.2000-3.2 000 MID (test code = MID) 0.5000 0.1000-1.1000 Neutrophils (test code = Neutrophils) 3.3000 1.5000-6.7 000 RBC (test code = RBC) 4.5600 3.7000-4.9000 HGB (test code = HGB) 13.5000 g/dL 11.2000-18.0000 HCT (test code = HCT) 41.5000 % 34.0000-44.0000 MCV (test code = MCV) 90.8000 fL 80.0000-94.0000 MCH (test code = MCH) 29.7000 pg 27.0000-34.0000 MCHC (test code = MCHC) 32.6000 g/dL 31.5000-36.0000 RDW (test code = RDW) 14.9000 11.0000-18.0000 PLT (test code = PLT) 175.0000 140.0000-440.0000 MPV (test code = MPV) 9.0000 fL 6.8000-10.6000 [id number] 11:28:00 Test Item Value Reference Range Comments WBC (test code = WBC) 5.1000 4.0000-10.0000 Lymphocytes % (test code = Lymphocytes %) 27.5000 % 22.400 0-43.6000 MID% (test code = MID%) 5.2000 % 1.2000-11.1999 Neutrophils % (test code = Neutrophils %) 67.3000 % 48.900 0-69.9000 Lymphocytes (test code = Lymphocytes) 1.4000 1.2000-3.2 000 MID (test code = MID) 0.3000 0.1000-1.1000 Neutrophils (test code = Neutrophils) 3.4000 1.5000-6.7 000 RBC (test code = RBC) 4.7100 3.7000-4.9000 HGB (test code = HGB) 14.1000 g/dL 11.2000-18.0000 HCT (test code = HCT) 43.4000 % 34.0000-44.0000 MCV (test code = MCV) 92.2000 fL 80.0000-94.0000 MCH (test code = MCH) 29.9000 pg 27.0000-34.0000 MCHC (test code = MCHC) 32.4000 g/dL 31.5000-36.0000 RDW (test code = RDW) 14.7000 11.0000-18.0000 PLT (test code = PLT) 201.0000 140.0000-440.0000 MPV (test code = MPV) 8.6000 fL 6.8000-10.6000 [id number] 11:24:00 Test Item Value Reference Range Comments WBC (test code = WBC) 5.5000 4.0000-10.0000 Lymphocytes % (test code = Lymphocytes %) 27.3000 % 22.400 0-43.6000 MID% (test code = MID%) 5.6000 % 1.2000-11.2000 Neutrophils % (test code = Neutrophils %) 67.1000 % 48.900 0-69.9000 Lymphocytes (test code = Lymphocytes) 1.5000 1.2000-3.2 000 MID (test code = MID) 0.3000 0.1000-1.1000 Neutrophils (test code = Neutrophils) 3.7000 1.5000-6.7 000 RBC (test code = RBC) 4.6800 3.7000-4.9000 HGB (test code = HGB) 14.1000 g/dL 11.2000-18.0000 HCT (test code = HCT) 43.0000 % 34.0000-44.0000 MCV (test code = MCV) 91.8000 fL 80.0000-94.0000 MCH (test code = MCH) 30.1000 pg 27.0000-34.0000 MCHC (test code = MCHC) 32.8000 g/dL 31.5000-36.0000 RDW (test code = RDW) 15.8000 11.0000-18.0000 PLT (test code = PLT) 205.0000 140.0000-440.0000 MPV (test code = MPV) 8.9000 fL 6.8000-10.6000 [id number] 14:23:00 Test Item Value Reference Range Comments Creatinine (test code = Creatinine) 0.5800 mg/dL 0.5700-1.000 0 Cr Clearance (Est) (test code = Cr 138.6900 75.0000-115.0 000 Clearance (Est)) Glucose (test code = Glucose) 96.0000 mg/dL 65.0000-99.0000 BUN (test code = BUN) 12.0000 mg/dL 8.0000-27.0000 eGFR Xhm-Qcoghya-Wughdnlf (test code = 94.0000 eGFR Juh-Iqvvwkn-Ynfndclt) eGFR -Lithuanian (test code = eGFR 108.0000 -Lithuanian) BUN/Creat Ratio (test code = BUN/Creat 21.0000 12.0000-2 8.0000 Ratio) Sodium (test code = Sodium) 143.0000 mmol/L 134.0000-144.0000 Potassium (test code = Potassium) 4.4000 mmol/L 3.5000-5.2000 Chloride (test code = Chloride) 96.0000 mmol/L 96.0000-106.0000 CO2 (test code = CO2) 29.0000 mmol/L 18.0000-29.0000 Calcium (test code = Calcium) 9.8000 mg/dL 8.7000-10.3000 Protein, Total (test code = Protein, 6.3000 g/dL 6.0000-8.50 00 Total) Albumin (test code = Albumin) 4.2000 g/dL 3.5000-4.8000 Globulin (test code = Globulin) 2.1000 g/dL 1.5000-4.5000 A/G Ratio (test code = A/G Ratio) 2.0000 1.2000-2.2000 Bilirubin, Total (test code = Bilirubin, 0.2000 mg/dL 0.0000- 1.2000 Total) Alkaline Phosphatase (test code = Alkaline 105.0000 39.00 00-117.0000 Phosphatase) AST (SGOT) (test code = AST (SGOT)) 42.0000 0.0000-40.00 00 ALT (SGPT) (test code = ALT (SGPT)) 59.0000 0.0000-32.00 00 Iron, Total (test code = Iron, Total) 66.0000 27.0000-13 9.0000 TIBC (test code = TIBC) 316.0000 250.0000-450.0000 UIBC (test code = UIBC) 250.0000 118.0000-369.0000 % Iron Saturation (test code = % Iron 21.0000 % 15.0000-55 .0000 Saturation) Vitamin B12 (test code = Vitamin B12) 523.0000 pg/mL 211.0000-9 46.0000 Folate (test code = Folate) 6.8000 ng/mL Ferritin (test code = Ferritin) 328.0000 ng/mL 15.0000-150.0000 [id number] 11:05:00 Test Item Value Reference Range Comments WBC (test code = WBC) 5.2000 4.0000-10.0000 Lymphocytes % (test code = Lymphocytes %) 30.0000 % 22.400 0-43.6000 MID% (test code = MID%) 7.1000 % 1.2000-11.2000 Neutrophils % (test code = Neutrophils %) 62.9000 % 48.900 0-69.9000 Lymphocytes (test code = Lymphocytes) 1.5000 1.2000-3.2 000 MID (test code = MID) 0.4000 0.1000-1.1000 Neutrophils (test code = Neutrophils) 3.3000 1.5000-6.7 000 RBC (test code = RBC) 4.5400 3.7000-4.9000 HGB (test code = HGB) 13.6000 g/dL 11.2000-18.0000 HCT (test code = HCT) 39.5000 % 34.0000-44.0000 MCV (test code = MCV) 87.0000 fL 80.0000-94.0000 MCH (test code = MCH) 30.1000 pg 27.0000-34.0000 MCHC (test code = MCHC) 34.6000 g/dL 31.5000-36.0000 RDW (test code = RDW) 17.5000 11.0000-18.0000 PLT (test code = PLT) 188.0000 140.0000-440.0000 MPV (test code = MPV) 7.7000 fL 6.8000-10.6000 [id number] 10:35:00 Test Item Value Reference Range Comments WBC (test code = WBC) 5.0000 4.0000-10.0000 Lymphocytes % (test code = Lymphocytes %) 28.1000 % 22.400 0-43.6000 MID% (test code = MID%) 5.7000 % 1.2000-11.2000 Neutrophils % (test code = Neutrophils %) 66.2000 % 48.900 0-69.9000 Lymphocytes (test code = Lymphocytes) 1.4000 1.2000-3.2 000 MID (test code = MID) 0.3000 0.1000-1.1000 Neutrophils (test code = Neutrophils) 3.3000 1.5000-6.7 000 RBC (test code = RBC) 4.3700 3.7000-4.9000 HGB (test code = HGB) 12.1000 g/dL 11.2000-18.0000 HCT (test code = HCT) 37.4000 % 34.0000-44.0000 MCV (test code = MCV) 85.5000 fL 80.0000-94.0000 MCH (test code = MCH) 27.6000 pg 27.0000-34.0000 MCHC (test code = MCHC) 32.3000 g/dL 31.5000-36.0000 RDW (test code = RDW) 19.8000 11.0000-18.0000 PLT (test code = PLT) 265.0000 140.0000-440.0000 MPV (test code = MPV) 8.5000 fL 6.8000-10.6000 Iron, [id number] 13:54:00 Test Item Value Reference Range Comments Iron, Total (test code = Iron, Total) 21.0000 27.0000-13 9.0000 TIBC (test code = TIBC) 517.0000 250.0000-450.0000 UIBC (test code = UIBC) 496.0000 118.0000-369.0000 % Iron Saturation (test code = % Iron 4.0000 % 15.0000-55 .0000 Saturation) Ferritin (test code = Ferritin) 4.0000 ng/mL 15.0000-150.0000 [id number] 10:27:00 Test Item Value Reference Range Comments Creatinine (test code = Creatinine) 0.6000 mg/dL 0.5000-1.200 0 Cr Clearance (Est) (test code = Cr 135.9500 75.0000-115.0 000 Clearance (Est)) Glucose (test code = Glucose) 167.0000 mg/dL 70.0000-118.0000 BUN (test code = BUN) 14.0000 mg/dL 7.0000-22.0000 Sodium (test code = Sodium) 137.0000 mmol/L 128.0000-145.0000 Potassium (test code = Potassium) 3.2000 mmol/L 3.6000-5.1000 Chloride (test code = Chloride) 102.0000 mmol/L 96.0000-108.0000 CO2 (test code = CO2) 33.0000 mmol/L 18.0000-33.0000 Calcium (test code = Calcium) 9.8300 mg/dL 8.0000-10.3000 Alkaline Phosphatase (test code = Alkaline 100.0000 42.00 00-141.0000 Phosphatase) ALT (SGPT) (test code = ALT (SGPT)) 18.0000 10.0000-47.0 000 AST (SGOT) (test code = AST (SGOT)) 16.0000 11.0000-37.0 000 Bilirubin, Total (test code = Bilirubin, 0.3000 mg/dL 0.0000- 1.6000 Total) Albumin (test code = Albumin) 4.4000 g/dL 3.5000-5.5000 Protein, Total (test code = Protein, 6.7000 g/dL 6.4000-8.10 00 Total) [id number] 10:26:00 Test Item Value Reference Range Comments WBC (test code = WBC) 5.7000 4.0000-10.0000 Lymphocytes % (test code = Lymphocytes %) 20.4000 % 22.400 0-43.6000 MID% (test code = MID%) 6.0000 % 1.2000-11.2000 Neutrophils % (test code = Neutrophils %) 73.6000 % 48.900 0-69.9000 Lymphocytes (test code = Lymphocytes) 1.1000 1.2000-3.2 000 MID (test code = MID) 0.4000 0.1000-1.1000 Neutrophils (test code = Neutrophils) 4.2000 1.5000-6.7 000 RBC (test code = RBC) 3.5100 3.7000-4.9000 HGB (test code = HGB) 10.4000 g/dL 11.2000-18.0000 HCT (test code = HCT) 28.9000 % 34.0000-44.0000 MCV (test code = MCV) 82.4000 fL 80.0000-94.0000 MCH (test code = MCH) 29.8000 pg 27.0000-34.0000 MCHC (test code = MCHC) 36.2000 g/dL 31.5000-36.0000 RDW (test code = RDW) 14.3000 11.0000-18.0000 PLT (test code = PLT) 244.0000 140.0000-440.0000 MPV (test code = MPV) 7.9000 fL 6.8000-10.6000 Iron, [id number] 14:03:00 Test Item Value Reference Range Comments Iron, Total (test code = Iron, Total) 48.0000 27.0000-13 9.0000 TIBC (test code = TIBC) 472.0000 250.0000-450.0000 UIBC (test code = UIBC) 424.0000 118.0000-369.0000 % Iron Saturation (test code = % Iron 10.0000 % 15.0000-55 .0000 Saturation) Ferritin (test code = Ferritin) 7.0000 ng/mL 15.0000-150.0000 [id number] 10:26:00 Test Item Value Reference Range Comments Creatinine (test code = Creatinine) 0.7000 mg/dL 0.5000-1.200 0 Cr Clearance (Est) (test code = Cr 117.2700 75.0000-115.0 000 Clearance (Est)) Glucose (test code = Glucose) 145.0000 mg/dL 70.0000-118.0000 BUN (test code = BUN) 12.0000 mg/dL 7.0000-22.0000 Sodium (test code = Sodium) 139.0000 mmol/L 128.0000-145.0000 Potassium (test code = Potassium) 3.3000 mmol/L 3.6000-5.1000 Chloride (test code = Chloride) 100.0000 mmol/L 96.0000-108.0000 CO2 (test code = CO2) 33.0000 mmol/L 18.0000-33.0000 Calcium (test code = Calcium) 10.0500 mg/dL 8.0000-10.3000 Alkaline Phosphatase (test code = Alkaline 96.0000 42.00 00-141.0000 Phosphatase) ALT (SGPT) (test code = ALT (SGPT)) 22.0000 10.0000-47.0 000 AST (SGOT) (test code = AST (SGOT)) 19.0000 11.0000-37.0 000 Bilirubin, Total (test code = Bilirubin, 0.3000 mg/dL 0.0000- 1.6000 Total) Albumin (test code = Albumin) 4.3000 g/dL 3.5000-5.5000 Protein, Total (test code = Protein, 6.5000 g/dL 6.4000-8.10 00 Total) [id number] 10:25:00 Test Item Value Reference Range Comments WBC (test code = WBC) 5.1000 4.0000-10.0000 Lymphocytes % (test code = Lymphocytes %) 27.1000 % 22.400 0-43.6000 MID% (test code = MID%) 6.3000 % 1.2000-11.2000 Neutrophils % (test code = Neutrophils %) 66.6000 % 48.900 0-69.9000 Lymphocytes (test code = Lymphocytes) 1.3000 1.2000-3.2 000 MID (test code = MID) 0.4000 0.1000-1.1000 Neutrophils (test code = Neutrophils) 3.4000 1.5000-6.7 000 RBC (test code = RBC) 4.2300 3.7000-4.9000 HGB (test code = HGB) 11.5000 g/dL 11.2000-18.0000 HCT (test code = HCT) 36.6000 % 34.0000-44.0000 MCV (test code = MCV) 86.5000 fL 80.0000-94.0000 MCH (test code = MCH) 27.3000 pg 27.0000-34.0000 MCHC (test code = MCHC) 31.5000 g/dL 31.5000-36.0000 RDW (test code = RDW) 14.9000 11.0000-18.0000 PLT (test code = PLT) 255.0000 140.0000-440.0000 MPV (test code = MPV) 8.3000 fL 6.8000-10.6000 [id number] 10:43:00 Test Item Value Reference Range Comments WBC (test code = WBC) 4.5000 4.0000-10.0000 Lymphocytes % (test code = Lymphocytes %) 34.0000 % 22.400 0-43.6000 MID% (test code = MID%) 8.0000 % 1.2000-11.1999 Neutrophils % (test code = Neutrophils %) 58.0000 % 48.900 0-69.9000 Lymphocytes (test code = Lymphocytes) 1.5000 1.2000-3.2 000 MID (test code = MID) 0.4000 0.1000-1.1000 Neutrophils (test code = Neutrophils) 2.6000 1.5000-6.7 000 RBC (test code = RBC) 4.3900 3.7000-4.9000 HGB (test code = HGB) 12.6000 g/dL 11.2000-18.0000 HCT (test code = HCT) 38.8000 % 34.0000-44.0000 MCV (test code = MCV) 88.2000 fL 80.0000-94.0000 MCH (test code = MCH) 28.7000 pg 27.0000-34.0000 MCHC (test code = MCHC) 32.5000 g/dL 31.5000-36.0000 RDW (test code = RDW) 15.3000 11.0000-18.0000 PLT (test code = PLT) 227.0000 140.0000-440.0000 MPV (test code = MPV) 8.7000 fL 6.8000-10.6000 [id number] 09:25:00 Test Item Value Reference Range Comments WBC (test code = WBC) 5.7000 4.0000-10.0000 Lymphocytes % (test code = Lymphocytes %) 29.4000 % 22.400 0-43.6000 MID% (test code = MID%) 6.0000 % 1.2000-11.2000 Neutrophils % (test code = Neutrophils %) 64.6000 % 48.900 0-69.9000 Lymphocytes (test code = Lymphocytes) 1.7000 1.2000-3.2 000 MID (test code = MID) 0.3000 0.1000-1.1000 Neutrophils (test code = Neutrophils) 3.7000 1.5000-6.7 000 RBC (test code = RBC) 4.5400 3.7000-4.9000 HGB (test code = HGB) 13.0000 g/dL 11.2000-14.4000 HCT (test code = HCT) 40.0000 % 34.0000-44.0000 MCV (test code = MCV) 88.1000 fL 80.0000-94.0000 MCH (test code = MCH) 28.7000 pg 27.0000-34.0000 MCHC (test code = MCHC) 32.5000 g/dL 31.5000-36.0000 RDW (test code = RDW) 14.7000 11.0000-18.0000 PLT (test code = PLT) 234.0000 140.0000-440.0000 MPV (test code = MPV) 8.4000 fL 6.8000-10.6000 [id number] 10:32:00 Test Item Value Reference Range Comments WBC (test code = WBC) 5.4000 4.0000-10.0000 Lymphocytes % (test code = Lymphocytes %) 33.6000 % 22.400 0-43.6000 MID% (test code = MID%) 7.1000 % .1999- Neutrophils % (test code = Neutrophils %) 59.3000 % 48.900 0-69.9000 Lymphocytes (test code = Lymphocytes) 1.8000 1.2000-3.2 000 MID (test code = MID) 0.4000 0.1000-1.1000 Neutrophils (test code = Neutrophils) 3.2000 1.5000-6.7 000 RBC (test code = RBC) 4.1000 3.7000-4.9000 HGB (test code = HGB) 13.8000 g/dL 11.1999-14.3999 HCT (test code = HCT) 36.8000 % 34.0000-44.0000 MCV (test code = MCV) 89.8000 fL 80.0000-94.0000 MCH (test code = MCH) 33.6000 pg 27.0000-34.0000 MCHC (test code = MCHC) 37.4000 g/dL 31.5000-36.0000 RDW (test code = RDW) 14.8000 11.0000-18.0000 PLT (test code = PLT) 222.0000 140.0000-440.0000 MPV (test code = MPV) 8.6000 fL 6.8000-10.6000 [id number] 14:15:00 Test Item Value Reference Range Comments CEA (test code = CEA) 4.1000 ng/mL 0.0000-4.7000 [id number] 13:07:00 Test Item Value Reference Range Comments WBC (test code = WBC) 5.3000 4.0000-10.0000 Lymphocytes % (test code = Lymphocytes %) 33.6000 % 22.400 0-43.6000 MID% (test code = MID%) 5.8000 % .1999-11.2000 Neutrophils % (test code = Neutrophils %) 60.6000 % 48.900 0-69.9000 Lymphocytes (test code = Lymphocytes) 1.8000 1.2000-3.2 000 MID (test code = MID) 0.3000 0.1000-1.1000 Neutrophils (test code = Neutrophils) 3.2000 1.5000-6.7 000 RBC (test code = RBC) 4.6200 3.7000-4.9000 HGB (test code = HGB) 13.2000 g/dL 11.2000-14.4000 HCT (test code = HCT) 41.9000 % 34.0000-44.0000 MCV (test code = MCV) 90.8000 fL 80.0000-94.0000 MCH (test code = MCH) 28.6000 pg 27.0000-34.0000 MCHC (test code = MCHC) 31.5000 g/dL 31.5000-36.0000 RDW (test code = RDW) 14.8000 11.0000-18.0000 PLT (test code = PLT) 252.0000 140.0000-440.0000 MPV (test code = MPV) 8.3000 fL 6.8000-10.6000 [id number] 13:07:00 Test Item Value Reference Range Comments Creatinine (test code = Creatinine) 0.5000 mg/dL 0.5000-1.200 0 Cr Clearance (Est) (test code = Cr 164.4000 75.0000-115.0 000 Clearance (Est)) Glucose (test code = Glucose) 125.0000 mg/dL 70.0000-118.0000 BUN (test code = BUN) 12.0000 mg/dL 7.0000-22.0000 Sodium (test code = Sodium) 137.0000 mmol/L 128.0000-145.0000 Potassium (test code = Potassium) 3.3000 mmol/L 3.6000-5.1000 Chloride (test code = Chloride) 98.0000 mmol/L 96.0000-108.0000 CO2 (test code = CO2) 34.0000 mmol/L 18.0000-33.0000 Calcium (test code = Calcium) 10.0100 mg/dL 8.0000-10.3000 Alkaline Phosphatase (test code = Alkaline 88.0000 42.00 00-141.0000 Phosphatase) ALT (SGPT) (test code = ALT (SGPT)) 39.0000 10.0000-47.0 000 AST (SGOT) (test code = AST (SGOT)) 24.0000 11.0000-37.0 000 Bilirubin, Total (test code = Bilirubin, 0.4000 mg/dL 0.0000- 1.6000 Total) Albumin (test code = Albumin) 4.4000 g/dL 3.5000-5.5000 Protein, Total (test code = Protein, 6.6000 g/dL 6.4000-8.10 00 Total) [id number] 12:18:00 Test Item Value Reference Range Comments WBC (test code = WBC) 7.1999 4.0000-10.0000 Lymphocytes % (test code = Lymphocytes %) 38.5000 % 22.400 0-43.6000 MID% (test code = MID%) 6.1000 % .1999- Neutrophils % (test code = Neutrophils %) 55.4000 % 48.900 0-69.9000 Lymphocytes (test code = Lymphocytes) 2.8000 1.2000-3.2 000 MID (test code = MID) 0.4000 0.1000-1.1000 Neutrophils (test code = Neutrophils) 4.0000 1.5000-6.7 000 RBC (test code = RBC) 4.8500 3.7000-4.9000 HGB (test code = HGB) 14.9000 g/dL 11.2000-14.4000 HCT (test code = HCT) 45.4000 % 34.0000-44.0000 MCV (test code = MCV) 93.5000 fL 80.0000-94.0000 MCH (test code = MCH) 30.7000 pg 27.0000-34.0000 MCHC (test code = MCHC) 32.8000 g/dL 31.5000-36.0000 RDW (test code = RDW) 14.7000 11.0000-18.0000 PLT (test code = PLT) 222.0000 140.0000-440.0000 MPV (test code = MPV) 9.2000 fL 6.8000-10.6000 [id number] 11:12:00 Test Item Value Reference Range Comments WBC (test code = WBC) 5.1999 4.0000-10.0000 Lymphocytes % (test code = Lymphocytes %) 33.8000 % 22.400 0-43.6000 MID% (test code = MID%) 5.9000 % - Neutrophils % (test code = Neutrophils %) 60.3000 % 48.900 0-69.9000 Lymphocytes (test code = Lymphocytes) 1.7000 1.2000-3.2 000 MID (test code = MID) 0.4000 0.1000-1.1000 Neutrophils (test code = Neutrophils) 3.1000 1.5000-6.7 000 RBC (test code = RBC) 4.7100 3.7000-4.9000 HGB (test code = HGB) 14.7000 g/dL .1999-14.3999 HCT (test code = HCT) 44.0000 % 34.0000-44.0000 MCV (test code = MCV) 93.5000 fL 80.0000-94.0000 MCH (test code = MCH) 31.3000 pg 27.0000-34.0000 MCHC (test code = MCHC) 33.4000 g/dL 31.5000-36.0000 RDW (test code = RDW) 14.6000 11.0000-18.0000 PLT (test code = PLT) 177.0000 140.0000-440.0000 MPV (test code = MPV) 8.7000 fL 6.8000-10.6000 [id number] 11:29:00 Test Item Value Reference Range Comments WBC (test code = WBC) 6.3000 4.0000-10.0000 Lymphocytes % (test code = Lymphocytes %) 24.5000 % 22.400 0-43.6000 MID% (test code = MID%) 4.7000 % 1.2000-11.1999 Neutrophils % (test code = Neutrophils %) 70.8000 % 48.900 0-69.9000 Lymphocytes (test code = Lymphocytes) 1.5000 1.2000-3.2 000 MID (test code = MID) 0.3000 0.1000-1.1000 Neutrophils (test code = Neutrophils) 4.5000 1.5000-6.7 000 RBC (test code = RBC) 4.3400 3.7000-4.9000 HGB (test code = HGB) 13.4000 g/dL .1999-14.4000 HCT (test code = HCT) 40.2000 % 34.0000-44.0000 MCV (test code = MCV) 92.6000 fL 80.0000-94.0000 MCH (test code = MCH) 31.0000 pg 27.0000-34.0000 MCHC (test code = MCHC) 33.5000 g/dL 31.5000-36.0000 RDW (test code = RDW) 18.5000 11.0000-18.0000 PLT (test code = PLT) 197.0000 140.0000-440.0000 MPV (test code = MPV) 8.6000 fL 6.8000-10.6000 [id number] 13:48:00 Test Item Value Reference Range Comments IGA (test code = IGA) 175.0000 mg/dL 87.0000-352.0000 Endomysial Ab IgA (test code = Endomysial Ab Negative IgA) Transglutaminase IgG, Qt (test code = 2.0000 0.0000-5.0 000 Transglutaminase IgG, Qt) t-Transglutaminase IgA, Qt (test code = 2.0000 0.0000-3 .0000 t-Transglutaminase IgA, Qt) Deamidated Gliadin Abs, IgA (test code = 4.0000 U 0.0000- 19.0000 Deamidated Gliadin Abs, IgA) Deamidated Gliadin Abs, IgG (test code = 1.0000 U 0.0000- 19.0000 Deamidated Gliadin Abs, IgG) Antiparietal Cell Ab (test code = 6.5000 U 0.0000-20.0000 Antiparietal Cell Ab) Intrinsic Factor Ab (test code = Intrinsic 4.6000 0.000 0-1.1000 Factor Ab) Iron, [id number] 13:48:00 Test Item Value Reference Range Comments Iron, Total (test code = Iron, Total) 88.0000 27.0000-13 9.0000 TIBC (test code = TIBC) 330.0000 250.0000-450.0000 UIBC (test code = UIBC) 242.0000 118.0000-369.0000 % Iron Saturation (test code = % Iron 27.0000 % 15.0000-55 .0000 Saturation) Vitamin B12 (test code = Vitamin B12) 353.0000 pg/mL 211.0000-9 46.0000 Folate (test code = Folate) 6.9000 ng/mL Ferritin (test code = Ferritin) 389.0000 ng/mL 15.0000-150.0000 [id number] 13:48:00 Test Item Value Reference Range Comments CEA (test code = CEA) 4.4000 ng/mL 0.0000-4.7000 [id number] 10:54:00 Test Item Value Reference Range Comments WBC (test code = WBC) 4.8000 4.0000-10.0000 Lymphocytes % (test code = Lymphocytes %) 24.1000 % 22.400 0-43.6000 MID% (test code = MID%) 6.6000 % 1.2000-11.2000 Neutrophils % (test code = Neutrophils %) 69.3000 % 48.900 0-69.9000 Lymphocytes (test code = Lymphocytes) 1.1000 1.2000-3.2 000 MID (test code = MID) 0.4000 0.1000-1.1000 Neutrophils (test code = Neutrophils) 3.3000 1.5000-6.7 000 RBC (test code = RBC) 4.5200 3.7000-4.9000 HGB (test code = HGB) 12.7000 g/dL 11.2000-14.4000 HCT (test code = HCT) 39.9000 % 34.0000-44.0000 MCV (test code = MCV) 88.4000 fL 80.0000-94.0000 MCH (test code = MCH) 28.1000 pg 27.0000-34.0000 MCHC (test code = MCHC) 31.8000 g/dL 31.5000-36.0000 RDW (test code = RDW) 24.1000 11.0000-18.0000 PLT (test code = PLT) 184.0000 140.0000-440.0000 MPV (test code = MPV) 7.4000 fL 6.8000-10.6000 [id number] 10:54:00 Test Item Value Reference Range Comments Creatinine (test code = Creatinine) 0.5000 mg/dL 0.5000-1.200 0 Cr Clearance (Est) (test code = Cr 173.0700 75.0000-115.0 000 Clearance (Est)) Glucose (test code = Glucose) 129.0000 mg/dL 70.0000-118.0000 BUN (test code = BUN) 14.0000 mg/dL 7.0000-22.0000 Sodium (test code = Sodium) 142.0000 mmol/L 128.0000-145.0000 Potassium (test code = Potassium) 3.8000 mmol/L 3.6000-5.1000 Chloride (test code = Chloride) 100.0000 mmol/L 96.0000-108.0000 CO2 (test code = CO2) 33.0000 mmol/L 18.0000-33.0000 Calcium (test code = Calcium) 10.8100 mg/dL 8.0000-10.3000 Alkaline Phosphatase (test code = Alkaline 110.0000 42.00 00-141.0000 Phosphatase) ALT (SGPT) (test code = ALT (SGPT)) 58.0000 10.0000-47.0 000 AST (SGOT) (test code = AST (SGOT)) 34.0000 11.0000-37.0 000 Bilirubin, Total (test code = Bilirubin, 0.4000 mg/dL 0.0000- 1.6000 Total) Albumin (test code = Albumin) 4.4000 g/dL 3.5000-5.5000 Protein, Total (test code = Protein, 6.5000 g/dL 6.4000-8.10 00 Total) Magnesium (test code = Magnesium) 1.6000 mg/dL 1.6000-2.3000 [id number] 14:53:00 Test Item Value Reference Range Comments CEA (test code = CEA) 4.2000 ng/mL 0.0000-4.7000 U [id number] 11:20:00 Test Item Value Reference Range Comments U Color (test code = U Color) Yellow U Urobilinogen (test code = U Urobilinogen) 0.2 U Specific [place] (test code = U Specific 1.0100 [place]) U Appearance (test code = U Appearance) Clear U Glucose (test code = U Glucose) Negative U Bilirubin (test code = U Bilirubin) Negative U Ketones (test code = U Ketones) Negative U Blood (test code = U Blood) Trace-inta U pH (test code = U pH) 7.0000 5.0000-8.0000 U Protein (test code = U Protein) Negative U Nitrite (test code = U Nitrite) Negative U Leuk Esterase (test code = U Leuk Esterase) Negative Iron, [id number] 13:58:00 Test Item Value Reference Range Comments Iron, Total (test code = Iron, Total) 20.0000 27.0000-13 9.0000 TIBC (test code = TIBC) 586.0000 250.0000-450.0000 UIBC (test code = UIBC) 566.0000 118.0000-369.0000 % Iron Saturation (test code = % Iron 3.0000 % 15.0000-55 .0000 Saturation) Vitamin B12 (test code = Vitamin B12) 353.0000 pg/mL 211.0000-9 46.0000 Folate (test code = Folate) 9.7000 ng/mL Ferritin (test code = Ferritin) 3.0000 ng/mL 15.0000-150.0000 [id number] 11:22:00 Test Item Value Reference Range Comments Creatinine (test code = Creatinine) 0.6000 mg/dL 0.5000-1.200 0 Cr Clearance (Est) (test code = Cr 137.6300 75.0000-115.0 000 Clearance (Est)) Glucose (test code = Glucose) 99.0000 mg/dL 70.0000-118.0000 BUN (test code = BUN) 14.0000 mg/dL 7.0000-22.0000 Sodium (test code = Sodium) 142.0000 mmol/L 128.0000-145.0000 Potassium (test code = Potassium) 3.6000 mmol/L 3.6000-5.1000 Chloride (test code = Chloride) 97.0000 mmol/L 96.0000-108.0000 CO2 (test code = CO2) 32.0000 mmol/L 18.0000-33.0000 Calcium (test code = Calcium) 10.1300 mg/dL 8.0000-10.3000 Alkaline Phosphatase (test code = Alkaline 103.0000 42.00 00-141.0000 Phosphatase) ALT (SGPT) (test code = ALT (SGPT)) 14.0000 10.0000-47.0 000 AST (SGOT) (test code = AST (SGOT)) 15.0000 11.0000-37.0 000 Bilirubin, Total (test code = Bilirubin, 0.3000 mg/dL 0.0000- 1.6000 Total) Albumin (test code = Albumin) 4.5000 g/dL 3.5000-5.5000 Protein, Total (test code = Protein, 6.8000 g/dL 6.4000-8.10 00 Total) eGFR -Lithuanian (test code = eGFR 120.0000 60.0000- 125.0000 -Lithuanian) eGFR Qoy-Isjmepx-Bwrxtkhu (test code = 99.0000 60.0000-1 25.0000 eGFR Nss-Xnzcoro-Ltsagulf) [id number] 11:21:00 Test Item Value Reference Range Comments WBC (test code = WBC) 6.5000 4.0000-10.0000 Lymphocytes % (test code = Lymphocytes %) 31.3000 % 22.400 0-43.6000 MID% (test code = MID%) 6.8000 % 1.2000-11.2000 Neutrophils % (test code = Neutrophils %) 61.9000 % 48.900 0-69.9000 Lymphocytes (test code = Lymphocytes) 2.0000 1.2000-3.2 000 MID (test code = MID) 0.5000 0.1000-1.1000 Neutrophils (test code = Neutrophils) 4.0000 1.5000-6.7 000 RBC (test code = RBC) 4.0700 3.7000-4.9000 HGB (test code = HGB) 8.8000 g/dL 11.2000-14.4000 HCT (test code = HCT) 27.9000 % 34.0000-44.0000 MCV (test code = MCV) 68.6000 fL 80.0000-94.0000 MCH (test code = MCH) 21.8000 pg 27.0000-34.0000 MCHC (test code = MCHC) 31.8000 g/dL 31.5000-36.0000 RDW (test code = RDW) 15.7000 11.0000-18.0000 PLT (test code = PLT) 249.0000 140.0000-440.0000 MPV (test code = MPV) 7.2000 fL 6.8000-10.6000 Iron, [id number] 13:19:00 Test Item Value Reference Range Comments Iron, Total (test code = Iron, Total) 39.0000 35.0000-15 5.0000 TIBC (test code = TIBC) 357.0000 250.0000-450.0000 UIBC (test code = UIBC) 318.0000 150.0000-375.0000 % Iron Saturation (test code = % Iron 11.0000 % 15.0000-55 .0000 Saturation) Vitamin D (25-Hydroxy) (test code = Vitamin 24.8000 ng/mL 30.0 374-012.8343 D (25-Hydroxy)) Ferritin (test code = Ferritin) 112.0000 ng/mL 15.0000-150.0000 [id number] 10:47:00 Test Item Value Reference Range Comments Creatinine (test code = Creatinine) 0.6000 mg/dL 0.5000-1.200 0 Cr Clearance (Est) (test code = Cr 139.5700 75.0000-115.0 000 Clearance (Est)) Glucose (test code = Glucose) 98.0000 mg/dL 70.0000-118.0000 BUN (test code = BUN) 11.0000 mg/dL 7.0000-22.0000 Sodium (test code = Sodium) 143.0000 mmol/L 128.0000-145.0000 Potassium (test code = Potassium) 3.6000 mmol/L 3.6000-5.1000 Chloride (test code = Chloride) 101.0000 mmol/L 96.0000-108.0000 CO2 (test code = CO2) 36.0000 mmol/L 18.0000-33.0000 Calcium (test code = Calcium) 10.3200 mg/dL 8.0000-10.3000 Alkaline Phosphatase (test code = Alkaline 98.0000 42.00 00-141.0000 Phosphatase) ALT (SGPT) (test code = ALT (SGPT)) 18.0000 10.0000-47.0 000 AST (SGOT) (test code = AST (SGOT)) 17.0000 11.0000-37.0 000 Bilirubin, Total (test code = Bilirubin, 0.4000 mg/dL 0.0000- 1.6000 Total) Albumin (test code = Albumin) 4.6000 g/dL 3.5000-5.5000 Protein, Total (test code = Protein, 7.0000 g/dL 6.4000-8.10 00 Total) [id number] 10:46:00 Test Item Value Reference Range Comments WBC (test code = WBC) 7.9000 4.2000-10.0000 Lymphocytes % (test code = Lymphocytes %) 37.5000 % 22.400 0-43.6000 MID% (test code = MID%) 5.8000 % 1.2000-11.2000 Neutrophils % (test code = Neutrophils %) 56.7000 % 48.900 0-69.9000 Lymphocytes (test code = Lymphocytes) 2.9000 1.2000-3.2 000 MID (test code = MID) 0.5000 0.1000-1.1000 Neutrophils (test code = Neutrophils) 4.5000 1.5000-6.7 000 RBC (test code = RBC) 4.5300 4.5000-6.3000 HGB (test code = HGB) 13.2000 g/dL 14.0000-18.0000 HCT (test code = HCT) 40.6000 % 41.0000-51.0000 MCV (test code = MCV) 89.7000 fL 80.0000-94.0000 MCH (test code = MCH) 29.2000 pg 27.0000-34.0000 MCHC (test code = MCHC) 32.5000 g/dL 31.5000-36.0000 RDW (test code = RDW) 14.9000 11.0000-18.0000 PLT (test code = PLT) 210.0000 140.0000-440.0000 MPV (test code = MPV) 7.3000 fL 6.8000-10.6000 [id number] 12:47:00 Test Item Value Reference Range Comments WBC (test code = WBC) 6.3000 4.2000-10.0000 Lymphocytes % (test code = Lymphocytes %) 45.8000 % 22.400 0-43.6000 MID% (test code = MID%) 5.5000 % 1.2000-11.2000 Neutrophils % (test code = Neutrophils %) 48.7000 % 48.900 0-69.9000 Lymphocytes (test code = Lymphocytes) 2.9000 1.2000-3.2 000 MID (test code = MID) 0.4000 0.1000-1.1000 Neutrophils (test code = Neutrophils) 3.0000 1.5000-6.7 000 RBC (test code = RBC) 4.1300 4.5000-6.3000 HGB (test code = HGB) 12.7000 g/dL 14.0000-18.0000 HCT (test code = HCT) 39.1000 % 41.0000-51.0000 MCV (test code = MCV) 94.7000 fL 80.0000-94.0000 MCH (test code = MCH) 30.9000 pg 27.0000-34.0000 MCHC (test code = MCHC) 32.6000 g/dL 31.5000-36.0000 RDW (test code = RDW) 14.8000 11.0000-18.0000 PLT (test code = PLT) 174.0000 140.0000-440.0000 MPV (test code = MPV) 7.0000 fL 6.8000-10.6000 [id number] 12:47:00 Test Item Value Reference Range Comments Creatinine (test code = Creatinine) 0.6000 mg/dL 0.5000-1.200 0 Cr Clearance (Est) (test code = Cr 140.0900 75.0000-115.0 000 Clearance (Est)) Glucose (test code = Glucose) 101.0000 mg/dL 70.0000-118.0000 BUN (test code = BUN) 7.0000 mg/dL 7.0000-22.0000 Sodium (test code = Sodium) 145.0000 mmol/L 128.0000-145.0000 Potassium (test code = Potassium) 3.3000 mmol/L 3.6000-5.1000 Chloride (test code = Chloride) 100.0000 mmol/L 96.0000-108.0000 CO2 (test code = CO2) 34.0000 mmol/L 18.0000-33.0000 Calcium (test code = Calcium) 10.2400 mg/dL 8.0000-10.3000 Alkaline Phosphatase (test code = Alkaline 112.0000 42.00 00-141.0000 Phosphatase) ALT (SGPT) (test code = ALT (SGPT)) 29.0000 10.0000-47.0 000 AST (SGOT) (test code = AST (SGOT)) 23.0000 11.0000-37.0 000 Bilirubin, Total (test code = Bilirubin, 0.3000 mg/dL 0.0000- 1.6000 Total) Albumin (test code = Albumin) 4.6000 g/dL 3.5000-5.5000 Protein, Total (test code = Protein, 6.8000 g/dL 6.4000-8.10 00 Total) Iron, Total (test code = Iron, Total) 48.0000 35.0000-15 5.0000 TIBC (test code = TIBC) 357.0000 250.0000-450.0000 UIBC (test code = UIBC) 309.0000 150.0000-375.0000 % Iron Saturation (test code = % Iron 13.0000 % 15.0000-55 .0000 Saturation) Ferritin (test code = Ferritin) 180.0000 ng/mL 15.0000-150.0000 [id number] 12:47:00 Test Item Value Reference Range Comments CEA (test code = CEA) 4.5000 ng/mL 0.0000-4.7000 [id number] 10:07:00 Test Item Value Reference Range Comments WBC (test code = WBC) 5.5000 4.2000-10.0000 Lymphocytes % (test code = Lymphocytes %) 38.0000 % 22.400 0-43.6000 MID% (test code = MID%) 7.2000 % 1.2000-11.2000 Neutrophils % (test code = Neutrophils %) 54.8000 % 48.900 0-69.9000 Lymphocytes (test code = Lymphocytes) 2.1000 1.2000-3.2 000 MID (test code = MID) 0.4000 0.1000-1.1000 Neutrophils (test code = Neutrophils) 3.0000 1.5000-6.7 000 RBC (test code = RBC) 4.4100 4.5000-6.3000 HGB (test code = HGB) 14.2000 g/dL 14.0000-18.0000 HCT (test code = HCT) 43.5000 % 41.0000-51.0000 MCV (test code = MCV) 98.6000 fL 80.0000-94.0000 MCH (test code = MCH) 32.3000 pg 27.0000-34.0000 MCHC (test code = MCHC) 32.7000 g/dL 31.5000-36.0000 RDW (test code = RDW) 14.0000 11.0000-18.0000 PLT (test code = PLT) 174.0000 140.0000-440.0000 MPV (test code = MPV) 7.9000 fL 6.8000-10.6000 [id number] 13:39:00 Test Item Value Reference Range Comments Creatinine (test code = Creatinine) 0.5700 mg/dL 0.5700-1.000 0 Cr Clearance (Est) (test code = Cr 147.3100 75.0000-115.0 000 Clearance (Est)) Glucose (test code = Glucose) 111.0000 mg/dL 65.0000-99.0000 BUN (test code = BUN) 14.0000 mg/dL 8.0000-27.0000 eGFR Vip-Zclxwfl-Qkexttuo (test code = 96.0000 eGFR Xyq-Cniwwsw-Uzhehmya) eGFR -Lithuanian (test code = eGFR 111.0000 -Lithuanian) BUN/Creat Ratio (test code = BUN/Creat 25.0000 11.0000-2 6.0000 Ratio) Sodium (test code = Sodium) 143.0000 mmol/L 134.0000-144.0000 Potassium (test code = Potassium) 3.9000 mmol/L 3.5000-5.2000 Chloride (test code = Chloride) 99.0000 mmol/L 97.0000-108.0000 CO2 (test code = CO2) 32.0000 mmol/L 18.0000-29.0000 Calcium (test code = Calcium) 9.8000 mg/dL 8.6000-10.2000 Protein, Total (test code = Protein, 6.3000 g/dL 6.0000-8.50 00 Total) Albumin (test code = Albumin) 3.4000 g/dL 3.2000-5.6000 Globulin (test code = Globulin) 2.9000 g/dL 2.0000-4.5000 A/G Ratio (test code = A/G Ratio) 1.2000 0.7000-2.0000 Bilirubin, Total (test code = Bilirubin, 0.3000 mg/dL 0.0000- 1.2000 Total) Alkaline Phosphatase (test code = Alkaline 96.0000 39.00 00-117.0000 Phosphatase) AST (SGOT) (test code = AST (SGOT)) 38.0000 0.0000-40.00 00 ALT (SGPT) (test code = ALT (SGPT)) 43.0000 0.0000-32.00 00 Iron, Total (test code = Iron, Total) 74.0000 35.0000-15 5.0000 TIBC (test code = TIBC) 315.0000 250.0000-450.0000 UIBC (test code = UIBC) 241.0000 150.0000-375.0000 % Iron Saturation (test code = % Iron 23.0000 % 15.0000-55 .0000 Saturation) T3 Uptake (test code = T3 Uptake) 24.0000 % 24.0000-39.000 0 T4 (test code = T4) 9.0000 4.5000-12.0000 FTI (test code = FTI) 2.2000 1.2000-4.9000 TSH (test code = TSH) 2.1500 0.4500-4.5000 Ferritin (test code = Ferritin) 553.0000 ng/mL 15.0000-150.0000 Alpha-1 [id number] 13:39:00 Test Item Value Reference Range Comments Alpha-1 Globulin (test code 0.2000 g/dL 0.1000-0.4000 = Alpha-1 Globulin) Alpha-2 Globulin (test code 0.7000 g/dL 0.4000-1.2000 = Alpha-2 Globulin) Beta Globulin (test code = 1.1000 g/dL 0.6000-1.3000 Beta Globulin) Gamma Globulin (test code = 1.0000 g/dL 0.5000-1.6000 Gamma Globulin) M-William (test code = M-William) PE Note (test code = PE Comment Protein electrophoresis Note) scan will follow via computer, mail, or hot [place] delivery Antinuclear Antibodies (test Negative code = Antinuclear Antibodies) [id number] 13:39:00 Test Item Value Reference Range Comments CEA (test code = CEA) 4.2000 ng/mL 0.0000-4.7000 [id number] 10:59:00 Test Item Value Reference Range Comments WBC (test code = WBC) 5.4000 4.2000-10.0000 Lymphocytes % (test code = Lymphocytes %) 36.1000 % 22.400 0-43.6000 MID% (test code = MID%) 6.3000 % 1.2000-11.2000 Neutrophils % (test code = Neutrophils %) 57.6000 % 48.900 0-69.9000 Lymphocytes (test code = Lymphocytes) 1.9000 1.2000-3.2 000 MID (test code = MID) 0.4000 0.1000-1.1000 Neutrophils (test code = Neutrophils) 3.1000 1.5000-6.7 000 RBC (test code = RBC) 4.2200 4.5000-6.3000 HGB (test code = HGB) 13.4000 g/dL 14.0000-18.0000 HCT (test code = HCT) 39.8000 % 41.0000-51.0000 MCV (test code = MCV) 94.3000 fL 80.0000-94.0000 MCH (test code = MCH) 31.7000 pg 27.0000-34.0000 MCHC (test code = MCHC) 33.6000 g/dL 31.5000-36.0000 RDW (test code = RDW) 15.7000 11.0000-18.0000 PLT (test code = PLT) 198.0000 140.0000-440.0000 MPV (test code = MPV) 7.7000 fL 6.8000-10.6000 [id number] 09:48:00 Test Item Value Reference Range Comments Creatinine (test code = Creatinine) 0.6500 mg/dL 0.5700-1.000 0 Cr Clearance (Est) (test code = Cr 129.1800 75.0000-115.0 000 Clearance (Est)) Glucose (test code = Glucose) 128.0000 mg/dL 65.0000-99.0000 BUN (test code = BUN) 12.0000 mg/dL 8.0000-27.0000 eGFR Qrc-Rqimblt-Xbbdduwj (test code = 92.0000 eGFR Rtj-Xrzviex-Okknwjuj) eGFR -Lithuanian (test code = eGFR 106.0000 -Lithuanian) BUN/Creat Ratio (test code = BUN/Creat 18.0000 11.0000-2 6.0000 Ratio) Sodium (test code = Sodium) 146.0000 mmol/L 134.0000-144.0000 Potassium (test code = Potassium) 3.7000 mmol/L 3.5000-5.2000 Chloride (test code = Chloride) 101.0000 mmol/L 97.0000-108.0000 CO2 (test code = CO2) 29.0000 mmol/L 18.0000-29.0000 Calcium (test code = Calcium) 9.6000 mg/dL 8.6000-10.2000 Protein, Total (test code = Protein, 6.2000 g/dL 6.0000-8.50 00 Total) Albumin (test code = Albumin) 4.3000 g/dL 3.6000-4.8000 Globulin (test code = Globulin) 1.9000 g/dL 1.5000-4.5000 A/G Ratio (test code = A/G Ratio) 2.3000 1.1000-2.5000 Bilirubin, Total (test code = Bilirubin, 0.2000 mg/dL 0.0000- 1.2000 Total) Alkaline Phosphatase (test code = Alkaline 131.0000 39.00 00-117.0000 Phosphatase) AST (SGOT) (test code = AST (SGOT)) 38.0000 0.0000-40.00 00 ALT (SGPT) (test code = ALT (SGPT)) 56.0000 0.0000-32.00 00 Iron, Total (test code = Iron, Total) 136.0000 35.0000-15 5.0000 TIBC (test code = TIBC) 307.0000 250.0000-450.0000 UIBC (test code = UIBC) 171.0000 150.0000-375.0000 % Iron Saturation (test code = % Iron 44.0000 % 15.0000-55 .0000 Saturation) Ferritin (test code = Ferritin) 866.0000 ng/mL 15.0000-150.0000 [id number] 09:03:00 Test Item Value Reference Range Comments WBC (test code = WBC) 5.0000 4.2000-10.0000 Lymphocytes % (test code = Lymphocytes %) 32.4000 % 22.400 0-43.6000 MID% (test code = MID%) 5.7000 % 1.2000-11.2000 Neutrophils % (test code = Neutrophils %) 61.9000 % 48.900 0-69.9000 Lymphocytes (test code = Lymphocytes) 1.6000 1.2000-3.2 000 MID (test code = MID) 0.3000 0.1000-1.1000 Neutrophils (test code = Neutrophils) 3.1000 1.5000-6.7 000 RBC (test code = RBC) 4.1700 4.5000-6.3000 HGB (test code = HGB) 13.5000 g/dL 14.0000-18.0000 HCT (test code = HCT) 39.5000 % 41.0000-51.0000 MCV (test code = MCV) 94.7000 fL 80.0000-94.0000 MCH (test code = MCH) 32.4000 pg 27.0000-34.0000 MCHC (test code = MCHC) 34.2000 g/dL 31.5000-36.0000 RDW (test code = RDW) 16.8000 11.0000-18.0000 PLT (test code = PLT) 186.0000 140.0000-440.0000 MPV (test code = MPV) 7.1000 fL 6.8000-10.6000 [id number] 10:48:00 Test Item Value Reference Range Comments Creatinine (test code = Creatinine) 0.5400 mg/dL 0.5700-1.000 0 Cr Clearance (Est) (test code = Cr 156.0800 75.0000-115.0 000 Clearance (Est)) Glucose (test code = Glucose) 141.0000 mg/dL 65.0000-99.0000 BUN (test code = BUN) 10.0000 mg/dL 8.0000-27.0000 eGFR Hdf-Xdsdfgd-Xzvnpjfs (test code = 98.0000 eGFR Uon-Obcbijy-Jkkfujah) eGFR -Lithuanian (test code = eGFR 113.0000 -Lithuanian) BUN/Creat Ratio (test code = BUN/Creat 19.0000 11.0000-2 6.0000 Ratio) Sodium (test code = Sodium) 144.0000 mmol/L 134.0000-144.0000 Potassium (test code = Potassium) 4.1000 mmol/L 3.5000-5.2000 Chloride (test code = Chloride) 99.0000 mmol/L 97.0000-108.0000 CO2 (test code = CO2) 30.0000 mmol/L 18.0000-29.0000 Calcium (test code = Calcium) 10.2000 mg/dL 8.6000-10.2000 Protein, Total (test code = Protein, 6.1000 g/dL 6.0000-8.50 00 Total) Albumin (test code = Albumin) 4.3000 g/dL 3.6000-4.8000 Globulin (test code = Globulin) 1.8000 g/dL 1.5000-4.5000 A/G Ratio (test code = A/G Ratio) 2.4000 1.1000-2.5000 Bilirubin, Total (test code = Bilirubin, 0.2000 mg/dL 0.0000- 1.2000 Total) Alkaline Phosphatase (test code = Alkaline 149.0000 39.00 00-117.0000 Phosphatase) AST (SGOT) (test code = AST (SGOT)) 40.0000 0.0000-40.00 00 ALT (SGPT) (test code = ALT (SGPT)) 76.0000 0.0000-32.00 00 [id number] 10:41:00 Test Item Value Reference Range Comments WBC (test code = WBC) 5.8000 4.2000-10.0000 Lymphocytes % (test code = Lymphocytes %) 31.8000 % 22.400 0-43.6000 MID% (test code = MID%) 6.1000 % 1.2000-11.2000 Neutrophils % (test code = Neutrophils %) 62.1000 % 48.900 0-69.9000 Lymphocytes (test code = Lymphocytes) 1.8000 1.2000-3.2 000 MID (test code = MID) 0.4000 0.1000-1.1000 Neutrophils (test code = Neutrophils) 3.6000 1.5000-6.7 000 RBC (test code = RBC) 4.5100 4.5000-6.3000 HGB (test code = HGB) 14.3000 g/dL 14.0000-18.0000 HCT (test code = HCT) 42.7000 % 41.0000-51.0000 MCV (test code = MCV) 94.7000 fL 80.0000-94.0000 MCH (test code = MCH) 31.7000 pg 27.0000-34.0000 MCHC (test code = MCHC) 33.5000 g/dL 31.5000-36.0000 RDW (test code = RDW) 16.5000 11.0000-18.0000 PLT (test code = PLT) 170.0000 140.0000-440.0000 MPV (test code = MPV) 7.7000 fL 6.8000-10.6000 [id number] 14:05:00 Test Item Value Reference Range Comments Creatinine (test code = Creatinine) 0.6300 mg/dL 0.5700-1.000 0 Cr Clearance (Est) (test code = Cr 131.6700 75.0000-115.0 000 Clearance (Est)) Glucose (test code = Glucose) 72.0000 mg/dL 65.0000-99.0000 BUN (test code = BUN) 13.0000 mg/dL 8.0000-27.0000 eGFR Qhn-Lgdpvrl-Umyhofvb (test code = 93.0000 eGFR Uoj-Kyncuvj-Algpquid) eGFR -Lithuanian (test code = eGFR 107.0000 -Lithuanian) BUN/Creat Ratio (test code = BUN/Creat 21.0000 11.0000-2 6.0000 Ratio) Sodium (test code = Sodium) 144.0000 mmol/L 134.0000-144.0000 Potassium (test code = Potassium) 3.9000 mmol/L 3.5000-5.2000 Chloride (test code = Chloride) 99.0000 mmol/L 97.0000-108.0000 CO2 (test code = CO2) 30.0000 mmol/L 18.0000-29.0000 Calcium (test code = Calcium) 9.9000 mg/dL 8.6000-10.2000 Protein, Total (test code = Protein, 6.5000 g/dL 6.0000-8.50 00 Total) Albumin (test code = Albumin) 4.4000 g/dL 3.6000-4.8000 Globulin (test code = Globulin) 2.1000 g/dL 1.5000-4.5000 A/G Ratio (test code = A/G Ratio) 2.1000 1.1000-2.5000 Bilirubin, Total (test code = Bilirubin, 0.3000 mg/dL 0.0000- 1.2000 Total) Alkaline Phosphatase (test code = Alkaline 103.0000 39.00 00-117.0000 Phosphatase) AST (SGOT) (test code = AST (SGOT)) 17.0000 0.0000-40.00 00 ALT (SGPT) (test code = ALT (SGPT)) 19.0000 0.0000-32.00 00 Iron, Total (test code = Iron, Total) 183.0000 35.0000-15 5.0000 TIBC (test code = TIBC) 468.0000 250.0000-450.0000 UIBC (test code = UIBC) 285.0000 150.0000-375.0000 % Iron Saturation (test code = % Iron 39.0000 % 15.0000-55 .0000 Saturation) Vitamin B12 (test code = Vitamin B12) 591.0000 pg/mL 211.0000-9 46.0000 Folate (test code = Folate) 9.4000 ng/mL Ferritin (test code = Ferritin) 10.0000 ng/mL 15.0000-150.0000 [id number] 14:05:00 Test Item Value Reference Range Comments CEA (test code = CEA) 4.4000 ng/mL 0.0000-4.7000 Assessments Condition Name Status Diagnosis Date Treating Clinici an Peripheral vascular disease, unspecified Active Dizziness and giddiness Active Hypothyroidism, unspecified Active Body mass index (BMI) 38.0-38.9, adult Active Primary insomnia Active Essential (primary) hypertension Active Mixed hyperlipidemia Active Malignant neoplasm of unsp part of left Active bronchus or lung Anxiety disorder, unspecified Active Chronic obstructive pulmonary disease w Active (acute) exacerbation Radiculopathy, site unspecified Active Cough Active Essential (primary) hypertension Active Overactive bladder Active Psychophysiologic insomnia Active Body mass index (BMI) 36.0-36.9, adult Active Essential (primary) hypertension Active Overactive bladder Active Radiculopathy, site unspecified Active Body mass index (BMI) 36.0-36.9, adult Active Chronic obstructive pulmonary disease, Active unspecified Low back pain Active Localized edema Active Shortness of breath Active Radiculopathy, site unspecified Active Essential (primary) hypertension Active Hyperlipidemia, unspecified Active Obesity, unspecified Active Essential (primary) hypertension Active Chronic obstructive pulmonary disease, Active unspecified Polyneuropathy, unspecified Active Low back pain Active Encounters Start End Encounter Admission Attending Care Care Encounter Date/Time Date/Time Type Type Clinicians Facility Department ID 2020-04-04 2020-04-04 Outpatient [facility] n [id number] 00:00:00 00:00:00 [facility] [place] 2020-04-02 2020-04-02 Outpatient Nan Kiddmatt n [id number] 00:00:00 00:00:00 [facility] [place] 2020-03-29 2020-03-29 BarreraNan 2 [id number] 00:00:00 00:00:00 Usha Ferro [facility] [place] 2020-03-27 2020-03-27 Outpatient Nan Kiddmatt n [id number] 00:00:00 00:00:00 [facility] [place] 2020-03-08 2020-03-08 Katerin Fernando rn [id number] 00:00:00 00:00:00 [facility] On[facility] [place] 2020-03-07 2020-03-07 Outpatient Nan Kiddmatt n [id number] 00:00:00 00:00:00 [facility] On[facility] [place] 2020-02-22 2020-02-22 Outpatient Martimatt Martimatt n [id number] 00:00:00 00:00:00 [facility] [place] 2020-02-21 2020-02-21 Outpatient Nan Jimenez rn [id number] 00:00:00 00:00:00 [facility] On[facility] [place] 2020-02-16 2020-02-16 Outpatient Nan Jimenez rn [id number] 00:00:00 00:00:00 [facility] On[facility] [place] 2020-02-15 2020-02-15 Outpatient Nan [place] n [id number] 00:00:00 00:00:00 [facility] Medical Oncology [facility] [place] 2020-02-09 2020-02-09 Tony Swan [facility] [id number] 00:00:00 00:00:00 Gabriela [facility] On[facility] [place] 2020-02-08 2020-02-08 Outpatient Nan Jimenez rn [id number] 00:00:00 00:00:00 [facility] On[facility] [place] 2020-02-07 2020-02-07 Outpatient Nan Jimenez rn [id number] 00:00:00 00:00:00 [facility] On[facility] [place] 2020-02-06 2020-02-06 Outpatient Nan Martimatt n [id number] 00:00:00 00:00:00 [facility] On[facility] [place] 2020-02-05 2020-02-05 Outpatient Nan Jimenez rn [id number] 00:00:00 00:00:00 [facility] Oncology Oncology [facility] 2020-02-02 2020-02-02 Outpatient PolimicheleNan rn [id number] 00:00:00 00:00:00 [facility] Oncology Oncology [facility] 2020-02-01 2020-02-01 Outpatient Nan Jimenez rn [id number] 00:00:00 00:00:00 [facility] Oncology Oncology [facility] 2020-01-26 2020-01-26 Outpatient Nan Jimenez rn [id number] 00:00:00 00:00:00 [facility] Oncology Oncology [facility] 2020-01-25 2020-01-25 Outpatient Nan Jimenez rn [id number] 00:00:00 00:00:00 [facility] Oncology Oncology [facility] 2020-01-19 2020-01-19 Outpatient PolimicheleNan rn [id number] 00:00:00 00:00:00 [facility] Oncology Oncology [facility] 2020-01-18 2020-01-18 Outpatient Nan Jimenez rn [id number] 00:00:00 00:00:00 [facility] Oncology Oncology [facility] 2020-01-17 2020-01-17 Nan Garcia 2 [id number] 00:00:00 00:00:00 Edith Fofana [place] [facility] [place] 2020-01-16 2020-01-16 Outpatient Nan [place] n [id number] 00:00:00 00:00:00 [facility] Oncology Oncology [facility] [place] 2020-01-03 2020-01-03 Outpatient Nan Jimenez rn [id number] 00:00:00 00:00:00 [facility] Oncology Oncology [facility] 2019-12-27 2019-12-27 AnkurTony [facility] [id number] 00:00:00 00:00:00 Riri [facility] Oncology Oncology [facility] 2019-12-20 2019-12-20 Outpatient Nan Jimenez rn [id number] 00:00:00 00:00:00 [facility] Oncology [facility]cology [facility] [place] 2019-12-14 2019-12-14 Outpatient Nan Jimenez rn [id number] 00:00:00 00:00:00 [facility] Oncology Oncology [facility] 2019-12-13 2019-12-13 Outpatient Nan Jimeneze rn [id number] 00:00:00 00:00:00 [facility] Oncology Oncology [facility] 2019-12-07 2019-12-07 Outpatient Martimatt Martimatt n [id number] 00:00:00 00:00:00 [facility] Oncology Oncology [facility] 2019-12-06 2019-12-06 Tony Swan [facility] [id number] 00:00:00 00:00:00 [facility] Oncology Oncology [facility] 2019-12-05 2019-12-05 Outpatient Nan Martimatt n [id number] 00:00:00 00:00:00 [facility] Oncology Oncology [facility] 2019-12-04 2019-12-04 Outpatient Nan Martier n [id number] 00:00:00 00:00:00 [facility] Oncology Oncology [facility] 2019-11-28 2019-11-28 Maria Luz Pearl [facility] [place] [id number] 00:00:00 00:00:00 [facility] Oncology Oncology [facility] 2019-11-24 2019-11-24 Outpatient Nan Martier n [id number] 00:00:00 00:00:00 [facility] Oncology Oncology [facility] 2019-11-23 2019-11-23 Outpatient Nan Martier n [id number] 00:00:00 00:00:00 [facility] Oncology Oncology [facility] 2019-11-22 2019-11-22 Outpatient Nan Martier n [id number] 00:00:00 00:00:00 [facility] Oncology Oncology [facility] 2019-11-21 2019-11-21 Outpatient Nan Martier n [id number] 00:00:00 00:00:00 [facility] Oncology Oncology [facility] 2019-11-20 2019-11-20 Outpatient Nan Jimeneze rn [id number] 00:00:00 00:00:00 [facility] Oncology Oncology [facility] 2019-11-19 2019-11-19 Outpatient [facility] [id number] 00:00:00 00:00:00 [id number] 2019-11-18 2019-11-18 Outpatient Nan Kiddmatt n [id number] 00:00:00 00:00:00 [facility] Medical Oncology Oncology [facility] [place] 2019-11-14 2019-11-14 Outpatient PolimicheleNane rn [id number] 00:00:00 00:00:00 [facility] Oncology Oncology [facility] 2019-11-13 2019-11-13 Outpatient Nan Jimenez rn [id number] 00:00:00 00:00:00 [facility] Oncology Oncology [facility] [place] 2019-11-06 2019-11-06 Outpatient Nan Jimeneze rn [id number] 00:00:00 00:00:00 [facility] Oncology Oncology [facility] 2019-10-31 2019-10-31 Outpatient Nan Martimatt n [id number] 00:00:00 00:00:00 [facility] Oncology Oncology [facility] 2019-10-30 2019-10-30 Mrs. Tony Zheng [facility] [place] [id number] 00:00:00 00:00:00 [facility] Medical Oncology Oncology [facility] [place] 2019-10-27 2019-10-27 Outpatient Nan [place] n [id number] 00:00:00 00:00:00 [facility] Oncology Oncology [facility] 2019-10-18 2019-10-18 Tony Swan [facility] [id number] 00:00:00 00:00:00 Garbiela [facility] Oncology Oncology [facility] 2019-10-17 2019-10-17 Outpatient Nan Martimatt n [id number] 00:00:00 00:00:00 [facility] Medical Oncology [facility]cology [facility] [place] 2019-09-27 2019-09-27 Tony Swan [facility] [id number] 00:00:00 00:00:00 [facility] Medical Oncology Oncology [facility] 2019-09-26 2019-09-26 Outpatient Nan Jimeneze rn [id number] 00:00:00 00:00:00 [facility] Oncology Oncology [facility] 2019-09-25 2019-09-25 Outpatient Nan [place] n [id number] 00:00:00 00:00:00 n Medical Medical On[facility] [place] 2019-09-19 2019-09-19 Outpatient PolimicheleNan rn [id number] 00:00:00 00:00:00 [facility] Oncology Oncology [facility] [place] 2019-09-18 2019-09-18 Outpatient Nan Kiddmatt n [id number] 00:00:00 00:00:00 [facility] Medical Oncology Oncology [facility] [place] 2019-09-15 2019-09-15 Outpatient Martimatt Martimatt deluca [id number] 00:00:00 00:00:00 [facility] Medical Oncology Oncology [facility] [place] 2019-09-08 2019-09-08 Outpatient Nan Kiddmatt n [id number] 00:00:00 00:00:00 [facility] Medical Oncology [facility]cology [facility] [place] 2019-09-05 2019-09-05 Marysol Alex Rodriguez rn [id number] 00:00:00 00:00:00 [facility] [place] Oncology Oncology [facility] [place] 2019-09-04 2019-09-04 Outpatient Martimatt deluca [id number] 00:00:00 00:00:00 [facility] Medical Oncology Oncology [facility] [place] 2019-08-30 2019-08-30 Outpatient Martimatt Martimatt deluca [id number] 00:00:00 00:00:00 [facility] Oncology Oncology [facility] [place] 2019-08-29 2019-08-29 Outpatient Nan Jimenez rn [id number] 00:00:00 00:00:00 [facility] Oncology Oncology [facility] 2019-08-24 2019-08-24 Outpatient Nan deluca [id number] 00:00:00 00:00:00 [facility] Oncology Oncology [facility] 2019-08-15 2019-08-15 Tony Pascual [facility] [id number] 00:00:00 00:00:00 Riri [facility] Medical Oncology Oncology [facility] 2019-08-07 2019-08-07 [facility] [id number] 15:30:00 15:30:00 [facility] [id number] s [id number] and [id number] [facility] 2019-08-01 2019-08-01 Outpatient Nan Jimenez rn [id number] 00:00:00 00:00:00 [facility] Medical Oncology Oncology [facility] 2019-07-26 2019-07-26 Outpatient Martimatt Martimatt n [id number] 00:00:00 00:00:00 [facility] Oncology Oncology [facility] [place] 2019-07-25 2019-07-25 Tony Pascual [facility] [id number] 00:00:00 00:00:00 Riri [facility] Oncology Oncology [facility] [place] 2019-07-24 2019-07-24 Outpatient Nan Martimatt n [id number] 00:00:00 00:00:00 [facility] Oncology Oncology [facility] [place] 2019-07-20 2019-07-20 Outpatient Martimatt Martier n [id number] 00:00:00 00:00:00 [facility] Oncology Oncology [facility] [place] 2019-07-18 2019-07-18 Outpatient Martimatt Martimatt n [id number] 00:00:00 00:00:00 [facility] Oncology Oncology [facility] [place] 2019-07-10 2019-07-10 Outpatient Martimatt Martimatt n [id number] 00:00:00 00:00:00 [facility] Oncology Oncology [facility] [place] 2019-07-05 2019-07-05 Outpatient Nan Martimatt n [id number] 00:00:00 00:00:00 [facility] Oncology Oncology [facility] [place] 2019-07-04 2019-07-04 Katerin Fernando [facility] [place] [id number] 00:00:00 00:00:00 [facility] Oncology Oncology [facility] [place] 2019-06-30 2019-06-30 Outpatient Nan [place] n [id number] 00:00:00 00:00:00 [facility] Oncology Oncology [facility] [place] 2019-06-29 2019-06-29 Outpatient Nan Jimenez rn [id number] 00:00:00 00:00:00 [facility] Oncology Oncology [facility] [place] 2019-06-22 2019-06-22 Outpatient Nan Jimenez rn [id number] 00:00:00 00:00:00 [facility] Oncology Oncology [facility] [place] 2019-06-15 2019-06-15 Outpatient Nan [place] n [id number] 00:00:00 00:00:00 [facility] Oncology Oncology [facility] [place] 2019-06-14 2019-06-14 Outpatient Nan Jimenez rn [id number] 00:00:00 00:00:00 Juan Carlos n Medical Medical Oncology [facility]cology [facility] [place] 2019-06-13 2019-06-13 Mrs. Nan Gregg rn [id number] 00:00:00 00:00:00 [facility] Medical Oncology Oncology [facility] [place] 2019-06-07 2019-06-07 Outpatient Nan [place] n [id number] 00:00:00 00:00:00 [facility] Oncology Oncology [facility] [place] 2019-06-06 2019-06-06 Outpatient PoliNan bautistae rn [id number] 00:00:00 00:00:00 [facility] Medical Oncology Oncology [facility] [place] 2019-05-29 2019-05-29 Outpatient Nan [place] n [id number] 00:00:00 00:00:00 [facility] Oncology Oncology [facility] [place] 2019-05-26 2019-05-26 Outpatient Nan [place] n [id number] 00:00:00 00:00:00 [facility] Oncology Oncology [facility] [place] 2019-05-24 2019-05-24 Outpatient Nan [place] n [id number] 00:00:00 00:00:00 [facility] Medical Oncology Oncology [facility] [place] 2019-05-23 2019-05-23 Maria Luz Pearl Nan Marti [place] [id number] 00:00:00 00:00:00 [facility] Oncology Oncology [facility] [place] 2019-05-18 2019-05-18 Outpatient Nan [place] n [id number] 00:00:00 00:00:00 [facility] Oncology Oncology [facility] 2019-05-09 2019-05-09 Outpatient ShayanNan graye rn [id number] 00:00:00 00:00:00 [facility] Oncology Oncology [facility] 2019-05-04 2019-05-04 Outpatient Nan [place] n [id number] 00:00:00 00:00:00 [facility] Medical Oncology Oncology [facility] [place] 2019-05-03 2019-05-03 Outpatient Polimichele Nan Kidde rn [id number] 00:00:00 00:00:00 [facility] Oncology Oncology [facility] [place] 2019-05-02 2019-05-02 SwanTony Martimatt [facility] [id number] 00:00:00 00:00:00 Gabriela [facility] Oncology Oncology [facility] 2019-04-28 2019-04-28 Outpatient Nan [place] n [id number] 00:00:00 00:00:00 n Medical Medical Oncology Oncology [facility] 2019-04-11 2019-04-11 Shayan Swanmarina [facility] [id number] 00:00:00 00:00:00 Gabriela [facility] Oncology Oncology [facility] 2019-04-05 2019-04-05 Outpatient Nan [place] n [id number] 00:00:00 00:00:00 [facility] Oncology Oncology [facility] 2019-03-22 2019-03-22 Outpatient Nan [place] n [id number] 00:00:00 00:00:00 [facility] Oncology Oncology [facility] 2019-03-21 2019-03-21 Tony Osuna [facility] [id number] 00:00:00 00:00:00 Flori [facility] Oncology Oncology [facility] 2019-03-14 2019-03-14 Outpatient Nan [place] n [id number] 00:00:00 00:00:00 [facility] Oncology Oncology [facility] 2019-03-02 2019-03-02 Outpatient Nan [place] n [id number] 00:00:00 00:00:00 [facility] Oncology Oncology [facility] 2019-03-01 2019-03-01 Outpatient Polimichele Nan Michael rn [id number] 00:00:00 00:00:00 [facility] Oncology Oncology [facility] 2019-02-28 2019-02-28 Tony Osuna [facility] [id number] 00:00:00 00:00:00 Flori [facility] Oncology Oncology [facility] 2019-02-14 2019-02-14 Outpatient Nan Jimenez rn [id number] 00:00:00 00:00:00 [facility] Oncology Oncology [facility] 2019-02-07 2019-02-07 Tony Osuna [facility] [id number] 00:00:00 00:00:00 Flori [facility] Oncology Oncology [facility] 2019-01-30 2019-01-30 Outpatient Nan [place] n [id number] 00:00:00 00:00:00 [facility] Oncology Oncology [facility] 2019-01-19 2019-01-19 Outpatient [facility] [place] 1 [id number] 11:00:00 11:00:00 [facility] [id number] and [id number] Multispecial [id number] ty Clini 2019-01-17 2019-01-17 Outpatient Nan Jimenez rn [id number] 00:00:00 00:00:00 [facility] Oncology Oncology [facility] 2019-01-10 2019-01-10 Outpatient aNn [place] n [id number] 00:00:00 00:00:00 [facility] Oncology Oncology [facility] 2019-01-05 2019-01-05 Outpatient Nan [place] n [id number] 00:00:00 00:00:00 [facility] Oncology Oncology [facility] 2019-01-02 2019-01-02 Outpatient Nna [place] n [id number] 00:00:00 00:00:00 [facility] Oncology Oncology [facility] 2018-12-28 2018-12-28 Enrrique, Nan Jimenez [facility] [id number] 00:00:00 00:00:00 [facility] Oncology Oncology [facility] 2018-12-26 2018-12-26 Outpatient Nan Jimenezpresley rn [id number] 00:00:00 00:00:00 [facility] Oncology Oncology [facility] 2018-12-20 2018-12-20 [facility] [id number] 00:00:00 00:00:00 [facility] Oncology Oncology [facility] 2018-12-16 2018-12-16 Outpatient Nan [place] n [id number] 00:00:00 00:00:00 [facility] Oncology Oncology [facility] 2018-12-15 2018-12-15 Outpatient Phillip [facility] 75 [id number] 14:30:00 14:30:00 [facility] [id number] and [id number] Multispecial [id number] ty Clini 2018-12-07 2018-12-07 Outpatient Nan Montana n [id number] 00:00:00 00:00:00 [facility] Oncology Oncology [facility] 2018-11-30 2018-11-30 Outpatient Nan [place] n [id number] 00:00:00 00:00:00 [facility] Oncology Oncology [facility] 2018-11-29 2018-11-29 [facility] 2 [id number] 00:00:00 00:00:00 Dennisheri Fofana [facility] Medical Oncology Oncology [facility] [place] 2018-11-22 2018-11-22 Outpatient Nan [place] n [id number] 00:00:00 00:00:00 [facility] Oncology Oncology [facility] [place] 2018-11-14 2018-11-14 Outpatient Nan Montana n [id number] 00:00:00 00:00:00 [facility] Oncology Oncology [facility] [place] 2018-10-25 2018-10-25 Outpatient Nan Jimenez rn [id number] 00:00:00 00:00:00 [facility] Oncology Oncology [facility] [place] 2018-10-24 2018-10-24 Outpatient Nan [place] n [id number] 00:00:00 00:00:00 [facility] Oncology Oncology [facility] 2018-10-19 2018-10-19 Outpatient Nan [place] n [id number] 00:00:00 00:00:00 [facility] Oncology Oncology [facility] 2018-10-05 2018-10-05 Outpatient Nan [place] n [id number] 00:00:00 00:00:00 [facility] Oncology Oncology [facility] 2018-10-03 2018-10-03 Outpatient Nan Montana n [id number] 00:00:00 00:00:00 [facility] Oncology Oncology [facility] 2018-09-28 2018-09-28 Outpatient Nan Jimenez rn [id number] 00:00:00 00:00:00 [facility] Oncology Oncology [facility] 2018-09-27 2018-09-27 Tony Swan [facility] [id number] 00:00:00 00:00:00 [facility] Medical Oncology Oncology [facility] [place] 2018-08-30 2018-08-30 [facility] [id number] 00:00:00 00:00:00 [facility] Oncology Oncology [facility] 2018-08-02 2018-08-02 Outpatient Nan Jimenez rn [id number] 00:00:00 00:00:00 [facility] Oncology Oncology [facility] 2018-07-26 2018-07-26 Outpatient Lam [facility] [id number] 13:00:00 13:00:00 Elvira, Ca [id number] Tee s [id number] and [id number] Multispecial Clinic, 2018-07-05 2018-07-05 Outpatient Nan Jimenez rn [id number] 00:00:00 00:00:00 [facility] Oncology Oncology [facility] 2018-06-08 2018-06-08 Outpatient Nan [place] n [id number] 00:00:00 00:00:00 [facility] Oncology Oncology [facility] 2018-06-07 2018-06-07 SwanTony [facility] [id number] 00:00:00 00:00:00 Gabriela [facility] Oncology Oncology [facility] 2018-05-31 2018-05-31 Outpatient Nan Jimenez rn [id number] 00:00:00 00:00:00 [facility] Oncology Oncology [facility] 2018-05-30 2018-05-30 Outpatient Nan Jimenez rn [id number] 00:00:00 00:00:00 [facility] Oncology Oncology [facility] 2018-05-23 2018-05-23 Outpatient Nan Jimenez rn [id number] 00:00:00 00:00:00 [facility] Oncology Oncology [facility] 2018-05-15 2018-05-15 Outpatient Nan Montana n [id number] 00:00:00 00:00:00 [facility] Oncology Oncology [facility] 2018-05-11 2018-05-11 Outpatient Nan Jimenez rn [id number] 00:00:00 00:00:00 [facility] Oncology Oncology [facility] 2018-05-10 2018-05-10 Outpatient Nan Jimenez rn [id number] 00:00:00 00:00:00 [facility] Oncology Oncology [facility] 2018-05-02 2018-05-02 Outpatient Nan [place] n [id number] 00:00:00 00:00:00 [facility] Oncology Oncology [facility] 2018-04-12 2018-04-12 Outpatient Nan Jimenez rn [id number] 00:00:00 00:00:00 [facility] Oncology Oncology [facility] 2018-04-01 2018-04-01 Outpatient Nan Jimenez rn [id number] 00:00:00 00:00:00 [facility] Oncology Oncology [facility] 2018-03-25 2018-03-25 Outpatient PoilmicheleNan rn [id number] 00:00:00 00:00:00 [facility] Oncology Oncology [facility] 2018-03-17 2018-03-17 Outpatient Shayanmarina Nan Michael rn [id number] 00:00:00 00:00:00 [facility] Oncology Oncology [facility] 2018-03-16 2018-03-16 Outpatient Nan [place] sandrine [id number] 00:00:00 00:00:00 [facility] Oncology Oncology [facility] 2018-03-15 2018-03-15 SwanPolimichele Martimatt Aguilar [id number] 00:00:00 00:00:00 [facility] Oncology [facility] 2018-03-10 2018-03-10 Outpatient PolimicheleNan rn [id number] 00:00:00 00:00:00 [facility] Oncology [facility] 2018-02-24 2018-02-24 Outpatient Lam [facility] [id number] 11:00:00 11:00:00 Ca Felix [id number] Tee s [id number] and [id number] [facility]ispecial [place] 2018-02-16 2018-02-16 Outpatient Nan Kiddmatt deluca [id number] 00:00:00 00:00:00 [facility] 2018-02-15 2018-02-15 Outpatient Polimichele Martimatt Rodriguez rn [id number] 00:00:00 00:00:00 [facility] Oncology [facility] 2018-02-11 2018-02-11 Outpatient Nan Kiddmatt deluca [id number] 00:00:00 00:00:00 [facility] Oncology Oncology [facility] 2018-02-10 2018-02-10 Outpatient PolimicheleNan rn [id number] 00:00:00 00:00:00 [facility] Oncology Oncology [facility] 2018-01-25 2018-01-25 Outpatient Lam [facility] [id number] 10:30:00 10:30:00 [facility] [id number] Tee s [id number] and [id number] [facility] [place] 2018-01-13 2018-01-13 Outpatient Polimichele Martimatt Rodriguez rn [id number] 00:00:00 00:00:00 [facility] Oncology Oncology [facility] 2017-12-23 2017-12-23 Outpatient Nan [place] n [id number] 00:00:00 00:00:00 [facility] Oncology Oncology [facility] 2017-12-22 2017-12-22 Outpatient Nan [place] n [id number] 00:00:00 00:00:00 [facility] Oncology Oncology [facility] 2017-12-17 2017-12-17 Outpatient PolimicheleNan rn [id number] 00:00:00 00:00:00 [facility] Oncology Oncology [facility] 2017-12-16 2017-12-16 Tony Osuna [facility] [id number] 00:00:00 00:00:00 Flori [facility] Oncology Oncology [facility] 2017-12-09 2017-12-09 Outpatient Nan Jimenez rn [id number] 00:00:00 00:00:00 [facility] Oncology Oncology [facility] 2017-12-08 2017-12-08 Outpatient Nan [place] n [id number] 00:00:00 00:00:00 [facility] Oncology Oncology [facility] 2017-12-01 2017-12-01 Outpatient Nan [place] n [id number] 00:00:00 00:00:00 [facility] Oncology Oncology [facility] 2017-11-25 2017-11-25 Outpatient Nan [place] n [id number] 00:00:00 00:00:00 [facility] Oncology Oncology [facility] 2017-11-16 2017-11-16 Tony Pascual [facility] [id number] 00:00:00 00:00:00 Riri [facility] Oncology Oncology [facility] 2017-11-15 2017-11-15 Outpatient Nan Jimenez rn [id number] 00:00:00 00:00:00 [facility] Oncology Oncology [facility] 2017-11-05 2017-11-05 Tony Swan [facility] [id number] 00:00:00 00:00:00 Gabriela [facility] Oncology Oncology [facility] 2017-10-08 2017-10-08 Outpatient Nan Jimenez rn [id number] 00:00:00 00:00:00 [facility] [facility] Oncology Oncology [facility] 2017-09-10 2017-09-10 Outpatient Nan Jimenez rn [id number] 00:00:00 00:00:00 [facility] Oncology Oncology [facility] 2017-08-25 2017-08-25 Outpatient Gonzalez, [facility] 01 [id number] 10:15:00 10:15:00 [facility] [id number] s [id number] and [id number] [facility] 2017-08-13 2017-08-13 Outpatient Nan Jimenez rn [id number] 00:00:00 00:00:00 [facility] Oncology Oncology [facility] 2017-07-16 2017-07-16 Outpatient Nan Jimenez rn [id number] 00:00:00 00:00:00 [facility] Oncology Oncology [facility] 2017-06-30 2017-06-30 Outpatient Nan deluca [id number] 00:00:00 00:00:00 [facility] Oncology Oncology [facility] 2017-06-21 2017-06-21 [facility] [id number] 11:00:00 11:00:00 [facility] [id number] s [id number] and [id number] [facility] 2017-06-18 2017-06-18 Outpatient Nan Jimenez rn [id number] 00:00:00 00:00:00 [facility] Oncology Oncology [facility] 2017-05-21 2017-05-21 Tony Swan [facility] [id number] 00:00:00 00:00:00 Gabriela [facility] Oncology Oncology [facility] 2017-05-20 2017-05-20 Outpatient Nan deluca [id number] 00:00:00 00:00:00 [facility] Oncology Oncology [facility] 2017-04-23 2017-04-23 Outpatient Nan Jimenez rn [id number] 00:00:00 00:00:00 [facility] Oncology Oncology [facility] 2017-04-22 2017-04-22 Outpatient Nan Jimenez rn [id number] 00:00:00 00:00:00 [facility] Medical Oncology Oncology [facility] [place] 2017-04-01 2017-04-01 Outpatient Nan Martimatt n [id number] 00:00:00 00:00:00 [facility] Oncology Oncology [facility] [place] 2017-03-25 2017-03-25 Outpatient Nan Jimenez rn [id number] 00:00:00 00:00:00 [facility] Oncology Oncology [facility] [place] 2017-02-25 2017-02-25 Outpatient Nan Montana n [id number] 00:00:00 00:00:00 [facility] Medical Oncology Oncology [facility] [place] 2017-01-28 2017-01-28 Outpatient Nan Jimenez rn [id number] 00:00:00 00:00:00 [facility] Oncology Oncology [facility] [place] 2017-01-18 2017-01-18 Outpatient Nan Martimatt n [id number] 00:00:00 00:00:00 [facility] Oncology Oncology [facility] [place] 2016-12-31 2016-12-31 Outpatient Nan Montana n [id number] 00:00:00 00:00:00 [facility] Oncology Oncology [facility] [place] 2016-12-08 2016-12-08 Outpatient Nan Martimatt n [id number] 00:00:00 00:00:00 [facility] Oncology Oncology [facility] [place] 2016-12-03 2016-12-03 Maria Luz Pearl [facility] [id number] 00:00:00 00:00:00 [facility] Oncology Oncology [facility] [place] 2016-11-06 2016-11-06 Outpatient Nan Montana n [id number] 00:00:00 00:00:00 [facility] Oncology Oncology [facility] [place] 2016-11-05 2016-11-05 Outpatient Nan Montana n [id number] 00:00:00 00:00:00 [facility] Medical Oncology Oncology [facility] [place] 2016-10-27 2016-10-27 Outpatient Nan Montana n [id number] 00:00:00 00:00:00 [facility] Oncology Oncology [facility] [place] 2016-10-14 2016-10-14 Outpatient Nan Montana n [id number] 00:00:00 00:00:00 [facility] Oncology Oncology [facility] [place] 2016-10-08 2016-10-08 Outpatient Nan Montana n [id number] 00:00:00 00:00:00 n [facility] 2016-09-30 2016-09-30 Outpatient Nan Montana n [id number] 00:00:00 00:00:00 n Medical Medical Oncology Oncology [facility] 2016-09-29 2016-09-29 Outpatient Nan Montana n [id number] 00:00:00 00:00:00 n [facility] On[facility] [place] 2016-09-23 2016-09-23 Outpatient Nan Montana n [id number] 00:00:00 00:00:00 n [facility] Medical Oncology [facility] [place] 2016-09-22 2016-09-22 Outpatient Nan Montana n [id number] 00:00:00 00:00:00 n Medical Medical Oncology [facility]cology [facility] [place] 2016-09-15 2016-09-15 Outpatient Nan Montana n [id number] 00:00:00 00:00:00 n Medical Medical Oncology [facility]cology [facility] [place] 2016-09-11 2016-09-11 Outpatient Nan Montana n [id number] 00:00:00 00:00:00 n Medical Medical Oncology [facility]cology [facility] [place] 2016-09-10 2016-09-10 Nan Swan 2 [id number] 00:00:00 00:00:00 Gabriela n Medical Medical Oncology [facility]cology [facility] [place] 2016-09-01 2016-09-01 Outpatient Nan Montana n [id number] 00:00:00 00:00:00 n [facility] Medical Oncology [facility]cology [facility] [place] 2016-08-28 2016-08-28 Outpatient Nan Montana n [id number] 00:00:00 00:00:00 n [facility] Medical Oncology [facility] [place] 2016-08-27 2016-08-27 Outpatient Nan Montana n [id number] 00:00:00 00:00:00 n Medical Medical Oncology [facility]cology [facility] [place] 2016-08-21 2016-08-21 Outpatient Nan Montana n [id number] 00:00:00 00:00:00 n Medical Medical Oncology [facility]cology [facility] [place] 2016-08-20 2016-08-20 Outpatient Nan Kidder n [id number] 00:00:00 00:00:00 n [facility] Medical Oncology [facility]cology [facility] [place] 2016-08-19 2016-08-19 Outpatient Nan Kidder n [id number] 00:00:00 00:00:00 n Medical Medical Oncology [facility]cology [facility] [place] 2016-08-18 2016-08-18 Outpatient Nan Kiddmatt n [id number] 00:00:00 00:00:00 n Medical Medical Oncology [facility]cology [facility] [place] 2016-08-13 2016-08-13 Outpatient Nan Kidder n [id number] 00:00:00 00:00:00 n [facility] Oncology Oncology [facility] [place] 2016-08-11 2016-08-11 Outpatient Nan Kidder n [id number] 00:00:00 00:00:00 [facility] Medical Oncology Oncology [facility] [place] 2016-08-07 2016-08-07 Outpatient Shayanmarina Martimatt Kidde rn [id number] 00:00:00 00:00:00 [facility] Medical Oncology Oncology [facility] [place] 2016-08-04 2016-08-04 Outpatient Shayanmarina Nan Martie rn [id number] 00:00:00 00:00:00 [facility] Medical Oncology Oncology [facility] [place] 2016-07-21 2016-07-21 Outpatient Nan Montana n [id number] 00:00:00 00:00:00 [facility] Medical Oncology Oncology [facility] [place] 2016-07-16 2016-07-16 Outpatient Nan Montana n [id number] 00:00:00 00:00:00 [facility] Medical Oncology Oncology [facility] [place] 2016-07-14 2016-07-14 Outpatient Nan Kidder n [id number] 00:00:00 00:00:00 [facility] Medical Oncology Oncology [facility] [place] 2016-07-10 2016-07-10 Outpatient Nan Kidder n [id number] 00:00:00 00:00:00 [facility] Medical Oncology Oncology [facility] [place] 2016-07-07 2016-07-07 Outpatient Nan Kidder n [id number] 00:00:00 00:00:00 [facility] Medical Oncology Oncology [facility] [place] 2016-06-16 2016-06-16 Outpatient Nan Kidder n [id number] 00:00:00 00:00:00 [facility] Medical Oncology Oncology [facility] [place] 2016-06-12 2016-06-12 Outpatient Nan Kidder n [id number] 00:00:00 00:00:00 [facility] Medical Oncology Oncology [facility] [place] 2016-06-09 2016-06-09 Outpatient Nan Kidder n [id number] 00:00:00 00:00:00 [facility] Medical Oncology Oncology [facility] [place] 2016-05-12 2016-05-12 Tony Pascual [facility] [id number] 00:00:00 00:00:00 Riri [facility] Oncology Oncology [facility] [place] 2016-05-04 2016-05-04 Outpatient Martier Martier n [id number] 00:00:00 00:00:00 n Medical Medical Oncology Oncology Center [facility] 2016-04-14 2016-04-14 Outpatient Martier Martier n [id number] 00:00:00 00:00:00 n Medical Medical Oncology Oncology Center [facility] 2016-04-10 2016-04-10 Outpatient Nan Kidder n [id number] 00:00:00 00:00:00 n Medical Medical Oncology Oncology Center [facility] 2016-03-24 2016-03-24 Outpatient Nan Kidder n [id number] 00:00:00 00:00:00 n Medical Medical Oncology Oncology Center [facility] 2016-03-23 2016-03-23 Outpatient Nan Kidder n [id number] 00:00:00 00:00:00 n [facility] Medical Oncology Oncology Center [facility] 2016-03-18 2016-03-18 Outpatient Nan Montana n [id number] 00:00:00 00:00:00 n Medical Medical Oncology Oncology Center [facility] 2016-03-17 2016-03-17 Nan Pascual 2 [id number] 00:00:00 00:00:00 Riri n Medical Medical Oncology Oncology Center [facility] 2016-03-16 2016-03-16 Outpatient Nan [place] n [id number] 00:00:00 00:00:00 n Medical Medical Oncology Oncology Center [facility] 2016-03-02 2016-03-02 Outpatient Nan Montana n [id number] 00:00:00 00:00:00 n [facility] Medical Oncology Oncology Center [facility] 2016-02-19 2016-02-19 Outpatient Nan Kidder n [id number] 00:00:00 00:00:00 n Medical Medical Oncology Oncology Center [facility] 2016-02-18 2016-02-18 Outpatient Nan Kidder n [id number] 00:00:00 00:00:00 n Medical Medical Oncology Oncology Center [facility] 2016-01-21 2016-01-21 Outpatient Nan Kidder n [id number] 00:00:00 00:00:00 n Medical Medical Oncology Oncology [facility] 2015-12-24 2015-12-24 Outpatient Martier Martier n [id number] 00:00:00 00:00:00 n Medical Medical Oncology Oncology Center [facility] 2015-11-26 2015-11-26 Nan Swan 2 [id number] 00:00:00 00:00:00 Gabriela n Medical Medical Oncology Oncology Center [facility] 2015-10-29 2015-10-29 Outpatient Nan Montana n [id number] 00:00:00 00:00:00 n Medical Medical Oncology Oncology Center [facility] 2015-10-22 2015-10-22 Outpatient Nan Kidder n [id number] 00:00:00 00:00:00 n Medical Medical Oncology Oncology [facility] [place] 2015-10-16 2015-10-16 Outpatient Nan Montana n [id number] 00:00:00 00:00:00 n Medical Medical Oncology Oncology [facility] [place] 2015-10-15 2015-10-15 Outpatient Nan Montana n [id number] 00:00:00 00:00:00 n Medical Medical Oncology Oncology [facility] [place] 2015-10-08 2015-10-08 Swan Martimatt Lauren 2 [id number] 00:00:00 00:00:00 Gabriela n [facility] Medical Oncology Oncology [facility] [place] 2015-10-03 2015-10-03 Outpatient Nan Montana n [id number] 00:00:00 00:00:00 n [facility] Medical Oncology Oncology [facility] [place] 2015-10-01 2015-10-01 Outpatient Nan Montana n [id number] 00:00:00 00:00:00 n Medical Medical Oncology Oncology [facility] [place] 2015-09-30 2015-09-30 Outpatient Nan Montana n [id number] 00:00:00 00:00:00 n Medical Medical Oncology Oncology [facility] [place] 2015-09-26 2015-09-26 Outpatient Nan Montana n [id number] 00:00:00 00:00:00 n Medical Medical Oncology Oncology [facility] [place] 2015-07-27 2015-07-27 Outpatient Nan Montana n [id number] 00:00:00 00:00:00 n Medical Medical Oncology Oncology [facility] [place] 2014-11-19 2014-11-19 Outpatient Nan Montana n [id number] 00:00:00 00:00:00 n Medical Medical Oncology Oncology [facility] [place] 2014-11-14 2014-11-14 Outpatient Nan Kidder n [id number] 00:00:00 00:00:00 n Medical Medical Oncology Oncology [facility] [place] 2014-11-05 2014-11-05 Outpatient Nan Kidder n [id number] 00:00:00 00:00:00 n Medical Medical Oncology Oncology [facility] [place] 2014-10-29 2014-10-29 Outpatient Nan Kidder n [id number] 00:00:00 00:00:00 n Medical Medical Oncology Oncology Center [facility] 2014-10-19 2014-10-19 Outpatient Nan Montana n [id number] 00:00:00 00:00:00 n Medical Medical Oncology Oncology Center [facility] 2014-10-18 2014-10-18 Beny Martimatt Lauren 2 [id number] 00:00:00 00:00:00 Gabriela n Medical Medical Oncology Oncology Center [facility] 2014-10-02 2014-10-02 Outpatient Nan Montana n [id number] 00:00:00 00:00:00 n Medical Medical Oncology Oncology Center [facility] 2014-09-17 2014-09-17 Outpatient Nan Kidder n [id number] 00:00:00 00:00:00 n Medical Medical Oncology Oncology Center [facility] 2014-09-06 2014-09-06 Outpatient Nan Montana n [id number] 00:00:00 00:00:00 n Medical Medical Oncology Oncology Center [facility] 2014-08-20 2014-08-20 Outpatient Nan Montana n [id number] 00:00:00 00:00:00 n Medical Medical Oncology Oncology Center [facility] 2014-08-16 2014-08-16 Beny Martimatt Lauren 2 [id number] 00:00:00 00:00:00 Gabriela n Medical Medical Oncology Oncology Center [facility] 2014-08-15 2014-08-15 Outpatient Nan Montana n [id number] 00:00:00 00:00:00 n [facility] Medical Oncology Oncology Center [facility] 2014-08-02 2014-08-02 Outpatient Nan Montana n [id number] 00:00:00 00:00:00 n Medical Medical Oncology Oncology Center [facility] 2014-06-11 2014-06-11 Outpatient Nan Montana n [id number] 00:00:00 00:00:00 n Medical Medical Oncology Oncology Center [facility] 2014-06-08 2014-06-08 Outpatient Nan Kidder n [id number] 00:00:00 00:00:00 n Medical Medical Oncology Oncology Center [facility] 2014-06-05 2014-06-05 Outpatient Nan Kidder n [id number] 00:00:00 00:00:00 n Medical Medical Oncology Oncology Center [facility] 2014-06-04 2014-06-04 Miss Donovan Nan Rodriguez rn [id number] 00:00:00 00:00:00 Nikki Ferro n [facility] Oncology Oncology Center [facility] 2014-05-14 2014-05-14 Outpatient Nan [place] n [id number] 00:00:00 00:00:00 [facility] Medical Oncology Oncology [facility] [place] 2014-04-12 2014-04-12 [address] Mrs. Nan Rodriguez rn [id number] 00:00:00 00:00:00 Paola [facility] Oncology Oncology [facility] [place] 2014-03-13 2014-03-13 Outpatient Nan Montana n [id number] 00:00:00 00:00:00 [facility] Oncology Oncology [facility] [place] 2014-03-09 2014-03-09 Outpatient Nan Montana n [id number] 00:00:00 00:00:00 [facility] Medical Oncology Oncology [facility] [place] 2014-03-08 2014-03-08 Outpatient Nan Montana n [id number] 00:00:00 00:00:00 [facility] Oncology Oncology [facility] [place] 2014-03-06 2014-03-06 Outpatient Nan Montana n [id number] 00:00:00 00:00:00 [facility] Oncology Oncology [facility] [place] 2014-02-22 2014-02-22 Nan Swan 2 [id number] 00:00:00 00:00:00 [facility] Oncology Oncology [facility] [place] 2014-02-08 2014-02-08 Outpatient Nan Montana n [id number] 00:00:00 00:00:00 [facility] Oncology Oncology [facility] [place] 2014-02-06 2014-02-06 Outpatient Nan Montana n [id number] 00:00:00 00:00:00 [facility] Oncology Oncology [facility] [place] 2014-02-01 2014-02-01 Nan Pascual 2 [id number] 00:00:00 00:00:00 Riri [facility] Oncology Oncology [facility] [place] 2014-01-25 2014-01-25 Outpatient Nan Montana n [id number] 00:00:00 00:00:00 [facility] Medical Oncology Oncology [facility] [place] 2014-01-23 2014-01-23 Outpatient Nan Montana n [id number] 00:00:00 00:00:00 [facility] Oncology Oncology [facility] [place] 2014-01-18 2014-01-18 Nan Swan 2 [id number] 00:00:00 00:00:00 [facility] Oncology Oncology [facility] [place] 2014-01-12 2014-01-12 Outpatient Nan Montana n [id number] 00:00:00 00:00:00 n Medical Medical Oncology Oncology [facility] [place] 2014-01-11 2014-01-11 Outpatient Nan Montana n [id number] 00:00:00 00:00:00 [facility] Medical Oncology Oncology [facility] [place] 2014-01-10 2014-01-10 Outpatient Nan Montana n [id number] 00:00:00 00:00:00 [facility] Medical Oncology Oncology [facility] [place] 2014-01-09 2014-01-09 DonovanMiss Nan espinoza rn [id number] 00:00:00 00:00:00 Nikki Ferro [facility] Medical Oncology Oncology [facility] [place] 2013-12-14 2013-12-14 Outpatient Nan Montana n [id number] 00:00:00 00:00:00 [facility] Medical Oncology Oncology [facility] [place] 2013-11-16 2013-11-16 Outpatient Nan Montana n [id number] 00:00:00 00:00:00 [facility] Medical Oncology Oncology [facility] [place] 2011-07-13 2011-07-13 Outpatient Nan Montana n [id number] 00:00:00 00:00:00 [facility] Oncology Oncology [facility] [place] 2011 2011 Outpatient Nan Montana n [id number] 00:00:00 00:00:00 [facility] Medical Oncology Oncology [facility] [place] 2009-06-11 2009-06-11 Outpatient Nan Montana n [id number] 00:00:00 00:00:00 [facility] Oncology Oncology [facility] Social History Smoking Status Start Date Stop Date Current every day smoker 2020-03-29 00:00:00 2020-03-29 00:0 0:00 Social History Observation Description Sex Female Vital Signs Vital Name Observation Time Observation Value Comments BMI 2020-03-29 11:12:43 34.6300 BP bryson 2020-03-29 11:12:43 62.0000 mm[Hg] Bdy height 2020-03-29 11:12:43 63.5000 [in_i] SaO2% BldA PulseOx 2020-03-29 11:12:43 95.0000 % Heart rate 2020-03-29 11:12:43 97.0000 /min Resp rate 2020-03-29 11:12:43 22.0000 /min BP sys 2020-03-29 11:12:43 127.0000 mm[Hg] Body temperature 2020-03-29 11:12:43 97.2000 [degF] Weight 2020-03-29 11:12:43 198.6000 [lb_av] BMI 2020-03-08 11:14:51 34.9800 BP bryson 2020-03-08 11:14:51 66.0000 mm[Hg] Bdy height 2020-03-08 11:14:51 63.5000 [in_i] SaO2% BldA PulseOx 2020-03-08 11:14:51 97.0000 % Heart rate 2020-03-08 11:14:51 72.0000 /min Resp rate 2020-03-08 11:14:51 16.0000 /min BP sys 2020-03-08 11:14:51 146.0000 mm[Hg] Body temperature 2020-03-08 11:14:51 97.9000 [degF] Weight 2020-03-08 11:14:51 200.6000 [lb_av] BMI 2020-02-21 11:39:04 35.5000 BP bryson 2020-02-21 11:39:04 62.0000 mm[Hg] Bdy height 2020-02-21 11:39:04 63.5000 [in_i] SaO2% BldA PulseOx 2020-02-21 11:39:04 94.0000 % Heart rate 2020-02-21 11:39:04 101.0000 /min Resp rate 2020-02-21 11:39:04 20.0000 /min BP sys 2020-02-21 11:39:04 132.0000 mm[Hg] Body temperature 2020-02-21 11:39:04 97.3000 [degF] Weight 2020-02-21 11:39:04 203.6000 [lb_av] BMI 2020-02-16 11:37:47 36.1600 BP bryson 2020-02-16 11:37:47 58.0000 mm[Hg] Bdy height 2020-02-16 11:37:47 63.5000 [in_i] SaO2% BldA PulseOx 2020-02-16 11:37:47 95.0000 % Heart rate 2020-02-16 11:37:47 93.0000 /min Resp rate 2020-02-16 11:37:47 16.0000 /min BP sys 2020-02-16 11:37:47 118.0000 mm[Hg] Body temperature 2020-02-16 11:37:47 98.2000 [degF] Weight 2020-02-16 11:37:47 207.4000 [lb_av] BMI 2020-02-09 11:55:19 36.2000 BP bryson 2020-02-09 11:55:19 53.0000 mm[Hg] Bdy height 2020-02-09 11:55:19 63.5000 [in_i] SaO2% BldA PulseOx 2020-02-09 11:55:19 97.0000 % Heart rate 2020-02-09 11:55:19 103.0000 /min Resp rate 2020-02-09 11:55:19 22.0000 /min BP sys 2020-02-09 11:55:19 113.0000 mm[Hg] Body temperature 2020-02-09 11:55:19 97.5000 [degF] Weight 2020-02-09 11:55:19 207.6000 [lb_av] Bdy height 2020-02-05 11:38:49 63.5000 [in_i] Body temperature 2020-02-05 11:38:49 97.2000 [degF] Bdy height 2020-02-02 13:53:48 63.5000 [in_i] Body temperature 2020-02-02 13:53:48 97.9000 [degF] Bdy height 2020-01-25 12:45:16 63.5000 [in_i] Body temperature 2020-01-25 12:45:16 97.0000 [degF] BMI 2020-01-19 11:40:43 36.9300 BP bryson 2020-01-19 11:40:43 84.0000 mm[Hg] Bdy height 2020-01-19 11:40:43 63.5000 [in_i] SaO2% BldA PulseOx 2020-01-19 11:40:43 95.0000 % Heart rate 2020-01-19 11:40:43 80.0000 /min Resp rate 2020-01-19 11:40:43 18.0000 /min BP sys 2020-01-19 11:40:43 134.0000 mm[Hg] Body temperature 2020-01-19 11:40:43 96.6000 [degF] Weight 2020-01-19 11:40:43 211.8000 [lb_av] BMI 2020-01-17 10:59:38 36.9700 BP bryson 2020-01-17 10:59:38 74.0000 mm[Hg] Bdy height 2020-01-17 10:59:38 63.5000 [in_i] SaO2% BldA PulseOx 2020-01-17 10:59:38 96.0000 % Heart rate 2020-01-17 10:59:38 91.0000 /min Resp rate 2020-01-17 10:59:38 22.0000 /min BP sys 2020-01-17 10:59:38 124.0000 mm[Hg] Body temperature 2020-01-17 10:59:38 97.7000 [degF] Weight 2020-01-17 10:59:38 212.0000 [lb_av] BMI 2020-01-03 12:41:51 36.8600 BP bryson 2020-01-03 12:41:51 72.0000 mm[Hg] Bdy height 2020-01-03 12:41:51 63.5000 [in_i] SaO2% BldA PulseOx 2020-01-03 12:41:51 94.0000 % Heart rate 2020-01-03 12:41:51 86.0000 /min Resp rate 2020-01-03 12:41:51 20.0000 /min BP sys 2020-01-03 12:41:51 119.0000 mm[Hg] Body temperature 2020-01-03 12:41:51 97.7000 [degF] Weight 2020-01-03 12:41:51 211.4000 [lb_av] BMI 2019-12-27 11:37:21 37.9100 BP bryson 2019-12-27 11:37:21 74.0000 mm[Hg] Bdy height 2019-12-27 11:37:21 63.5000 [in_i] SaO2% BldA PulseOx 2019-12-27 11:37:21 93.0000 % Heart rate 2019-12-27 11:37:21 98.0000 /min Resp rate 2019-12-27 11:37:21 22.0000 /min BP sys 2019-12-27 11:37:21 153.0000 mm[Hg] Body temperature 2019-12-27 11:37:21 98.2000 [degF] Weight 2019-12-27 11:37:21 217.4000 [lb_av] BMI 2019-12-20 13:04:06 38.3600 BP bryson 2019-12-20 13:04:06 79.0000 mm[Hg] Bdy height 2019-12-20 13:04:06 63.5000 [in_i] SaO2% BldA PulseOx 2019-12-20 13:04:06 93.0000 % Heart rate 2019-12-20 13:04:06 86.0000 /min Resp rate 2019-12-20 13:04:06 20.0000 /min BP sys 2019-12-20 13:04:06 157.0000 mm[Hg] Body temperature 2019-12-20 13:04:06 97.0000 [degF] Weight 2019-12-20 13:04:06 220.0000 [lb_av] Bdy height 2019-12-14 12:40:07 63.5000 [in_i] Body temperature 2019-12-14 12:40:07 98.1000 [degF] BMI 2019-12-06 09:59:27 38.3600 BP bryson 2019-12-06 09:59:27 62.0000 mm[Hg] Bdy height 2019-12-06 09:59:27 63.5000 [in_i] SaO2% BldA PulseOx 2019-12-06 09:59:27 96.0000 % Heart rate 2019-12-06 09:59:27 75.0000 /min Resp rate 2019-12-06 09:59:27 20.0000 /min BP sys 2019-12-06 09:59:27 117.0000 mm[Hg] Body temperature 2019-12-06 09:59:27 98.2000 [degF] Weight 2019-12-06 09:59:27 220.0000 [lb_av] BMI 2019-11-28 16:12:17 37.8000 BP bryson 2019-11-28 16:12:17 70.0000 mm[Hg] Bdy height 2019-11-28 16:12:17 63.5000 [in_i] SaO2% BldA PulseOx 2019-11-28 16:12:17 96.0000 % Heart rate 2019-11-28 16:12:17 84.0000 /min Resp rate 2019-11-28 16:12:17 18.0000 /min BP sys 2019-11-28 16:12:17 128.0000 mm[Hg] Body temperature 2019-11-28 16:12:17 96.4000 [degF] Weight 2019-11-28 16:12:17 216.8000 [lb_av] Bdy height 2019-11-14 11:06:46 63.5000 [in_i] Body temperature 2019-11-14 11:06:46 97.3000 [degF] Bdy height 2019-11-06 11:24:37 63.5000 [in_i] Body temperature 2019-11-06 11:24:37 97.0000 [degF] BMI 2019-10-30 10:14:50 39.0900 BP bryson 2019-10-30 10:14:50 59.0000 mm[Hg] Bdy height 2019-10-30 10:14:50 63.5000 [in_i] SaO2% BldA PulseOx 2019-10-30 10:14:50 94.0000 % Heart rate 2019-10-30 10:14:50 89.0000 /min Resp rate 2019-10-30 10:14:50 24.0000 /min BP sys 2019-10-30 10:14:50 108.0000 mm[Hg] Body temperature 2019-10-30 10:14:50 98.1000 [degF] Weight 2019-10-30 10:14:50 224.2000 [lb_av] BMI 2019-10-18 11:35:09 39.6200 BP bryson 2019-10-18 11:35:09 62.0000 mm[Hg] Bdy height 2019-10-18 11:35:09 63.5000 [in_i] SaO2% BldA PulseOx 2019-10-18 11:35:09 91.0000 % Heart rate 2019-10-18 11:35:09 80.0000 /min Resp rate 2019-10-18 11:35:09 22.0000 /min BP sys 2019-10-18 11:35:09 106.0000 mm[Hg] Body temperature 2019-10-18 11:35:09 97.2000 [degF] Weight 2019-10-18 11:35:09 227.2000 [lb_av] BMI 2019-09-27 12:49:26 39.1300 BP bryson 2019-09-27 12:49:26 63.0000 mm[Hg] Bdy height 2019-09-27 12:49:26 63.5000 [in_i] SaO2% BldA PulseOx 2019-09-27 12:49:26 94.0000 % Heart rate 2019-09-27 12:49:26 93.0000 /min Resp rate 2019-09-27 12:49:26 24.0000 /min BP sys 2019-09-27 12:49:26 133.0000 mm[Hg] Body temperature 2019-09-27 12:49:26 97.3000 [degF] Weight 2019-09-27 12:49:26 224.4000 [lb_av] BMI 2019-09-19 10:56:22 39.4100 BP bryson 2019-09-19 10:56:22 58.0000 mm[Hg] Bdy height 2019-09-19 10:56:22 63.5000 [in_i] SaO2% BldA PulseOx 2019-09-19 10:56:22 91.0000 % Heart rate 2019-09-19 10:56:22 86.0000 /min Resp rate 2019-09-19 10:56:22 24.0000 /min BP sys 2019-09-19 10:56:22 108.0000 mm[Hg] Body temperature 2019-09-19 10:56:22 97.8000 [degF] Weight 2019-09-19 10:56:22 226.0000 [lb_av] Heart rate 2019-09-05 12:51:09 89.0000 /min Resp rate 2019-09-05 12:51:09 22.0000 /min BP sys 2019-09-05 12:51:09 128.0000 mm[Hg] Body temperature 2019-09-05 12:51:09 97.8000 [degF] Weight 2019-09-05 12:51:09 225.6000 [lb_av] BMI 2019-09-05 12:51:09 39.3400 BP bryson 2019-09-05 12:51:09 66.0000 mm[Hg] Bdy height 2019-09-05 12:51:09 63.5000 [in_i] SaO2% BldA PulseOx 2019-09-05 12:51:09 93.0000 % BMI 2019-08-15 13:12:00 39.1600 BP bryson 2019-08-15 13:12:00 69.0000 mm[Hg] Bdy height 2019-08-15 13:12:00 63.5000 [in_i] SaO2% BldA PulseOx 2019-08-15 13:12:00 93.0000 % Heart rate 2019-08-15 13:12:00 78.0000 /min Resp rate 2019-08-15 13:12:00 18.0000 /min BP sys 2019-08-15 13:12:00 129.0000 mm[Hg] Body temperature 2019-08-15 13:12:00 97.2000 [degF] Weight 2019-08-15 13:12:00 224.6000 [lb_av] BMI 2019-08-01 10:56:24 39.5800 BP bryson 2019-08-01 10:56:24 62.0000 mm[Hg] Bdy height 2019-08-01 10:56:24 63.5000 [in_i] SaO2% BldA PulseOx 2019-08-01 10:56:24 91.0000 % Heart rate 2019-08-01 10:56:24 76.0000 /min Resp rate 2019-08-01 10:56:24 20.0000 /min BP sys 2019-08-01 10:56:24 119.0000 mm[Hg] Body temperature 2019-08-01 10:56:24 97.5000 [degF] Weight 2019-08-01 10:56:24 227.0000 [lb_av] BMI 2019-07-25 11:52:44 39.4800 BP b[facility] 2019-07-25 11:52:44 55.0000 mm[Hg] Bdy height 2019-07-25 11:52:44 63.5000 [in_i] SaO2% BldA PulseOx 2019-07-25 11:52:44 92.0000 % Heart rate 2019-07-25 11:52:44 83.0000 /min Resp rate 2019-07-25 11:52:44 16.0000 /min BP sys 2019-07-25 11:52:44 119.0000 mm[Hg] Body temperature 2019-07-25 11:52:44 97.9000 [degF] Weight 2019-07-25 11:52:44 226.4000 [lb_av] BMI 2019-07-04 11:52:23 39.2000 BP b[facility] 2019-07-04 11:52:23 68.0000 mm[Hg] Bdy height 2019-07-04 11:52:23 63.5000 [in_i] SaO2% BldA PulseOx 2019-07-04 11:52:23 93.0000 % Heart rate 2019-07-04 11:52:23 73.0000 /min Resp rate 2019-07-04 11:52:23 16.0000 /min BP sys 2019-07-04 11:52:23 118.0000 mm[Hg] Body temperature 2019-07-04 11:52:23 97.1000 [degF] Weight 2019-07-04 11:52:23 224.8000 [lb_av] BMI 2019-06-29 12:58:53 38.7100 BP b[facility] 2019-06-29 12:58:53 53.0000 mm[Hg] Bdy height 2019-06-29 12:58:53 63.5000 [in_i] SaO2% BldA PulseOx 2019-06-29 12:58:53 94.0000 % Heart rate 2019-06-29 12:58:53 81.0000 /min Resp rate 2019-06-29 12:58:53 24.0000 /min BP sys 2019-06-29 12:58:53 104.0000 mm[Hg] Body temperature 2019-06-29 12:58:53 98.5000 [degF] Weight 2019-06-29 12:58:53 222.0000 [lb_av] BMI 2019-06-22 12:59:20 39.8200 BP b[facility] 2019-06-22 12:59:20 53.0000 mm[Hg] Bdy height 2019-06-22 12:59:20 63.5000 [in_i] SaO2% BldA PulseOx 2019-06-22 12:59:20 93.0000 % Heart rate 2019-06-22 12:59:20 82.0000 /min Resp rate 2019-06-22 12:59:20 24.0000 /min BP sys 2019-06-22 12:59:20 126.0000 mm[Hg] Body temperature 2019-06-22 12:59:20 97.2000 [degF] Weight 2019-06-22 12:59:20 228.4000 [lb_av] BMI 2019-06-13 11:15:35 39.4400 BP b[facility]son 2019-06-13 11:15:35 57.0000 mm[Hg] Bdy height 2019-06-13 11:15:35 63.5000 [in_i] Heart rate 2019-06-13 11:15:35 89.0000 /min Resp rate 2019-06-13 11:15:35 22.0000 /min BP sys 2019-06-13 11:15:35 116.0000 mm[Hg] Body temperature 2019-06-13 11:15:35 97.1000 [degF] Weight 2019-06-13 11:15:35 226.2000 [lb_av] BMI 2019-06-06 09:58:45 39.3700 BP b[facility] 2019-06-06 09:58:45 65.0000 mm[Hg] Bdy height 2019-06-06 09:58:45 63.5000 [in_i] SaO2% BldA PulseOx 2019-06-06 09:58:45 95.0000 % Heart rate 2019-06-06 09:58:45 69.0000 /min Resp rate 2019-06-06 09:58:45 16.0000 /min BP sys 2019-06-06 09:58:45 125.0000 mm[Hg] Body temperature 2019-06-06 09:58:45 97.8000 [degF] Weight 2019-06-06 09:58:45 225.8000 [lb_av] BMI 2019-05-23 11:03:08 38.4300 BP b[facility] 2019-05-23 11:03:08 66.0000 mm[Hg] Bdy height 2019-05-23 11:03:08 63.5000 [in_i] SaO2% BldA PulseOx 2019-05-23 11:03:08 96.0000 % Heart rate 2019-05-23 11:03:08 77.0000 /min Resp rate 2019-05-23 11:03:08 18.0000 /min BP sys 2019-05-23 11:03:08 137.0000 mm[Hg] Body temperature 2019-05-23 11:03:08 98.7000 [degF] Weight 2019-05-23 11:03:08 220.4000 [lb_av] BMI 2019-05-09 12:17:58 39.0600 BP b[facility]son 2019-05-09 12:17:58 70.0000 mm[Hg] Bdy height 2019-05-09 12:17:58 63.5000 [in_i] SaO2% BldA PulseOx 2019-05-09 12:17:58 96.0000 % Heart rate 2019-05-09 12:17:58 76.0000 /min Resp rate 2019-05-09 12:17:58 16.0000 /min BP sys 2019-05-09 12:17:58 120.0000 mm[Hg] Body temperature 2019-05-09 12:17:58 98.5000 [degF] Weight 2019-05-09 12:17:58 224.0000 [lb_av] BMI 2019-05-02 11:47:25 38.6700 BP b[facility]son 2019-05-02 11:47:25 47.0000 mm[Hg] Bdy height 2019-05-02 11:47:25 63.5000 [in_i] SaO2% BldA PulseOx 2019-05-02 11:47:25 96.0000 % Heart rate 2019-05-02 11:47:25 80.0000 /min Resp rate 2019-05-02 11:47:25 16.0000 /min BP sys 2019-05-02 11:47:25 110.0000 mm[Hg] Body temperature 2019-05-02 11:47:25 97.9000 [degF] Weight 2019-05-02 11:47:25 221.8000 [lb_av] BMI 2019-04-11 11:35:51 37.2800 BP b[facility]son 2019-04-11 11:35:51 58.0000 mm[Hg] Bdy height 2019-04-11 11:35:51 63.5000 [in_i] SaO2% BldA PulseOx 2019-04-11 11:35:51 89.0000 % Heart rate 2019-04-11 11:35:51 80.0000 /min Resp rate 2019-04-11 11:35:51 17.0000 /min BP sys 2019-04-11 11:35:51 113.0000 mm[Hg] Body temperature 2019-04-11 11:35:51 97.1000 [degF] Weight 2019-04-11 11:35:51 213.8000 [lb_av] BMI 2019-03-21 11:02:25 37.8000 BP b[facility]son 2019-03-21 11:02:25 59.0000 mm[Hg] Bdy height 2019-03-21 11:02:25 63.5000 [in_i] SaO2% BldA PulseOx 2019-03-21 11:02:25 92.0000 % Heart rate 2019-03-21 11:02:25 97.0000 /min Resp rate 2019-03-21 11:02:25 22.0000 /min BP sys 2019-03-21 11:02:25 135.0000 mm[Hg] Body temperature 2019-03-21 11:02:25 97.8000 [degF] Weight 2019-03-21 11:02:25 216.8000 [lb_av] BMI 2019-03-14 10:35:22 38.1900 BP b[facility]son 2019-03-14 10:35:22 67.0000 mm[Hg] Bdy height 2019-03-14 10:35:22 63.5000 [in_i] SaO2% BldA PulseOx 2019-03-14 10:35:22 94.0000 % Heart rate 2019-03-14 10:35:22 89.0000 /min Resp rate 2019-03-14 10:35:22 24.0000 /min BP sys 2019-03-14 10:35:22 126.0000 mm[Hg] Body temperature 2019-03-14 10:35:22 98.1000 [degF] Weight 2019-03-14 10:35:22 219.0000 [lb_av] BMI 2019-02-28 11:20:29 38.3600 BP b[facility]son 2019-02-28 11:20:29 58.0000 mm[Hg] Bdy height 2019-02-28 11:20:29 63.5000 [in_i] SaO2% BldA PulseOx 2019-02-28 11:20:29 96.0000 % Heart rate 2019-02-28 11:20:29 85.0000 /min Resp rate 2019-02-28 11:20:29 18.0000 /min BP sys 2019-02-28 11:20:29 120.0000 mm[Hg] Body temperature 2019-02-28 11:20:29 98.1000 [degF] Weight 2019-02-28 11:20:29 220.0000 [lb_av] BMI 2019-02-14 15:08:39 38.1500 BP b[facility]son 2019-02-14 15:08:39 52.0000 mm[Hg] Bdy height 2019-02-14 15:08:39 63.5000 [in_i] SaO2% BldA PulseOx 2019-02-14 15:08:39 95.0000 % Heart rate 2019-02-14 15:08:39 77.0000 /min Resp rate 2019-02-14 15:08:39 16.0000 /min BP sys 2019-02-14 15:08:39 108.0000 mm[Hg] Body temperature 2019-02-14 15:08:39 98.1000 [degF] Weight 2019-02-14 15:08:39 218.8000 [lb_av] BMI 2019-02-07 10:31:03 38.3600 BP b[facility]son 2019-02-07 10:31:03 60.0000 mm[Hg] Bdy height 2019-02-07 10:31:03 63.5000 [in_i] SaO2% BldA PulseOx 2019-02-07 10:31:03 96.0000 % Heart rate 2019-02-07 10:31:03 85.0000 /min Resp rate 2019-02-07 10:31:03 18.0000 /min BP sys 2019-02-07 10:31:03 117.0000 mm[Hg] Body temperature 2019-02-07 10:31:03 98.2000 [degF] Weight 2019-02-07 10:31:03 220.0000 [lb_av] BMI 2019-01-17 11:06:09 38.2600 BP b[facility] 2019-01-17 11:06:09 56.0000 mm[Hg] Bdy height 2019-01-17 11:06:09 63.5000 [in_i] SaO2% BldA PulseOx 2019-01-17 11:06:09 95.0000 % Heart rate 2019-01-17 11:06:09 78.0000 /min Resp rate 2019-01-17 11:06:09 20.0000 /min BP sys 2019-01-17 11:06:09 109.0000 mm[Hg] Body temperature 2019-01-17 11:06:09 98.1000 [degF] Weight 2019-01-17 11:06:09 219.4000 [lb_av] BMI 2018-12-28 11:26:05 37.7700 BP b[facility]son 2018-12-28 11:26:05 65.0000 mm[Hg] Bdy height 2018-12-28 11:26:05 63.5000 [in_i] SaO2% BldA PulseOx 2018-12-28 11:26:05 93.0000 % Heart rate 2018-12-28 11:26:05 87.0000 /min Resp rate 2018-12-28 11:26:05 18.0000 /min BP sys 2018-12-28 11:26:05 120.0000 mm[Hg] Body temperature 2018-12-28 11:26:05 97.2000 [degF] Weight 2018-12-28 11:26:05 216.6000 [lb_av] BMI 2018-12-20 10:17:03 37.5600 BP b[facility]son 2018-12-20 10:17:03 64.0000 mm[Hg] Bdy height 2018-12-20 10:17:03 63.5000 [in_i] SaO2% BldA PulseOx 2018-12-20 10:17:03 93.0000 % Heart rate 2018-12-20 10:17:03 74.0000 /min Resp rate 2018-12-20 10:17:03 18.0000 /min BP sys 2018-12-20 10:17:03 131.0000 mm[Hg] Body temperature 2018-12-20 10:17:03 98.1000 [degF] Weight 2018-12-20 10:17:03 215.4000 [lb_av] BMI 2018-11-29 15:06:57 37.8700 BP b[facility]son 2018-11-29 15:06:57 61.0000 mm[Hg] Bdy height 2018-11-29 15:06:57 63.5000 [in_i] SaO2% BldA PulseOx 2018-11-29 15:06:57 90.0000 % Heart rate 2018-11-29 15:06:57 80.0000 /min Resp rate 2018-11-29 15:06:57 18.0000 /min BP sys 2018-11-29 15:06:57 113.0000 mm[Hg] Body temperature 2018-11-29 15:06:57 98.5000 [degF] Weight 2018-11-29 15:06:57 217.2000 [lb_av] BMI 2018-11-22 10:22:02 38.1900 BP b[facility]son 2018-11-22 10:22:02 58.0000 mm[Hg] Bdy height 2018-11-22 10:22:02 63.5000 [in_i] SaO2% BldA PulseOx 2018-11-22 10:22:02 96.0000 % Heart rate 2018-11-22 10:22:02 76.0000 /min Resp rate 2018-11-22 10:22:02 20.0000 /min BP sys 2018-11-22 10:22:02 129.0000 mm[Hg] Body temperature 2018-11-22 10:22:02 98.2000 [degF] Weight 2018-11-22 10:22:02 219.0000 [lb_av] BMI 2018-10-25 10:34:35 38.1200 BP b[facility]son 2018-10-25 10:34:35 60.0000 mm[Hg] Bdy height 2018-10-25 10:34:35 63.5000 [in_i] SaO2% BldA PulseOx 2018-10-25 10:34:35 95.0000 % Heart rate 2018-10-25 10:34:35 76.0000 /min Resp rate 2018-10-25 10:34:35 20.0000 /min BP sys 2018-10-25 10:34:35 109.0000 mm[Hg] Body temperature 2018-10-25 10:34:35 98.5000 [degF] Weight 2018-10-25 10:34:35 218.6000 [lb_av] BMI 2018-09-27 10:36:12 37.9800 BP b[facility]son 2018-09-27 10:36:12 65.0000 mm[Hg] Bdy height 2018-09-27 10:36:12 63.5000 [in_i] SaO2% BldA PulseOx 2018-09-27 10:36:12 93.0000 % Heart rate 2018-09-27 10:36:12 89.0000 /min Resp rate 2018-09-27 10:36:12 18.0000 /min BP sys 2018-09-27 10:36:12 140.0000 mm[Hg] Body temperature 2018-09-27 10:36:12 97.5000 [degF] Weight 2018-09-27 10:36:12 217.8000 [lb_av] BMI 2018-08-30 10:38:51 37.8000 BP bryson 2018-08-30 10:38:51 61.0000 mm[Hg] Bdy height 2018-08-30 10:38:51 63.5000 [in_i] Heart rate 2018-08-30 10:38:51 90.0000 /min Resp rate 2018-08-30 10:38:51 16.0000 /min BP sys 2018-08-30 10:38:51 131.0000 mm[Hg] Body temperature 2018-08-30 10:38:51 97.6000 [degF] Weight 2018-08-30 10:38:51 216.8000 [lb_av] BMI 2018-08-02 10:46:44 37.4900 BP b[facility] 2018-08-02 10:46:44 64.0000 mm[Hg] Bdy height 2018-08-02 10:46:44 63.5000 [in_i] SaO2% BldA PulseOx 2018-08-02 10:46:44 94.0000 % Heart rate 2018-08-02 10:46:44 81.0000 /min Resp rate 2018-08-02 10:46:44 20.0000 /min BP sys 2018-08-02 10:46:44 108.0000 mm[Hg] Body temperature 2018-08-02 10:46:44 98.0000 [degF] Weight 2018-08-02 10:46:44 215.0000 [lb_av] BMI 2018-07-05 10:24:07 37.2100 BP b[facility]son 2018-07-05 10:24:07 70.0000 mm[Hg] Bdy height 2018-07-05 10:24:07 63.5000 [in_i] SaO2% BldA PulseOx 2018-07-05 10:24:07 95.0000 % Heart rate 2018-07-05 10:24:07 90.0000 /min Resp rate 2018-07-05 10:24:07 20.0000 /min BP sys 2018-07-05 10:24:07 117.0000 mm[Hg] Body temperature 2018-07-05 10:24:07 98.3000 [degF] Weight 2018-07-05 10:24:07 213.4000 [lb_av] BMI 2018-06-07 11:23:22 37.4500 BP b[facility] 2018-06-07 11:23:22 74.0000 mm[Hg] Bdy height 2018-06-07 11:23:22 63.5000 [in_i] SaO2% BldA PulseOx 2018-06-07 11:23:22 94.0000 % Heart rate 2018-06-07 11:23:22 90.0000 /min Resp rate 2018-06-07 11:23:22 24.0000 /min BP sys 2018-06-07 11:23:22 132.0000 mm[Hg] Body temperature 2018-06-07 11:23:22 98.3000 [degF] Weight 2018-06-07 11:23:22 214.8000 [lb_av] BMI 2018-05-31 10:58:18 37.3800 BP b[facility]son 2018-05-31 10:58:18 73.0000 mm[Hg] Bdy height 2018-05-31 10:58:18 63.5000 [in_i] SaO2% BldA PulseOx 2018-05-31 10:58:18 96.0000 % Heart rate 2018-05-31 10:58:18 88.0000 /min Resp rate 2018-05-31 10:58:18 20.0000 /min BP sys 2018-05-31 10:58:18 128.0000 mm[Hg] Body temperature 2018-05-31 10:58:18 98.8000 [degF] Weight 2018-05-31 10:58:18 214.4000 [lb_av] BMI 2018-05-23 11:33:22 37.6300 BP b[facility] 2018-05-23 11:33:22 69.0000 mm[Hg] Bdy height 2018-05-23 11:33:22 63.5000 [in_i] SaO2% BldA PulseOx 2018-05-23 11:33:22 95.0000 % Heart rate 2018-05-23 11:33:22 83.0000 /min Resp rate 2018-05-23 11:33:22 28.0000 /min BP sys 2018-05-23 11:33:22 116.0000 mm[Hg] Body temperature 2018-05-23 11:33:22 98.2000 [degF] Weight 2018-05-23 11:33:22 215.8000 [lb_av] BMI 2018-05-10 11:30:26 37.4200 BP bryson 2018-05-10 11:30:26 77.0000 mm[Hg] Bdy height 2018-05-10 11:30:26 63.5000 [in_i] SaO2% BldA PulseOx 2018-05-10 11:30:26 94.0000 % Heart rate 2018-05-10 11:30:26 77.0000 /min Resp rate 2018-05-10 11:30:26 18.0000 /min BP sys 2018-05-10 11:30:26 145.0000 mm[Hg] Body temperature 2018-05-10 11:30:26 97.8000 [degF] Weight 2018-05-10 11:30:26 214.6000 [lb_av] BMI 2018-04-12 10:57:17 37.2800 BP bryson 2018-04-12 10:57:17 73.0000 mm[Hg] Bdy height 2018-04-12 10:57:17 63.5000 [in_i] SaO2% BldA PulseOx 2018-04-12 10:57:17 96.0000 % Heart rate 2018-04-12 10:57:17 84.0000 /min Resp rate 2018-04-12 10:57:17 20.0000 /min BP sys 2018-04-12 10:57:17 135.0000 mm[Hg] Body temperature 2018-04-12 10:57:17 98.3000 [degF] Weight 2018-04-12 10:57:17 213.8000 [lb_av] BMI 2018-04-01 10:58:13 37.5200 BP b[facility]son 2018-04-01 10:58:13 82.0000 mm[Hg] Bdy height 2018-04-01 10:58:13 63.5000 [in_i] SaO2% BldA PulseOx 2018-04-01 10:58:13 94.0000 % Heart rate 2018-04-01 10:58:13 103.0000 /min Resp rate 2018-04-01 10:58:13 22.0000 /min BP sys 2018-04-01 10:58:13 137.0000 mm[Hg] Body temperature 2018-04-01 10:58:13 98.3000 [degF] Weight 2018-04-01 10:58:13 215.2000 [lb_av] BMI 2018-03-25 11:01:21 37.7300 BP b[facility]son 2018-03-25 11:01:21 73.0000 mm[Hg] Bdy height 2018-03-25 11:01:21 63.5000 [in_i] SaO2% BldA PulseOx 2018-03-25 11:01:21 96.0000 % Heart rate 2018-03-25 11:01:21 91.0000 /min Resp rate 2018-03-25 11:01:21 20.0000 /min BP sys 2018-03-25 11:01:21 134.0000 mm[Hg] Body temperature 2018-03-25 11:01:21 98.2000 [degF] Weight 2018-03-25 11:01:21 216.4000 [lb_av] BMI 2018-03-15 10:55:26 37.3100 BP b[facility]son 2018-03-15 10:55:26 73.0000 mm[Hg] Bdy height 2018-03-15 10:55:26 63.5000 [in_i] SaO2% BldA PulseOx 2018-03-15 10:55:26 95.0000 % Heart rate 2018-03-15 10:55:26 98.0000 /min Resp rate 2018-03-15 10:55:26 22.0000 /min BP sys 2018-03-15 10:55:26 134.0000 mm[Hg] Body temperature 2018-03-15 10:55:26 97.9000 [degF] Weight 2018-03-15 10:55:26 214.0000 [lb_av] BMI 2018-02-15 13:37:30 37.4500 BP b[facility]son 2018-02-15 13:37:30 75.0000 mm[Hg] Bdy height 2018-02-15 13:37:30 63.5000 [in_i] SaO2% BldA PulseOx 2018-02-15 13:37:30 95.0000 % Heart rate 2018-02-15 13:37:30 74.0000 /min Resp rate 2018-02-15 13:37:30 16.0000 /min BP sys 2018-02-15 13:37:30 135.0000 mm[Hg] Body temperature 2018-02-15 13:37:30 97.6000 [degF] Weight 2018-02-15 13:37:30 214.8000 [lb_av] BMI 2018-01-13 10:01:07 37.5600 BP b[facility]son 2018-01-13 10:01:07 83.0000 mm[Hg] Bdy height 2018-01-13 10:01:07 63.5000 [in_i] Heart rate 2018-01-13 10:01:07 74.0000 /min Resp rate 2018-01-13 10:01:07 16.0000 /min BP sys 2018-01-13 10:01:07 136.0000 mm[Hg] Body temperature 2018-01-13 10:01:07 97.8000 [degF] Weight 2018-01-13 10:01:07 215.4000 [lb_av] BMI 2017-12-16 09:46:02 37.6600 BP b[facility]son 2017-12-16 09:46:02 68.0000 mm[Hg] Bdy height 2017-12-16 09:46:02 63.5000 [in_i] Heart rate 2017-12-16 09:46:02 87.0000 /min Resp rate 2017-12-16 09:46:02 18.0000 /min BP sys 2017-12-16 09:46:02 140.0000 mm[Hg] Body temperature 2017-12-16 09:46:02 97.5000 [degF] Weight 2017-12-16 09:46:02 216.0000 [lb_av] BMI 2017-11-16 11:26:45 37.5200 BP bryson 2017-11-16 11:26:45 72.0000 mm[Hg] Bdy height 2017-11-16 11:26:45 63.5000 [in_i] Heart rate 2017-11-16 11:26:45 74.0000 /min Resp rate 2017-11-16 11:26:45 18.0000 /min BP sys 2017-11-16 11:26:45 143.0000 mm[Hg] Body temperature 2017-11-16 11:26:45 97.4000 [degF] Weight 2017-11-16 11:26:45 215.2000 [lb_av] BMI 2017-11-05 11:12:58 37.7300 BP b[facility]son 2017-11-05 11:12:58 77.0000 mm[Hg] Bdy height 2017-11-05 11:12:58 63.5000 [in_i] Heart rate 2017-11-05 11:12:58 77.0000 /min Resp rate 2017-11-05 11:12:58 18.0000 /min BP sys 2017-11-05 11:12:58 132.0000 mm[Hg] Body temperature 2017-11-05 11:12:58 97.3000 [degF] Weight 2017-11-05 11:12:58 216.4000 [lb_av] BMI 2017-10-08 10:51:17 37.7300 BP bryson 2017-10-08 10:51:17 75.0000 mm[Hg] Bdy height 2017-10-08 10:51:17 63.5000 [in_i] Heart rate 2017-10-08 10:51:17 78.0000 /min Resp rate 2017-10-08 10:51:17 18.0000 /min BP sys 2017-10-08 10:51:17 140.0000 mm[Hg] Body temperature 2017-10-08 10:51:17 98.5000 [degF] Weight 2017-10-08 10:51:17 216.4000 [lb_av] BMI 2017-08-13 10:52:36 38.1900 BP bryson 2017-08-13 10:52:36 66.0000 mm[Hg] Bdy height 2017-08-13 10:52:36 63.5000 [in_i] Heart rate 2017-08-13 10:52:36 80.0000 /min Resp rate 2017-08-13 10:52:36 16.0000 /min BP sys 2017-08-13 10:52:36 123.0000 mm[Hg] Body temperature 2017-08-13 10:52:36 98.2000 [degF] Weight 2017-08-13 10:52:36 219.0000 [lb_av] BMI 2017-07-16 10:59:37 37.6300 BP bryson 2017-07-16 10:59:37 66.0000 mm[Hg] Bdy height 2017-07-16 10:59:37 63.5000 [in_i] Heart rate 2017-07-16 10:59:37 78.0000 /min Resp rate 2017-07-16 10:59:37 20.0000 /min BP sys 2017-07-16 10:59:37 120.0000 mm[Hg] Body temperature 2017-07-16 10:59:37 97.8000 [degF] Weight 2017-07-16 10:59:37 215.8000 [lb_av] Body temperature 2017-05-21 11:17:06 98.1000 [degF] Weight 2017-05-21 11:17:06 215.0000 [lb_av] BMI 2017-05-21 11:17:06 37.4900 BP bryson 2017-05-21 11:17:06 75.0000 mm[Hg] Bdy height 2017-05-21 11:17:06 63.5000 [in_i] Heart rate 2017-05-21 11:17:06 80.0000 /min Resp rate 2017-05-21 11:17:06 18.0000 /min BP sys 2017-05-21 11:17:06 125.0000 mm[Hg] BMI 2017-04-23 10:01:26 38.1900 BP bryson 2017-04-23 10:01:26 70.0000 mm[Hg] Bdy height 2017-04-23 10:01:26 63.5000 [in_i] Heart rate 2017-04-23 10:01:26 80.0000 /min Resp rate 2017-04-23 10:01:26 18.0000 /min BP sys 2017-04-23 10:01:26 129.0000 mm[Hg] Body temperature 2017-04-23 10:01:26 98.6000 [degF] Weight 2017-04-23 10:01:26 219.0000 [lb_av] BMI 2017-03-25 11:08:31 38.0500 BP bryson 2017-03-25 11:08:31 72.0000 mm[Hg] Bdy height 2017-03-25 11:08:31 63.5000 [in_i] Heart rate 2017-03-25 11:08:31 68.0000 /min Resp rate 2017-03-25 11:08:31 16.0000 /min BP sys 2017-03-25 11:08:31 133.0000 mm[Hg] Body temperature 2017-03-25 11:08:31 98.1000 [degF] Weight 2017-03-25 11:08:31 218.2000 [lb_av] BMI 2017-02-25 11:45:42 37.3100 BP bryson 2017-02-25 11:45:42 76.0000 mm[Hg] Bdy height 2017-02-25 11:45:42 63.5000 [in_i] Heart rate 2017-02-25 11:45:42 72.0000 /min Resp rate 2017-02-25 11:45:42 16.0000 /min BP sys 2017-02-25 11:45:42 133.0000 mm[Hg] Body temperature 2017-02-25 11:45:42 98.4000 [degF] Weight 2017-02-25 11:45:42 214.0000 [lb_av] BMI 2017-01-28 11:54:22 37.7300 BP bryson 2017-01-28 11:54:22 81.0000 mm[Hg] Bdy height 2017-01-28 11:54:22 63.5000 [in_i] Heart rate 2017-01-28 11:54:22 73.0000 /min Resp rate 2017-01-28 11:54:22 18.0000 /min BP sys 2017-01-28 11:54:22 147.0000 mm[Hg] Body temperature 2017-01-28 11:54:22 98.0000 [degF] Weight 2017-01-28 11:54:22 216.4000 [lb_av] BMI 2016-12-31 11:51:21 37.2100 BP bryson 2016-12-31 11:51:21 78.0000 mm[Hg] Bdy height 2016-12-31 11:51:21 63.5000 [in_i] Heart rate 2016-12-31 11:51:21 82.0000 /min Resp rate 2016-12-31 11:51:21 16.0000 /min BP sys 2016-12-31 11:51:21 127.0000 mm[Hg] Body temperature 2016-12-31 11:51:21 98.3000 [degF] Weight 2016-12-31 11:51:21 213.4000 [lb_av] BMI 2016-12-03 11:15:57 37.4200 BP bryson 2016-12-03 11:15:57 92.0000 mm[Hg] Bdy height 2016-12-03 11:15:57 63.5000 [in_i] Heart rate 2016-12-03 11:15:57 88.0000 /min Resp rate 2016-12-03 11:15:57 22.0000 /min BP sys 2016-12-03 11:15:57 174.0000 mm[Hg] Body temperature 2016-12-03 11:15:57 97.6000 [degF] Weight 2016-12-03 11:15:57 214.6000 [lb_av] BMI 2016-10-14 09:32:09 37.3800 BP bryson 2016-10-14 09:32:09 72.0000 mm[Hg] Bdy height 2016-10-14 09:32:09 63.5000 [in_i] Heart rate 2016-10-14 09:32:09 96.0000 /min Resp rate 2016-10-14 09:32:09 16.0000 /min BP sys 2016-10-14 09:32:09 123.0000 mm[Hg] Body temperature 2016-10-14 09:32:09 97.7000 [degF] Weight 2016-10-14 09:32:09 214.4000 [lb_av] BMI 2016-10-08 10:56:53 37.5200 BP bryson 2016-10-08 10:56:53 70.0000 mm[Hg] Bdy height 2016-10-08 10:56:53 63.5000 [in_i] Heart rate 2016-10-08 10:56:53 92.0000 /min Resp rate 2016-10-08 10:56:53 18.0000 /min BP sys 2016-10-08 10:56:53 122.0000 mm[Hg] Body temperature 2016-10-08 10:56:53 97.8000 [degF] Weight 2016-10-08 10:56:53 215.2000 [lb_av] BMI 2016-09-30 10:04:39 37.5200 BP bryson 2016-09-30 10:04:39 71.0000 mm[Hg] Bdy height 2016-09-30 10:04:39 63.5000 [in_i] Heart rate 2016-09-30 10:04:39 111.0000 /min Resp rate 2016-09-30 10:04:39 24.0000 /min BP sys 2016-09-30 10:04:39 140.0000 mm[Hg] Body temperature 2016-09-30 10:04:39 98.0000 [degF] Weight 2016-09-30 10:04:39 215.2000 [lb_av] BMI 2016-09-23 10:39:24 37.8700 BP bryson 2016-09-23 10:39:24 69.0000 mm[Hg] Bdy height 2016-09-23 10:39:24 63.5000 [in_i] SaO2% BldA PulseOx 2016-09-23 10:39:24 98.0000 % Heart rate 2016-09-23 10:39:24 94.0000 /min Resp rate 2016-09-23 10:39:24 18.0000 /min BP sys 2016-09-23 10:39:24 127.0000 mm[Hg] Body temperature 2016-09-23 10:39:24 98.2000 [degF] Weight 2016-09-23 10:39:24 217.2000 [lb_av] BMI 2016-09-10 10:52:37 37.9400 BP bryson 2016-09-10 10:52:37 73.0000 mm[Hg] Bdy height 2016-09-10 10:52:37 63.5000 [in_i] Heart rate 2016-09-10 10:52:37 99.0000 /min Resp rate 2016-09-10 10:52:37 24.0000 /min BP sys 2016-09-10 10:52:37 141.0000 mm[Hg] Body temperature 2016-09-10 10:52:37 98.1000 [degF] Weight 2016-09-10 10:52:37 217.6000 [lb_av] BMI 2016-08-18 10:53:02 38.1900 BP bryson 2016-08-18 10:53:02 64.0000 mm[Hg] Bdy height 2016-08-18 10:53:02 63.5000 [in_i] Heart rate 2016-08-18 10:53:02 99.0000 /min Resp rate 2016-08-18 10:53:02 20.0000 /min BP sys 2016-08-18 10:53:02 134.0000 mm[Hg] Body temperature 2016-08-18 10:53:02 98.1000 [degF] Weight 2016-08-18 10:53:02 219.0000 [lb_av] BMI 2016-07-16 11:21:02 37.7300 BP bryson 2016-07-16 11:21:02 73.0000 mm[Hg] Bdy height 2016-07-16 11:21:02 63.5000 [in_i] Heart rate 2016-07-16 11:21:02 82.0000 /min Resp rate 2016-07-16 11:21:02 20.0000 /min BP sys 2016-07-16 11:21:02 106.0000 mm[Hg] Body temperature 2016-07-16 11:21:02 97.9000 [degF] Weight 2016-07-16 11:21:02 216.4000 [lb_av] BMI 2016-05-12 10:23:40 37.6300 BP bryson 2016-05-12 10:23:40 80.0000 mm[Hg] Bdy height 2016-05-12 10:23:40 63.5000 [in_i] Heart rate 2016-05-12 10:23:40 95.0000 /min Resp rate 2016-05-12 10:23:40 16.0000 /min BP sys 2016-05-12 10:23:40 149.0000 mm[Hg] Body temperature 2016-05-12 10:23:40 97.4000 [degF] Weight 2016-05-12 10:23:40 215.8000 [lb_av] BMI 2016-04-10 10:52:59 38.0800 BP bryson 2016-04-10 10:52:59 77.0000 mm[Hg] Bdy height 2016-04-10 10:52:59 63.5000 [in_i] Heart rate 2016-04-10 10:52:59 85.0000 /min Resp rate 2016-04-10 10:52:59 20.0000 /min BP sys 2016-04-10 10:52:59 142.0000 mm[Hg] Body temperature 2016-04-10 10:52:59 97.9000 [degF] Weight 2016-04-10 10:52:59 218.4000 [lb_av] BMI 2016-03-17 13:25:53 37.7000 BP bryson 2016-03-17 13:25:53 88.0000 mm[Hg] Bdy height 2016-03-17 13:25:53 63.5000 [in_i] Heart rate 2016-03-17 13:25:53 88.0000 /min Resp rate 2016-03-17 13:25:53 22.0000 /min BP sys 2016-03-17 13:25:53 159.0000 mm[Hg] Body temperature 2016-03-17 13:25:53 97.5000 [degF] Weight 2016-03-17 13:25:53 216.2000 [lb_av] BMI 2015-11-26 11:20:32 39.6900 BP bryson 2015-11-26 11:20:32 80.0000 mm[Hg] Bdy height 2015-11-26 11:20:32 63.5000 [in_i] SaO2% BldA PulseOx 2015-11-26 11:20:32 95.0000 % Heart rate 2015-11-26 11:20:32 108.0000 /min Resp rate 2015-11-26 11:20:32 22.0000 /min BP sys 2015-11-26 11:20:32 164.0000 mm[Hg] Body temperature 2015-11-26 11:20:32 98.0000 [degF] Weight 2015-11-26 11:20:32 227.6000 [lb_av] BMI 2015-10-29 11:01:03 39.0200 BP bryson 2015-10-29 11:01:03 75.0000 mm[Hg] Bdy height 2015-10-29 11:01:03 63.5000 [in_i] Heart rate 2015-10-29 11:01:03 102.0000 /min Resp rate 2015-10-29 11:01:03 20.0000 /min BP sys 2015-10-29 11:01:03 139.0000 mm[Hg] Body temperature 2015-10-29 11:01:03 97.7000 [degF] Weight 2015-10-29 11:01:03 223.8000 [lb_av] BMI 2015-10-22 10:52:06 38.3600 BP bryson 2015-10-22 10:52:06 74.0000 mm[Hg] Bdy height 2015-10-22 10:52:06 63.5000 [in_i] Heart rate 2015-10-22 10:52:06 95.0000 /min Resp rate 2015-10-22 10:52:06 20.0000 /min BP sys 2015-10-22 10:52:06 142.0000 mm[Hg] Body temperature 2015-10-22 10:52:06 98.0000 [degF] Weight 2015-10-22 10:52:06 220.0000 [lb_av] BMI 2015-10-15 10:53:48 38.4300 BP bryson 2015-10-15 10:53:48 64.0000 mm[Hg] Bdy height 2015-10-15 10:53:48 63.5000 [in_i] Heart rate 2015-10-15 10:53:48 105.0000 /min Resp rate 2015-10-15 10:53:48 22.0000 /min BP sys 2015-10-15 10:53:48 135.0000 mm[Hg] Body temperature 2015-10-15 10:53:48 98.1000 [degF] Weight 2015-10-15 10:53:48 220.4000 [lb_av] BMI 2015-10-08 10:26:50 39.1300 BP bryson 2015-10-08 10:26:50 79.0000 mm[Hg] Bdy height 2015-10-08 10:26:50 63.5000 [in_i] Heart rate 2015-10-08 10:26:50 112.0000 /min Resp rate 2015-10-08 10:26:50 22.0000 /min BP sys 2015-10-08 10:26:50 170.0000 mm[Hg] Body temperature 2015-10-08 10:26:50 98.6000 [degF] Weight 2015-10-08 10:26:50 224.4000 [lb_av] BMI 2014-10-18 10:54:58 37.8700 BP bryson 2014-10-18 10:54:58 79.0000 mm[Hg] Bdy height 2014-10-18 10:54:58 63.5000 [in_i] Heart rate 2014-10-18 10:54:58 89.0000 /min Resp rate 2014-10-18 10:54:58 18.0000 /min BP sys 2014-10-18 10:54:58 147.0000 mm[Hg] Body temperature 2014-10-18 10:54:58 97.1000 [degF] Weight 2014-10-18 10:54:58 217.2000 [lb_av] BMI 2014-08-16 13:06:48 38.0100 BP bryson 2014-08-16 13:06:48 75.0000 mm[Hg] Bdy height 2014-08-16 13:06:48 63.5000 [in_i] Heart rate 2014-08-16 13:06:48 91.0000 /min Resp rate 2014-08-16 13:06:48 18.0000 /min BP sys 2014-08-16 13:06:48 141.0000 mm[Hg] Body temperature 2014-08-16 13:06:48 98.9000 [degF] Weight 2014-08-16 13:06:48 218.0000 [lb_av] BMI 2014-06-04 10:34:26 37.5900 BP bryson 2014-06-04 10:34:26 68.0000 mm[Hg] Bdy height 2014-06-04 10:34:26 63.5000 [in_i] Heart rate 2014-06-04 10:34:26 80.0000 /min Resp rate 2014-06-04 10:34:26 16.0000 /min BP sys 2014-06-04 10:34:26 128.0000 mm[Hg] Body temperature 2014-06-04 10:34:26 97.9000 [degF] Weight 2014-06-04 10:34:26 215.6000 [lb_av] BMI 2014-04-12 11:17:55 37.4500 BP bryson 2014-04-12 11:17:55 83.0000 mm[Hg] Bdy height 2014-04-12 11:17:55 63.5000 [in_i] Heart rate 2014-04-12 11:17:55 71.0000 /min Resp rate 2014-04-12 11:17:55 18.0000 /min BP sys 2014-04-12 11:17:55 144.0000 mm[Hg] Body temperature 2014-04-12 11:17:55 95.9000 [degF] Weight 2014-04-12 11:17:55 214.8000 [lb_av] BMI 2014-02-22 10:51:58 37.5900 BP bryson 2014-02-22 10:51:58 70.0000 mm[Hg] Bdy height 2014-02-22 10:51:58 63.5000 [in_i] Heart rate 2014-02-22 10:51:58 93.0000 /min Resp rate 2014-02-22 10:51:58 18.0000 /min BP sys 2014-02-22 10:51:58 128.0000 mm[Hg] Body temperature 2014-02-22 10:51:58 98.9000 [degF] Weight 2014-02-22 10:51:58 215.6000 [lb_av] BMI 2014-02-08 10:29:07 37.5600 BP bryson 2014-02-08 10:29:07 77.0000 mm[Hg] Bdy height 2014-02-08 10:29:07 63.5000 [in_i] Heart rate 2014-02-08 10:29:07 103.0000 /min Resp rate 2014-02-08 10:29:07 20.0000 /min BP sys 2014-02-08 10:29:07 135.0000 mm[Hg] Body temperature 2014-02-08 10:29:07 98.6000 [degF] Weight 2014-02-08 10:29:07 215.4000 [lb_av] BMI 2014-02-01 10:32:13 37.2100 BP bryson 2014-02-01 10:32:13 68.0000 mm[Hg] Bdy height 2014-02-01 10:32:13 63.5000 [in_i] Heart rate 2014-02-01 10:32:13 91.0000 /min Resp rate 2014-02-01 10:32:13 20.0000 /min BP sys 2014-02-01 10:32:13 121.0000 mm[Hg] Body temperature 2014-02-01 10:32:13 97.9000 [degF] Weight 2014-02-01 10:32:13 213.4000 [lb_av] BMI 2014-01-25 10:50:34 37.1700 BP bryson 2014-01-25 10:50:34 69.0000 mm[Hg] Bdy height 2014-01-25 10:50:34 63.5000 [in_i] Heart rate 2014-01-25 10:50:34 85.0000 /min Resp rate 2014-01-25 10:50:34 22.0000 /min BP sys 2014-01-25 10:50:34 119.0000 mm[Hg] Body temperature 2014-01-25 10:50:34 97.5000 [degF] Weight 2014-01-25 10:50:34 213.2000 [lb_av] BMI 2014-01-18 10:01:11 37.0000 BP bryson 2014-01-18 10:01:11 72.0000 mm[Hg] Bdy height 2014-01-18 10:01:11 63.5000 [in_i] Heart rate 2014-01-18 10:01:11 94.0000 /min Resp rate 2014-01-18 10:01:11 16.0000 /min BP sys 2014-01-18 10:01:11 127.0000 mm[Hg] Body temperature 2014-01-18 10:01:11 98.0000 [degF] Weight 2014-01-18 10:01:11 212.2000 [lb_av] BMI 2014-01-09 13:21:43 37.1400 BP bryson 2014-01-09 13:21:43 77.0000 mm[Hg] Bdy height 2014-01-09 13:21:43 63.5000 [in_i] Heart rate 2014-01-09 13:21:43 77.0000 /min Resp rate 2014-01-09 13:21:43 20.0000 /min BP sys 2014-01-09 13:21:43 141.0000 mm[Hg] Body temperature 2014-01-09 13:21:43 98.9000 [degF] Weight 2014-01-09 13:21:43 213.0000 [lb_av]
--- NOTE | 2020-04-06 12:10 | Operative Report ---
Nonrecallable Operative Report DATE OF SURGERY: 04/04/20 PREOPERATIVE DIAGNOSIS: Lung cancer POSTOPERATIVE DIAGNOSIS: Same as above OPERATION: 1. Ultrasound-guided central venous puncture. 2. Right internal jugular vein Mediport placement. SURGEON: SUSAN COSME ANESTHESIA: LMAC TISSUE REMOVED OR ALTERED: None COMPLICATIONS: None apparent ESTIMATED BLOOD LOSS: Minimal PROCEDURE: Drains/implants: Right internal jugular vein Mediport. Procedure in detail: After informed consent was obtained, the patient was b rought into the operating room and placed into the Trendelenburg position. The area of the neck and chest were prepped and draped in a normal sterile fashion. The ultrasound was used to identify the right internal jugular vein. It was compressible with normal flow. Under direct ultrasonic guidance, the right internal jugular vein was cannulated using the supplied access needle. The wire was inserted into the vein easily. The wire was confirmed to be within the lumen of the vein using the ultrasound device. Picture documentation was obtained, and placed into the chart. Fluoroscopy was also used to confirm wire placement. Next, a separate incision was created on the right chest wall to accommodate the Mediport hub. The catheter was tunneled from the hub site to the needle insertion site. The dilator and breakaway sheath were inserted over the wire. This was done under direct fluoroscopic guidance. The wire and dilator were removed, leaving the sheath within the SVC. The catheter was inserted into the sheath. The sheath was cracked and pulled away, leaving the catheter within the SVC. The catheter was pulled back to an appropriate level. It was trimmed to length, and attached to the Mediport hub. The hub was buried in the pocket. The hub was sutured to the chest wall using 3-0 Vicryl suture. The Mediport hub was then accessed and flushed with heparinized saline. This was performed easily. The subcutaneous tissues were then closed using 3-0 Vicryl suture in ascending fashion. The overlying skin was closed using 4-0 Vicryl Rapide suture in subcuticular fashion. Dressings were then placed, and the procedure was concluded. All sponge, instrument, and needle counts were correct x2. Condition: Stable.
== END 2020-04-04 09:56 | disposition home or self-care (01) ==
LOC: OROUT 05:51
PROVIDERS: ATTEND Surgery
DX: C34.12 Malignant neoplasm of upper lobe, left bronchus or lung (principal); I10 Essential (primary) hypertension; J43.9 Emphysema, unspecified; Z79.899 Other long term (current) drug therapy; Z86.018 Personal history of other benign neoplasm; Z90.49 Acquired absence of other specified parts of digestive tract; G47.30 Sleep apnea, unspecified; E07.9 Disorder of thyroid, unspecified; F17.210 Nicotine dependence, cigarettes, uncomplicated; M19.90 Unspecified osteoarthritis, unspecified site; Z86.73 Personal history of transient ischemic attack (TIA), and cerebral infarction without residual deficits; Z20.828 Contact with and (suspected) exposure to other viral communicable diseases
CPT/HCPCS: 36561; 93005; 36415 ×2; 84132; 85027; 80048; 71045; 77001; 93010; 00532; C1788; U0003; J2250; J3490 ×2; J2405; J0690; J1642; C9803; 532; 87635; J2704; J3010

== ENCOUNTER 2020-04-23 12:30 | Emergency (ER) | payer MEDICARE ==
[2020-04-23] MEDS ORDERED: NORMAL SALINE 1000 ML 1,000 ML IV ONE (13:01)
--- NOTE | 2020-04-23 13:02 | ER Document Report ---
ED Medical Screen (RME) - General Chief Complaint: Abnormal Lab Results Stated Complaint: ABNORMAL LABS Primary Care Provider: HANK THAKUR DO [Primary Care Provider] - Follow up as needed TRAVEL OUTSIDE OF THE [place] IN LAST 30 DAYS: No - HPI Notes: 04/23/20 12:57 74-year-old female with a history of COPD and lung cancer was sent over from Dr. Jimenez's office for a hemoglobin of 5.5. Patient denies any coffee-ground emesis or black tarry stools, denies any history of GI bleed. Patient states she was here couple weeks ago for the same issue was transfused. Dr. Suresh bautista stated he only wanted a CBC, CMP and type and screen, he recommended 2 units of packed red blood cells. patient is denying any chest pain, nausea vomiting or diarrhea. Patient has a baseline history of shortness of breath on exertion due to her COPD and lung cancer. She did receive chemotherapy couple weeks ago. Denies any fevers chills. I have greeted and performed a rapid initial assessment of this patient. A comprehensive ED assessment and evaluation of the patient, analysis of test results and completion of the medical decision making process will be conducted by additional ED providers. PHYSICAL EXAMINATION: GENERAL: Chronically ill malnourished and in no distress HEAD: Atraumatic, normocephalic. EYES: Pupils equal round extraocular movements intact, conjunctiva are normal. NECK: Normal range of motion CV: s1, s2 regular LUNGS: Wheezing in upper lobes 04/23/20 13:01 - Related Data Allergies/Adverse Reactions: adhesive [Adhesive] Allergy (Mild, Verified 04/04/20 06:58) Blisters lisinopril [Lisinopril] Adverse Reaction (Severe, Verified 04/04/20 06:58) cough diphenhydramine [From Benadryl] Adverse Reaction (Mild, Verified 04/04/20 06:58) WEIRD DREAMS ramipril [From Altace] Adverse Reaction (Unknown, Verified 04/04/20 06:58) cough Past Medical History - Past Medical History Cardiac Medical History: Reports: Hx Hypercholesterolemia, Hx Hypertension Denies: Hx Atrial Fibrillation, Hx Congestive Heart Failure, Hx Coronary Artery Disease, Hx Heart Attack, Hx Peripheral Vascular Disease, Hx Pulmonary Embolism, Hx Heart Murmur Pulmonary Medical History: Reports: Hx COPD, Hx Sleep Apnea - c pap Denies: Hx Asthma, Hx Bronchitis, Hx Pneumonia, Hx Respiratory Failure, Hx Tuberculosis Neurological Medical History: Denies: Hx Cerebrovascular Accident, Hx Seizures, Hx Parkinson's Disease Renal/ Medical History: Denies: Hx Ovarian Cysts, Hx Peritoneal Dialysis, Hx Pelvic Inflammatory Disease Malignancy Medical History: Reports: Hx Lung Cancer - rt lobes removed 2005 , upper & mid lungs removed. Denies: Hx Breast Cancer, Hx Cervical Cancer, Hx Leukemia, Hx Ovarian Cancer GI Medical History: Denies: Hx Crohn's Disease, Hx Gastroesophageal Reflux Disease, Hx Hiatal Hernia, Hx Irritable Bowel, Hx Liver Failure, Hx Pancreatitis, Hx Ulcer Musculoskeltal Medical History: Reports Hx Arthritis, Denies Hx Fibromyalgia, D enies Hx Multiple Sclerosis, Denies Hx Muscular Dystrophy Psychiatric Medical History: Reports: Hx Depression - chronic Denies: Hx Bipolar Disorder, Hx Dementia, Hx Post Traumatic Stress Disorder, Hx Schizophrenia Traumatic Medical History: Denies: Hx Fractures Infectious Medical History: Denies: Hx HIV Past Surgical History: Reports: Hx Appendectomy - age 4, Hx Tonsillectomy. Denies: Hx Bowel Surgery, Hx Section, Hx Cholecystectomy, Hx Colostomy, Hx Coronary Artery Bypass Graft, Hx Gastric Bypass Surgery, Hx Herniorrhaphy, Hx Hysterectomy, Hx Mastectomy, Hx Pacemaker, Hx Tubal Ligation - Immunizations Hx Diphtheria, Pertussis, Tetanus Vaccination: Yes Physical Exam - Vital signs Vitals: Temp Pulse Resp BP Pulse Ox 97.7 F 82 16 93/52 L 98 04/23/20 12:38 04/23/20 12:38 04/23/20 12:38 04/23/20 12:38 04/23/20 12:38 Course - Vital Signs Vital signs: Temp Pulse Resp BP Pulse Ox 97.7 F 82 16 93/52 L 98 04/23/20 12:38 04/23/20 12:38 04/23/20 12:38 04/23/20 12:38 04/23/20 12:38 Doctor's Discharge - Discharge Referrals: HANK THAKUR DO [Primary Care Provider] - Follow up as needed
[2020-04-23] MEDS ORDERED: NORMAL SALINE 250 ML IV PRN ×2 (13:59)
[2020-04-23 14:01] LABS: ALBUMIN 3.2 g/dL (3.5-5.0); ALKALINE PHOSPHATASE 103 U/L (38-126); ANION GAP 7 (5-19); ASPARTATE AMINO TRANSFERASE 20 U/L (14-36); BILIRUBIN,DIRECT 0.3 mg/dL (0.0-0.4); BILIRUBIN,TOTAL 1.1 mg/dL (0.2-1.3); BLOOD UREA NITROGEN 11 mg/dL (7-20); CALCIUM 8.9 mg/dL (8.4-10.2); CARBON DIOXIDE 31 mmol/L (22-30); CHLORIDE 94 mmol/L (98-107); GLUCOSE 107 mg/dL (75-110); POTASSIUM 3.4 mmol/L (3.6-5.0); TOTAL PROTEIN 6.1 g/dL (6.3-8.2)
--- NOTE | 2020-04-23 14:22 | ER Document Report ---
Entered by FRANKLIN MIKE SCRIBE 04/23/20 2378 Acting as scribe for:BONNIE TRUJILLO MD ED General - General Chief Complaint: Abnormal Lab Results Stated Complaint: ABNORMAL LABS Time Seen by Provider: 04/23/20 13:41 Primary Care Provider: MANDY JIMENEZ MD [ACTIVE STAFF] - Follow up as needed HANK THAKUR DO [Primary Care Provider] - Follow up as needed Information source: Patient, Outside Facility Records Notes: This 74 year old female patient with known lung cancer presents to the emergency department today with complaints of an outpatient hemoglobin of 5.5. Patient has been anemic for quite some time requiring multiple blood transfusions in the past. Patient mentions "I can tell when it gets low", mentioning she has increased fatigue and feels weak. TRAVEL OUTSIDE OF THE [place] IN LAST 30 DAYS: No - Related Data Allergies/Adverse Reactions: adhesive [Adhesive] Allergy (Mild, Verified 04/23/20 13:33) Blisters lisinopril [Lisinopril] Adverse Reaction (Severe, Verified 04/23/20 13:33) cough diphenhydramine [From Benadryl] Adverse Reaction (Mild, Verified 04/23/20 13:33) WEIRD DREAMS ramipril [From Altace] Adverse Reaction (Unknown, Verified 04/23/20 13:33) cough Past Medical History - General Information source: Patient - Social History Smoking Status: Current Some Day Smoker Cigarette use (# per day): Yes Chew tobacco use (# tins/day): No Frequency of alcohol use: None Drug Abuse: None Lives with: Family Family History: Reviewed & Not Pertinent - Past Medical History Cardiac Medical History: Reports: Hx Hypercholesterolemia, Hx Hypertension Pulmonary Medical History: Reports: Hx COPD, Hx Sleep Apnea - c pap Malignancy Medical History: Reports: Hx Lung Cancer - rt lobes removed 2005 ,upper & mid lungs removed Musculoskeletal Medical History: Reports Hx Arthritis Psychiatric Medical History: Reports: Hx Depression - chronic Past Surgical History: Reports: Hx Appendectomy - age 4, Hx Tonsillectomy - Immunizations Hx Diphtheria, Pertussis, Tetanus Vaccination: Yes Hx Pneumococcal Vaccination: 05/24/11 Review of Systems - Review of Systems Constitutional: See HPI, Other - outpatient hgb of 5.5 EENT: No symptoms reported Cardiovascular: No symptoms reported Respiratory: No symptoms reported Gastrointestinal: No symptoms reported Genitourinary: No symptoms reported Female Genitourinary: No symptoms reported Musculoskeletal: No symptoms reported Skin: No symptoms reported Hematologic/Lymphatic: No symptoms reported Neurological/Psychological: No symptoms reported -: Yes All other systems reviewed and negative Physical Exam - Vital signs Vitals: Temp Pulse Resp BP Pulse Ox 97.7 F 82 16 93/52 L 98 04/23/20 12:38 04/23/20 12:38 04/23/20 12:38 04/23/20 12:38 04/23/20 12:38 - Notes Notes: Physical Exam: General: Alert, pallor, pale conjunctiva and nailbeds. HEENT: Normocephalic. Atraumatic. PERRL. Extraocular movements intact. Oropharynx clear. Neck: Supple. Non-tender. Respiratory: No respiratory distress. Coarse breath sounds bilaterally consistent with smoking history. Cardiovascular: Regular rate and rhythm. Abdominal: Obese. Non-tender. No distension. Normal Bowel Sounds. Back: No gross abnormalities. Extremities: Moves all four extremities. Upper extremities: Normal inspection. Normal ROM. Lower extremities: Trace edema bilaterally. Normal ROM. Neurological: Normal cognition. AAOx4. Normal speech. Psychological: Normal affect. Normal Mood. Skin: Warm. Dry. Pale in color. Course - Re-evaluation Re-evalutation: 04/23/20 15:30 The patient is hypokalemic, she tells me she takes potassium supplements as it is. Dr. Jimenez said her potassium was 2.9 yesterday but today is 3.4 so we are giving her oral potassium supplements. - Vital Signs Vital signs: Temp Pulse Resp BP Pulse Ox 97.7 F 67 19 128/63 H 100 04/23/20 16:01 04/23/20 16:10 04/23/20 16:10 04/23/20 16:01 04/23/20 16:10 - Laboratory Result Diagrams: 04/23/20 15:10 04/23/20 13:16 Laboratory results interpreted by me: 04/23/20 04/23/20 04/23/20 13:16 13:16 15:10 RBC 1.42 L Hgb 4.7 L* Hct 14.0 L* MCV 98 H D RDW 23.0 H Plt Count 94 L Sodium 131.9 L Potassium 3.4 L Chloride 94 L Carbon Dioxide 31 H Total Protein 6.1 L Albumin 3.2 L Crossmatch See Detail Discharge - Discharge Clinical Impression: Anemia associated with chemotherapy Condition: Stable Disposition: HOME, SELF-CARE Additional Instructions: Your potassium and sodium levels were little bit low today. Increase sodium and potassium in your diet as we discussed. Follow-up with Dr. Jimenez 04/30/2020 as scheduled. Call him sooner if any problems Referrals: HANK THAKUR DO [Primary Care Provider] - Follow up as needed MANDY JIMENEZ MD [ACTIVE STAFF] - Follow up as needed I personally performed the services described in the documentation, reviewed and edited the documentation which was dictated to the scribe in my presence, and it accurately records my words and actions.
[2020-04-23 15:24] LABS: ABSOLUTE LYMPHOCYTES (AUTO) 1.1 10^3/uL (0.5-4.7); ABSOLUTE MONOCYTES (AUTO) 0.6 10^3/uL (0.1-1.4); ABSOLUTE NEUT (AUTO) 3.7 10^3/uL (1.7-8.2); BASOPHILS % (AUTO) 0.2 % (0-2); EOSINOPHILS % (AUTO) 0.1 % (0-6); LYMPHOCYTES % (AUTO) 19.6 % (13-45); MEAN CORPUSCULAR HEMOGLOBIN 32.8 pg (27.0-33.4); MEAN CORPUSCULAR HGB CONC 33.3 g/dL (32.0-36.0); MONOCYTES % (AUTO) 11.9 % (3-13); RED BLOOD COUNT 1.42 10^6/uL (3.72-5.28); SEGMENTED NEUTROPHILS % (AUTO) 68.2 % (42-78); TOTAL CELLS COUNTED % (AUTO) 100 %; WHITE BLOOD COUNT 5.4 10^3/uL (4.0-10.5)
[2020-04-23 15:35] LABS: MEAN CORPUSCULAR VOLUME 98 fl (80-97)
[2020-04-23 15:36] LABS: PLATELET COUNT 94 10^3/uL (150-450)
[2020-04-23 15:45] LABS: HEMOGLOBIN 4.7 g/dL (12.0-15.5)
[2020-04-23 20:42] VITALS: BP 127/75
[2020-04-24 14:18] LABS: PATH REVIEW PATHOLOGIST REVIEWED
== END 2020-04-23 20:42 | disposition home or self-care (01) ==
LOC: ER 12:30
DX: C34.90 Malignant neoplasm of unspecified part of unspecified bronchus or lung (principal); D64.81 Anemia due to antineoplastic chemotherapy; T45.1X5A Adverse effect of antineoplastic and immunosuppressive drugs, initial encounter; E87.6 Hypokalemia; R60.0 Localized edema; F17.210 Nicotine dependence, cigarettes, uncomplicated; I10 Essential (primary) hypertension; J44.9 Chronic obstructive pulmonary disease, unspecified; Z79.899 Other long term (current) drug therapy; Z91.048 Other nonmedicinal substance allergy status; Z90.2 Acquired absence of lung [part of]
CPT/HCPCS: 99284; 96360; 86900; 86901; 36415; 36430; 86870; 86850; 86922; 85025; 80053; 86920; P9016; J7030

== ENCOUNTER → 2020-05-13 | Outpatient (CLI) | payer MEDICARE ==
--- NOTE | 2020-05-13 12:52 | RADIOLOGY REPORT (SQ) ---
EXAM DESCRIPTION: CT CHEST WITH; CT ABD/PELVIS WITH IV ONLY IMAGES COMPLETED DATE/TIME: 05/13/2020 11:06 am REASON FOR STUDY: (C34.12)MALIGNANT NEOPLASM OF UPPER LOBE, LEFT BRONCHUS OR LUNG C34.12 MALIGNANT NEOPLASM OF UPPER LOBE, LEFT BRONCHUS OR [facility] CONTRAST TYPE AND DOSE: contrast/concentration: Isovue 350.00 mmol/ml; Total Contrast Delivered: 98. 0 ml; Total Saline Delivered: 25.0 ml RENAL FUNCTION: BUN 11 creatinine 0.71 COMPARISON: 02/05/2020 TECHNIQUE: CT scan of the chest performed using helical scanning technique with dynamic intravenous contrast injection. Images reviewed with lung, soft tissue and bone windows. Reconstructed coronal a nd sagittal MPR images reviewed. All images stored on PACS. All CT scanners at this facility use dose modulation, iterative reconstruction, and/or weight based d osing when appropriate to reduce radiation dose to as low as reasonably achievable (ALARA). [facility]: Dose Right [facility]: CareDose [facility]: Dose Right [facility]: Teradose 4D [facility]: Smart [employer] RADIATION DOSE: CT Rad equipment meets quality standard of care and radiation dose reduction techniq ues were employed. CTDIvol: 7.7 - 16.0 mGy. DLP: 1930 mGy-cm. . LIMITATIONS: None. FINDINGS: AXILLAE: No adenopathy. CHEST WALL: No masses. No subcutaneous air. LUNGS: There is stable, chronic scarring in the left upper lobe and superior segment of the left lowe r lobe. There is no new pulmonary nodule or mass. Stable mild pulmonary fibrosis in the right base. No acute infiltrate. No pleural effusion. PLEURA: See above. THYROID: No masses or significant asymmetry. HILAR AND MEDIASTINAL STRUCTURES: No identified masses or abnormal nodes. AORTA AND GREAT VESSELS: No aneurysm. No dissection. PULMONARY ARTERIES: No identified pulmonary emboli. Study not optimized for the pulmonary arteries. HEART: No pericardial effusion. HARDWARE AND LIFELINES: None. BONES: No significant finding. OTHER: No other significant finding. IMPRESSION: Stable scarring and post radiation changes in the left upper lobe with other chronic fin dings as described. No evidence of metastatic disease in the thorax. COMPARISON: None. RADIATION DOSE: CT Rad equipment meets quality standard of care and radiation dose reduction techniq ues were employed. CTDIvol: 7.7 - 16.0 mGy. DLP: 1930 mGy-cm. mGy. TECHNIQUE: CT scan of the abdomen and pelvis performed with intravenous and oral contrast using serene timbo scanning technique with dynamic intravenous contrast injection. Images reviewed with lung, soft tissue and bone windows. Reconstructed coronal and sagittal MPR images reviewed. Delayed images for evaluation of the urinary system also acquired and evaluated. All images stored on PACS. All CT scanners at this facility use dose modulation, iterative reconstruction, and/or weight based d osing when appropriate to reduce radiation dose to as low as reasonably achievable (ALARA). [facility]: Dose Right [facility]: SureCare [facility]: Dose Right [facility]: Teradose 4D [facility]: [id number] FINDINGS: LIVER: Normal size. No masses. No dilated ducts. SPLEEN: Normal size. No focal lesions. PANCREAS: No masses. No significant calcifications. No adjacent inflammation or peripancreatic flui d collections. Pancreatic duct not dilated. GALLBLADDER: No identified stones by CT criteria. No inflammatory changes to suggest cholecystitis. ADRENAL GLANDS: No significant masses or asymmetry. RIGHT KIDNEY AND URETER: Small cysts are present. No solid masses. No significant calcifications. No hydronephrosis or hydroureter. LEFT KIDNEY AND URETER: Small cysts are present. No solid masses. No significant calcifications. No hydronephrosis or hydroureter. AORTA AND VESSELS: No aneurysm. No dissection. Renal arteries, SMA, celiac without stenosis. RETROPERITONEUM: No retroperitoneal adenopathy, hemorrhage or masses. LARGE AND SMALL BOWEL: Right hemicolectomy. No obvious bowel mass. APPENDIX: Surgically absent. ABDOMINAL WALL: No hernia or masses. PERITONEAL CAVITY: No free air. No free fluid. No peritoneal implants or masses. PELVIS: No mass or free fluid. Normal bladder. BONES: No significant or acute findings. OTHER: No other significant finding. IMPRESSION: There is no metastatic disease in the abdomen or pelvis. Findings as described. TECHNICAL DOCUMENTATION: JOB ID: [id number] Quality ID # [id number]: Final reports with documentation of one or more dose reduction techniques (e.g., Au tomated exposure control, adjustment of the mA and/or kV according to patient size, use of iterative reconstruction technique) 2010 [employer]- All Rights Reserved Reading location - IP/workstation name: [email or web address]
--- NOTE | 2020-05-13 12:52 | RADIOLOGY REPORT (SQ) ---
EXAM DESCRIPTION: CT CHEST WITH; CT ABD/PELVIS WITH IV ONLY IMAGES COMPLETED DATE/TIME: 05/13/2020 11:06 am REASON FOR STUDY: (C34.12)MALIGNANT NEOPLASM OF UPPER LOBE, LEFT BRONCHUS OR LUNG C34.12 MALIGNANT NEOPLASM OF UPPER LOBE, LEFT BRONCHUS OR [facility] CONTRAST TYPE AND DOSE: contrast/concentration: Isovue 350.00 mmol/ml; Total Contrast Delivered: 98. 0 ml; Total Saline Delivered: 25.0 ml RENAL FUNCTION: BUN 11 creatinine 0.71 COMPARISON: 02/05/2020 TECHNIQUE: CT scan of the chest performed using helical scanning technique with dynamic intravenous contrast injection. Images reviewed with lung, soft tissue and bone windows. Reconstructed coronal a nd sagittal MPR images reviewed. All images stored on PACS. All CT scanners at this facility use dose modulation, iterative reconstruction, and/or weight based d osing when appropriate to reduce radiation dose to as low as reasonably achievable (ALARA). [facility]: Dose Right [facility]: CareDose [facility]: Dose Right [facility]: Teradose 4D [facility]: Smart [employer] RADIATION DOSE: CT Rad equipment meets quality standard of care and radiation dose reduction techniq ues were employed. CTDIvol: 7.7 - 16.0 mGy. DLP: 1930 mGy-cm. . LIMITATIONS: None. FINDINGS: AXILLAE: No adenopathy. CHEST WALL: No masses. No subcutaneous air. LUNGS: There is stable, chronic scarring in the left upper lobe and superior segment of the left lowe r lobe. There is no new pulmonary nodule or mass. Stable mild pulmonary fibrosis in the right base. No acute infiltrate. No pleural effusion. PLEURA: See above. THYROID: No masses or significant asymmetry. HILAR AND MEDIASTINAL STRUCTURES: No identified masses or abnormal nodes. AORTA AND GREAT VESSELS: No aneurysm. No dissection. PULMONARY ARTERIES: No identified pulmonary emboli. Study not optimized for the pulmonary arteries. HEART: No pericardial effusion. HARDWARE AND LIFELINES: None. BONES: No significant finding. OTHER: No other significant finding. IMPRESSION: Stable scarring and post radiation changes in the left upper lobe with other chronic fin dings as described. No evidence of metastatic disease in the thorax. COMPARISON: None. RADIATION DOSE: CT Rad equipment meets quality standard of care and radiation dose reduction techniq ues were employed. CTDIvol: 7.7 - 16.0 mGy. DLP: 1930 mGy-cm. mGy. TECHNIQUE: CT scan of the abdomen and pelvis performed with intravenous and oral contrast using serene timbo scanning technique with dynamic intravenous contrast injection. Images reviewed with lung, soft tissue and bone windows. Reconstructed coronal and sagittal MPR images reviewed. Delayed images for evaluation of the urinary system also acquired and evaluated. All images stored on PACS. All CT scanners at this facility use dose modulation, iterative reconstruction, and/or weight based d osing when appropriate to reduce radiation dose to as low as reasonably achievable (ALARA). [facility]: Dose Right [facility]: SureCare [facility]: Dose Right [facility]: Teradose 4D [facility]: [id number] FINDINGS: LIVER: Normal size. No masses. No dilated ducts. SPLEEN: Normal size. No focal lesions. PANCREAS: No masses. No significant calcifications. No adjacent inflammation or peripancreatic flui d collections. Pancreatic duct not dilated. GALLBLADDER: No identified stones by CT criteria. No inflammatory changes to suggest cholecystitis. ADRENAL GLANDS: No significant masses or asymmetry. RIGHT KIDNEY AND URETER: Small cysts are present. No solid masses. No significant calcifications. No hydronephrosis or hydroureter. LEFT KIDNEY AND URETER: Small cysts are present. No solid masses. No significant calcifications. No hydronephrosis or hydroureter. AORTA AND VESSELS: No aneurysm. No dissection. Renal arteries, SMA, celiac without stenosis. RETROPERITONEUM: No retroperitoneal adenopathy, hemorrhage or masses. LARGE AND SMALL BOWEL: Right hemicolectomy. No obvious bowel mass. APPENDIX: Surgically absent. ABDOMINAL WALL: No hernia or masses. PERITONEAL CAVITY: No free air. No free fluid. No peritoneal implants or masses. PELVIS: No mass or free fluid. Normal bladder. BONES: No significant or acute findings. OTHER: No other significant finding. IMPRESSION: There is no metastatic disease in the abdomen or pelvis. Findings as described. TECHNICAL DOCUMENTATION: JOB ID: [id number] Quality ID # 436: Final reports with documentation of one or more dose reduction techniques (e.g., Au tomated exposure control, adjustment of the mA and/or kV according to patient size, use of iterative reconstruction technique) 2010 [employer]- All Rights Reserved Reading location - IP/workstation name: [email or web address]
== END ==
LOC: RAD 10:20
PROVIDERS: ATTEND Internal Medicine
DX: C34.12 Malignant neoplasm of upper lobe, left bronchus or lung (principal)
CPT/HCPCS: 71260; 74177

== ENCOUNTER → 2020-06-18 | Outpatient (CLI) | payer MEDICARE ==
--- NOTE | 2020-06-18 14:39 | RADIOLOGY REPORT (SQ) ---
EXAM DESCRIPTION: MRI HEAD COMBO IMAGES COMPLETED DATE/TIME: 06/18/2020 2:05 pm REASON FOR STUDY: C34.12 MALIGNANT NEOPLASM OF UPPER LOBE, LEFT BRONCHUS OR LUNG C34.12 MALIGNANT N EOPLASM OF UPPER LOBE, LEFT BRONCHUS OR [facility] COMPARISON: CT dated 11/22/2019. MR dated 07/18/2019. TECHNIQUE: Multiplanar imaging includes noncontrasted T1, T2, FLAIR, and Diffusion with ADC map seq uences. Contrast enhanced T1 images. Images stored on PACS. CONTRAST TYPE AND DOSE: 15 mL Prohance. RENAL FUNCTION: Not indicated. ACR Type II contrast agent associated with few, if any, unconfounded cases of NSF LIMITATIONS: None. FINDINGS: ANATOMY: No anomalies. Normal vascular flow voids. Pituitary fossa normal. CSF SPACES: Normal size and contour. No hemorrhage. CEREBRUM: A few high-signal intensity lesions scattered throughout the white matter on FLAIR imaging with distribution suggesting chronic microvascular ischemic change. Sulci and gyri normal in size and contour. No evidence of hemorrhage, mass or extraaxial fluid collection. No enhancing lesions. POSTERIOR FOSSA: No signal alteration. No hemorrhage. No edema, masses or mass effect. Internal audit ory canals, cerebello-pontine angles, mastoids normal. DIFFUSION: Negative for acute or subacute infarction. ORBITS: No masses. Globes normal. PARANASAL SINUSES: No fluid levels. Mucous membrane thickening in the left maxillary sinus. OTHER: No other significant finding. IMPRESSION: NO ENHANCING LESIONS. MILD MICROVASCULAR ISCHEMIC CHANGE. OTHERWISE NORMAL STUDY. EVIDENCE OF ACUTE STROKE: NO. TECHNICAL DOCUMENTATION: JOB ID: [id number] [employer]- All Rights Reserved Reading location - IP/workstation name: [email or web address]
== END ==
LOC: RAD 12:48
PROVIDERS: ATTEND Internal Medicine
DX: C34.12 Malignant neoplasm of upper lobe, left bronchus or lung (principal)
CPT/HCPCS: 82565; 70553; A9576; J1642